=== PATIENT | female | born 1930 | race American Indian/Alaskan Native ===

== ENCOUNTER 2016-03-18 10:43 | Outpatient (RCR) | payer MEDICARE, BC ==
[~2016-03-18 10:43] MED LIST: ACHD5005 PO; ATEN25TA PO; CEPH500C PO; DIPH-639 PO; DOXY100C2 PO; FURO40TA4 PO; HYDR-3729 PO; HYDR1TAB PO; LEVO50TA6 PO; NITR100C3 PO; POTA10CA43 PO; POTA99TA21 PO; PRD20T PO; SULF1TAB38 PO; THYROID MEDICATION; WARF-48 PO; WRF1T PO; [UNRECOGNIZED DRUG - REMARK]
--- OUTSIDE RECORDS SUMMARY | 2016-03-18 10:48 | XMS REPORT | Continuity of Care Document ---
Author Author [facility] Organization [facility] Address Unknown Phone Unavailable Care Team Providers Care Set Making Machine Operator Name Role Phone Gregg Jackson PCP [phone] Source Comments Some departments are not documenting in the electronic medical record. If you do not see the information that you expected, contact Release of Information in the Health Information Management department at [phone] for further assistance in locating additional records.[facility] Active Allergies and Adverse Reactions Allergen Noted Date Severity Reactions Comments Morphine 07/06/2008 AGITATION, MENTAL STATUS CHANGES Current Medications Prescription Sig. Disp. Refills Start End Date Status Date levothyroxine (SYNTHROID) Take 1 Tab by mouth 03/26/19 Active 50 mcg tablet Daily. 08 warfarin (COUMADIN) 5 mg Take by mouth Daily. 1 03/26/19 Active tablet tablet daily 08 hydrochlorothiazide 12.5 Take 10-12.5 mg by mouth 03/26/19 Active mg capsule Daily. Lising-HCTZ 08 10/12.5mg daily carvedilol (COREG) 12.5 Take 1 Tab by mouth Twice Active mg tablet Daily With Meals. tolterodine LA, +, Take 1 Cap by mouth Active (DETROL LA) 4 mg capsule Daily. sertraline (ZOLOFT) 50 mg Take 1 Tab by mouth Active tablet Daily. potassium chloride Take 1 Tab by mouth Twice Active (KLOR-CON 10) 10 mEq Daily. tablet lisinopril 10 mg Tab 10 Take 1 Tab by mouth Active mg, hydrochlorothiazide Daily. 12.5 mg Cap 12.5 mg per each dose furosemide (LASIX) 40 mg Take 1 Tab by mouth Active tablet Daily. AMOXICILLIN TRIHYDRATE Take 500 mg by mouth. Active (AMOXICILLIN PO) doxylamine,+, (UNISOM) 25 Take 25 mg by mouth At Active mg tablet Bedtime as needed. oxycodone/acetaminophen Take 1-2 Tabs by mouth 45 0 08/08/19 Active (PERCOCET) 5/325 mg Every 4 Hours as needed 09 tablet for Pain. senna/docusate Take 2 Tabs by mouth 50 0 08/08/19 Active (SENOKOT-S) 8.6/50 mg Twice Daily. 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 Severe headache 03/26/2007 Social History Tobacco Use Types Packs/Day Years Used Date Former Smoker Cigarettes 4 50 Comments: quit 2007 Alcohol Use Drinks/Week oz/Week Comments Yes daily a beer or mixed drink Last Filed Vital Signs Vital Sign Reading Time Taken Blood Pressure 125/53 08/08/2008 8:05 AM CDT Pulse 85 08/08/2008 8:05 AM CDT Temperature 36.7 C (98.1 F) 08/08/2008 8:05 AM CDT Respiratory Rate - - Height 1.575 m (5' 2") 08/05/2008 8:00 AM CDT Weight 69 kg (152 lb 1.9 oz) 08/05/2008 8:00 AM CDT Body Mass Index 27.82 08/05/2008 8:00 AM CDT Oxygen Saturation 98% 08/08/2008 8:05 AM CDT Plan of Care Health Maintenance Due Date Last Done Comments Physical (Comprehensive) 1937 Exam Pertussis Vaccine 1941 Tetanus Vaccine 05/10/1947 Breast Cancer Screening 1970 Shingles Vaccine 1990 Osteoporosis Screening 05/10/1995 Prevnar/Pneumovax (#1) 05/10/1995 Influenza Vaccine 11/01/2014 Results from Last 3 Months Not on file
[2016-03-18 11:30] LABS: INR 1.3 (0.8-1.4); PROTHROMBIN TIME PATIENT 15.7 SEC (12.2-14.7)
== END 2016-06-16 | disposition home or self-care (01) ==
LOC: LAB 10:43
PROVIDERS: ATTEND Family Medicine
DX: Z51.81 Encounter for therapeutic drug level monitoring (principal); Z79.01 Long term (current) use of anticoagulants
CPT/HCPCS: 36415; 85610

== ENCOUNTER → 2016-05-08 | Outpatient (CLI) | payer MEDICARE, BC ==
--- OUTSIDE RECORDS SUMMARY | 2016-05-08 09:57 | XMS REPORT | Continuity of Care Document ---
Author Author [facility] Organization [facility] Address Unknown Phone Unavailable Care Team Providers Care Data Analyst Name Role Phone Gregg Jackson PCP [phone] Source Comments Some departments are not documenting in the electronic medical record. If you do not see the information that you expected, contact Release of Information in the Health Information Management department at [phone] for further assistance in locating additional records.[facility] Active Allergies and Adverse Reactions Allergen [...]
[2016-05-08 11:01] LABS: THYROID STIMULATING HORMONE 2.36 UIU/ML (0.35-4.94)
== END ==
LOC: LAB 09:53
PROVIDERS: ATTEND Family Medicine
DX: E03.9 Hypothyroidism, unspecified (principal)
CPT/HCPCS: 36415; 84439; 84443

== ENCOUNTER → 2016-05-23 | Outpatient (CLI) | payer MEDICARE, BC ==
--- NOTE | 2016-05-23 14:03 | Diagnostic Imaging Report ---
Examination: DEXA scan. Indication: osteopenia Technique: Bone mineral density estimated based on dual energy radiography over the lumbar spine and femoral necks, was performed. Findings: The lumbar spine T-score is 0.6. 5 T score over the right femoral neck is -0.5 and on the left side is -0.5. IMPRESSION: Bone mineral density within normal limits. Dictated by: Dictated on workstation # [id number]
== END ==
LOC: RAD 09:00
PROVIDERS: ATTEND Family Medicine
DX: Z13.820 Encounter for screening for osteoporosis (principal); M89.9 Disorder of bone, unspecified
CPT/HCPCS: 77080

== ENCOUNTER 2016-09-29 07:36 | Emergency (ER) | payer BC, MEDICARE ==
[~2016-09-29] VITALS: Ht 167.6 cm; Wt 68.0 kg
--- NOTE | 2016-09-29 07:55 | ED Back Pain ---
General Chief Complaint: Back Problems Stated Complaint: BACK PAIN Source of Information: Patient, Family (daughter) Exam Limitations: No Limitations History of Present Illness Time Seen by Provider: 07:49 Initial Comments Patient presents to ER with approximate 2 days of back pain that is presently at 8 out of 10. She is not able to tolerate the pain. She says it is in the lower back midline and radiates to the left and right side of her hips but does not radiate down into her legs there is no numbness, or new incontinence of bowel or bladder. However she does have occasional overflow incontinence of urine for several years. She is not having a cough fever or malaise nausea vomiting diarrhea or pain anywhere else. She's not having any confusion. She has not taken anything for it. She takes Tylenol last night but does not feel this helped much. She does not have a back brace. She's had no falls or weakness. No tingling or numbness. 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 Patient states in the past when she gets back pain like this [employer] has worked very well for her pain. Allergies and Home Medications Allergies Coded Allergies: TOBINANo Known Allergies (Verified Allergy, Unknown, 06/22/05) Home Medications Atenolol 25 Mg Tablet, 25 MG PO DAILY, (Reported) Cephalexin 500 Mg Capsule, 500 MG PO Q8H, (Reported) #30 CAPSULES FILLED 06-08-15 Diphenhydramine HCl 25 Mg Capsule, 25 MG PO HS, (Reported) Furosemide 40 Mg Tablet, 40 MG PO DAILY, (Reported) Levothyroxine Sodium 50 Mcg Tablet, 50 MCG PO DAILY, (Reported) Potassium Gluconate 99 Mg Tablet, 99 MG PO DAILY, (Reported) Warfarin Sodium 5 Mg Tablet, 2.5 MG PO DAILY, (Reported) TAKES 1/2 (5MG) TABLET Constitutional: No chills, No diaphoresis, No fever, No malaise, No weakness EENTM: No blurred vision, No double vision Respiratory: No cough, No short of breath, No wheezing Cardiovascular: No chest pain, No edema, No palpitations, No syncope, No vascular heart diseas Gastrointestinal: No constipation, No diarrhea, No nausea, other (no incontinence of stool) Genitourinary: No discharge, No dysuria, incontinence (chronic stress incontinence) : No Musculoskeletal: see HPI, back pain, No joint pain Skin: No pruritus, No rash Psychiatric/Neurological: Denies Headache, Denies Numbness, Denies Paresthesia , Denies Seizure, Denies Tingling, Denies Weakness Past [place]oqe-Mzmvzy-[place] Hx Patient Social History Alcohol Use: Denies Use Recreational Drug Use: No Smoking Status: Unknown if Ever Smoked Former Smoker/When Quit: Jun 09, 2015 Recent Foreign Travel: No Contact w/Someone Who Travel: No Immunizations Up To Date Tetanus Booster (TDap): Less than 5yrs Date of Pneumonia Vaccine: Jun 19, 2014 Date of Influenza Vaccine: Nov 16, 2011 Seasonal Allergies Seasonal Allergies: No Surgeries HX Surgeries: Yes (COLON, BRAIN, SKIN CA REMOVAL L LEG) Surgeries: Abdominal, Breast Respiratory Hx Respiratory Disorders: Yes Respiratory Disorders: Asthma, COPD, Emphysema Cardiovascular Hx Cardiac Disorders: Yes Cardiac Disorders: Aneurysm, Atrial Fibrillation, Deep Vein Thrombosis Neurological Hx Neurological Disorders: Yes Neurological Disorders: Stroke Genitourinary Hx Genitourinary Disorders: No Genitourinary Disorders: UTI-Chronic Gastrointestinal Hx Gastrointestinal Disorders: Yes Gastrointestinal Disorders: Gastroesophageal Reflux Musculoskeletal Hx Musculoskeletal Disorders: Yes Musculoskeletal Disorders: Fibromyalgia Endocrine Hx Endocrine Disorders: Yes Endocrine Disorders: Hypothyroidsim HEENT HX ENT Disorders: No Cancer 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, Cervical Psychosocial Hx Psychiatric Problems: Yes Behavioral Health Disorders: Anxiety Integumentary HX Skin/Integumentary Disorder: No Blood Transfusions Hx Blood Disorders: No Physical Exam Vital Signs Vital Sign - Last 12Hours 09/29/16 07:58 Temp 98.1 Pulse 70 Resp 16 B/P (MAP) 160/63 Pulse Ox 98 O2 Delivery Room Air Capillary Refill : General Appearance: No Apparent Distress, Mild Distress Neck: Full Range of Motion, Normal Inspection, Non Tender, Supple Cardiovascular: Regular Rate, Rhythm, No Edema, Systolic Murmur Respiratory: Chest Non Tender, Lungs Clear, Normal Breath Sounds Peripheral Pulses: 3+ Dorsalis Pedis (R), 3+ Left Dors-Pedis (L), 3+ Radial Pulses (R), 3+ Radial Pulses (L) Gastrointestinal: Normal Bowel Sounds, No Pulsatile Mass, Non Tender, Soft Back: Normal Inspection, Muscle Spasm, Vertebral Tenderness (over the lumbar region and her lumbar muscles) Extremity: Normal Capillary Refill, Normal Range of Motion (walked in with a normal gait), No Pedal Edema Neurologic/Psychiatric: Alert, Oriented x3, No Motor/Sensory Deficits Skin: Normal Color, Warm/Dry Progress/Results/Core Measures Results/Orders My Orders Orders - JENSEN SAAVEDRA Ketorolac Injection (Toradol Injection) (09/29/16 08:00) Orphenadrine Injection (Norflex Injectio (09/29/16 08:00) Prednisone Tablet (Deltasone Tablet) (09/29/16 08:00) Vital Signs/I&O Vital Sign - Last 12Hours 09/29/16 07:58 Temp 98.1 Pulse 70 Resp 16 B/P (MAP) 160/63 Pulse Ox 98 O2 Delivery Room Air Progress Note : Time: 08:07 Progress Note Other than age patient has no risk factors. She has a history of chronic lumbago that is intermittent. We'll treat her appropriately and gave her specific return instructions to see her PCP if not having some improvement in 1- 2 weeks. At that time then she may merit some imaging but 2 days of classic lumbago without red flags we will just initiate conservative therapy this time. It seems her main concern is that she has plans to travel with her daughter up the [facility] next weekend and wants to make sure that she will be feeling better by then. Departure Impression Impression: Primary Impression: Back pain Qualified Codes: M54.5 - Low back pain Disposition: 01 HOME, SELF-CARE Condition: Improved Departure-Patient Inst. Decision time for Depature: 08:08 Referrals: TANISHA OLMSTEAD DO (PCP/Family) Primary Care Physician Patient Instructions: Lumbar Muscle Strain (DC) Add. Discharge Instructions: Take the Naprosyn by mouth twice daily. If you're not having improvement within 1-2 weeks you should follow up with your primary care physician. Apply heat to your back using heating pad or icy hot or other cream. You should also wear the back brace on every day that it helps you. Follow up with your primary care physician for further management if needed. Use the Tylenol 1000 mg every 8 hours as needed for breakthrough pain. Also you have been given a muscle relaxant to be used twice daily as needed. You should not drink while under the influence of the muscle relaxant as this will cause you to be very drowsy. No operating heavy machinery, driving or drinking and contracts while under the influence of muscle relaxants. If you started having numbness or weakness in the legs or arms or you have incontinence of your bowel or bladder more than usual then you should return to the ER for further evaluation. If you start having shortness of breath, chest pain or stomach pain you should immediately stop the Naprosyn and call your primary doctor or return to the ER which ever is appropriate. You should contact your doctor Friday to have your INR checked 2-3 days after starting Naprosyn as this may increase your Coumadin levels and cause you to have easier bleeding. Tomorrow start taking 40 mg of prednisone daily for the next 4 days. Prednisone may cause a little flushing in the face, insomnia, increased blood pressure while you're on the medicine. All discharge instructions reviewed with patient and/or family. Voiced understanding. Scripts Cyclobenzaprine HCl (Cyclobenzaprine HCl) 10 Mg Tablet 10 MG PO BID Y for SPASMS, #20 TAB 0 Refills Prov: JENSEN SAAVEDRA 09/29/16 Naproxen (Naprosyn) 500 Mg Tablet 500 MG PO BID for 14 Days, #30 TAB 0 Refills Prov: JENSEN SAAVEDRA 09/29/16 Copy Copies To 1: TANISHA OLMSTEAD DO JENSEN SAAVEDRA Sep 29, 2016 07:55
[2016-09-29] MEDS ORDERED: KETOROLAC 30 MG/ML VIAL ONE (07:58)
[2016-09-29] MEDS ORDERED: KETOROLAC 15 MG/ML VIAL IM ONE (08:00)
[2016-09-29] MEDS ORDERED: ORPHENADRINE 60 MG/2 ML (NORFLEX) AMP IM ONE (08:00)
[2016-09-29] MEDS ORDERED: predniSONE 20 MG TAB PO ONE (08:00)
[2016-09-29] MEDS ORDERED: NAPR500T PO ×2 (08:12→08:23)
[2016-09-29] MEDS ORDERED: CYCL10TA9 PO ×2 (08:12→08:23)
[2016-09-29] MEDS ORDERED: PRD20T PO ×2 (08:18→08:23)
[2016-09-29 08:34] VITALS: BP 152/70
== END 2016-09-29 08:34 | disposition home or self-care (01) ==
LOC: EDUNIT# 07:36 → ER 07:36
DX: M54.5 Low back pain (principal); J43.9 Emphysema, unspecified; I48.91 Unspecified atrial fibrillation; E03.9 Hypothyroidism, unspecified; F41.9 Anxiety disorder, unspecified; K21.9 Gastro-esophageal reflux disease without esophagitis; Z85.41 Personal history of malignant neoplasm of cervix uteri; Z86.73 Personal history of transient ischemic attack (TIA), and cerebral infarction without residual deficits; Z85.3 Personal history of malignant neoplasm of breast; Z85.038 Personal history of other malignant neoplasm of large intestine; Z86.718 Personal history of other venous thrombosis and embolism; Z79.01 Long term (current) use of anticoagulants
CPT/HCPCS: 96372; 99284

== ENCOUNTER 2017-06-29 09:00 | Emergency (ER) | payer MEDICARE, BC ==
[~2017-06-29] VITALS: Ht 157.5 cm; Wt 68.0 kg
[~2017-06-29 09:00] MED LIST changes: +CYCL10TA9 PO; +NAPR-1071 PO
--- OUTSIDE RECORDS SUMMARY | 2017-06-29 09:06 | XMS REPORT | Clinical Summary ---
Author Author [facility] Organization [facility] Address Unknown Phone Unavailable Care Team Providers Care Ocean Freight Manager Name Role Phone EdgarGregg solitario PCP Donny Bello MD Unavailable Benny Bustamante MD Unavailable Source Comments Some departments are not documenting in the electronic medical record. If you do not see the information that you expected, contact Release of Information in the Health Information Management department at [phone] for further assistance in locating additional records.[facility] Allergies Active Allergy Reactions Severity Noted Date Comments Morphine AGITATION, MENTAL STATUS 07/06/2008 CHANGES Current Medications Prescription Sig. Disp. Refills [...] Yes daily a beer or mixed drink Sex Assigned at Date Recorded Not on file Last Filed Vital Signs Vital Sign Reading Time Taken Blood Pressure 125/53 08/08/2008 8:05 AM CDT Pulse 85 08/08/2008 8:05 AM CDT Temperature 36.7 C (98.1 F) 08/08/2008 8:05 AM CDT Respiratory Rate - - Oxygen Saturation 98% 08/08/2008 8:05 AM CDT Inhaled Oxygen - - Concentration Weight 69 kg (152 lb 1.9 oz) 08/05/2008 8:00 AM CDT Height 157.5 cm (5' 2") 08/05/2008 8:00 AM CDT Body Mass Index 27.82 08/05/2008 8:00 AM CDT Plan of Treatment Health Maintenance Due Date Last Done Comments PHYSICAL (COMPREHENSIVE) 1937 EXAM PERTUSSIS VACCINE 1941 TETANUS VACCINE 05/10/1947 SHINGLES VACCINE 1990 OSTEOPOROSIS SCREENING 05/10/1995 PREVNAR/PNEUMOVAX (#1) 05/10/1995 INFLUENZA VACCINE 12/01/2017 Results Not on filefrom Last 3 Months
--- OUTSIDE RECORDS SUMMARY | 2017-06-29 09:08 | XMS REPORT | Continuity of Care Document ---
Author Author [facility] Organization [facility] Address Unknown Phone Unavailable Allergies Active Description Code Type Severity Reaction Onset Reported/Identified Relationship to Patient Clinical Status Yes NKANo Known Allergies NKA Miscellaneous Allergy Unknown N/A 06/22/2005 Medications There is no data. 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 01/30/1199 DARSHAN MARTINI MD Ot L97.222 NON-PRESSURE CHRONIC ULCER OF LEFT CALF 01/30/1199 DARSHAN MARTINI MD Ot Z72.0 TOBACCO USE 11/24/2011 Ot 305.1 TOBACCO USE DISORDER 11/24/2011 Ot 466.0 ACUTE BRONCHITIS 11/24/2011 Ot 784.0 HEADACHE 11/24/2011 Ot 786.05 SHORTNESS OF BREATH 11/24/2011 Ot 787.02 NAUSEA ALONE 11/24/2011 Ot V58.61 ANTICOAGULANTS,LT,CURRENT USE 11/24/2011 Ot V58.69 OTH MED,LT, CURRENT USE 08/16/2012 TYE SANTIAGO, ISAIAS Soto Ot 729.5 PAIN IN LIMB 08/16/2012 TYE SANTIAGO, ISAIAS Soto Ot 789.09 ABDOMINAL PAIN, OTHER SPECIFIED SITE 08/16/2012 ISAIAS GAMBLE MD Ot V58.61 ANTICOAGULANTS,LT,CURRENT USE 08/16/2012 ISAIAS GAMBLE MD Ot V58.69 OTH MED,LT,CURRENT USE 08/28/2012 CASSIDY SANTIAGO, CHACORTA Louise Ot 599.0 URIN TRACT INFECTION NOS 08/28/2012 CHACORTA BENJAMIN MD Ot 724.2 LUMBAGO 08/28/2012 CHACORTA BENJAMIN MD Ot 789.09 ABDOMINAL PAIN, OTHER SPECIFIED SITE 08/28/2012 CHACORTA BENJAMIN MD Ot 807.01 FRACTURE ONE RIB-CLOSED 08/28/2012 CHACORTA BENJAMIN MD Ot E000.8 OTHER EXTERNAL CAUSE STATUS 08/28/2012 CHACORTA BENJAMIN MD Ot E928.9 ACCIDENT NOS 10/11/2012 CHACORTA BENJAMIN MD Ot 599.0 URIN TRACT INFECTION NOS 10/11/2012 CHACORTA BENJAMIN MD Ot 788.1 DYSURIA 04/11/2014 TANISHA OLMSTEAD DO Ot 244.9 10/07/2014 CHACORTA BENJAMIN MD Ot 916.0 ABRASION HIP LEG 10/07/2014 CHACORTA BENJAMIN MD Ot 922.1 CONTUSION OF CHEST WALL 10/07/2014 CHACORTA BENJAMIN MD Ot 959.11 OTH INJURY OF CHEST WALL 10/07/2014 CHACORTA BENJAMIN MD Ot E000.8 OTHER EXTERNAL CAUSE STATUS 10/07/2014 CHACORTA BENJAMIN MD Ot E849.0 ACCIDENT IN HOME 10/07/2014 CHACORTA BENJAMIN MD Ot E880.9 FALL ON STAIR/STEP NEC 10/07/2014 CHACORTA BENJAMIN MD Ot V12.51 HX-VENOUS THROMBOSIS EMBOLISM 10/07/2014 CHACORTA BENJAMIN MD Ot V58.61 ANTICOAGULANTS,LT,CURRENT USE 11/27/2014 RICKI CARDENAS MD Ot 723.1 CERVICALGIA 11/27/2014 RICKI CARDENAS MD Ot 729.1 MYALGIA AND MYOSITIS NOS 05/15/2015 Ot 780.2 05/15/2015 TANISHA OLMSTEAD DO Ot 244.9 06/04/2015 Ot F17.210 NICOTINE DEPENDENCE, CIGARETTES, UNCOMPL 06/04/2015 Ot I73.9 PERIPHERAL VASCULAR DISEASE, UNSPECIFIED 06/04/2015 Ot S81.802A UNSPECIFIED OPEN WOUND, LEFT LOWER LEG, 06/04/2015 Ot X58.XXXA EXPOSURE TO OTHER SPECIFIED FACTORS, INI 06/04/2015 Ot Y99.8 OTHER EXTERNAL CAUSE STATUS 06/06/2015 TANISHA OLMSTEAD DO Ot E03.9 06/08/2015 DARSHAN MARTINI MD Ot I70.242 06/08/2015 DARSHAN MARTINI MD Ot I87.332 06/08/2015 DARSHAN MARTINI MD Ot L97.222 06/08/2015 DARSHAN MARTINI MD Ot Z72.0 06/10/2015 Ot F17.210 06/10/2015 Ot I73.9 06/10/2015 Ot S81.802A 06/10/2015 Ot X58.XXXA 06/10/2015 Ot Y99.8 06/13/2015 DARSHAN MARTINI MD Ot I70.242 06/13/2015 DARSHAN MARTINI MD Ot I87.332 06/13/2015 DARSHAN MARTINI MD Ot L97.222 06/13/2015 DARSHAN MARTINI MD Ot Z72.0 06/20/2015 SALOME SANTIAGO FACC, JENNIFER FACP CCDS Ot E03.9 HYPOTHYROIDISM, UNSPECIFIED 06/20/2015 SALOME SANTIAGO FACAbner, ALI FACP CCDS Ot F17.210 NICOTINE DEPENDENCE, CIGARETTES, UNCOMPL 06/20/2015 SALOME SANTIAGO FACC, ALI FACP CCDS Ot I10 ESSENTIAL (PRIMARY) HYPERTENSION 06/20/2015 SALOME SANTIAGO FACAbner, ALI FACP CCDS Ot I70.0 ATHEROSCLEROSIS OF AORTA 06/20/2015 SALOME SANTIAGO FACC, ALI FACP CCDS Ot J44.9 CHRONIC OBSTRUCTIVE PULMONARY DISEASE, U 06/20/2015 SALOME SANTIAGO FACAbner, ALI FACP CCDS Ot 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 06/20/2015 SALOME SANTIAGO FACC, ALI FACP CCDS Ot M79.89 OTHER SPECIFIED SOFT TISSUE DISORDERS 06/20/2015 SALOME SANTIAGO FACC, ALI FACP CCDS Ot Z79.01 MCFP (CURRENT) USE OF ANTICOAGULANT 06/20/2015 SALOME SANTIAGO FACC, ALI FACP CCDS Ot Z79.899 OTHER MCFP (CURRENT) DRUG THERAPY 06/20/2015 SALOME SANTIAGO FACC, ALI FACP CCDS Ot Z86.718 PERSONAL HISTORY OF OTHER VENOUS THROMBO 06/26/2015 DARSHAN MARTINI MD Ot 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 06/26/2015 DARSHAN MARTINI MD Ot 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 06/26/2015 DARSHAN MARTINI MD, Ot L97.222 NON-PRESSURE CHRONIC ULCER OF LEFT CALF 06/26/2015 DARSHAN MARTINI MD, Ot Z72.0 TOBACCO USE 06/27/2015 DARSHAN MARTINI MD, Ot 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 06/27/2015 DARSHAN MARTINI MD, Ot 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 06/27/2015 DARSHAN MARTINI MD, Ot L97.222 NON-PRESSURE CHRONIC ULCER OF LEFT CALF 06/27/2015 DARSHAN MARTINI MD, Ot Z72.0 TOBACCO USE 07/03/2015 SALOME SNIDERC, ALI FACP CCDS Ot E03.9 HYPOTHYROIDISM, UNSPECIFIED 07/03/2015 SALOME SANTIAGO FACC, ALI FACP CCDS Ot F17.210 NICOTINE DEPENDENCE, CIGARETTES, UNCOMPL 07/03/2015 SALOME SANTIAGO FACC, ALI FACP CCDS Ot I10 ESSENTIAL (PRIMARY) HYPERTENSION 07/03/2015 SALOME SNIDERC, ALI FACP CCDS Ot I70.0 ATHEROSCLEROSIS OF AORTA 07/03/2015 SALOME SNIDERC, ALI FACP CCDS Ot J44.9 CHRONIC OBSTRUCTIVE PULMONARY DISEASE, U 07/03/2015 SALOME SANTIAGO FACAbner, ALI FACP CCDS Ot 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 07/03/2015 SALOME SANTIAGO FACC, ALI FACP CCDS Ot M79.89 OTHER SPECIFIED SOFT TISSUE DISORDERS 07/03/2015 SALOME SANTIAGO FACC, ALI FACP CCDS Ot Z79.01 MCFP (CURRENT) USE OF ANTICOAGULANT 07/03/2015 SALOME SANTIAGO FACC, ALI FACP CCDS Ot Z79.899 OTHER DIRECTOR OF MUSIC THERAPY (CURRENT) DRUG THERAPY 07/03/2015 SALOME SANTIAGO FACC, ALI FACP CCDS Ot Z86.718 PERSONAL HISTORY OF OTHER VENOUS THROMBO 07/05/2015 DARSHAN MARTINI MD, Ot I70.242 ATHSCL CRAIG ARTERIES OF LEFT LEG W C 07/05/2015 DARSAHN MARTINI MD, Ot 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 07/05/2015 DARSHAN MARTINI MD, Ot L97.222 NON-PRESSURE CHRONIC ULCER OF LEFT CALF 07/05/2015 DARSHAN MARTINI MD, Ot Z72.0 TOBACCO USE 07/06/2015 DARSHAN MARTINI MD, Ot I70.242 ATHSCL CRAIG ARTERIES OF LEFT LEG W [facility] 07/06/2015 DARSHAN MARTINI MD, Ot 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 07/06/2015 DARSHAN MARTINI MD, Ot L97.222 NON-PRESSURE CHRONIC ULCER OF LEFT CALF 07/06/2015 DARSHAN MARTINI MD, Ot Z72.0 TOBACCO USE 01/08/2016 Ot 780.2 SYNCOPE AND COLLAPSE 01/08/2016 TANISHA OLMSTEAD DO Ot 244.9 HYPOTHYROIDISM NOS 01/08/2016 TANISHA OLMSTEAD DO Ot E03.9 HYPOTHYROIDISM, UNSPECIFIED 01/08/2016 DARSHAN MARTINI MD, Ot I70.242 ATHSCL CRAIG ARTERIES OF LEFT LEG W [facility] 01/08/2016 DARSHAN MARTINI MD, Ot 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 01/08/2016 DARSHAN MARTINI MD, Ot L97.222 NON-PRESSURE CHRONIC ULCER OF LEFT CALF 01/08/2016 DARSHAN MARTINI MD, Ot Z72.0 TOBACCO USE 01/08/2016 DARSHAN MARTINI MD, Ot I70.242 ATHSCL CRAIG ARTERIES OF LEFT LEG W [facility] 01/08/2016 DARSHAN MARTINI MD, Ot 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 01/08/2016 DARSHAN MARTINI MD, Ot L97.222 NON-PRESSURE CHRONIC ULCER OF LEFT CALF 01/08/2016 DARSHAN MARTINI MD, Ot Z72.0 TOBACCO USE 01/09/2016 TANISHA OLMSTEAD DO Ot E03.9 HYPOTHYROIDISM, UNSPECIFIED 01/30/2016 TANISHA OLMSTEAD DO Ot E03.9 HYPOTHYROIDISM, UNSPECIFIED 04/24/2016 TANISHA OLMSTEAD DO Ot Z51.81 ENCOUNTER FOR THERAPEUTIC DRUG LEVEL MON 04/24/2016 TANISHA OLMSTEAD DO, Ot Z79.01 DIRECTOR OF MUSIC THERAPY (CURRENT) USE OF ANTICOAGULANT 05/23/2016 TANISHA OLMSTEAD DO Ot M89.9 DISORDER OF BONE, UNSPECIFIED 05/23/2016 TANISHA OLMSTEAD DO Ot Z13.820 ENCOUNTER FOR SCREENING FOR OSTEOPOROSIS 05/24/2016 TANISHA OLMSTEAD DO Ot M89.9 DISORDER OF BONE, UNSPECIFIED 05/24/2016 TANISHA OLMSTEAD DO Ot Z13.820 ENCOUNTER FOR SCREENING FOR OSTEOPOROSIS 05/29/2016 TANISHA OLMSTEAD DO Ot E03.9 HYPOTHYROIDISM, UNSPECIFIED 06/13/2016 TANISHA OLMSTEAD DO Ot M89.9 DISORDER OF BONE, UNSPECIFIED 06/13/2016 TANISHA OLMSTEAD DO Ot Z13.820 ENCOUNTER FOR SCREENING FOR OSTEOPOROSIS 06/16/2016 TANISHA OLMSTEAD DO Ot Z51.81 ENCOUNTER FOR THERAPEUTIC DRUG LEVEL MON 06/16/2016 TANISHA OLMSTEAD DO Ot Z79.01 MCFP (CURRENT) USE OF ANTICOAGULANT 09/29/2016 JENSEN SAAVEDRA MD Ot E03.9 HYPOTHYROIDISM, UNSPECIFIED 09/29/2016 JENSEN SAAVEDRA MD Ot F41.9 ANXIETY DISORDER, UNSPECIFIED 09/29/2016 JENSEN SAAVEDRA MD Ot I48.91 UNSPECIFIED ATRIAL FIBRILLATION 09/29/2016 JENSEN SAAVEDRA MD Ot J43.9 EMPHYSEMA, UNSPECIFIED 09/29/2016 JENSEN SAAVEDRA MD Ot K21.9 GASTRO-ESOPHAGEAL REFLUX DISEASE WITHOUT 09/29/2016 JENSEN SAAVEDRA MD Ot M54.5 LOW BACK PAIN 09/29/2016 JENSEN SAAVEDRA MD Ot Z79.01 MCFP (CURRENT) USE OF ANTICOAGULANT 09/29/2016 JENSEN SAAVEDRA MD Ot Z85.038 PERSONAL HISTORY OF MALIGNANT NEOPLASM O 09/29/2016 JENSEN SAAVEDRA MD Ot Z85.3 PERSONAL HISTORY OF MALIGNANT NEOPLASM O 09/29/2016 JENSEN SAAVEDRA MD Ot Z85.41 PERSONAL HISTORY OF MALIGNANT NEOPLASM O 09/29/2016 JENSEN SAAVEDRA MD Ot Z86.718 PERSONAL HISTORY OF OTHER VENOUS THROMBO 09/29/2016 JENSEN SAAVEDRA MD Ot Z86.73 PRSNL HX OF TIA (TIA), AND CEREB INFRC W 10/05/2016 JENSEN SAAVEDRA MD Ot E03.9 HYPOTHYROIDISM, UNSPECIFIED 10/05/2016 JENSEN SAAVEDRA MD Ot F41.9 ANXIETY DISORDER, UNSPECIFIED 10/05/2016 JENSEN SAAVEDRA MD Ot I48.91 UNSPECIFIED ATRIAL FIBRILLATION 10/05/2016 JENSEN SAAVEDRA MD, Ot J43.9 EMPHYSEMA, UNSPECIFIED 10/05/2016 JENSEN SAAVEDRA MD Ot K21.9 GASTRO-ESOPHAGEAL REFLUX DISEASE WITHOUT 10/05/2016 JENSEN SAAVEDRA MD Ot M54.5 LOW BACK PAIN 10/05/2016 JENSEN SAAVEDRA MD, Ot Z79.01 MCFP (CURRENT) USE OF ANTICOAGULANT 10/05/2016 JENSEN SAAVEDRA MD Ot Z85.038 PERSONAL HISTORY OF MALIGNANT NEOPLASM O 10/05/2016 JENSEN SAAVEDRA MD, Ot Z85.3 PERSONAL HISTORY OF MALIGNANT NEOPLASM O 10/05/2016 JENSEN SAAVEDRA MD, Ot Z85.41 PERSONAL HISTORY OF MALIGNANT NEOPLASM O 10/05/2016 JENSEN SAAVEDRA MD, Ot Z86.718 PERSONAL HISTORY OF OTHER VENOUS THROMBO 10/05/2016 JENSEN SAAVEDRA MD, Ot Z86.73 PRSNL HX OF TIA (TIA), AND CEREB INFRC W Procedures There is no data. Results Test Result Range THYROID STIMULATING HORMONE - 01/08/16 09:15 THYROID STIMULATING HORMONE 3.66 u[iU]/mL 0.35-4.94 PT panel in platelet poor plasma by coagulation assay - 03/18/16 10:50 Prothrombin time (PT) in platelet poor plasma by coagulation assay 15.7 s 12.2-14.7 INR in platelet poor plasma or blood by coagulation assay 1.3 0.8-1.4 THYROID STIMULATING HORMONE - 05/08/16 10:17 THYROID STIMULATING HORMONE 2.36 u[iU]/mL 0.35-4.94 Serum or plasma thyroxine (T4) free measurement (mass/volume) - 05/08/16 10:17 Serum or plasma thyroxine (T4) free measurement (mass/volume) 1.07 ng/dL 0.70-1.48 Encounters ACCT No. Visit Date/Time Discharge Status Pt. Type Provider Facility Loc./Unit Complaint [id number] 09/29/2016 07:36:00 09/29/2016 08:34:00 DIS Emergency JENSEN SAAVEDRA MD [facility] ER BACK PAIN [id number] 06/17/2016 00:14:00 06/17/2016 23:59:59 CLS Preadmit TANISHA OLMSTEAD DO [facility] LAB MONITOR FOR COUMADIN THERAPY [id number] 03/18/2016 10:43:00 06/16/2016 00:01:00 DIS Outpatient TANISHA OLMSTEAD DO [facility] LAB MONITOR FOR COUMADIN THERAPY [id number] 05/23/2016 09:00:00 05/23/2016 23:59:59 CLS Outpatient TANISHA OLMSTEAD DO [facility] RAD M89.9 [id number] 05/08/2016 09:53:00 05/08/2016 23:59:59 CLS Outpatient TANISHA OLMSTEAD DO [facility] LAB HYPOTHYROIDISM [id number] 01/08/2016 09:07:00 01/08/2016 23:59:59 CLS Outpatient TANISHA OLMSTEAD DO [facility] LAB 244.9 [id number] 06/26/2015 11:22:00 06/26/2015 12:00:00 DIS Outpatient DARSHAN MARTINI MD [facility] WOUNDCARE [id number] 06/20/2015 08:25:00 06/20/2015 19:40:00 DIS Outpatient SALOME SANTIAGO FACC, JENNIFER FACBladimir CCDS [facility] CATH PAD,TOBACCO USE,ABNORMAL ARTERIAL US [id number] 06/12/2015 10:09:00 06/12/2015 23:59:59 CLS Outpatient DARSHAN MARTINI MD [facility] LAB L CALF VENOUS ULCER [id number] 06/07/2015 10:48:00 06/07/2015 23:59:59 CLS Outpatient DARSHAN MARTINI MD [facility] RAD CHRONIC ULCER OF L CALF [id number] 05/15/2015 09:23:00 05/15/2015 23:59:59 CLS Outpatient AYSHA SUN TANISHA Shantal [facility] LAB HYPOTHYROIDISM [id number] 11/27/2014 08:20:00 11/27/2014 10:23:00 DIS Emergency RICKI CARDENAS MD [facility] ER SHOULDER AND NECK PAIN [id number] 10/07/2014 00:24:00 10/07/2014 03:50:00 DIS Emergency CHACORTA BENJAMIN MD [facility] ER FELL OFF PORCH-SIDE PAIN [id number] 03/18/2014 09:19:00 03/18/2014 23:59:59 [facility] Outpatient TANISHA OLMSTEAD DO [facility] LAB HYPOTHYROIDISM [id number] 10/11/2012 19:44:00 10/11/2012 21:28:00 DIS Emergency CHACORTA BENJAMIN MD [facility] ER URINARY TRACT INFECTIN [id number] 08/27/2012 22:11:00 08/28/2012 01:15:00 DIS Emergency CHACORTA BENJAMIN MD [facility] ER BACK PAIN [id number] 08/16/2012 16:59:00 08/16/2012 19:53:00 DIS Emergency ISAIAS GAMBLE MD [facility] ER L LEG PAIN [id number] 06/05/2015 14:31:00 Document Registration [id number] 11/24/2011 02:42:00 Document Registration [id number] 02/18/2011 10:16:00 Document Registration [email or web address] 11/28/2014 01:48:23 ACT Document Registration
--- NOTE | 2017-06-29 09:45 | ED Trauma-Multisystem ---
General Chief Complaint: Trauma-Non Activation Stated Complaint: FALL, NOW HAVING CP, SOB Nursing Triage Note: ARRIVED VIA AMB TO ROOM 06. STATES YESTERDAY AFTERNOON SHE FELL OFF HER PORCH LANDING ON HER LEFT BREAST. POSITIVE LOC. COMPLAINS OF LEFT BREAST PAIN AND GENERALIZED PAIN ALL OVER. DENIES NECK PAIN. DAUGHTER STATES SHE TOLD HER THAT SHE FELL WHILE ON GROUND YESTERDAY ET NOT OFF THE PORCH. Source of Information: Patient Exam Limitations: No Limitations History of Present Illness Date Seen by Provider: Jun 29, 2017 Time Seen by Provider: 09:40 Initial Comments The patient is an 87-year-old white female who sustained a fall at her home yesterday. She now presents complaining of pain including chest pain. She has a fear that she may have ruptured her left breast implants. She told her daughter yesterday that she had fallen while walking in front of her truck. Today she states that she fell off her porch and landed on the sidewalk. This occurred while trying to catch her little dog who had escaped its time. She states that she fell off the porch and landed on the sidewalk. She believes there was loss of consciousness. She now complains of chest pain and difficulty taking a deep breath. She also takes Coumadin. She has been able to ambulate. Occurred: Yesterday Pain/Injury Location: Chest, Head, Lower Extremity Method of Injury: Direct Blow, Fall Allergies and Home Medications Allergies Coded Allergies: Debra Known Allergies (Verified Allergy, Unknown, 06/22/05) Home Medications Atenolol 25 Mg Tablet, 25 MG PO DAILY, (Reported) Cephalexin 500 Mg Capsule, 500 MG PO Q8H, (Reported) #30 CAPSULES FILLED 06-08-15 Cyclobenzaprine HCl 10 Mg Tablet, 10 MG PO BID PRN for SPASMS Prescribed by: JENSEN SAAVEDRA on 09/29/16822 Diphenhydramine HCl 25 Mg Capsule, 25 MG PO HS, (Reported) Furosemide 40 Mg Tablet, 40 MG PO DAILY, (Reported) Levothyroxine Sodium 50 Mcg Tablet, 50 MCG PO DAILY, (Reported) Naproxen 500 Mg Tablet, 500 MG PO BID Prescribed by: JENSEN SAAVEDRA on 09/29/16822 Potassium Gluconate 99 Mg Tablet, 99 MG PO DAILY, (Reported) Prednisone 20 Mg Tab, 40 MG PO DAILY Prescribed by: JENSEN SAAVEDRA on 09/29/16 0823 Warfarin Sodium 5 Mg Tablet, 2.5 MG PO DAILY, (Reported) TAKES 1/2 (5MG) TABLET Patient Home Medication List Home Medication List Reviewed: Yes Review of Systems Constitutional: see HPI Eyes: No Symptoms Reported Ears: No Symptoms Reported Nose: No Symptoms Reported Mouth: No Symptoms Reported Throat: No Symptoms to Report Respiratory: short of breath, other (pain with deep breath) Gastrointestinal: no symptoms reported Genitourinary: no symptoms reported Skin: no symptoms reported Psychiatric/Neurological: No Symptoms Reported Past Youttpe-Ljhnhy-Baaden Hx Patient Social History Alcohol Beverage of Choice: Mcintosh Recent Foreign Travel: No Contact w/Someone Who Travel: No Recent Infectious Disease Expo: No Immunizations Up To Date Tetanus Booster (TDap): Less than 5yrs Date of Pneumonia Vaccine: Jun 19, 2014 Date of Influenza Vaccine: Nov 16, 2011 Seasonal Allergies Seasonal Allergies: No Past Medical History Surgeries: Yes (COLON, BRAIN, SKIN CA REMOVAL L LEG, BREAST IMPLANTS) Abdominal, Breast Respiratory: Yes Asthma, COPD, Emphysema Cardiac: Yes Aneurysm, Atrial Fibrillation, Deep Vein Thrombosis Neurological: Yes Stroke Genitourinary: No UTI-Chronic Gastrointestinal: Yes Gastroesophageal Reflux Musculoskeletal: Yes Fibromyalgia Endocrine: Yes Hypothyroidsim HEENT: No Cancer: Yes (CERVIX BREAST ) Breast, Cervical Psychosocial: Yes Anxiety Integumentary: No Blood Disorders: No Physical Exam Vital Signs Vital Signs - First Documented 06/29/17 09:04 Temp 98.0 Pulse 62 Resp 18 B/P (MAP) 144/69 (94) Pulse Ox 98 Temperature (Fahrenheit): 98.0 General Appearance: Anxious Head: No Evidence of Injury Eyes: Bilateral Eye Normal Inspection Ears, Nose, Throat: Hearing Grossly Normal Neck: Full Range of Motion, Normal Inspection Cardiovascular: Regular Rate, Rhythm, No Edema, No Gallop, No JVD, No Murmur, Normal Peripheral Pulses Respiratory: Other (tenderness to palpation left chest. The left breast appears normal and its configuration suggests that the implant was not ruptured. No ecchymosis is noted.) Gastrointestinal: Normal Bowel Sounds, No Organomegaly, No Pulsatile Mass, Non Tender, Soft Back: Normal Inspection Extremity: Other (there is bilateral symmetric pretibial bronzy discoloration consistent with venous stasis dermatitis) Skin: Normal Color, Warm/Dry Lymphatic: No Adenopathy Nicky Coma Score Best Eye Response (Nicky): (4) Open Spontaneously Best Verbal Response (Nicky): (5) Oriented Best Motor Response ([place]): (6) Obeys Commands Progress/Results/Core Measures Lab Results Laboratory Tests Test 06/29/17 09:53 Range/Units White Blood Count 8.1 4.3-11.0 10^3/uL Red Blood Count 4.91 4.35-5.85 10^6/uL Hemoglobin 15.1 11.5-16.0 G/DL Hematocrit 43 35-52 % Mean Corpuscular Volume 88 80-99 FL Mean Corpuscular Hemoglobin 31 25-34 PG Mean Corpuscular Hemoglobin Concent 35 32-36 G/DL Red Cell Distribution Width 13.2 10.0-14.5 % Platelet Count 244 130-400 10^3/uL Mean Platelet Volume 10.1 7.4-10.4 FL Neutrophils (%) (Auto) 71 42-75 % Lymphocytes (%) (Auto) 17 12-44 % Monocytes (%) (Auto) 11 0-12 % Eosinophils (%) (Auto) 1 0-10 % Basophils (%) (Auto) 0 0-10 % Neutrophils # (Auto) 5.7 1.8-7.8 X 10^3 Lymphocytes # (Auto) 1.4 1.0-4.0 X 10^3 Monocytes # (Auto) 0.9 0.0-1.0 X 10^3 Eosinophils # (Auto) 0.1 0.0-0.3 10^3/uL Basophils # (Auto) 0.0 0.0-0.1 10^3/uL Prothrombin Time 24.3 H 12.2-14.7 SEC INR Comment 2.2 H 0.8-1.4 Sodium Level 138 135-145 MMOL/L Potassium Level 4.2 3.6-5.0 MMOL/L Chloride Level 102 98-107 MMOL/L Carbon Dioxide Level 24 21-32 MMOL/L Anion Gap 12 5-14 MMOL/L Blood Urea Nitrogen 16 7-18 MG/DL Creatinine 0.81 0.60-1.30 MG/DL Estimat Glomerular Filtration Rate > 60 BUN/Creatinine Ratio 20 Glucose Level 98 70-105 MG/DL Calcium Level 9.7 8.5-10.1 MG/DL Total Bilirubin 0.9 0.1-1.0 MG/DL Aspartate Amino Transf (AST/SGOT) 22 5-34 U/L Alanine Aminotransferase (ALT/SGPT) 12 0-55 U/L Alkaline Phosphatase 55 40-136 U/L Total Protein 7.3 6.4-8.2 GM/DL Albumin 4.3 3.2-4.5 GM/DL My Orders Orders - RICKI CARDENAS MD Cbc With Automated Diff (06/29/17 09:15) Comprehensive Metabolic Panel (06/29/17 09:15) Protime With Inr (06/29/17 09:15) Ct Chest Wo (06/29/17 09:48) Ct Head Wo (06/29/17 09:48) Hydrocodone/Apap 10/325 Tablet (Lortab 1 (06/29/17 11:15) Vital Signs/I&O 06/29/17 09:04 Temp 98.0 Pulse 62 Resp 18 B/P (MAP) 144/69 (94) Pulse Ox 98 Blood Pressure Mean: 94 Departure Impression Primary Impression: fracture left sixth rib Disposition: 01 HOME, SELF-CARE Condition: Stable/Unchanged Departure-Patient Inst. Decision time for Depature: 11:26 Referrals: TANISHA OLMSTEAD DO (PCP/Family) Primary Care Physician Add. Discharge Instructions: All discharge instructions reviewed with patient and/or family. Voiced understanding. You have a rib fracture just below the left breast. These can take 3-4 weeks for the pain to alta. Use your pain medicine judiciously as it is constipating Scripts [nORCO] 7.5 No Conflict Check 4 times a day, #30 Prov: RICKI CARDENAS MD 06/29/17 RICKI CARDENAS MD Jun 29, 2017 09:45
[2017-06-29 10:00] LABS: BASOPHILS % (AUTO) 0 % (0-10); EOSINOPHILS # (AUTO) 0.1 10^3/uL (0.0-0.3); EOSINOPHILS % (AUTO) 1 % (0-10); HEMATOCRIT 43 % (35-52); HEMOGLOBIN 15.1 G/DL (11.5-16.0); LYMPHOCYTES # (AUTO) 1.4 X 10^3 (1.0-4.0); LYMPHOCYTES % (AUTO) 17 % (12-44); MEAN CORPUSCULAR HEMOGLOBIN 31 PG (25-34); MEAN CORPUSCULAR HGB CONC 35 G/DL (32-36); MEAN CORPUSCULAR VOLUME 88 FL (80-99); MEAN PLATELET VOLUME 10.1 FL (7.4-10.4); MONOCYTES # (AUTO) 0.9 X 10^3 (0.0-1.0); MONOCYTES % (AUTO) 11 % (0-12); NEUTROPHILS # (AUTO) 5.7 X 10^3 (1.8-7.8); NEUTROPHILS % (AUTO) 71 % (42-75); PLATELET COUNT 244 10^3/uL (130-400); RED BLOOD COUNT 4.91 10^6/uL (4.35-5.85); RED CELL DISTRIBUTION WIDTH 13.2 % (10.0-14.5); WHITE BLOOD COUNT 8.1 10^3/uL (4.3-11.0)
[2017-06-29 10:12] LABS: INR 2.2 (0.8-1.4); PROTHROMBIN TIME PATIENT 24.3 SEC (12.2-14.7)
--- NOTE | 2017-06-29 10:14 | Diagnostic Imaging Report ---
PROCEDURE: CT head without contrast. TECHNIQUE: Multiple contiguous axial images were obtained through the brain without the use of intravenous contrast. DATE: 06/29/2017. COMPARISON: CT head 06/20/2015. INDICATION: 87-year-old female, fall. FINDINGS: There is mild proportional prominence of the ventricles and CSF spaces compatible with mild cerebral volume loss. There are areas of reduced attenuation in the periventricular and subcortical white matter which are nonspecific but most likely reflect moderate changes of chronic small vessel ischemic disease. There is a redemonstrated and unchanged calcification adjacent to the frontal falx. The ventricles and cerebral spinal fluid spaces are of normal size and configuration for the patient's age. There is no mass effect or midline shift. There is no acute intracranial hemorrhage. There is no abnormal extra-axial fluid collection. The visualized portions of the paranasal sinuses, mastoid air cells and middle ears are well aerated. IMPRESSION: 1. No identified acute intracranial abnormality. 2. Mild cerebral volume loss and probable moderate changes of chronic small vessel ischemic disease. Dictated by: Dictated on workstation # [id number]
[2017-06-29 10:19] LABS: ALANINE AMINOTRANSFERASE 12 U/L (0-55); ALBUMIN 4.3 GM/DL (3.2-4.5); ALKALINE PHOSPHATASE 55 U/L (40-136); BILIRUBIN,TOTAL 0.9 MG/DL (0.1-1.0); BUN/CREATININE RATIO 20; CALCIUM 9.7 MG/DL (8.5-10.1); CARBON DIOXIDE 24 MMOL/L (21-32); CHLORIDE 102 MMOL/L (98-107); CREATININE SERUM 0.81 MG/DL (0.60-1.30); GFR ESTIMATED > 60; GLUCOSE 98 MG/DL (70-105); POTASSIUM 4.2 MMOL/L (3.6-5.0); SODIUM 138 MMOL/L (135-145); TOTAL PROTEIN 7.3 GM/DL (6.4-8.2)
--- NOTE | 2017-06-29 10:26 | Diagnostic Imaging Report ---
PROCEDURE: CT chest without contrast. TECHNIQUE: Multiple contiguous axial images were obtained through the chest without the use of intravenous contrast. DATE: 06/29/2017. COMPARISON: Chest radiograph 10/07/2014. CT chest, abdomen, and pelvis 10/07/2014. INDICATION: 87-year-old female, fall yesterday. Left chest wall pain. PROCEDURE: Axial noncontrasted CT images of the chest. Noncontrasted limits the evaluation of the mediastinum and vascular structures. FINDINGS: There is a stable 3 mm right upper lobe pulmonary nodule on axial image 12 compatible with benign etiology. There is no otherwise identified pulmonary nodule or mass. There is minimal atelectasis or scarring in the right middle lobe and lingula. There is no additional focal airspace consolidation. There is no pneumothorax. There is no pleural effusion. The central airways are patent. The heart is not enlarged. There is no pericardial effusion. There are atherosclerotic calcifications. There are calcified bilateral hilar lymph nodes most likely relating to sequela of prior granulomatous disease. There is no identified abnormally enlarged noncalcified mediastinal or axillary lymph node. There are bilateral breast implants. The patient is status post cholecystectomy. Small splenic and liver calcifications may relate to sequela of prior granulomatous disease. Additional limited noncontrast evaluation of the visualized portions of the upper abdomen is unremarkable. There is a minimally displaced fracture of the left anterior sixth rib best seen on axial image 40. This appears most likely acute in age based on imaging appearance. There are degenerative changes of the spine. IMPRESSION: 1. Acute appearing very minimally displaced left anterior sixth rib fracture. 2. No identified acute cardiopulmonary abnormality. 3. Sequela of prior granulomatous disease. Dictated by: Dictated on workstation # [id number]
[2017-06-29] MEDS ORDERED: HYDROcodone/APAP 10 MG/325 MG (LORTAB) TAB PO ONE (11:15)
[2017-06-29] MEDS ORDERED: NORCO (11:30)
[2017-06-29 11:50] VITALS: BP 140/66
== END 2017-06-29 11:50 | disposition home or self-care (01) ==
LOC: EDUNIT# 09:00 → ER 09:02
DX: S22.32XA Fracture of one rib, left side, initial encounter for closed fracture (principal); J43.9 Emphysema, unspecified; I48.91 Unspecified atrial fibrillation; K21.9 Gastro-esophageal reflux disease without esophagitis; F41.9 Anxiety disorder, unspecified; R40.2142 Coma scale, eyes open, spontaneous, at arrival to emergency department; R40.2252 Coma scale, best verbal response, oriented, at arrival to emergency department; R40.2362 Coma scale, best motor response, obeys commands, at arrival to emergency department; Z85.41 Personal history of malignant neoplasm of cervix uteri; Z85.3 Personal history of malignant neoplasm of breast; Z86.73 Personal history of transient ischemic attack (TIA), and cerebral infarction without residual deficits; Z87.440 Personal history of urinary (tract) infections; Z86.718 Personal history of other venous thrombosis and embolism; Z79.01 Long term (current) use of anticoagulants; Z79.52 Long term (current) use of systemic steroids; Z85.828 Personal history of other malignant neoplasm of skin; Z98.82 Breast implant status; W18.30XA Fall on same level, unspecified, initial encounter; Y92.009 Unspecified place in unspecified non-institutional (private) residence as the place of occurrence of the external cause; Y93.01 Activity, walking, marching and hiking
CPT/HCPCS: 36415; 70450; 71250; 80053; 85025; 85610

== ENCOUNTER 2017-11-18 11:16 | Emergency (ER) | payer MEDICARE, BC ==
[~2017-11-18] VITALS: Ht 157.5 cm; Wt 68.0 kg
[~2017-11-18 11:16] MED LIST changes: +NORCO
[2017-11-18 13:11] LABS: BILIRUBIN,URINE NEGATIVE (NEGATIVE); CLARITY,URINE VERY CLOUDY; COLOR,URINE YELLOW; GLUCOSE, URINE (UA) NEGATIVE (NEGATIVE); KETONES,URINE NEGATIVE (NEGATIVE); LEUKOCYTE ESTERASE ,URINE 2+ (NEGATIVE); NITRITE,URINE NEGATIVE (NEGATIVE); PH,URINE 7 (5-9); PROTEIN,URINE NEGATIVE (NEGATIVE); UROBILINOGEN,URINE NORMAL (NORMAL)
[2017-11-18 13:25] LABS: BACTERIA,URINE NEGATIVE /HPF; RBC,URINE RARE /HPF; SQUAMOUS EPITHELIAL CELL,UR 0-2 /HPF; WBC,URINE 0-2 /HPF
[2017-11-18 13:32] LABS: BASOPHILS % (AUTO) 0 % (0-10); EOSINOPHILS % (AUTO) 0 % (0-10); HEMATOCRIT 40 % (35-52); HEMOGLOBIN 14.2 G/DL (11.5-16.0); LYMPHOCYTES # (AUTO) 1.3 X 10^3 (1.0-4.0); LYMPHOCYTES % (AUTO) 19 % (12-44); MEAN CORPUSCULAR HEMOGLOBIN 32 PG (25-34); MEAN CORPUSCULAR HGB CONC 35 G/DL (32-36); MEAN CORPUSCULAR VOLUME 89 FL (80-99); MEAN PLATELET VOLUME 10.2 FL (7.4-10.4); MONOCYTES # (AUTO) 0.7 X 10^3 (0.0-1.0); MONOCYTES % (AUTO) 10 % (0-12); NEUTROPHILS # (AUTO) 4.8 X 10^3 (1.8-7.8); NEUTROPHILS % (AUTO) 70 % (42-75); PLATELET COUNT 212 10^3/uL (130-400); RED BLOOD COUNT 4.51 10^6/uL (4.35-5.85); RED CELL DISTRIBUTION WIDTH 12.9 % (10.0-14.5); WHITE BLOOD COUNT 6.8 10^3/uL (4.3-11.0)
[2017-11-18 13:53] LABS: ALANINE AMINOTRANSFERASE 20 U/L (0-55); ALBUMIN 4.4 GM/DL (3.2-4.5); ALKALINE PHOSPHATASE 47 U/L (40-136); BILIRUBIN,TOTAL 0.5 MG/DL (0.1-1.0); BUN/CREATININE RATIO 24; CALCIUM 9.7 MG/DL (8.5-10.1); CARBON DIOXIDE 24 MMOL/L (21-32); CHLORIDE 103 MMOL/L (98-107); CREATININE SERUM 0.75 MG/DL (0.60-1.30); GFR ESTIMATED > 60; GLUCOSE 102 MG/DL (70-105); POTASSIUM 4.6 MMOL/L (3.6-5.0); SODIUM 139 MMOL/L (135-145)
[2017-11-18 14:00] LABS: INR 5.6 (0.8-1.4)
[2017-11-18 14:01] LABS: PROTHROMBIN TIME PATIENT 51.4 SEC (12.2-14.7)
--- NOTE | 2017-11-18 14:11 | ED General ---
General Chief Complaint: General Problems/Pain Stated Complaint: ABNORMAL BLOOD WORK Nursing Triage Note: AMBULATED TO TRIAGE WITHOUT DIFFICULTY. STATES SHE IS ABLE TO CHECK HER LABS AT HOME AND HER INR WAS 7.8. CALLED [facility] WHO ADIVSED HER TO COME HERE. Nursing Sepsis Screen: No Definite Risk Source of Information: Patient, Family Exam Limitations: No Limitations History of Present Illness Date Seen by Provider: Nov 18, 2017 Time Seen by Provider: 12:35 Initial Comments This 87-year-old woman presents to the emergency room with concerns about an INR of 5.8 at home. She does home testing on a weekly basis. She takes warfarin for history of DVT. She reported this value to her primary care provider, Dr. Olmstead, who reportedly deferred her to the emergency room. Patient has a minor abrasion to the left elbow from bumping it on something near her bed. There is very minimal oozing of blood from the site. She denies bleeding from any other site including stool or urine. She has not been on antibiotics recently or changed medications. Patient and family do note that she has had more difficulty with memory recently. Patient attributes this to age. She has no focal neurologic deficits. Allergies and Home Medications Allergies Coded Allergies: Debra Known Allergies (Verified Allergy, Unknown, 06/22/05) Home Medications Atenolol 25 Mg Tablet, 25 MG PO DAILY, (Reported) Cephalexin 500 Mg Capsule, 500 MG PO Q8H, (Reported) #30 CAPSULES FILLED 06-08-15 Cyclobenzaprine HCl 10 Mg Tablet, 10 MG PO BID PRN for SPASMS Prescribed by: JENSEN SAAVEDRA on 09/29/16822 Diphenhydramine HCl 25 Mg Capsule, 25 MG PO HS, (Reported) Furosemide 40 Mg Tablet, 40 MG PO DAILY, (Reported) Levothyroxine Sodium 50 Mcg Tablet, 50 MCG PO DAILY, (Reported) Naproxen 500 Mg Tablet, 500 MG PO BID Prescribed by: JENSEN SAAVEDRA on 09/29/16822 Potassium Gluconate 99 Mg Tablet, 99 MG PO DAILY, (Reported) Prednisone 20 Mg Tab, 40 MG PO DAILY Prescribed by: JENSEN SAAVEDRA on 09/29/16822 Warfarin Sodium 5 Mg Tablet, 2.5 MG PO DAILY, (Reported) TAKES 1/2 (5MG) TABLET [nORCO] 7.5 , 4 times a day Prescribed by: RICKI CARDENAS on 06/29/17 1130 Patient Home Medication List Home Medication List Reviewed: Yes Review of Systems Review of Systems Constitutional: no symptoms reported EENTM: no symptoms reported Respiratory: no symptoms reported Cardiovascular: no symptoms reported Gastrointestinal: no symptoms reported Genitourinary: no symptoms reported Musculoskeletal: no symptoms reported Skin: no symptoms reported Psychiatric/Neurological: See HPI Hematologic/Lymphatic: See HPI Immunological/Allergic: no symptoms reported Past Zqihyde-Mftetc-Jfliup Hx Patient Social History Alcohol Use: Regular Use Number of Drinks Today: BB Alcohol Beverage of Choice: [place] Recreational Drug Use: Yes (SMOKES 1/2 PPD) Smoking Status: Current Everyday Smoker Recent Foreign Travel: No Contact w/Someone Who Travel: No Recent Infectious Disease Expo: No Physical Abuse: No Sexual Abuse: No Immunizations Up To Date Tetanus Booster (TDap): Less than 5yrs Date of Pneumonia Vaccine: Jun 19, 2014 Date of Influenza Vaccine: Nov 16, 2011 Seasonal Allergies Seasonal Allergies: No Past Medical History Surgeries: Yes (COLON, BRAIN, SKIN CA REMOVAL L LEG, BREAST IMPLANTS) Abdominal, Breast Respiratory: Yes Asthma, COPD, Emphysema Cardiac: Yes Aneurysm, Atrial Fibrillation, Deep Vein Thrombosis Neurological: Yes Stroke Genitourinary: No UTI-Chronic Gastrointestinal: Yes Gastroesophageal Reflux Musculoskeletal: Yes Fibromyalgia Endocrine: Yes Hypothyroidsim HEENT: No Cancer: Yes (CERVIX BREAST ) Breast, Cervical Psychosocial: Yes Anxiety Integumentary: No Blood Disorders: No Physical Exam Vital Signs Vital Signs - First Documented 11/18/17 11:48 Temp 98.0 Pulse 67 Resp 16 B/P (MAP) 140/61 (87) Pulse Ox 96 O2 Delivery Room Air Capillary Refill : Less Than 3 Seconds Height, Weight, BMI Height: 5'2.00" Weight: 150lbs. 1.0oz. [id number]; 24.0 BMI Method:Stated General Appearance: No Apparent Distress, WD/WN HEENT: PERRL/EOMI, Normal ENT Inspection Neck: Normal Inspection Respiratory: Lungs Clear, Normal Breath Sounds, No Respiratory Distress Cardiovascular: Regular Rate, Rhythm, No Edema, No Murmur Extremity: Normal Inspection Neurologic/Psychiatric: Alert, Oriented x3, No Motor/Sensory Deficits, Normal Mood/Affect, pre school teacher II-XII Norm as Tested Skin: Normal Color, Warm/Dry Progress/Results/Core Measures Suspected Sepsis Recent Fever Within 48 Hours: No Infection Criteria Present: None New/Unexplained Altered Menta: No Sepsis Screen: No Definite Risk SIRS Temperature:98.0 Pulse: 67 Respiratory Rate: 16 Laboratory Tests 11/18/17 13:24: White Blood Count 6.8 Blood Pressure 140 /61 Mean: 87 Laboratory Tests 11/18/17 13:24: Creatinine 0.75, INR Comment 5.6*H, Platelet Count 212, Total Bilirubin 0.5 Results/Orders Lab Results Laboratory Tests Test 11/18/17 12:58 11/18/17 13:24 Range/Units Urine Color YELLOW Urine Clarity VERY CLOUDY H Urine pH 7 5-9 Urine Specific [place] 1.005 L 1.016-1.022 Urine Protein NEGATIVE NEGATIVE Urine Glucose (UA) NEGATIVE NEGATIVE Urine Ketones NEGATIVE NEGATIVE Urine Nitrite NEGATIVE NEGATIVE Urine Bilirubin NEGATIVE NEGATIVE Urine Urobilinogen NORMAL NORMAL MG/DL Urine Leukocyte Esterase 2+ H NEGATIVE Urine RBC (Auto) 3+ H NEGATIVE Urine RBC RARE /HPF Urine WBC 0-2 /HPF Urine Squamous Epithelial Cells 0-2 /HPF Urine Crystals NONE /LPF Urine Bacteria NEGATIVE /HPF Urine Casts NONE /LPF Urine Mucus NEGATIVE /LPF Urine Culture Indicated NO White Blood Count 6.8 4.3-11.0 10^3/uL Red Blood Count 4.51 4.35-5.85 10^6/uL Hemoglobin 14.2 11.5-16.0 G/DL Hematocrit 40 35-52 % Mean Corpuscular Volume 89 80-99 FL Mean Corpuscular Hemoglobin 32 25-34 PG Mean Corpuscular Hemoglobin Concent 35 32-36 G/DL Red Cell Distribution Width 12.9 10.0-14.5 % Platelet Count 212 130-400 10^3/uL Mean Platelet Volume 10.2 7.4-10.4 FL Neutrophils (%) (Auto) 70 42-75 % Lymphocytes (%) (Auto) 19 12-44 % Monocytes (%) (Auto) 10 0-12 % Eosinophils (%) (Auto) 0 0-10 % Basophils (%) (Auto) 0 0-10 % Neutrophils # (Auto) 4.8 1.8-7.8 X 10^3 Lymphocytes # (Auto) 1.3 1.0-4.0 X 10^3 Monocytes # (Auto) 0.7 0.0-1.0 X 10^3 Eosinophils # (Auto) 0.0 0.0-0.3 10^3/uL Basophils # (Auto) 0.0 0.0-0.1 10^3/uL Prothrombin Time 51.4 *H 12.2-14.7 SEC INR Comment 5.6 *H 0.8-1.4 Sodium Level 139 135-145 MMOL/L Potassium Level 4.6 3.6-5.0 MMOL/L Chloride Level 103 98-107 MMOL/L Carbon Dioxide Level 24 21-32 MMOL/L Anion Gap 12 5-14 MMOL/L Blood Urea Nitrogen 18 7-18 MG/DL Creatinine 0.75 0.60-1.30 MG/DL Estimat Glomerular Filtration Rate > 60 BUN/Creatinine Ratio 24 Glucose Level 102 70-105 MG/DL Calcium Level 9.7 8.5-10.1 MG/DL Corrected Calcium 9.4 8.5-10.1 MG/DL Total Bilirubin 0.5 0.1-1.0 MG/DL Aspartate Amino Transf (AST/SGOT) 25 5-34 U/L Alanine Aminotransferase (ALT/SGPT) 20 0-55 U/L Alkaline Phosphatase 47 40-136 U/L Total Protein 7.0 6.4-8.2 GM/DL Albumin 4.4 3.2-4.5 GM/DL My Orders Orders - CHACORTA BENJAMIN MD Cbc With Automated Diff (11/18/17 12:44) Comprehensive Metabolic Panel (11/18/17 12:44) Ua Culture If Indicated (11/18/17 12:44) Protime With Inr (11/18/17 12:44) Vital Signs/I&O Capillary Refill : Less Than 3 Seconds Blood Pressure Mean: 87 Progress Note : Progress Note Basic labs were obtained. INR was 5.6. We discussed instructions which for the time being include holding warfarin until further instructed. Patient will see Dr. Renetta simpson in the morning. Patient was noted to have scant bleeding from the abrasion on her left elbow. This was dressed with antibiotic ointment and a large Band-Aid. Departure Impression Primary Impression: Elevated INR Additional Impressions: Abrasion of left elbow Qualified Codes: S50.312A - Abrasion of left elbow, initial encounter Forgetfulness Disposition: HOME, SELF-CARE Condition: Stable Departure-Patient Inst. Referrals: TANISHA OLMSTEAD DO (PCP/Family) Primary Care Physician Patient Instructions: Skin Warts Add. Discharge Instructions: Stop your warfarin. Do not resume warfarin until you receive instructions otherwise from Dr. Olmstead. Keep your appointment with him tomorrow. Return to the ER if you develop active bleeding or any worsening of neurologic conditions such as headache, weakness or numbness of body parts, changes in vision, etc. Eating some leafy green vegetables today may help lower your INR. All discharge instructions reviewed with patient and/or family. Voiced understanding. Copy Copies To 1: TANISHA OLMSTEAD JOSHUA T MD Nov 18, 2017 14:11
[2017-11-18 14:22] VITALS: BP 140/64
== END 2017-11-18 14:22 | disposition home or self-care (01) ==
LOC: EDUNIT# 11:16 → ER 11:17
DX: S50.312A Abrasion of left elbow, initial encounter (principal); R79.1 Abnormal coagulation profile; J43.9 Emphysema, unspecified; K21.9 Gastro-esophageal reflux disease without esophagitis; E03.9 Hypothyroidism, unspecified; I48.91 Unspecified atrial fibrillation; F41.9 Anxiety disorder, unspecified; F17.210 Nicotine dependence, cigarettes, uncomplicated; Z85.828 Personal history of other malignant neoplasm of skin; Z85.3 Personal history of malignant neoplasm of breast; Z85.41 Personal history of malignant neoplasm of cervix uteri; Z86.73 Personal history of transient ischemic attack (TIA), and cerebral infarction without residual deficits; Z85.038 Personal history of other malignant neoplasm of large intestine; Z86.718 Personal history of other venous thrombosis and embolism; Z87.440 Personal history of urinary (tract) infections; Z79.01 Long term (current) use of anticoagulants; Z79.52 Long term (current) use of systemic steroids; X58.XXXA Exposure to other specified factors, initial encounter
CPT/HCPCS: 36415; 80053; 81000; 85025; 85610; 99282

== ENCOUNTER → 2018-05-07 | Outpatient (CLI) | payer MEDICARE, BC | LOC: LAB 08:17 | PROVIDERS: ATTEND Family Medicine | DX: E03.9 Hypothyroidism, unspecified (principal) | CPT/HCPCS: 36415; 84443 ==

== ENCOUNTER 2018-05-26 23:03 | Day surgery (SDC) | payer MEDICARE, BC ==
[~2018-05-26] VITALS: Ht 157.5 cm; Wt 65.3 kg
--- OUTSIDE RECORDS SUMMARY | 2018-05-26 23:09 | XMS REPORT | Clinical Summary ---
Author Author [facility] Organization [facility] Address Unknown Phone Unavailable Care Team Providers Care Mail Opener Name Role Phone EdgarGregg solitario PCP Donny Bello MD Unavailable Benny Bustamante MD Unavailable Source Comments Some departments are not documenting in the electronic medical record. If you do not see the information that you expected, contact Release of Information in the Health Information Management department at [phone] for further assistance in locating additional records.[facility] Allergies Comments Active Allergy Reactions Severity Noted Date Morphine AGITATION, 07/06/2008 MENTAL STATUS CHANGES Medications End Date Status Medication Sig Dispensed Refills Start Date Active levothyroxine (SYNTHROID) Take 1 Tab by 0 03/26/200 50 mcg tablet mouth Daily. 8 Active warfarin (COUMADIN) 5 mg Take by mouth 0 03/26/200 tablet Daily. 1 8 tablet daily Active hydrochlorothiazide 12.5 Take 10-12.5 0 03/26/200 mg capsule mg by mouth 8 Daily. Lising-HCTZ 10/12.5mg daily Active carvedilol (COREG) 12.5 Take 1 Tab by 0 mg tablet mouth Twice Daily With Meals. Active tolterodine LA, +, Take 1 Cap by 0 (DETROL LA) 4 mg capsule mouth Daily. Active sertraline (ZOLOFT) 50 mg Take 1 Tab by 0 tablet mouth Daily. Active potassium chloride Take 1 Tab by 0 (KLOR-CON 10) 10 mEq mouth Twice tablet Daily. Active lisinopril 10 mg Tab 10 Take 1 Tab by 0 mg, hydrochlorothiazide mouth Daily. 12.5 mg Cap 12.5 mg per each dose Active furosemide (LASIX) 40 mg Take 1 Tab by 0 tablet mouth Daily. Active AMOXICILLIN TRIHYDRATE Take 500 mg 0 (AMOXICILLIN PO) by mouth. Active doxylamine,+, (UNISOM) 25 Take 25 mg by 0 mg tablet mouth At Bedtime as needed. Active oxycodone/acetaminophen Take 1-2 Tabs 45 0 08/07/200 (PERCOCET) 5/325 mg by mouth 9 tablet Every 4 Hours as needed for Pain. Active senna/docusate Take 2 Tabs 50 0 08/07/200 (SENOKOT-S) 8.6/50 mg by mouth 9 tablet Twice Daily. Active Problems Problem Noted Date Silicone leakage from breast implant 08/07/2008 Unilateral vocal cord paralysis 03/28/2007 Severe headache 03/26/2007 Social History Date Tobacco Use Types Packs/Day Years Used Former Smoker Cigarettes 4 50 Comments: quit 2007 Alcohol Use Drinks/Week oz/Week Comments Yes daily a beer or mixed drink Sex Assigned at Date Recorded Not on file Industry Job Start Date Occupation Not on file Not on file Not on file Travel End Travel History Travel Start No recent travel history available. Last Filed Vital Signs Time Taken Vital Sign Reading 08/08/2008 8:05 AM CDT Blood Pressure 125/53 08/08/2008 8:05 AM CDT Pulse 85 08/08/2008 8:05 AM CDT Temperature 36.7 C (98.1 F) - Respiratory Rate - 08/08/2008 8:05 AM CDT Oxygen Saturation 98% - Inhaled Oxygen - Concentration 08/05/2008 8:00 AM CDT Weight 69 kg (152 lb 1.9 oz) 08/05/2008 8:00 AM CDT Height 157.5 cm (5' 2") 08/05/2008 8:00 AM CDT Body Mass Index 27.82 Plan of Treatment Health Maintenance Due Date Last Done Comments PHYSICAL (COMPREHENSIVE) 1937 EXAM DTAP/TDAP VACCINES (1 - 1948 Tdap) SHINGLES RECOMBINANT 1980 VACCINE (1 of 2) OSTEOPOROSIS 05/10/1995 SCREENING/MONITORING PNEUMONIA (PCV13/PPSV23) 05/10/1995 VACCINES (1 of 2 - PCV13) INFLUENZA VACCINE 10/01/2017 Results Not on filefrom Last 3 Months
--- OUTSIDE RECORDS SUMMARY | 2018-05-26 23:11 | XMS REPORT | Continuity of Care Document ---
Author Author [facility] Organization [facility] Address Unknown Phone Unavailable Allergies Active Description Code Type Severity Reaction Onset Reported/Identified Relationship to Patient Clinical Status Yes NKANo Known Allergies NKA Miscellaneous Allergy Unknown N/A 06/22/2005 Medications There is no data. 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 01/30/1199 [...] Ot 599.0 URIN TRACT INFECTION NOS 08/28/2012 CASSIDY SANTIAGO, CHACORTA Louise Ot 724.2 LUMBAGO 08/28/2012 CHACORTA BENJAMIN MD [...] SANTIAGO FACC, ALI FACP CCDS Ot Z79.01 HALF-WAY (CURRENT) USE OF ANTICOAGULANT 06/20/2015 SALOME SANTIAGO FACC, ALI FACP CCDS Ot Z79.899 OTHER PHP ENGINEER (CURRENT) DRUG THERAPY 06/20/2015 SALOME SANTIAGO FACC, ALI FACP CCDS Ot Z86.718 PERSONAL HISTORY OF OTHER VENOUS THROMBO 06/26/2015 DARSHAN MARTINI MD Ot 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 06/26/2015 DARSHAN MARTINI MD Ot 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 06/26/2015 DARSHAN MARTINI MD, Ot L97.222 NON-PRESSURE CHRONIC ULCER OF LEFT CALF 06/26/2015 DARSHAN MARTINI MD, Ot Z72.0 TOBACCO USE 06/27/2015 DARSHAN MARTINI MD, Ot 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 06/27/2015 [...] SANTIAGO FACC, ALI FACP CCDS Ot Z79.01 HALF-WAY (CURRENT) USE OF ANTICOAGULANT 07/03/2015 SALOME SANTIAGO FACC, ALI FACP CCDS Ot Z79.899 OTHER PHP ENGINEER (CURRENT) DRUG THERAPY 07/03/2015 SALOME SANTIAGO FACC, ALI FACP CCDS Ot Z86.718 PERSONAL HISTORY OF OTHER VENOUS THROMBO 07/05/2015 DARSHAN MARTINI MD, Ot I70.242 ATHSCL ATKA ARTERIES OF LEFT LEG W C 07/05/2015 DARSHAN MARTINI MD, Ot 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 07/05/2015 DARSHAN MARTINI MD, Ot L97.222 NON-PRESSURE CHRONIC ULCER OF LEFT CALF 07/05/2015 DARSHAN MARTINI MD, Ot Z72.0 TOBACCO USE 07/06/2015 DARSHAN MARTINI MD, Ot I70.242 ATHSCL ATKA ARTERIES OF LEFT LEG W [facility] 07/06/2015 DARSHAN MARTINI MD, Ot 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 07/06/2015 DARSHAN MARTINI MD, Ot L97.222 NON-PRESSURE CHRONIC ULCER OF LEFT CALF 07/06/2015 DARSHAN MARTINI MD, Ot Z72.0 TOBACCO USE 01/08/2016 Ot 780.2 SYNCOPE AND COLLAPSE 01/08/2016 TANISHA OLMSTEAD DO Ot 244.9 HYPOTHYROIDISM NOS 01/08/2016 TANISHA OLMSTEAD DO Ot E03.9 HYPOTHYROIDISM, UNSPECIFIED 01/08/2016 DARSHAN MARTINI MD, Ot I70.242 ATHSCL ATKA ARTERIES OF LEFT LEG W [facility] 01/08/2016 DARSHAN MARTINI MD, Ot 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 01/08/2016 DARSHAN MARTINI MD, Ot L97.222 NON-PRESSURE CHRONIC ULCER OF LEFT CALF 01/08/2016 DARSHAN MARTINI MD, Ot Z72.0 TOBACCO USE 01/08/2016 DARSHAN MARTINI MD, Ot I70.242 ATHSCL ATKA ARTERIES OF LEFT LEG W [facility] 01/08/2016 DARSHAN MARTINI MD, Ot I87.332 [...] MON 04/24/2016 TANISHA OLMSTEAD DO, Ot Z79.01 HALF-WAY (CURRENT) USE OF ANTICOAGULANT 05/23/2016 TANISHA OLMSTEAD [...] MON 06/16/2016 TANISHA OLMSTEAD DO Ot Z79.01 PHP ENGINEER (CURRENT) USE OF ANTICOAGULANT 09/29/2016 JENSEN SAAVEDRA MD Ot E03.9 HYPOTHYROIDISM, UNSPECIFIED 09/29/2016 JENSEN SAAVEDRA MD Ot F41.9 ANXIETY DISORDER, UNSPECIFIED 09/29/2016 JENSEN SAAVEDRA MD Ot I48.91 UNSPECIFIED ATRIAL FIBRILLATION 09/29/2016 JENSEN SAAVEDRA MD Ot J43.9 EMPHYSEMA, UNSPECIFIED 09/29/2016 JENSEN SAAVEDRA MD Ot K21.9 GASTRO-ESOPHAGEAL REFLUX DISEASE WITHOUT 09/29/2016 JENSEN SAAVEDRA MD Ot M54.5 LOW BACK PAIN 09/29/2016 JENSEN SAAVEDRA MD Ot Z79.01 HALF-WAY (CURRENT) USE OF ANTICOAGULANT 09/29/2016 JENSEN SAAVEDRA [...] I48.91 UNSPECIFIED ATRIAL FIBRILLATION 10/05/2016 JENSEN SAAVEDRA MD Ot J43.9 EMPHYSEMA, UNSPECIFIED 10/05/2016 JENSEN SAAVEDRA MD Ot K21.9 GASTRO-ESOPHAGEAL REFLUX DISEASE WITHOUT 10/05/2016 JENSEN SAAVEDRA MD Ot M54.5 LOW BACK PAIN 10/05/2016 JENSEN SAAVEDRA MD Ot Z79.01 HALF-WAY (CURRENT) USE OF ANTICOAGULANT 10/05/2016 JENSEN SAAVEDRA MD Ot Z85.038 PERSONAL HISTORY OF MALIGNANT NEOPLASM O 10/05/2016 JENSEN SAAVEDRA MD Ot Z85.3 PERSONAL HISTORY OF MALIGNANT NEOPLASM O 10/05/2016 JENSEN SAAVEDRA MD Ot Z85.41 PERSONAL HISTORY OF MALIGNANT NEOPLASM O 10/05/2016 JENSEN SAAVEDRA MD, Ot Z86.718 PERSONAL HISTORY OF OTHER VENOUS THROMBO 10/05/2016 JENSEN SAAVEDRA MD Ot Z86.73 PRSNL HX OF TIA (TIA), AND CEREB INFRC W 06/29/2017 TANISHA OLMSTEAD DO Ot 244.9 HYPOTHYROIDISM NOS 06/29/2017 TANISHA OLMSTEAD DO Ot E03.9 HYPOTHYROIDISM, UNSPECIFIED 06/29/2017 DARSHAN MARTINI MD Ot 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 06/29/2017 DARSHAN MARTINI MD Ot 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 06/29/2017 DARSHAN MARTINI MD Ot L97.222 NON-PRESSURE CHRONIC ULCER OF LEFT CALF 06/29/2017 DARSHAN MARTINI MD Ot Z72.0 TOBACCO USE 06/29/2017 DARSHAN MARTINI MD Ot 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 06/29/2017 DARSHAN MARTINI MD Ot 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 06/29/2017 DARSHAN MARTINI MD, Ot L97.222 NON-PRESSURE CHRONIC ULCER OF LEFT CALF 06/29/2017 DARSHAN MARTINI MD, Ot Z72.0 TOBACCO USE 06/29/2017 TANISHA OLMSTEAD DO Ot E03.9 HYPOTHYROIDISM, UNSPECIFIED 06/29/2017 TANISHA OLMSTEAD DO Ot E03.9 HYPOTHYROIDISM, UNSPECIFIED 06/29/2017 TANISHA OLMSTEAD DO Ot M89.9 DISORDER OF BONE, UNSPECIFIED 06/29/2017 BACAMMIE TANISHA SUN Ot Z13.820 ENCOUNTER FOR SCREENING FOR OSTEOPOROSIS 06/29/2017 RICKI CARDENAS MD, Ot F41.9 ANXIETY DISORDER, UNSPECIFIED 06/29/2017 RICKI CARDENAS MD Ot I48.91 UNSPECIFIED ATRIAL FIBRILLATION 06/29/2017 RICKI CARDENAS MD, Ot J43.9 EMPHYSEMA, UNSPECIFIED 06/29/2017 RICKI CARDENAS MD, Ot K21.9 GASTRO-ESOPHAGEAL REFLUX DISEASE WITHOUT 06/29/2017 RICKI CARDENAS MD, Ot R07.9 CHEST PAIN, UNSPECIFIED 06/29/2017 RICKI CARDENAS MD, Ot R40.2142 COMA SCALE, EYES OPEN, SPONTANEOUS, EMR 06/29/2017 RICKI CARDENAS MD, Ot R40.2252 COMA SCALE, BEST VERBAL RESPONSE, ORIENT 06/29/2017 RICKI CARDENAS MD, Ot R40.2362 COMA SCALE, BEST MOTOR RESPONSE, OBEYS C 06/29/2017 RICKI CARDENAS MD Ot S22.32XA FRACTURE OF ONE RIB, LEFT SIDE, INIT FOR 06/29/2017 RICKI CARDENAS MD Ot W18.30XA FALL ON SAME LEVEL, UNSPECIFIED, INITIAL 06/29/2017 RICKI CARDENAS MD Ot Y92.[address] [facility] [address] IN [facility] NON-INSTIT[facility] (PRIVATE 06/29/2017 RICKI CARDENAS MD Ot Y93.01 ACTIVITY, WALKING, MARCHING AND HIKING 06/29/2017 RICKI CARDENAS MD Ot Z79.01 HALF-WAY (CURRENT) USE OF ANTICOAGULANT 06/29/2017 RICKI CARDENAS MD Ot Z79.52 PHP ENGINEER (CURRENT) USE OF SYSTEMIC STER 06/29/2017 RICKI CARDENAS MD Ot Z85.3 PERSONAL HISTORY OF MALIGNANT NEOPLASM O 06/29/2017 RICKI CARDENAS MD, Ot Z85.41 PERSONAL HISTORY OF MALIGNANT NEOPLASM O 06/29/2017 RICKI CRADENAS MD, Ot Z85.828 PERSONAL HISTORY OF OTHER MALIGNANT NEOP 06/29/2017 RICKI CARDENAS MD Ot Z86.718 PERSONAL HISTORY OF OTHER VENOUS THROMBO 06/29/2017 RICKI CARDENAS MD Ot Z86.73 PRSNL HX OF TIA (TIA), AND CEREB INFRC W 06/29/2017 RICKI CARDENAS MD, Ot Z87.440 PERSONAL HISTORY OF URINARY (TRACT) INFE 06/29/2017 RONALD SANTIAGO, RICKI Swenson Ot Z98.82 BREAST IMPLANT STATUS 11/18/2017 CHACORTA BENJAMIN MD, Ot E03.9 HYPOTHYROIDISM, UNSPECIFIED 11/18/2017 CHACORTA BENJAMIN MD Ot F17.210 NICOTINE DEPENDENCE, CIGARETTES, UNCOMPL 11/18/2017 CHACORTA BENJAMIN MD, Ot F41.9 ANXIETY DISORDER, UNSPECIFIED 11/18/2017 CHACORTA BENJAMIN MD, Ot I48.91 UNSPECIFIED ATRIAL FIBRILLATION 11/18/2017 CHACORTA BENJAMIN MD, Ot J43.9 EMPHYSEMA, UNSPECIFIED 11/18/2017 CHACORTA BENJAMIN MD, Ot K21.9 GASTRO-ESOPHAGEAL REFLUX DISEASE WITHOUT 11/18/2017 CHACORTA BENJAMIN MD Ot R79.1 ABNORMAL COAGULATION PROFILE 11/18/2017 CHACORTA BENJAMIN MD, Ot R79.9 ABNORMAL FINDING OF BLOOD CHEMISTRY, UNS 11/18/2017 CHACORTA BENJAMIN MD Ot S50.312A ABRASION OF LEFT ELBOW, INITIAL ENCOUNTE 11/18/2017 CHACORTA BENJAMIN MD Ot X58.XXXA EXPOSURE TO OTHER SPECIFIED FACTORS, INI 11/18/2017 CHACORTA BENJAMIN MD, Ot Z79.01 HALF-WAY (CURRENT) USE OF ANTICOAGULANT 11/18/2017 CHACORTA BENJAMIN MD, Ot Z79.52 PHP ENGINEER (CURRENT) USE OF SYSTEMIC STER 11/18/2017 CHACORTA BENJAMIN MD, Ot Z85.038 PERSONAL HISTORY OF MALIGNANT NEOPLASM O 11/18/2017 CHACORTA BENJAMIN MD, Ot Z85.3 PERSONAL HISTORY OF MALIGNANT NEOPLASM O 11/18/2017 CHACORTA BENJAMIN MD Ot Z85.41 PERSONAL HISTORY OF MALIGNANT NEOPLASM O 11/18/2017 CHACORTA BENJAMIN MD, Ot Z85.828 PERSONAL HISTORY OF OTHER MALIGNANT NEOP 11/18/2017 CHACORTA BENJAMIN MD Ot Z86.718 PERSONAL HISTORY OF OTHER VENOUS THROMBO 11/18/2017 CHACORTA BENJAMIN MD, Ot Z86.73 PRSNL HX OF TIA (TIA), AND CEREB INFRC W 11/18/2017 CHACORTA BENJAMIN MD, Ot Z87.440 PERSONAL HISTORY OF URINARY (TRACT) INFE 11/20/2017 CHACORTA BENJAMIN MD, Ot E03.9 HYPOTHYROIDISM, UNSPECIFIED 11/20/2017 CHACORTA BENJAMIN MD, Ot F17.210 NICOTINE DEPENDENCE, CIGARETTES, UNCOMPL 11/20/2017 CHACORTA BENJAMIN MD, Ot F41.9 ANXIETY DISORDER, UNSPECIFIED 11/20/2017 CHACORTA BENJAMIN MD, Ot I48.91 UNSPECIFIED ATRIAL FIBRILLATION 11/20/2017 CHACORTA BENJAMIN MD, Ot J43.9 EMPHYSEMA, UNSPECIFIED 11/20/2017 CHACORTA BENJAMIN MD, Ot K21.9 GASTRO-ESOPHAGEAL REFLUX DISEASE WITHOUT 11/20/2017 CHACORTA BENJAMIN MD, Ot R79.1 ABNORMAL COAGULATION PROFILE 11/20/2017 CHACORTA BENJAMIN MD, Ot R79.9 ABNORMAL FINDING OF BLOOD CHEMISTRY, UNS 11/20/2017 CHACORTA BENJAMIN MD, Ot S50.312A ABRASION OF LEFT ELBOW, INITIAL ENCOUNTE 11/20/2017 CHACORTA BENJAMIN MD, Ot X58.XXXA EXPOSURE TO OTHER SPECIFIED FACTORS, INI 11/20/2017 CHACORTA BENJAMIN MD, Ot Z79.01 PHP ENGINEER (CURRENT) USE OF ANTICOAGULANT 11/20/2017 CHACORTA BENJAMIN MD Ot Z79.52 HALF-WAY (CURRENT) USE OF SYSTEMIC STER 11/20/2017 CHACORTA BENJAMIN MD, Ot Z85.038 PERSONAL HISTORY OF MALIGNANT NEOPLASM O 11/20/2017 CHACORTA BENJAMIN MD, Ot Z85.3 PERSONAL HISTORY OF MALIGNANT NEOPLASM O 11/20/2017 CHACORTA BENJAMIN MD, Ot Z85.41 PERSONAL HISTORY OF MALIGNANT NEOPLASM O 11/20/2017 CHACORTA BENJAMIN MD, Ot Z85.828 PERSONAL HISTORY OF OTHER MALIGNANT NEOP 11/20/2017 CHACORTA BENJAMIN MD, Ot Z86.718 PERSONAL HISTORY OF OTHER VENOUS THROMBO 11/20/2017 CASSIDY SANTIAGO, CHACORTA Louise Ot Z86.73 PRSNL HX OF TIA (TIA), AND CEREB INFRC W 11/20/2017 CASSIDY SANTIAGO, CHACORTA Louise Ot Z87.440 PERSONAL HISTORY OF URINARY (TRACT) INFE 05/07/2018 TANISHA OLMSTEAD DO Ot 244.9 HYPOTHYROIDISM NOS 05/07/2018 TANISHA OLMSTEAD DO, Ot E03.9 HYPOTHYROIDISM, UNSPECIFIED 05/07/2018 DARSHAN MARTINI MD Ot 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 05/07/2018 DARSHAN MARTINI MD, Ot 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 05/07/2018 DARSHAN MARTINI MD, Ot L97.222 NON-PRESSURE CHRONIC ULCER OF LEFT CALF 05/07/2018 DARSHAN MARTINI MD Ot Z72.0 TOBACCO USE 05/07/2018 DARSHAN MARTINI MD Ot 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 05/07/2018 DARSHAN MARTINI MD, Ot 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 05/07/2018 DARSHAN MARTINI MD Ot L97.222 NON-PRESSURE CHRONIC ULCER OF LEFT CALF 05/07/2018 DARSHAN MARTINI MD, Ot Z72.0 TOBACCO USE 05/07/2018 TANISHA OLMSTEAD DO Ot E03.9 HYPOTHYROIDISM, UNSPECIFIED 05/07/2018 TANISHA OLMSTEAD DO Ot E03.9 HYPOTHYROIDISM, UNSPECIFIED 05/07/2018 TANISHA OLMSTEAD DO Ot M89.9 DISORDER OF BONE, UNSPECIFIED 05/07/2018 TANISHA OLMSTEAD DO Ot Z13.820 ENCOUNTER FOR SCREENING FOR OSTEOPOROSIS 05/08/2018 TANISHA OLMSTEAD DO Ot E03.9 HYPOTHYROIDISM, UNSPECIFIED 05/08/2018 TANISHA OLMSTEAD DO, Ot E03.9 HYPOTHYROIDISM, UNSPECIFIED 05/13/2018 TANISHA OLMSTEAD DO, Ot E03.9 HYPOTHYROIDISM, UNSPECIFIED Procedures There is no data. Results Test [...] (T4) free measurement (mass/volume) 1.07 ng/dL 0.70-1.48 Complete blood count (CBC) with automated white blood cell (WBC) differential - 06/29/17 09:53 Blood leukocytes automated count (number/volume) 8.1 10*3/uL 4.3-11.0 Blood erythrocytes automated count (number/volume) 4.91 10*6/uL 4.35-5.85 Venous blood hemoglobin measurement (mass/volume) 15.1 g/dL 11.5-16.0 Blood hematocrit (volume fraction) 43 % 35-52 Automated erythrocyte mean corpuscular volume 88 [foz_us] 80-99 Automated erythrocyte mean corpuscular hemoglobin (mass per erythrocyte) 31 pg 25-34 Automated erythrocyte mean corpuscular hemoglobin concentration measurement ( mass/volume) 35 g/dL 32-36 Automated erythrocyte distribution width ratio 13.2 % 10.0-14.5 Automated blood platelet count (count/volume) 244 10*3/uL 130-400 Automated blood platelet mean volume measurement 10.1 [foz_us] 7.4-10.4 Automated blood neutrophils/100 leukocytes 71 % 42-75 Automated blood lymphocytes/100 leukocytes 17 % 12-44 Blood monocytes/100 leukocytes 11 % 0-12 Automated blood eosinophils/100 leukocytes 1 % 0-10 Automated blood basophils/100 leukocytes 0 % 0-10 Blood neutrophils automated count (number/volume) 5.7 10*3 1.8-7.8 Blood lymphocytes automated count (number/volume) 1.4 10*3 1.0-4.0 Blood monocytes automated count (number/volume) 0.9 10*3 0.0-1.0 Automated eosinophil count 0.1 10*3/uL 0.0-0.3 Automated blood basophil count (count/volume) 0.0 10*3/uL 0.0-0.1 PT panel in platelet poor plasma by coagulation assay - 06/29/17 09:53 Prothrombin time (PT) in platelet poor plasma by coagulation assay 24.3 s 12.2-14.7 INR in platelet poor plasma or blood by coagulation assay 2.2 0.8-1.4 Comprehensive metabolic panel - 06/29/17 09:53 Serum or plasma sodium measurement (moles/volume) 138 mmol/L 135-145 Serum or plasma potassium measurement (moles/volume) 4.2 mmol/L 3.6-5.0 Serum or plasma chloride measurement (moles/volume) 102 mmol/L 98-107 Carbon dioxide 24 mmol/L 21-32 Serum or plasma anion gap determination (moles/volume) 12 mmol/L 5-14 Serum or plasma urea nitrogen measurement (mass/volume) 16 mg/dL 7-18 Serum or plasma creatinine measurement (mass/volume) 0.81 mg/dL 0.60-1.30 Serum or plasma urea nitrogen/creatinine mass ratio 20 NRG Serum or plasma creatinine measurement with calculation of estimated glomerular filtration rate > NRG Serum or plasma glucose measurement (mass/volume) 98 mg/dL 70-105 Serum or plasma calcium measurement (mass/volume) 9.7 mg/dL 8.5-10.1 Serum or plasma total bilirubin measurement (mass/volume) 0.9 mg/dL 0.1-1.0 Serum or plasma alkaline phosphatase measurement (enzymatic activity/volume) 55 U/L 40-136 Serum or plasma aspartate aminotransferase measurement (enzymatic activity/ volume) 22 U/L 5-34 Serum or plasma alanine aminotransferase measurement (enzymatic activity/volume ) 12 U/L 0-55 Serum or plasma protein measurement (mass/volume) 7.3 g/dL 6.4-8.2 Serum or plasma albumin measurement (mass/volume) 4.3 g/dL 3.2-4.5 Complete urinalysis with reflex to culture - 11/18/17 12:58 Urine color determination YELLOW NRG Urine clarity determination VERY CLOUDY NRG Urine pH measurement by test strip 7 5-9 Specific gravity of urine by test strip 1.005 1.016- 1.022 Urine protein assay by test strip, semi-quantitative NEGATIVE NEGATIVE Urine glucose detection by automated test strip NEGATIVE NEGATIVE Erythrocytes detection in urine sediment by light microscopy 3+ NEGATIVE Urine ketones detection by automated test strip NEGATIVE NEGATIVE Urine nitrite detection by test strip NEGATIVE NEGATIVE Urine total bilirubin detection by test strip NEGATIVE NEGATIVE Urine urobilinogen measurement by automated test strip (mass/volume) NORMAL NORMAL Urine leukocyte esterase detection by dipstick 2+ NEGATIVE Automated urine sediment erythrocyte count by microscopy (number/high power field) RARE NRG Automated urine sediment leukocyte count by microscopy (number/high power field ) [HPF] NRG Bacteria detection in urine sediment by light microscopy NEGATIVE NRG Squamous epithelial cells detection in urine sediment by light microscopy 0-2 NRG Crystals detection in urine sediment by light microscopy NONE NRG Casts detection in urine sediment by light microscopy NONE NRG Mucus detection in urine sediment by light microscopy NEGATIVE NRG Complete urinalysis with reflex to culture NO NRG Complete blood count (CBC) with automated white blood cell (WBC) differential - 11/18/17 13:24 Blood leukocytes automated count (number/volume) 6.8 10*3/uL 4.3-11.0 Blood erythrocytes automated count (number/volume) 4.51 10*6/uL 4.35-5.85 Venous blood hemoglobin measurement (mass/volume) 14.2 g/dL 11.5-16.0 Blood hematocrit (volume fraction) 40 % 35-52 Automated erythrocyte mean corpuscular volume 89 [foz_us] 80-99 Automated erythrocyte mean corpuscular hemoglobin (mass per erythrocyte) 32 pg 25-34 Automated erythrocyte mean corpuscular hemoglobin concentration measurement ( mass/volume) 35 g/dL 32-36 Automated erythrocyte distribution width ratio 12.9 % 10.0-14.5 Automated blood platelet count (count/volume) 212 10*3/uL 130-400 Automated blood platelet mean volume measurement 10.2 [foz_us] 7.4-10.4 Automated blood neutrophils/100 leukocytes 70 % 42-75 Automated blood lymphocytes/100 leukocytes 19 % 12-44 Blood monocytes/100 leukocytes 10 % 0-12 Automated blood eosinophils/100 leukocytes 0 % 0-10 Automated blood basophils/100 leukocytes 0 % 0-10 Blood neutrophils automated count (number/volume) 4.8 10*3 1.8-7.8 Blood lymphocytes automated count (number/volume) 1.3 10*3 1.0-4.0 Blood monocytes automated count (number/volume) 0.7 10*3 0.0-1.0 Automated eosinophil count 0.0 10*3/uL 0.0-0.3 Automated blood basophil count (count/volume) 0.0 10*3/uL 0.0-0.1 Comprehensive metabolic panel - 11/18/17 13:24 Serum or plasma sodium measurement (moles/volume) 139 mmol/L 135-145 Serum or plasma potassium measurement (moles/volume) 4.6 mmol/L 3.6-5.0 Serum or plasma chloride measurement (moles/volume) 103 mmol/L 98-107 Carbon dioxide 24 mmol/L 21-32 Serum or plasma anion gap determination (moles/volume) 12 mmol/L 5-14 Serum or plasma urea nitrogen measurement (mass/volume) 18 mg/dL 7-18 Serum or plasma creatinine measurement (mass/volume) 0.75 mg/dL 0.60-1.30 Serum or plasma urea nitrogen/creatinine mass ratio 24 NRG Serum or plasma creatinine measurement with calculation of estimated glomerular filtration rate > NRG Serum or plasma glucose measurement (mass/volume) 102 mg/dL 70-105 Serum or plasma calcium measurement (mass/volume) 9.7 mg/dL 8.5-10.1 Serum or plasma total bilirubin measurement (mass/volume) 0.5 mg/dL 0.1-1.0 Serum or plasma alkaline phosphatase measurement (enzymatic activity/volume) 47 U/L 40-136 Serum or plasma aspartate aminotransferase measurement (enzymatic activity/ volume) 25 U/L 5-34 Serum or plasma alanine aminotransferase measurement (enzymatic activity/volume ) 20 U/L 0-55 Serum or plasma protein measurement (mass/volume) 7.0 g/dL 6.4-8.2 Serum or plasma albumin measurement (mass/volume) 4.4 g/dL 3.2-4.5 CALCIUM CORRECTED 9.4 mg/dL 8.5-10.1 PT panel in platelet poor plasma by coagulation assay - 11/18/17 13:24 Prothrombin time (PT) in platelet poor plasma by coagulation assay 51.4 s 12.2-14.7 INR in platelet poor plasma or blood by coagulation assay 5.6 0.8-1.4 THYROID STIMULATING HORMONE - 05/07/18 08:37 THYROID STIMULATING HORMONE 0.87 u[iU]/mL 0.35-4.94 Encounters ACCT No. Visit Date/Time Discharge Status Pt. Type Provider Facility Loc./Unit Complaint [id number] 05/07/2018 08:17:00 05/07/2018 23:59:59 CLS Outpatient TANISHA LOMSTEAD DO [facility] LAB E03.9 [id number] 11/18/2017 11:17:00 11/18/2017 14:22:00 DIS Emergency CASSIDY SANTIAGO, CHACORTA Louise [facility] ER ABNORMAL BLOOD WORK [id number] 06/29/2017 09:02:00 06/29/2017 11:50:00 DIS Emergency RONALD SANTIAGO, RICKI Swenson [facility] ER FALL, NOW HAVING CP, SOB [id number] 09/29/2016 07:36:00 09/29/2016 08:34:00 DIS Emergency QUENTIN SANTIAGO, JENSEN Murguia [facility] ER BACK PAIN [id number] 06/17/2016 00:14:00 06/17/2016 23:59:59 CLS Preadmit TANISHA OLMSTEAD DO [facility] LAB MONITOR FOR COUMADIN THERAPY [id number] 03/18/2016 10:43:00 06/16/2016 00:01:00 DIS Outpatient TANISHA OLMSTEAD DO [facility] LAB MONITOR FOR COUMADIN THERAPY [id number] 05/23/2016 09:00:00 05/23/2016 23:59:59 CLS Outpatient TANISHA OLMSTEAD DO [facility] RAD M89.9 [id number] 05/08/2016 09:53:00 05/08/2016 23:59:59 CLS Outpatient TANISHA OLMSTEAD DO [facility] LAB HYPOTHYROIDISM [id number] 01/08/2016 09:07:00 01/08/2016 23:59:59 CLS Outpatient TANISHA OLMSTEAD DO [facility] LAB 244.9 [id number] 06/26/2015 11:22:00 06/26/2015 12:00:00 DIS Outpatient DARSHAN MARTINI MD [facility] WOUNDCARE [id number] 06/20/2015 08:25:00 06/20/2015 19:40:00 DIS Outpatient SALOME SANTIAGO FACC, JENNIFER ANGELES CCDS [facility] CATH PAD,TOBACCO USE,ABNORMAL ARTERIAL US [id number] 06/12/2015 10:09:00 06/12/2015 23:59:59 CLS Outpatient DARSHAN MARTINI MD [facility] LAB L CALF VENOUS ULCER [id number] 06/07/2015 10:48:00 06/07/2015 23:59:59 CLS Outpatient DARSHAN MARTINI MD [facility] RAD CHRONIC ULCER OF L CALF [id number] 05/15/2015 09:23:00 05/15/2015 23:59:59 CLS Outpatient TANISHA OLMSTEAD DO [facility] LAB HYPOTHYROIDISM [id number] 11/27/2014 08:20:00 11/27/2014 10:23:00 DIS Emergency RICKI CARDENAS MD [facility] ER SHOULDER AND NECK PAIN [id number] 10/07/2014 00:24:00 10/07/2014 03:50:00 DIS Emergency CHACORTA BENJAMIN MD [facility] ER FELL OFF PORCH-SIDE PAIN [id number] 03/18/2014 09:19:00 03/18/2014 23:59:59 CLS Outpatient TANISHA OLMSTEAD DO [facility] LAB HYPOTHYROIDISM [id number] 10/11/2012 19:44:00 10/11/2012 21:28:00 DIS Emergency CHACORTA BENJAMIN MD [facility] ER URINARY TRACT INFECTIN [id number] 08/27/2012 22:11:00 08/28/2012 01:15:00 DIS Emergency CHACORTA BENJAMIN MD [facility] ER BACK PAIN [id number] 08/16/2012 16:59:00 08/16/2012 19:53:00 DIS Emergency ISAIAS GAMBLE MD [facility] ER L LEG PAIN [id number] 06/05/2015 14:31:00 Document Registration [id number] 11/24/2011 02:42:00 Document Registration [id number] 02/18/2011 10:16:00 Document Registration [email or web address] 11/28/2014 01:48:23 ACT Document Registration
[2018-05-26] MEDS ORDERED: FAMOTIDINE 20MG/2ML IV (PEPCID) IVP ONE (23:15)
[2018-05-26] MEDS ORDERED: fentaNYL INJECTION 100 MCG/2 ML AMP IVP ONE (23:15)
[2018-05-26] MEDS ORDERED: ASPIRIN 81 MG CHEW (CHILDREN'S ASA) PO ONE (23:15)
[2018-05-26] MEDS ORDERED: ONDANSETRON 4 MG/2 ML (SDV) Z0FRAN IVP ONE ×2 (23:15→23:45)
[2018-05-26] MEDS ORDERED: ONDANSETRON 4 MG (ZOFRAN) ORAL DISSOLVE TAB ONE (23:37)
[2018-05-26 23:45] LABS: BASOPHILS % (AUTO) 1 % (0-10); EOSINOPHILS # (AUTO) 0.2 10^3/uL (0.0-0.3); EOSINOPHILS % (AUTO) 2 % (0-10); HEMATOCRIT 37 % (35-52); HEMOGLOBIN 12.3 G/DL (11.5-16.0); LYMPHOCYTES # (AUTO) 2.2 X 10^3 (1.0-4.0); LYMPHOCYTES % (AUTO) 36 % (12-44); MEAN CORPUSCULAR HEMOGLOBIN 30 PG (25-34); MEAN CORPUSCULAR HGB CONC 33 G/DL (32-36); MEAN CORPUSCULAR VOLUME 91 FL (80-99); MEAN PLATELET VOLUME 10.3 FL (7.4-10.4); MONOCYTES # (AUTO) 0.7 X 10^3 (0.0-1.0); MONOCYTES % (AUTO) 11 % (0-12); NEUTROPHILS # (AUTO) 3.2 X 10^3 (1.8-7.8); NEUTROPHILS % (AUTO) 50 % (42-75); PLATELET COUNT 224 10^3/uL (130-400); RED CELL DISTRIBUTION WIDTH 13.4 % (10.0-14.5); WHITE BLOOD COUNT 6.3 10^3/uL (4.3-11.0)
[2018-05-26] MEDS ORDERED: ANTACID SUSP 30 ML UDC (MYLANTA) PO ONE (23:45)
[2018-05-26] MEDS ORDERED: LIDOCAINE 2% VISCOUS 15 ML UDC PO ONE (23:45)
[2018-05-27] VITALS (13 sets, daily range): BP systolic 119–143; BP diastolic 44–68
[2018-05-27 00:06] LABS: INR 1.9 (0.8-1.4); PROTHROMBIN TIME PATIENT 22.4 SEC (12.2-14.7)
[2018-05-27 00:15] LABS: ALANINE AMINOTRANSFERASE 17 U/L (0-55); ALBUMIN 3.8 GM/DL (3.2-4.5); ALKALINE PHOSPHATASE 62 U/L (40-136); BILIRUBIN,TOTAL 0.3 MG/DL (0.1-1.0); BUN/CREATININE RATIO 20; CALCIUM 9.3 MG/DL (8.5-10.1); CARBON DIOXIDE 21 MMOL/L (21-32); CHLORIDE 107 MMOL/L (98-107); CREATININE SERUM 0.86 MG/DL (0.60-1.30); GFR ESTIMATED > 60; GLUCOSE 89 MG/DL (70-105); LIPASE 32 U/L (8-78); MAGNESIUM 2.3 MG/DL (1.8-2.4); POTASSIUM 3.6 MMOL/L (3.6-5.0); SODIUM 142 MMOL/L (135-145); TOTAL PROTEIN 6.3 GM/DL (6.4-8.2)
[2018-05-27] MEDS ORDERED: NS IV 1000 ML 1,000 ML IV ONE (00:35)
[2018-05-27 00:36] LABS: FREE T4 (FREE THYROXINE) 1.14 NG/DL (0.70-1.48)
--- NOTE | 2018-05-27 00:38 | ED Chest Pain ---
General Chief Complaint: Chest Pain Stated Complaint: CP Source: patient Exam Limitations: no limitations History of Present Illness Date Seen by Provider: May 27, 2018 Time Seen by Provider: 23:14 Initial Comments This 88-year-old woman presents to the emergency room accompanied by her daughter with complaints of chest pain and nausea that started about 45 minutes prior to arrival. 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 Patient denies any history of cardiopulmonary problems. She does have history of peripheral vascular disease but denies any prior cardiac testing such as stress test or heart catheterization. Her primary care provider is Dr. Olmstead and she has seen a beater engineer helper in [place] in the past. She is a smoker and drinks at least 2 drinks of bourbon every evening. She rates her initial pain as 10 out of 10. Pain is characterized by a tight band across the lower chest radiating into the back. She sometimes has more intense pain in the left lower chest. Patient denies any history of aneurysm and there is no mention of aneurysm in her prior CT reports. However, her recalled past medical history notes aneurysm. Allergies and Home Medications Allergies Coded Allergies: Debra Known Allergies (Verified Allergy, Unknown, 06/22/05) Home Medications Atenolol 25 Mg Tablet, 25 MG PO DAILY, (Reported) Cephalexin 500 Mg Capsule, 500 MG PO Q8H, (Reported) #30 CAPSULES FILLED 06-08-15 Cyclobenzaprine HCl 10 Mg Tablet, 10 MG PO BID PRN for SPASMS Prescribed by: JENSEN SAAVEDRA on 09/29/16822 Diphenhydramine HCl 25 Mg Capsule, 25 MG PO HS, (Reported) Furosemide 40 Mg Tablet, 40 MG PO DAILY, (Reported) Levothyroxine Sodium 50 Mcg Tablet, 50 MCG PO DAILY, (Reported) Naproxen 500 Mg Tablet, 500 MG PO BID Prescribed by: JENSEN SAAVEDRA on 09/29/16822 Potassium Gluconate 99 Mg Tablet, 99 MG PO DAILY, (Reported) Prednisone 20 Mg Tab, 40 MG PO DAILY Prescribed by: JENSEN SAAVEDRA on 09/29/16822 Warfarin Sodium 5 Mg Tablet, 2.5 MG PO DAILY, (Reported) TAKES 1/2 (5MG) TABLET [nORCO] 7.5 , 4 times a day Prescribed by: RICKI CARDENAS on 06/29/17 1130 Patient Home Medication List Home Medication List Reviewed: Yes Review of Systems Review of Systems Constitutional: no symptoms reported EENTM: No Symptoms Reported Respiratory: See HPI Cardiovascular: See HPI Gastrointestinal: See HPI Genitourinary: No Symptoms Reported Musculoskeletal: no symptoms reported Skin: no symptoms reported Psychiatric/Neurological: No Symptoms Reported Endocrine: No Symptoms Reported Hematologic/Lymphatic: No Symptoms Reported Past Oeddram-Ziixhl-Cbxcbf Hx Past Med/Social Hx: Reviewed and Corrections made Patient Social History Alcohol Use: Regular Use Alcohol Beverage of Choice: [place] Recent Foreign Travel: No Contact w/Someone Who Travel: No Immunizations Up To Date Tetanus Booster (TDap): Less than 5yrs Date of Pneumonia Vaccine: Jun 19, 2014 Date of Influenza Vaccine: Nov 16, 2011 Seasonal Allergies Seasonal Allergies: No Past Medical History Surgeries: Yes (COLON, BRAIN, SKIN CA REMOVAL L LEG, BREAST IMPLANTS) Abdominal, Breast, Gallbladder Respiratory: Yes Asthma, COPD, Emphysema Cardiac: Yes Aneurysm, Atrial Fibrillation, Deep Vein Thrombosis Neurological: Yes Stroke Genitourinary: No UTI-Chronic Gastrointestinal: Yes Gastroesophageal Reflux Musculoskeletal: Yes Fibromyalgia Endocrine: Yes Hypothyroidsim HEENT: No Cancer: Yes (CERVIX BREAST ) Breast, Cervical Psychosocial: Yes (alcohol dependence with nightly use of hard liquor) Anxiety Integumentary: No Blood Disorders: No Physical Exam Vital Signs Vital Signs - First Documented Capillary Refill : Height, Weight, BMI Height: 5'2.00" Weight: 150lbs. 1.0oz. [id number]; 24.0 BMI Method:Stated General Appearance: WD/WN, Mild Distress HEENT: PERRL/EOMI, Normal ENT Inspection Neck: Normal Inspection Respiratory: Chest Non Tender, Lungs Clear, Normal Breath Sounds, No Accessory Muscle Use, No Respiratory Distress Cardiovascular: Regular Rate, Rhythm, No Edema, No Murmur, Normal Peripheral Pulses Gastrointestinal: Normal Bowel Sounds, Soft, Tenderness (minimal in the epigastrium) Extremity: Normal Inspection, Non Tender, No Pedal Edema Neurologic/Psychiatric: Alert, Oriented x3, No Motor/Sensory Deficits, legal editor II- XII Norm as Tested, Other (anxious) Skin: Normal Color, Warm/Dry Progress/Results/Core Measures Results/Orders Lab Results Laboratory Tests Test 05/26/18 23:38 Range/Units White Blood Count 6.3 4.3-11.0 10^3/uL Red Blood Count 4.12 L 4.35-5.85 10^6/uL Hemoglobin 12.3 11.5-16.0 G/DL Hematocrit 37 35-52 % Mean Corpuscular Volume 91 80-99 FL Mean Corpuscular Hemoglobin 30 25-34 PG Mean Corpuscular Hemoglobin Concent 33 32-36 G/DL Red Cell Distribution Width 13.4 10.0-14.5 % Platelet Count 224 130-400 10^3/uL Mean Platelet Volume 10.3 7.4-10.4 FL Neutrophils (%) (Auto) 50 42-75 % Lymphocytes (%) (Auto) 36 12-44 % Monocytes (%) (Auto) 11 0-12 % Eosinophils (%) (Auto) 2 0-10 % Basophils (%) (Auto) 1 0-10 % Neutrophils # (Auto) 3.2 1.8-7.8 X 10^3 Lymphocytes # (Auto) 2.2 1.0-4.0 X 10^3 Monocytes # (Auto) 0.7 0.0-1.0 X 10^3 Eosinophils # (Auto) 0.2 0.0-0.3 10^3/uL Basophils # (Auto) 0.0 0.0-0.1 10^3/uL Prothrombin Time 22.4 H 12.2-14.7 SEC INR Comment 1.9 H 0.8-1.4 Activated Partial Thromboplast Time 53 H 24-35 SEC D-Dimer 0.33 0.00-0.49 UG/ML Sodium Level 142 135-145 MMOL/L Potassium Level 3.6 3.6-5.0 MMOL/L Chloride Level 107 98-107 MMOL/L Carbon Dioxide Level 21 21-32 MMOL/L Anion Gap 14 5-14 MMOL/L Blood Urea Nitrogen 17 7-18 MG/DL Creatinine 0.86 0.60-1.30 MG/DL Estimat Glomerular Filtration Rate > 60 BUN/Creatinine Ratio 20 Glucose Level 89 70-105 MG/DL Calcium Level 9.3 8.5-10.1 MG/DL Corrected Calcium 9.5 8.5-10.1 MG/DL Magnesium Level 2.3 1.8-2.4 MG/DL Total Bilirubin 0.3 0.1-1.0 MG/DL Aspartate Amino Transf (AST/SGOT) 44 H 5-34 U/L Alanine Aminotransferase (ALT/SGPT) 17 0-55 U/L Alkaline Phosphatase 62 40-136 U/L Myoglobin 37.0 10.0-92.0 NG/ML Troponin I < 0.028 <0.028 NG/ML Total Protein 6.3 L 6.4-8.2 GM/DL Albumin 3.8 3.2-4.5 GM/DL Lipase 32 8-78 U/L Thyroid Stimulating Hormone (TSH) 9.18 H 0.35-4.94 UIU/ML Free Thyroxine 1.14 0.70-1.48 NG/DL Serum Alcohol 16 H <10 MG/DL My Orders Orders - CHACORTA BENJAMIN MD Cbc With Automated Diff (05/26/18 23:14) Magnesium (05/26/18 23:14) Chest 1 View, Ap/Pa Only (05/26/18 23:14) Ekg Tracing (05/26/18 23:14) Cardiac Profile 1 (05/26/18 23:14) Comprehensive Metabolic Panel (05/26/18 23:14) Myoglobin Serum (05/26/18 23:14) Protime With Inr (05/26/18 23:14) Partial Thromboplastin Time (05/26/18 23:14) O2 (05/26/18 23:14) Monitor-Rhythm Ecg Trace Only (05/26/18 23:14) Lipid Panel (05/27/18 06:00) Saline Lock/Iv-Start (05/26/18 23:14) Lipase (05/26/18 23:14) Aspirin Chewable Tablet (Baby Aspirin Ch (05/26/18 23:15) Ondansetron Injection (Zofran Injectio (05/26/18 23:15) Fentanyl Injection (Sublimaze Injection (05/26/18 23:15) Famotidine Injection (Pepcid Injection) (05/26/18 23:15) Ondansetron Injection (Zofran Injectio (05/26/18 23:45) Lidocaine 2% Viscous 15 Ml (Xylocaine Vi (05/26/18 23:45) Antacid Suspension (Mylanta Suspension (05/26/18 23:45) Fibrin Degradation Products (05/26/18 23:38) Ondansetron Oral Dissolve Tab (Zofran (05/26/18 23:37) Thyroid Stimulating Hormone (05/26/18 23:40) Free T4 (Free Thyroxine) (05/26/18 23:40) Ns Iv 1000 Ml (Sodium Chloride 0.9%) (05/27/18 00:35) Nitroglycerin 0.4 Mg Btl 25's (Nitrostat (05/27/18 00:45) Alcohol (05/26/18 23:38) Medications Given in ED Current Medications Medications Dose Ordered Sig/Irais Route Start Time Stop Time Status Last Admin Dose Admin Al Hydrox/Mg Hydrox/Simethicone 30 ml ONCE ONCE PO 05/26/18 23:45 05/26/18 23:46 DC 05/26/18 23:41 30 ML Aspirin 325 mg ONCE ONCE PO 05/26/18 23:15 05/26/18 23:16 DC 05/26/18 23:41 325 MG Famotidine 20 mg ONCE ONCE IVP 05/26/18 23:15 05/26/18 23:16 DC 05/27/18 00:00 20 MG Fentanyl Citrate 50 mcg ONCE ONCE IVP 05/26/18 23:15 05/26/18 23:16 DC 05/27/18 00:00 50 MCG Lidocaine HCl 15 ml ONCE ONCE PO 05/26/18 23:45 05/26/18 23:46 DC 05/26/18 23:41 15 ML Nitroglycerin 0.4 mg UD PRN SL 05/27/18 00:45 05/27/18 02:42 DC 05/27/18 02:42 0.4 MG Ondansetron HCl 4 mg STK-MED ONCE .ROUTE 05/26/18 23:37 05/26/18 23:39 DC 05/26/18 23:41 8 MG Sodium Chloride 1,000 ml @ 0 mls/hr Q0M ONCE IV 05/27/18 00:35 05/27/18 00:37 DC 05/27/18 00:49 0 MLS/HR Vital Signs/I&O 05/26/18 05/26/18 23:05 23:05 Temp 98.1 Pulse 62 Resp 18 B/P (MAP) 118/52 (74) Pulse Ox 96 O2 Delivery Room Air Room Air Progress Progress Note #1: Progress Note Workup thus far has been unremarkable. Patient was given a GI cocktail and Zofran without significant improvement in pain. IV access has been a problem with this patient. A small 22-gauge IV was eventually established in the right forearm. Patient was given fentanyl 50 g by IV route. Pain in the back has resolved but she still has a tightness in a band across her lower anterior chest. We will try nitroglycerin. Progress Note #2: Progress Note Patient reported a modest improvement in pain after nitroglycerin. Treatment with nitroglycerin dropped her pain down to 7/10. Morphine was given for further pain management. Case was discussed with Dr. Moran who would like her admitted and kept nothing by mouth for further evaluation in the morning. Alcohol withdrawal protocol was added to the bridging orders as patient is accustomed to drinking hard alcohol daily. Initial ECG Impression Date: May 26, 2018 Initial ECG Impression Time: 23:20 Initial ECG Rate: 64 Initial ECG Rhythm: Normal Sinus Initial ECG Intervals: Normal Initial ECG Impression: Normal Comment Normal sinus rhythm with no ST elevation or depression. No abnormal intervals or axis deviation. Diagnostic Imaging Diagonstic Imaging: Xray Plain Films/CT/US/NM/MRI: chest Comments Chest x-ray viewed by me. Report not yet available. No acute abnormalities appreciated. Departure Communication (Admissions) Time/Spoke to Admitting Phy: 02:30 Dr. Cardenas Time/Spoke to Consulting Phy: 02:25 Dr. Moran Impression Primary Impression: Chest pain Qualified Codes: R07.9 - Chest pain, unspecified Additional Impression: Alcohol dependence Qualified Codes: F10.29 - Alcohol dependence with unspecified alcohol-induced disorder Disposition: ADMITTED INPATIENT Condition: Stable Admissions Decision to Admit Reason: Admit from ER (General) Decision to Admit/Date: May 27, 2018 Time/Decision to Admit Time: 02:25 Departure-Patient Inst. Referrals: TANISHA OLMSTEAD DO (PCP/Family) Primary Care Physician CHACORTA BENJAMIN MD May 27, 2018 00:38
[2018-05-27] MEDS: NITROGLYCERIN 0.4 MG SL TABS BTL 25'S SL PRN ×4 (00:49→09:48)
[2018-05-27] MEDS ORDERED: morphine INJ 10 MG/ML 1ML (SYR OR VIAL) IVP ONE (02:45)
--- OUTSIDE RECORDS SUMMARY | 2018-05-27 03:13 | XMS REPORT | Clinical Summary ---
Author Author [facility] Organization [facility] Address Unknown Phone Unavailable Care Team Providers Care Janitor Helper Name Role Phone EdgarGregg solitario PCP Donny Bello MD Unavailable Benny Bustamante MD Unavailable Source Comments Some departments are not documenting in the electronic medical record. If you do not see the information that you expected, contact Release of Information in the Health Information Management department at [phone] for further assistance in locating additional records.[facility] Allergies Comments Active Allergy Reactions Severity [...]
--- OUTSIDE RECORDS SUMMARY | 2018-05-27 03:14 | XMS REPORT | Continuity of Care Document ---
Author Author [facility] Organization [facility] Address Unknown Phone Unavailable Allergies Active Description Code Type Severity Reaction Onset Reported/Identified Relationship to Patient Clinical Status Yes NKANo Known Allergies NKA Miscellaneous Allergy Unknown N/A 06/22/2005 Medications There is no data. 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 [facility] [place] ARTERIES OF LEFT LEG W ULC 06/26/2015 DARSHAN MARTINI MD Ot 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 06/26/2015 DARSHAN MARTINI MD, Ot L97.222 NON-PRESSURE CHRONIC ULCER OF LEFT CALF 06/26/2015 DARSHAN MARTINI MD, Ot Z72.0 TOBACCO USE 06/27/2015 DARSHAN MARTINI MD, Ot I70.242 [place] [place] ARTERIES OF LEFT LEG W ULC 06/27/2015 [...] SANTIAGO FACC, ALI FACP CCDS Ot Z79.01 ASSISTED (CURRENT) USE OF ANTICOAGULANT 07/03/2015 SALOME SANTIAGO FACC, ALI FACP CCDS Ot Z79.899 OTHER MEMBER SERVICE REPRESENTATIVE (CURRENT) DRUG THERAPY 07/03/2015 SALOME SANTIAGO FACC, ALI FACP CCDS Ot Z86.718 PERSONAL HISTORY OF OTHER VENOUS THROMBO 07/05/2015 DARSHAN MARTINI MD, Ot I70.242 [place] [place] ARTERIES OF LEFT LEG W C 07/05/2015 DARSHAN MARTINI MD, Ot 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 07/05/2015 DARSHAN MARTINI MD, Ot L97.222 NON-PRESSURE CHRONIC ULCER OF LEFT CALF 07/05/2015 DARSHAN MARTINI MD, Ot Z72.0 TOBACCO USE 07/06/2015 DARSHAN MARTINI MD, Ot I70.242 [place] ARTERIES OF LEFT LEG W [facility] 07/06/2015 DARSHAN MARTINI MD, Ot 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 07/06/2015 DARSHAN MARTINI MD, Ot L97.222 NON-PRESSURE CHRONIC ULCER OF LEFT CALF 07/06/2015 DARSHAN MARTINI MD, Ot Z72.0 TOBACCO USE 01/08/2016 Ot 780.2 SYNCOPE AND COLLAPSE 01/08/2016 TANISHA OLMSTEAD DO Ot 244.9 HYPOTHYROIDISM NOS 01/08/2016 TANISHA OLMSTEAD DO Ot E03.9 HYPOTHYROIDISM, UNSPECIFIED 01/08/2016 DARSHAN MARTINI MD, Ot I70.242 [place] ARTERIES OF LEFT LEG W [facility] 01/08/2016 DARSHAN MARTINI MD, Ot 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 01/08/2016 DARSHAN MARTINI MD, Ot L97.222 NON-PRESSURE CHRONIC ULCER OF LEFT CALF 01/08/2016 DARSHAN MARTINI MD, Ot Z72.0 TOBACCO USE 01/08/2016 DARSHAN MARTINI MD, Ot I70.242 [place] ARTERIES OF LEFT LEG W [facility] 01/08/2016 DARSHAN MARTINI MD, Ot I87.332 [...] MON 04/24/2016 TANISHA OLMSTEAD DO, Ot Z79.01 ASSISTED (CURRENT) USE OF ANTICOAGULANT 05/23/2016 TANISHA OLMSTEAD [...] ENCOUNTER FOR THERAPEUTIC DRUG LEVEL MON 06/16/2016 ATNISHA OLMSTEAD DO Ot Z79.01 MEMBER SERVICE REPRESENTATIVE (CURRENT) USE OF ANTICOAGULANT 09/29/2016 JENSEN SAAVEDRA MD Ot E03.9 HYPOTHYROIDISM, UNSPECIFIED 09/29/2016 JENSEN SAAVEDRA MD Ot F41.9 ANXIETY DISORDER, UNSPECIFIED 09/29/2016 JENSEN SAAVEDRA MD Ot I48.91 UNSPECIFIED ATRIAL FIBRILLATION 09/29/2016 JENSEN SAAVEDRA MD Ot J43.9 EMPHYSEMA, UNSPECIFIED 09/29/2016 JENSEN SAAVEDRA MD Ot K21.9 GASTRO-ESOPHAGEAL REFLUX DISEASE WITHOUT 09/29/2016 JENSEN SAAVEDRA MD Ot M54.5 LOW BACK PAIN 09/29/2016 JENSEN SAAVEDRA MD Ot Z79.01 ASSISTED (CURRENT) USE OF ANTICOAGULANT 09/29/2016 JENSEN SAAVEDRA [...] PAIN 10/05/2016 JENSEN SAAVEDRA MD Ot Z79.01 ASSISTED (CURRENT) USE OF ANTICOAGULANT 10/05/2016 JENSEN SAAVEDRA [...] 06/29/2017 DARSHAN MARTINI MD Ot I70.242 [place] ARTERIES OF LEFT LEG W ULC 06/29/2017 DARSHAN MARTINI MD Ot 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 06/29/2017 DARSHAN MARTINI MD Ot L97.222 NON-PRESSURE CHRONIC ULCER OF LEFT CALF 06/29/2017 DARSHAN MARTINI MD Ot Z72.0 TOBACCO USE 06/29/2017 DARSHAN MARTINI MD Ot I70.242 [place] ARTERIES OF LEFT LEG W ULC 06/29/2017 [...] INITIAL 06/29/2017 RICKI CARDENAS MD Ot Y92.[address] [facility] [address] IN [facility] NON-INSTIT[facility] (PRIVATE 06/29/2017 RICKI CARDENAS MD Ot Y93.01 ACTIVITY, WALKING, MARCHING AND HIKING 06/29/2017 RICKI CARDENAS MD Ot Z79.01 ASSISTED (CURRENT) USE OF ANTICOAGULANT 06/29/2017 RICKI CARDENAS MD Ot Z79.52 MEMBER SERVICE REPRESENTATIVE (CURRENT) USE OF SYSTEMIC STER 06/29/2017 RICKI CARDENAS MD Ot Z85.3 PERSONAL HISTORY OF MALIGNANT NEOPLASM O 06/29/2017 RICKI CARDENAS MD, Ot Z85.41 PERSONAL HISTORY OF MALIGNANT NEOPLASM O 06/29/2017 RICKI CARDENAS MD, Ot Z85.828 PERSONAL HISTORY OF OTHER [...] INI 11/18/2017 CHACORTA BENJAMIN MD, Ot Z79.01 ASSISTED (CURRENT) USE OF ANTICOAGULANT 11/18/2017 CHACORTA BENJAMIN MD, Ot Z79.52 MEMBER SERVICE REPRESENTATIVE (CURRENT) USE OF SYSTEMIC STER 11/18/2017 CHACORTA [...] INI 11/20/2017 CHACORTA BENJAMIN MD, Ot Z79.01 MEMBER SERVICE REPRESENTATIVE (CURRENT) USE OF ANTICOAGULANT 11/20/2017 CHACORTA BENJAMIN MD Ot Z79.52 ASSISTED (CURRENT) USE OF SYSTEMIC STER 11/20/2017 CHACORTA [...] 05/07/2018 DARSHAN MARTINI MD Ot I70.242 [place] ARTERIES OF LEFT LEG W ULC 05/07/2018 DARSHAN MARTINI MD, Ot 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 05/07/2018 DARSHAN MARTINI MD, Ot L97.222 NON-PRESSURE CHRONIC ULCER OF LEFT CALF 05/07/2018 DARSHAN MARTINI MD Ot Z72.0 TOBACCO USE 05/07/2018 DARSHAN MARTINI MD Ot I70.242 [place] ARTERIES OF LEFT LEG W ULC 05/07/2018 [...] 08:37 THYROID STIMULATING HORMONE 0.87 u[iU]/mL 0.35-4.94 Complete blood count (CBC) with automated white blood cell (WBC) differential - 05/26/18 23:38 Blood leukocytes automated count (number/volume) 6.3 10*3/uL 4.3-11.0 Blood erythrocytes automated count (number/volume) 4.12 10*6/uL 4.35-5.85 Venous blood hemoglobin measurement (mass/volume) 12.3 g/dL 11.5-16.0 Blood hematocrit (volume fraction) 37 % 35-52 Automated erythrocyte mean corpuscular volume 91 [foz_us] 80-99 Automated erythrocyte mean corpuscular hemoglobin (mass per erythrocyte) 30 pg 25-34 Automated erythrocyte mean corpuscular hemoglobin concentration measurement ( mass/volume) 33 g/dL 32-36 Automated erythrocyte distribution width ratio 13.4 % 10.0-14.5 Automated blood platelet count (count/volume) 224 10*3/uL 130-400 Automated blood platelet mean volume measurement 10.3 [foz_us] 7.4-10.4 Automated blood neutrophils/100 leukocytes 50 % 42-75 Automated blood lymphocytes/100 leukocytes 36 % 12-44 Blood monocytes/100 leukocytes 11 % 0-12 Automated blood eosinophils/100 leukocytes 2 % 0-10 Automated blood basophils/100 leukocytes 1 % 0-10 Blood neutrophils automated count (number/volume) 3.2 10*3 1.8-7.8 Blood lymphocytes automated count (number/volume) 2.2 10*3 1.0-4.0 Blood monocytes automated count (number/volume) 0.7 10*3 0.0-1.0 Automated eosinophil count 0.2 10*3/uL 0.0-0.3 Automated blood basophil count (count/volume) 0.0 10*3/uL 0.0-0.1 PT panel in platelet poor plasma by coagulation assay - 05/26/18 23:38 Prothrombin time (PT) in platelet poor plasma by coagulation assay 22.4 s 12.2-14.7 INR in platelet poor plasma or blood by coagulation assay 1.9 0.8-1.4 Activated partial thromboplastin time (aPTT) in platelet poor plasma bycoagulation assay - 05/26/18 23:38 Activated partial thromboplastin time (aPTT) in platelet poor plasma bycoagulation assay 53 s 24-35 Fibrin D-dimer FEU measurement in platelet poor plasma (mass/volume) - 23:38 Fibrin D-dimer FEU measurement in platelet poor plasma (mass/volume) 0.33 ug/mL 0.00-0.49 Comprehensive metabolic panel - 05/26/18 23:38 Serum or plasma sodium measurement (moles/volume) 142 mmol/L 135-145 Serum or plasma potassium measurement (moles/volume) 3.6 mmol/L 3.6-5.0 Serum or plasma chloride measurement (moles/volume) 107 mmol/L 98-107 Carbon dioxide 21 mmol/L 21-32 Serum or plasma anion gap determination (moles/volume) 14 mmol/L 5-14 Serum or plasma urea nitrogen measurement (mass/volume) 17 mg/dL 7-18 Serum or plasma creatinine measurement (mass/volume) 0.86 mg/dL 0.60-1.30 Serum or plasma urea nitrogen/creatinine mass ratio 20 NRG Serum or plasma creatinine measurement with calculation of estimated glomerular filtration rate > NRG Serum or plasma glucose measurement (mass/volume) 89 mg/dL 70-105 Serum or plasma calcium measurement (mass/volume) 9.3 mg/dL 8.5-10.1 Serum or plasma total bilirubin measurement (mass/volume) 0.3 mg/dL 0.1-1.0 Serum or plasma alkaline phosphatase measurement (enzymatic activity/volume) 62 U/L 40-136 Serum or plasma aspartate aminotransferase measurement (enzymatic activity/ volume) 44 U/L 5-34 Serum or plasma alanine aminotransferase measurement (enzymatic activity/volume ) 17 U/L 0-55 Serum or plasma protein measurement (mass/volume) 6.3 g/dL 6.4-8.2 Serum or plasma albumin measurement (mass/volume) 3.8 g/dL 3.2-4.5 CALCIUM CORRECTED 9.5 mg/dL 8.5-10.1 Magnesium - 05/26/18 23:38 Magnesium 2.3 mg/dL 1.8-2.4 Serum or plasma troponin i.cardiac measurement (mass/volume) - 05/26/18 23:38 Serum or plasma troponin i.cardiac measurement (mass/volume) < ng/ mL <0.028 Myoglobin, serum - 05/26/18 23:38 Myoglobin, serum 37.0 ng/mL 10.0-92.0 Lipase - 05/26/18 23:38 Lipase 32 U/L 8-78 THYROID STIMULATING HORMONE - 05/26/18 23:38 THYROID STIMULATING HORMONE 9.18 u[iU]/mL 0.35-4.94 Serum or plasma thyroxine (T4) free measurement (mass/volume) - 05/26/18 23:38 Serum or plasma thyroxine (T4) free measurement (mass/volume) 1.14 ng/dL 0.70-1.48 Serum or plasma ethanol measurement (mass/volume) - 05/26/18 23:38 Serum or plasma ethanol measurement (mass/volume) 16 mg/dL <10 Encounters ACCT No. Visit Date/Time Discharge Status Pt. Type Provider Facility Loc./Unit Complaint [id number] 05/07/2018 08:17:00 05/07/2018 23:59:59 CLS Outpatient TANISHA OLMSTEAD DO [facility] LAB E03.9 [id number] 11/18/2017 11:17:00 11/18/2017 14:22:00 DIS Emergency CASSIDY SANTIAGO, CHACORTA Louise [facility] ER ABNORMAL BLOOD WORK [id number] 06/29/2017 09:02:00 06/29/2017 11:50:00 DIS Emergency RONALD SANTIAGO, RICKI Swenson [facility] ER FALL, NOW HAVING CP, SOB [id number] 09/29/2016 07:36:00 09/29/2016 08:34:00 DIS Emergency QUENTIN SANTIAGO, JENSEN Murguia [facility] ER BACK PAIN [id number] 06/17/2016 00:14:00 06/17/2016 23:59:59 CLS Preadmit TANISHA OLMSTEAD DO [facility] LAB MONITOR FOR COUMADIN THERAPY [id number] 03/18/2016 10:43:00 06/16/2016 00:01:00 DIS Outpatient TANISHA OLMSTEAD DO [facility] LAB MONITOR FOR COUMADIN THERAPY [id number] 05/23/2016 09:00:00 05/23/2016 23:59:59 CLS Outpatient TANISHA OLMSTEAD DO [facility] RAD M89.9 [id number] 05/08/2016 09:53:00 05/08/2016 23:59:59 CLS Outpatient YONIJONA TANISHA SUN Shantal [facility] LAB HYPOTHYROIDISM [id number] 01/08/2016 09:07:00 01/08/2016 23:59:59 CLS Outpatient TANISHA OLMSTEAD DO [facility] LAB 244.9 [id number] 06/26/2015 11:22:00 06/26/2015 12:00:00 DIS Outpatient DARSHAN MARTINI MD [facility] WOUNDCARE [id number] 06/20/2015 08:25:00 06/20/2015 19:40:00 DIS Outpatient SALOME SANTIAGO FACC, JENNIFER ANGELES CCDS [facility] CATH PAD,TOBACCO USE,ABNORMAL ARTERIAL US [id number] 06/12/2015 10:09:00 06/12/2015 23:59:59 CLS Outpatient DARSHAN MARTINI MD [facility] LAB L CALF VENOUS ULCER [id number] 06/07/2015 10:48:00 06/07/2015 23:59:59 CLS Outpatient DARSHAN MARTINI MD [facility] RAD CHRONIC ULCER OF L CALF [id number] 05/15/2015 09:23:00 05/15/2015 23:59:59 CLS Outpatient DANAECAMMIE SUN TANISHA Shantal [facility] LAB HYPOTHYROIDISM [id number] 11/27/2014 08:20:00 11/27/2014 10:23:00 DIS Emergency RICKI CARDENAS MD [facility] ER SHOULDER AND NECK PAIN [id number] 10/07/2014 00:24:00 10/07/2014 03:50:00 DIS Emergency CHACORTA BENJAMIN MD [facility] ER FELL OFF PORCH-SIDE PAIN [id number] 03/18/2014 09:19:00 03/18/2014 23:59:59 CLS Outpatient TANISHA OLMSTEAD DO [facility] LAB HYPOTHYROIDISM [id number] 10/11/2012 19:44:00 10/11/2012 21:28:00 DIS Emergency CHACORTA BENJAMIN MD [facility] ER URINARY TRACT INFECTIN [id number] 08/27/2012 22:11:00 08/28/2012 01:15:00 DIS Emergency CASSIDY SANTIAGO, CHACORTA Louise [facility] ER BACK PAIN [id number] 08/16/2012 16:59:00 08/16/2012 19:53:00 DIS Emergency TYE SANTIAGO, ISAIAS Soto [facility] ER L LEG PAIN [id number] 05/27/2018 02:34:00 ACT Inpatient RONALD SANTIAGO, RICKI Swenson [facility] ICU CHEST PAIN [id number] 06/05/2015 14:31:00 Document Registration [id number] 11/24/2011 02:42:00 Document Registration [id number] 02/18/2011 10:16:00 Document Registration [id number] 11/28/2014 01:48:23 ACT Document Registration
[2018-05-27] MEDS ORDERED: 1/2 NS IV SOLUTION 1,000 ML IV PRN (04:13)
[2018-05-27] MEDS ORDERED: D5 1/2 NS W/KCL 20 MEQ/L 1,000 ML IV SCH (04:13)
[2018-05-27] MEDS ORDERED: LORazepam INJ 2 MG/ML (ATIVAN) VIAL IM/IV PRN (04:15)
[2018-05-27] MEDS ORDERED: LORazepam 1 MG (ATIVAN) TAB PO PRN (04:15)
[2018-05-27] MEDS ORDERED: LORazepam INJ 2 MG/ML (ATIVAN) VIAL IV PRN (04:15)
[2018-05-27] MEDS ORDERED: ONDANSETRON 4 MG (ZOFRAN) ORAL DISSOLVE TAB SL PRN (04:15)
[2018-05-27] MEDS ORDERED: ONDANSETRON 4 MG/2 ML (SDV) Z0FRAN IV PRN (04:15)
[2018-05-27] MEDS ORDERED: D5 1/2 NS 1000 ML IV SOLUTION 1,000 ML IV PRN (04:15)
--- NOTE | 2018-05-27 05:53 | Pulmonary Consultation ---
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 CP has improved since admission. Troponin is neg x 1. Denies SOB and CXR shows no acute process. TSH is 9 and pt denies missing any meds. She takes 50mcg of Synthroid at home. Pt admits to drinking 2 bourbons per night. I am consulted for pulmonary management. Allergies and Home Medications Allergies Coded Allergies: NKANo Known Allergies (Verified Allergy, Unknown, 06/22/05) Home Medications Atenolol 25 Mg Tablet, 25 MG PO DAILY, (Reported) Diphenhydramine HCl 25 Mg Capsule, 25 MG PO HS, (Reported) Furosemide 20 Mg Tablet, 40 MG PO DAILY, (Reported) TAKES 2 (20MG) TABLETS Levothyroxine Sodium 50 Mcg Tablet, 50 MCG PO DAILY, (Reported) Potassium Gluconate 99 Mg Tablet, 99 MG PO DAILY, (Reported) Warfarin Sodium 5 Mg Tablet, 5 MG PO MoTuWeThFr, (Reported) DOES NOT TAKE ANY WARFARIN ON SAT AND SUN Past Sbhocjr-[id number]-[id number] Hx Past Med/Social Hx: Reviewed and Corrections made Patient Social History Alcohol Use: Regular Use Number of Drinks Today: 2 Alcohol Beverage of Choice: [place] Recreational Drug Use: Yes (SMOKES 1/2 PPD) Smoking Status: Current Everyday Smoker Type Used: Cigarettes 2nd Hand Smoke Exposure: Yes Recent Foreign Travel: No Contact w/Someone Who Travel: No Recent Infectious Disease Expo: No Immunizations Up To Date Tetanus Booster (TDap): Less than 5yrs Date of Pneumonia Vaccine: Mar 29, 2018 Date of Influenza Vaccine: Mar 29, 2018 Seasonal Allergies Seasonal Allergies: No Past Medical History Surgeries: Yes (COLON, BRAIN, SKIN CA REMOVAL L LEG, BREAST IMPLANTS) Abdominal, Breast, Gallbladder Respiratory: Yes Asthma, COPD, Emphysema Cardiac: Yes Aneurysm, Atrial Fibrillation, Deep Vein Thrombosis Neurological: Yes Stroke Genitourinary: No UTI-Chronic Gastrointestinal: Yes Gastroesophageal Reflux Musculoskeletal: Yes Fibromyalgia Endocrine: Yes Hypothyroidsim HEENT: No Cancer: Yes (CERVIX BREAST ) Breast, Cervical Psychosocial: Yes (alcohol dependence with nightly use of hard liquor) Anxiety Integumentary: No Blood Disorders: No Review of Systems Time Seen by Provider: 07:54 Constitutional: Weakness, Malaise; No: Fever, Chills, Sweats, Other Eyes: No: Pain, Vision change, Conjunctivae inflammation, Eyelid inflammation, Other, Redness ENT: Nose congestion Respiratory: No: Cough, Dry, Shortness of breath, SOB with excertion, Wheezing , Hemoptysis, Pleuritic Pain, Sputum, Wheezing, Other Cardiovascular: Chest Pain; No: Orthopnea, Lt Headedness Musculoskeletal: back pain Sepsis Event Evaluation Height, Weight, BMI Height: 5'2.00" Weight: 138lbs. 0.0oz. 62.456459xd; 25.2 BMI Method:Stated Exam Exam Vital Signs Date Time Temp Pulse Resp B/P (MAP) Pulse Ox O2 Delivery O2 Flow Rate FiO2 05/27/18 05:15 68 12 125/58 (80) 97 Nasal Cannula 2.00 05/27/18 04:45 67 12 128/58 (81) 98 Nasal Cannula 2.00 05/27/18 04:36 70 30 96 Nasal Cannula 2.00 05/27/18 04:30 72 15 128/60 (82) 88 Room Air 05/27/18 04:15 66 10 138/61 (86) 95 Room Air 05/27/18 04:05 Room Air 05/27/18 04:00 Room Air 05/27/18 04:00 68 11 143/62 (89) 94 Room Air 05/27/18 03:45 70 10 133/68 (89) 93 Room Air 05/27/18 03:43 97.4 67 9 130/63 (85) 94 Room Air 05/27/18 03:38 70 05/27/18 03:17 97.2 74 18 112/77 (89) 96 Room Air 05/26/18 23:05 Room Air 05/26/18 23:05 98.1 62 18 118/52 (74) 96 Room Air I & O 05/27/18 07:00 Intake Total 1000 ml Balance 1000 ml Height & Weight Height: 5'2.00" Weight: 138lbs. 0.0oz. 62.672702ha; 25.2 BMI Method:Stated General Appearance: No Apparent Distress, WD/WN HEENT: PERRL/EOMI, Normal ENT Inspection Neck: Normal Inspection Respiratory: Chest Non Tender, Lungs Clear, Normal Breath Sounds, No Accessory Muscle Use, No Respiratory Distress Cardiovascular: Regular Rate, Rhythm, No Edema, No Murmur, Normal Peripheral Pulses Capillary Refill: Less Than 3 Seconds Extremity: Normal Inspection, Non Tender, No Pedal Edema Neurologic/Psychiatric: Alert, Oriented x3, No Motor/Sensory Deficits, change coordinator II- XII Norm as Tested, Other (anxious) Skin: Normal Color, Warm/Dry Results Lab Laboratory Tests 05/26/18 23:38 Assessment/Plan Assessment/Plan CP r/o USA -Troponin neg x1 - repeat -Cardiology consulted Hypothyroid -Resume Synthroid and increase from 50 to 100mcg for now -TSH is 9 Alcohol use - pt drinks 2 bourbons per night -No hx of withdrawal -I doubt pt with have alcohol withdrawals -I am going to d/c CIWA protocol will reorder if pt shows signs of withdrawal Tobacco use -Education Nocturnal hypoxia - probably secondary to CITLALLI -Out pt f/u HX of Afib -Takes coumadin at home Hx of DVT HX of CVA with residual left sided weakness MOI HILLS DO May 27, 2018 05:52
[2018-05-27 06:20] LABS: CHOLESTEROL 172 MG/DL (< 200); HDL CHOLESTEROL 77 MG/DL (40-60); TRIGLYCERIDES 40 MG/DL (<150); VLDL CHOLESTEROL 8 MG/DL (5-40)
[2018-05-27] MEDS: LEVOTHYROXINE 100 MCG (LEVOTHROID) TAB PO SCH (06:57)
[2018-05-27] MEDS: NS IV 1000 ML 1,000 ML IV SCH ×3 (06:58→19:38)
--- NOTE | 2018-05-27 07:11 | Diagnostic Imaging Report ---
INDICATION: Chest pain COMPARISON: Chest from 2015. FINDINGS: Portable view of the chest demonstrates the lungs to be clear. The heart size and vascularity are normal. Mild calcifications are again seen in the aorta. IMPRESSION: There are no acute findings. Dictated by: Dictated on workstation # [id number]
[2018-05-27] MEDS ORDERED: THIAMINE INJECTION 100 MG, FOLIC ACID INJECTION 1 MG, MAGNESIUM SULFATE 2 GM, VITAMIN M... IV SCH ×5 (09:00)
[2018-05-27] MEDS: ASPIRIN E.C. 81 MG (ECOTRIN) TAB PO SCH (09:39)
[2018-05-27] MEDS: morphine INJ 4 MG/ML 1 ML (VIAL/SYRINGE) IV PRN ×3 (09:39→21:11)
[2018-05-27] MEDS ORDERED: REGADENOSON 0.4 MG/5 ML SYR (LEXISCAN) IV ONE (11:00)
[2018-05-27] MEDS ORDERED: FURO20TA4 PO (11:00)
--- NOTE | 2018-05-27 11:02 | NUR ---
PATIENT HAD HER PRESCRIPTION BOTTLES IN THE ROOM WITH HER AND VERIFIED HOW SHE TAKES THEM. SHE ALSO TAKES POTASSIUM OTC DAILY AND AN OTC SLEEP AID AT .
--- NOTE | 2018-05-27 11:25 | Consultation-Cardiology ---
HPI-Cardiology Cardiology Consultation Date of Consultation 05/27/18 Date of Admission Time Seen by Provider: 10:40 Indication: Chest pain HPI Patient is an 88 year old female with history of HTN, hx DVT s/p IVC filter on coumadin, COPD, tobaccoism and moderate to heavy ETOH use. Presented the ER last night with complaints of chest pain. Reports chest pain initially 10/10 on arrival, patient reports relieved with morphine. Currently complaining of some epigastric pain. Denies any dyspnea, dizziness or lightheadedness. Complaining of headache. Home Medications & Allergies Allergies: Coded Allergies: NKANo Known Allergies (Verified Allergy, Unknown, 06/22/05) Home Medication List Reviewed: Yes EKF-Zytchm-Bminih Hx Patient Social History Employed/Student: retired Alcohol Use: Regular Use Recreational Drug Use: No (/ ppd) Smoking Status: Current Everyday Smoker Former smoker/When Quit: Jun 09, 2015 Type Used: Cigarettes 2nd Hand Smoke Exposure: Yes Recent Foreign Travel: No Recent Infectious Disease Expo: No Immunizations Up To Date Tetanus Booster (TDap): Less than 5yrs Date of Pneumonia Vaccine: Mar 29, 2018 Date of Influenza Vaccine: Mar 29, 2018 Past Medical History Questionable PAF, COPD, HTN, Tobaccoism, ETOH use, hypothyroidism. Family Medical History Significant Family History: No Pertinent Family Hx Review of Systems Constitutional: No dizziness, No fever, No malaise, No weakness EENTM: No blurred vision, No vision loss, No epistaxis, No nose pain Respiratory: No cough, No dyspnea on exertion Cardiovascular: chest pain; No edema, No Hx of Intervention, No palpitations, No syncope, No vascular heart diseas Gastrointestinal: abdominal pain (epigastric pain); No constipation; heartburn Genitourinary: No dysuria, No frequency, No hematuria Musculoskeletal: No back pain, No joint pain Skin: No lesions, No rash Psychiatric/Neurological: Denies Anxiety, Denies Depressed Reviewed Test Results Reviewed Test Results Lab Laboratory Tests 05/26/18 23:38: White Blood Count 6.3, Red Blood Count 4.12L, Hemoglobin 12.3, Hematocrit 37, Mean Corpuscular Volume 91, Mean Corpuscular Hemoglobin 30, Mean Corpuscular Hemoglobin Concent 33, Red Cell Distribution Width 13.4, Platelet Count 224, Mean Platelet Volume 10.3, Neutrophils (%) (Auto) 50, Lymphocytes (%) (Auto) 36 , Monocytes (%) (Auto) 11, Eosinophils (%) (Auto) 2, Basophils (%) (Auto) 1, Neutrophils # (Auto) 3.2, Lymphocytes # (Auto) 2.2, Monocytes # (Auto) 0.7, Eosinophils # (Auto) 0.2, Basophils # (Auto) 0.0, Prothrombin Time 22.4H, INR Comment 1.9H, Activated Partial Thromboplast Time 53H, D-Dimer 0.33, Sodium Level 142, Potassium Level 3.6, Chloride Level 107, Carbon Dioxide Level 21, Anion Gap 14, Blood Urea Nitrogen 17, Creatinine 0.86, Estimat Glomerular Filtration Rate > 60, BUN/Creatinine Ratio 20, Glucose Level 89, Calcium Level 9.3, Corrected Calcium 9.5, Magnesium Level 2.3, Total Bilirubin 0.3, Aspartate Amino Transf (AST/SGOT) 44H, Alanine Aminotransferase (ALT/SGPT) 17, Alkaline Phosphatase 62, Myoglobin 37.0, Troponin I < 0.028, Total Protein 6.3L, Albumin 3.8, Lipase 32, Thyroid Stimulating Hormone (TSH) 9.18H, Free Thyroxine 1.14, Serum Alcohol 16H 05/27/18 05:55: Troponin I 0.028, Triglycerides Level 40, Cholesterol Level 172, LDL Cholesterol Direct 74, VLDL Cholesterol 8, HDL Cholesterol 77H ECG Impression ECG Initial ECG Rhythm: Normal Sinus Physical Exam Vital Signs Vital Signs - First Documented 05/27/18 04:36 O2 Flow Rate 2.00 Capillary Refill : Less Than 3 Seconds Height, Weight, BMI Height: 5'2.00" Weight: 138lbs. 0.0oz. 62.248302ee; 25.2 BMI Method:Stated General Appearance: No Apparent Distress, WD/WN HEENT: TMs Normal, Normal ENT Inspection Neck: Non Tender, Supple Respiratory: Chest Non Tender, Lungs Clear, Normal Breath Sounds, No Accessory Muscle Use, No Respiratory Distress Cardiovascular: Regular Rate, Rhythm, No Edema, No Gallop, No JVD Gastrointestinal: Non Tender, Soft Rectal: Deferred Back: No CVA Tenderness Extremity: Non Tender, No Calf Tenderness Neurologic/Psychiatric: Alert, Oriented x3, behavioral health professional II-XII Norm as Tested A/P-Cardiology Admission Diagnosis Chest pain COPD HTN Hypothyroidism Assessment/Plan Chest pain, nonspecific etiology- cardiac enzymes negative, EKG reveals no acute ST changes. Will give Protonix, stress test was done showing no sig ischemia or infarction, chest pain is unlikely to be cardiac, patient was started on Protonix. Urinary incontinence, questionable UTI. Evaluate urine analysis. COPD, managed by Dr. Dial HTN-continue to monitor blood pressure. Hypothyroidism- TSH 9. Management per medical services Hx of DVT, s/p IVC filter in 2007. On coumadin. INR today 1.9, continue to monitor INR and restart Coumadin Chronic BLE edema Tobaccoism- educated on the importance of smoking cessation ETOH use Questionable hx of atrial fibrillation per medical records. Questionable history of brain aneurysm surgery in her 30's. Thank you for allowing us to participate in the management of Ms. Bowers. This is Jaylene Tijerina PA-C, as a scribe for Dr. Moran. Patient was seen and evaluated with Jaylene, this is an 88 years old lady with history of hypertension, hypothyroidism and DVT on Coumadin. Had chronic bilateral lower extremity edema. She has history of tobaccoism, admitted with chest pain. EKG did not show any acute abnormality, cardiac enzymes were negative, her pain is severe, having some nausea. Has urinary incontinence. On examination lungs were clear to auscultation bilaterally, heart is regular rate and rhythm, I attempted stress Test patient was unable to exercise, dobutamine stress echo was done which did not show any ischemia or infarction, had left ventricular hypertrophy. From cardiology standpoint it is unlikely to have cardiac chest pain. Clinical Quality Measures AMI/AHF: ASA po Prior to arrival: No DVT/VTE Risk/Contraindication: Risk Factor Score Per Nursin RFS Level Per Nursing on Admit: 4+=Very High JAYLENE GARCIA May 27, 2018 11:25 NATY MORAN MD May 27, 2018 16:49
[2018-05-27] MEDS ORDERED: DOBUTamine DRIP 250 ML IV SCH (14:45)
--- NOTE | 2018-05-27 16:24 | History & Physical-Hospitalist ---
History of Present Illness HPI/Chief Complaint The patient is an 88-year-old white female who presented to the emergency room after 2200 hours last evening. She reports that she had the onset of some mild chest pain in the early evening while watching TV. She went to bed and the pain worsened and she came to the emergency room for further evaluation. The pain was described as sharp left sided and to the back. She smokes about one pack of cigarettes per day. She stopped for a 20 year. But started again about 12 years ago after the of her . She drinks 2 highballs a day. She states she had a heart attack 20 years ago or more. She took medicine for a short while but not since then. She also took Coumadin for a period of time but is not clear as to why. Her blood alcohol was 160. Heart- related medications include atenolol furosemide and Coumadin. She states that she has an inferior vena cava filter. Date Seen 05/27/18 Time Seen by a Provider: 16:19 Attending Physician Sanchez Cardenas MD PCP Gregg Jackson DO Referring Physician Date of Admission May 27, 2018 at 02:34 Home Medications & Allergies Home Medications Reviewed patient Home Medication Reconciliation performed by pharmacy medication reconciliations brass instrument repair technician and/or nursing. Patients Allergies have been reviewed. Allergies Allergies Coded Allergies TOBINANo Known Allergies (Verified Allergy, Unknown, 06/22/05) Past Orieegf-Urkfsv-Sjrdbz Hx Past Med/Social Hx: Reviewed and Corrections made Patient Social History Employed/Student: retired Alcohol Use: Regular Use Number of Drinks Today: 2 Alcohol Beverage of Choice: [place] Recreational Drug Use: No (1/2 ppd) Smoking Status: Current Everyday Smoker Type Used: Cigarettes 2nd Hand Smoke Exposure: Yes Recent Foreign Travel: No Contact w/other who traveled: No Recent Infectious Disease Expo: No Immunizations Up To Date Tetanus Booster (TDap): Less than 5yrs Date of Pneumonia Vaccine: Mar 29, 2018 Date of Influenza Vaccine: Mar 29, 2018 Seasonal Allergies Seasonal Allergies: No Past Medical History Surgeries: Abdominal, Breast, Gallbladder Cardiac: Aneurysm, Atrial Fibrillation, Deep Vein Thrombosis Neurological: Stroke Genitourinary: UTI-Chronic Gastrointestinal: Gastroesophageal Reflux Musculoskeletal: Fibromyalgia Endocrine: Hypothyroidsim Cancer: Breast, Cervical Psychosocial: Anxiety History of Blood Disorders: No Family History No Pertinent Family Hx Review of Systems Constitutional: see HPI EENTM: no symptoms reported Respiratory: cough Cardiovascular: chest pain Gastrointestinal: no symptoms reported Genitourinary: no symptoms reported Musculoskeletal: no symptoms reported Skin: other (discoloration of both lower legs.) Psychiatric/Neurological: No Symptoms Reported Physical Exam Physical Exam Vital Signs Vital Signs - First Documented 05/27/18 04:36 O2 Flow Rate 2.00 Capillary Refill : Less Than 3 Seconds Height, Weight, BMI Height: 5'2.00" Weight: 138lbs. 0.0oz. 62.632925hd; 25.2 BMI Method:Stated General Appearance: No Apparent Distress, Other (she is alert and oriented.) Eyes: Bilateral Eye Normal Inspection Neck: Normal Inspection Respiratory: Chest Non Tender, Lungs Clear, Normal Breath Sounds, No Accessory Muscle Use, No Respiratory Distress Gastrointestinal: Normal Bowel Sounds Neurologic/Psychiatric: Alert, Oriented x3 Skin: Other (there is bronzy discoloration of both lower extremities.) Results Results/Procedures Labs Laboratory Tests 05/26/18 23:38 Patient resulted labs reviewed. Clinical Quality Measures AMI/AHF: ASA po Prior to arrival: No DVT/VTE Risk/Contraindication: Risk Factor Score Per Nursin RFS Level Per Nursing on Admit: 4+=Very High SANCHEZ CARDENAS MD May 27, 2018 16:24
[2018-05-27] MEDS ORDERED: warFARin 5 MG (COUMADIN) TAB PO SCH ×2 (16:45→18:00)
[2018-05-27] MEDS: PANTOPRAZOLE 40 MG (PROTONIX) TAB PO SCH (18:35)
[2018-05-28] VITALS: BP 108/50
[2018-05-28 03:29] LABS: BILIRUBIN,URINE NEGATIVE (NEGATIVE); COLOR,URINE YELLOW; GLUCOSE, URINE (UA) NEGATIVE (NEGATIVE); KETONES,URINE NEGATIVE (NEGATIVE); LEUKOCYTE ESTERASE ,URINE 2+ (NEGATIVE); NITRITE,URINE NEGATIVE (NEGATIVE); PH,URINE 5 (5-9); PROTEIN,URINE NEGATIVE (NEGATIVE); UROBILINOGEN,URINE NORMAL (NORMAL)
[2018-05-28 03:42] LABS: BACTERIA,URINE NEGATIVE /HPF; CLARITY,URINE CLEAR; SQUAMOUS EPITHELIAL CELL,UR 0-2 /HPF; WBC,URINE 0-2 /HPF
[2018-05-28 03:54] LABS: HEMOGLOBIN 11.6 G/DL (11.5-16.0); MEAN PLATELET VOLUME 10.7 FL (7.4-10.4); RED CELL DISTRIBUTION WIDTH 13.8 % (10.0-14.5); WHITE BLOOD COUNT 6.3 10^3/uL (4.3-11.0)
[2018-05-28 04:04] LABS: PROTHROMBIN TIME PATIENT 23.6 SEC (12.2-14.7)
[2018-05-28 04:15] LABS: BUN/CREATININE RATIO 19; CALCIUM 8.7 MG/DL (8.5-10.1); CARBON DIOXIDE 18 MMOL/L (21-32); CHLORIDE 110 MMOL/L (98-107); CREATININE SERUM 0.67 MG/DL (0.60-1.30); GFR ESTIMATED > 60; GLUCOSE 77 MG/DL (70-105); POTASSIUM 4.1 MMOL/L (3.6-5.0); SODIUM 137 MMOL/L (135-145)
--- NOTE | 2018-05-28 05:38 | Pulmonary Progress Note ---
Subjective Time Seen by a Provider: 05:37 Subjective/Events-last exam Pt doing better. stress test neg. No current CP. Sepsis Event Evaluation Height, Weight, BMI Height: 5'2.00" Weight: 138lbs. 0.0oz. 62.350730zp; 25.2 BMI Method:Stated Exam Exam Vital Signs Date Time Temp Pulse Resp B/P (MAP) Pulse Ox O2 Delivery O2 Flow Rate FiO2 05/28/18 04:00 99.0 05/28/18 04:00 Nasal Cannula 1.00 05/28/18 01:00 57 05/28/18 00:00 58 13 108/50 (69) 97 Nasal Cannula 2.00 05/28/18 00:00 Nasal Cannula 1.00 05/28/18 00:00 99.4 05/27/18 21:00 98 Nasal Cannula 1.00 05/27/18 20:00 Nasal Cannula 1.00 05/27/18 20:00 59 12 119/44 (69) 96 Nasal Cannula 2.00 05/27/18 20:00 99.2 05/27/18 19:00 60 05/27/18 18:46 Nasal Cannula 1.00 05/27/18 16:00 57 11 143/65 (91) 95 Nasal Cannula 2.00 05/27/18 16:00 97.5 05/27/18 16:00 Nasal Cannula 1.00 05/27/18 14:51 61 18 115/74 96 Room Air 05/27/18 13:00 57 05/27/18 12:00 59 16 125/55 (78) 96 Nasal Cannula 2.00 05/27/18 11:25 Nasal Cannula 1.00 05/27/18 11:19 99.3 05/27/18 08:51 Nasal Cannula 1.00 05/27/18 08:17 98 Nasal Cannula 1.00 05/27/18 08:05 Nasal Cannula 1.00 05/27/18 08:00 64 13 135/57 (83) 97 Nasal Cannula 2.00 05/27/18 07:30 99.4 05/27/18 07:00 63 12 128/60 (82) 99 Nasal Cannula 2.00 05/27/18 07:00 63 05/27/18 06:00 64 12 134/58 (83) 99 Nasal Cannula 2.00 I & O 05/28/18 07:00 Intake Total 500 ml Output Total 1550 ml Balance -1050 ml Height & Weight Height: 5'2.00" Weight: 138lbs. 0.0oz. 62.399620pj; 25.2 BMI Method:Stated General Appearance: No Apparent Distress, WD/WN HEENT: TMs Normal, Normal ENT Inspection Neck: Non Tender, Supple Respiratory: Chest Non Tender, Lungs Clear, Normal Breath Sounds, No Accessory Muscle Use, No Respiratory Distress Cardiovascular: Regular Rate, Rhythm, No Edema, No Gallop, No JVD Capillary Refill: Less Than 3 Seconds Extremity: Non Tender, No Calf Tenderness Neurologic/Psychiatric: Alert, Oriented x3, form setter metal road forms II-XII Norm as Tested Skin: Other (there is bronzy discoloration of both lower extremities.) Results Lab Laboratory Tests 05/26/18 23:38 05/28/18 03:20 Assessment/Plan Assessment/Plan CP r/o [place] - stress test - neg -Troponin neg x1 - repeat -Cardiology consulted Hypothyroid -Synthroid -TSH is 9 Alcohol use - pt drinks 2 bourbons per night -No hx of withdrawal -I doubt pt with have alcohol withdrawals -I am going to d/c CIWA protocol will reorder if pt shows signs of withdrawal Metabolic acidosis -Monitor Tobacco use -Education Nocturnal hypoxia - probably secondary to CITLALLI -Out pt f/u HX of Afib -Takes coumadin at home Hx of DVT HX of CVA with residual left sided weakness MOI HILLS DO May 28, 2018 05:38
[2018-05-28] MEDS: NITROGLYCERIN 0.4 MG SL TABS BTL 25'S SL PRN (06:01)
[2018-05-28] MEDS ORDERED: NS IV 1000 ML 1,000 ML ONE ×2 (07:00→14:29)
--- NOTE | 2018-05-28 07:00 | Cardiology Progress Note ---
Subjective Date Seen by Provider: May 28, 2018 Time Seen by Provider: 06:58 Subjective/Events-last exam patient is having chest pain described it as pressure all over her chest. No shortness of breath. No palpitation Review of Systems General: No Chills, No Night Sweats, No Fatigue, No Malaise, No Appetite, No Other HEENT: No Head Aches, No Visual Changes, No Eye Pain, No Ear Pain, No Dysphasia , No Sinus Congestion, No Post Nasal Drip, No Sore Throat, No Other Pulmonary: No Dyspnea, No Cough, No Pleuritic Chest Pain, No Other Cardiovascular: Chest Pain; No: Palpitations, Orthopnea, Paroxysmal Noc. Dyspnea, Edema, Lt Headedness, Other Objective-Cardiology Exam Last Set of Vital Signs Vital Signs 05/28/18 05/28/18 01:00 04:00 Temp 99.0 Pulse 57 O2 Delivery Nasal Cannula O2 Flow Rate 1.00 Capillary Refill : Less Than 3 Seconds I&O Intake and Output 05/28/18 00:00 Intake Total 1500 ml Output Total 1750 ml Balance -250 ml Intake Oral 500 ml IV Total 1000 ml Output Urine Total 1750 ml Daily Weight Change Yes, 24-33 lbs General: Alert, Oriented X3, Cooperative HEENT: Atraumatic, PERRLA Neck: Supple, No JVD, No Thyromegaly Lungs: Clear to Auscultation, Normal Air Movement Heart: Regular Rate, Normal S1, Normal S2, No Murmurs Abdomen: Normal Bowel Sounds, Soft, No Tenderness, No Hepatosplenomegaly, No Masses Extremities: No Clubbing, No Cyanosis, No Edema, Normal Pulses, No Tenderness/ Swelling Skin: No Rashes, No Breakdown, No Significant Lesion Neuro: Normal Gait, Normal Speech, Strength at 5/5 X4 Ext, Normal Tone, Sensation Intact Psych/Mental Status: Mental Status NL, Mood NL Results Lab Laboratory Tests 05/28/18 03:20 A/P-Cardiology Admission Diagnosis Chest pain COPD HTN Hypothyroidism Assessment/Plan Chest pain, nonspecific etiology, still having chest pressure all over her chest. No palpitation. I will evaluate CT angiogram of the chest. Continue on current medication and will consider cardiac catheterization she underwent stress echo which did not show significant abnormality or ischemia. Hypertension, continue on current medication monitor blood pressure History of COPD. Managed by Dr. Dial. 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 COPD, managed by Dr. Dial. Hypothyroidism- TSH 9. Management per medical services Hx of DVT, s/p IVC filter in 2007. On coumadin. INR today 2, continue to monitor INR and restart Coumadin Tobaccoism- educated on the importance of smoking cessation ETOH use Questionable hx of atrial fibrillation per medical records. Questionable history of brain aneurysm surgery in her 30's. Clinical Quality Measures AMI/AHF: ASA po Prior to arrival: No DVT/VTE Risk/Contraindication: Risk Factor Score Per Nursin RFS Level Per Nursing on Admit: 4+=Very High NATY ALFARO MD May 28, 2018 07:00
[2018-05-28] MEDS ORDERED: IOHEXOL 350 MG/ML 150 ML (OMNIPAQUE 350) VIAL IV ONE (07:15)
[2018-05-28] MEDS: NS IV 1000 ML 1,000 ML IV SCH ×2 (07:24→20:20)
--- NOTE | 2018-05-28 08:06 | Progress Note-Hospitalist ---
Subjective HPI/CC On Admission Date Seen by Provider: May 28, 2018 Time Seen by Provider: 08:02 The patient is an 88-year-old white female who presented to the emergency room after 2200 hours last evening. She reports that she had the onset of some mild chest pain in the early evening while watching TV. She went to bed and the pain worsened and she came to the emergency room for further evaluation. The pain was described as sharp left sided and to the back. She smokes about one pack of cigarettes per day. She stopped for a 20 year. But started again about 12 years ago after the of her . She drinks 2 highballs a day. She states she had a heart attack 20 years ago or more. She took medicine for a short while but not since then. She also took Coumadin for a period of time but is not clear as to why. Her blood alcohol was 160. Heart- related medications include atenolol furosemide and Coumadin. She states that she has an inferior vena cava filter. Subjective/Events-last exam Pt reports persistent pressure across her chest and back. Describes it like something is laying on her chest. Also complains of being cold. Objective Exam Vital Signs Vital Signs Date Time Temp Pulse Resp B/P (MAP) Pulse Ox O2 Delivery O2 Flow Rate FiO2 05/28/18 04:00 99.0 05/28/18 04:00 Nasal Cannula 1.00 05/28/18 01:00 57 05/28/18 00:00 13 108/50 (69) 97 Capillary Refill : Less Than 3 Seconds General Appearance: No Apparent Distress, WD/WN Respiratory: Lungs Clear, No Accessory Muscle Use, No Respiratory Distress Cardiovascular: Regular Rate, Rhythm, No Murmur, Normal Peripheral Pulses, Other (tender to palpation across chest) Gastrointestinal: Non Tender, Soft Extremity: No Pedal Edema Neurologic/Psychiatric: Alert, Oriented x3 Skin: Normal Color, Warm/Dry, Other (there is bronzy discoloration of both lower extremities.) Results/Procedures Lab Laboratory Tests 05/28/18 03:20 Patient resulted labs reviewed. Assessment/Plan Assessment and Plan Assess & Plan/Chief Complaint Chest Pain Diagnosis/Problems Diagnosis/Problems (1) Chest pain Status: Acute Assessment & Plan: Negative stress echo yesterday CTA ordered this AM by Dr Moran If negative will try toradol for MSK pain Troponins negative Qualifiers: Chest pain type: unspecified Qualified Codes: R07.9 - Chest pain, unspecified (2) Presence of IVC filter Assessment & Plan: history of b/l LE DVTs per patient and IVC filter in place ~10 years On coumadin CTA ordered of chest but low likelihood for PE given therapeutic INR and negative d-dimer (3) Alcohol dependence Status: Acute Assessment & Plan: Has 2 drinks/night Low likelihood for withdrawal Qualifiers: Substance use status: unspecified alcohol-induced disorder Qualified Codes : F10.29 - Alcohol dependence with unspecified alcohol-induced disorder Clinical Quality Measures AMI/AHF: ASA po Prior to arrival: No DVT/VTE Risk/Contraindication: Risk Factor Score Per Nursin RFS Level Per Nursing on Admit: 4+=Very High RICARDO KAUFMAN MD May 28, 2018 08:06
[2018-05-28] MEDS: morphine INJ 4 MG/ML 1 ML (VIAL/SYRINGE) IV PRN (11:19)
[2018-05-28] MEDS: PANTOPRAZOLE 40 MG (PROTONIX) TAB PO SCH (11:19)
[2018-05-28] MEDS: LEVOTHYROXINE 100 MCG (LEVOTHROID) TAB PO SCH (11:19)
[2018-05-28] MEDS: ASPIRIN E.C. 81 MG (ECOTRIN) TAB PO SCH (11:30)
[2018-05-28 12:00] VITALS: BP 135/59
[2018-05-28] MEDS ORDERED: NS IV 1000 ML 2,000 ML ONE (12:53)
[2018-05-28] MEDS ORDERED: LIDOCAINE 1% INJ 20 ML 20 ML VIAL ONE (12:53)
[2018-05-28] MEDS ORDERED: HEParin 1000 UNIT/ML (10ML VIAL) FOR BOLUS ONE (12:53)
[2018-05-28 13:00] VITALS: BP 136/57
[2018-05-28] MEDS ORDERED: fentaNYL INJECTION 100 MCG/2 ML AMP ONE (14:29)
[2018-05-28] MEDS ORDERED: MIDAZOLAM 5 MG/5 ML (VERSED) VIAL ONE (14:29)
--- NOTE | 2018-05-28 14:32 | Diagnostic Imaging Report ---
PROCEDURE: CT angiography of the chest with contrast. TECHNIQUE: Multiple contiguous axial images were obtained through the chest after uneventful bolus administration of intravenous contrast. 2D reconstructed CTA MIP acquisitions were also performed. Auto Exposure Controls were utilized during the CT exam to meet ALARA standards for radiation dose reduction. INDICATION: Chest pain. COMPARISON: Correlation is made with prior CT from 06/29/2017. FINDINGS: Evaluation of the pulmonary arterial system is without evidence of thromboembolism. No filling defects are identified within the central, lobar or segmental branches. The thoracic aorta is normal caliber. No dissection is seen. No pericardial fluid is identified. Trace left pleural effusion is noted. Patient does have bilateral breast implants. No axillary lymphadenopathy is seen. No mediastinal or hilar lymphadenopathy is detected. There is some dependent atelectasis in bilateral lower lobes. No discrete mass is seen. Upper abdomen demonstrates an IVC filter in place. IMPRESSION: 1. No evidence of pulmonary embolism or thoracic aortic dissection. 2. Trace left pleural effusion with bibasilar subsegmental atelectasis. Dictated by: Dictated on workstation # [id number]
--- NOTE | 2018-05-28 15:20 | Cardiac Procedure Note-CS/ASA ---
Pre-Procedure Note Pre-Op Procedure Note H&P Reviewed The H&P was reviewed, patient examined and no changes noted. Date H&P Reviewed: May 28, 2018 Time H&P Reviewed: 14:00 Conscious Sedation Pre-Proced Time 14:00 ASA Score 3 For ASA 3 and 4: Consider anesthesia and medical clearance. Also, for patients with a history of failed moderate sedation consider anesthesia. Airway Lungs Heart ASA score ASA 1: a normal healthy patient ASA 2: a patient with a mild systemic disease (mid diabetes, controlled hypertension, obesity x ASA 3: a patient with a severe systemic disease that limits activity (angina , COPD, prior Myocardial infarction) ASA 4: a patient with an incapacitating disease that is a constant threat to life (CHF, renal failure) ASA 5: a moribund patient not expected to survive 24 hrs. (ruptured aneurysm) ASA 6: a declared brain- patient whose organs are being harvested. For emergent operations, add the letter E after the classification Mallampati Classification Grade 3 Sedation Plan Analgesia, Amnesia, Plan communicated to team members, Discussed options with patient/fam, Discussed risks with patient/fam The patient is an appropriate candidate to undergo the planned procedure, sedation, and anesthesia. The patient immediately re-assessed prior to indication. NATY ALFARO MD May 28, 2018 15:20
--- NOTE | 2018-05-28 15:25 | Cardiac Cath Report ---
Cardiac Cath Report Physician (s)/Early Childhood Special Educator (s) Physician NATY ALFARO MD Pre-Procedure Diagnosis Pre-Procedure Diagnosis: Chest pain Post-Procedure Note Procedure Start Date: May 28, 2018 Name of Procedure: Left heart catheterization Findings/Procedure Note PROCEDURE NOTE: 88 years old lady with significant chest pain persisted, had normal stress echo , continue to have chest pain, CT angiogram of the chest was negative, I decided to proceed with coronary angiogram with limited amount of contrast used 20 mL. After explaining the procedure to the patient, all pros and cons were explained , all questions were answered. The patient signed the consent and then she was placed on the cardiac catheterization laboratory. Groin was prepped SL fashion local anesthesia was used. Sheath placed in the Right femoral artery. Ashley right and left catheter were used to access the coronary system. Pigtail was used to access the left ventricular cavity. Left ventriculogram was not done, pressure was measured At the end of the procedure the sheath was removed. Closure device was used FINDINGS: Hemodynamics LV 121/20, end-diastolic pressure of 20 Aorta 121/51 mean of 79 ANATOMY: Left Main is free of obstructive disease Left Anterior Descending is free of obstructive disease Left Circumflex has mild disease nonobstructive disease Right Coronory Artery tortuous artery with no obstructive disease LV Gram was not done pressure was measured CONCLUSION: 1. No significant obstructive disease in the coronary system, mild disease 2. Mildly elevated left ventricular end-diastolic pressure DISCUSSION AND RECOMMENDATION: Chest pain is not cardiac in nature, could be related to GI causes Anesthesia Type: Conscious Sedation Estimated blood loss (mL): 15 ml Contrast Amount: 21 ml172 mGy Post-Procedure Diagnosis Post-operative diagnosis: Chest pain Hypertension Coronary artery disease DVT NATY ALFARO MD May 28, 2018 15:25
[2018-05-28] MEDS ORDERED: PATIENT MAY USE OWN MEDS, ALL PO SCH (15:30)
--- NOTE | 2018-05-28 15:32 | NUR ---
CM/SS attempted to see patient for SS consult. 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 Will attempt to see her at another time.
[2018-05-28 16:00] VITALS: BP 129/63
[2018-05-28 17:00] VITALS: BP 129/58
[2018-05-28 20:00] VITALS: BP 141/58
[2018-05-29] VITALS: BP 122/52
[2018-05-29] MEDS: morphine INJ 4 MG/ML 1 ML (VIAL/SYRINGE) IV PRN (00:24)
[2018-05-29] MEDS: NS IV 1000 ML 1,000 ML IV SCH ×3 (00:25→04:16)
[2018-05-29 04:00] VITALS: BP 105/48
[2018-05-29 04:34] LABS: INR 2.2 (0.8-1.4); PROTHROMBIN TIME PATIENT 25.3 SEC (12.2-14.7)
--- NOTE | 2018-05-29 05:38 | Pulmonary Progress Note ---
Subjective Time Seen by a Provider: 07:03 Subjective/Events-last exam Stress test is neg. CP improved. Sepsis Event Evaluation Height, Weight, BMI Height: 5'2.00" Weight: 144lbs. 0.0oz. [id number]; 25.2 BMI Method:Stated Exam Exam Vital Signs Date Time Temp Pulse Resp B/P (MAP) Pulse Ox O2 Delivery O2 Flow Rate FiO2 05/29/18 04:00 Nasal Cannula 1.00 05/29/18 04:00 62 14 105/48 (67) 98 Nasal Cannula 2.00 05/29/18 01:00 66 05/29/18 00:00 Nasal Cannula 1.00 05/29/18 00:00 71 16 122/52 (75) 96 Nasal Cannula 2.00 05/28/18 21:00 99 Nasal Cannula 1.00 05/28/18 20:22 99.5 05/28/18 20:00 70 13 141/58 (85) 99 Nasal Cannula 2.00 05/28/18 20:00 Nasal Cannula 1.00 05/28/18 19:06 67 05/28/18 17:00 71 14 129/58 (81) 100 Nasal Cannula 2.00 05/28/18 16:30 99.0 05/28/18 16:00 Nasal Cannula 1.00 05/28/18 16:00 67 129/63 (85) 100 Nasal Cannula 2.00 05/28/18 16:00 98 Nasal Cannula 1.00 05/28/18 13:41 73 05/28/18 13:00 76 136/57 (83) Nasal Cannula 2.00 05/28/18 12:00 Nasal Cannula 1.00 05/28/18 12:00 77 15 135/59 (84) 97 Nasal Cannula 2.00 05/28/18 12:00 98 Nasal Cannula 1.00 05/28/18 12:00 99.2 05/28/18 08:34 99.8 05/28/18 08:33 98 Nasal Cannula 1.00 05/28/18 08:00 Nasal Cannula 1.00 05/28/18 07:00 69 I & O 05/29/18 07:00 Intake Total 490 ml Output Total 1000 ml Balance -510 ml Height & Weight Height: 5'2.00" Weight: 144lbs. 0.0oz. [id number]; 25.2 BMI Method:Stated General Appearance: No Apparent Distress, WD/WN, Anxious HEENT: PERRL/EOMI, Normal ENT Inspection Neck: Non Tender, Supple Respiratory: Lungs Clear, No Accessory Muscle Use, No Respiratory Distress Cardiovascular: Regular Rate, Rhythm, No Murmur, Normal Peripheral Pulses, Other (tender to palpation across chest) Capillary Refill: Less Than 3 Seconds Extremity: No Pedal Edema Neurologic/Psychiatric: Alert, Oriented x3 Skin: Normal Color, Warm/Dry, Other (there is bronzy discoloration of both lower extremities.) Lymphatic: No Adenopathy Results Lab Laboratory Tests 05/28/18 03:20 Assessment/Plan Assessment/Plan CP s/p heart cath - stress test - neg -Troponin neg x1 - repeat -Cardiology consulted Hypothyroid -Synthroid -TSH is 9 Alcohol use - pt drinks 2 bourbons per night -No hx of withdrawal -I doubt pt with have alcohol withdrawals -I am going to d/c CIWA protocol will reorder if pt shows signs of withdrawal Metabolic acidosis -Monitor Tobacco use -Education Nocturnal hypoxia - probably secondary to CITLALLI -Out pt f/u HX of Afib -Takes coumadin at home Hx of DVT HX of CVA with residual left sided weakness Possible home today. MOI HILLS DO May 29, 2018 05:38
[2018-05-29] MEDS: LEVOTHYROXINE 100 MCG (LEVOTHROID) TAB PO SCH (06:52)
[2018-05-29] MEDS: PANTOPRAZOLE 40 MG (PROTONIX) TAB PO SCH (06:52)
[2018-05-29] MEDS ORDERED: OMEP20TA7 PO (07:18)
--- NOTE | 2018-05-29 07:20 | Discharge Inst-Simple/Standard ---
Discharge Inst-Standard Discharge Medications New, Converted or Re-Newed RX: Transmitted to Pharmacy Patient Instructions/Follow Up Plan of Care/Instructions/FU: Please continue to take your medications as written. Please follow up with your PCP as scheduled. Activity as Tolerated: Yes Discharge Diet: Cardiac Diet, Coumadin Patient Diet Return to The Hospital For: Chest pain, shortness of breath, leg swelling, if you feel you are getting worse. RICARDO KAUFMAN MD May 29, 2018 07:20
--- NOTE | 2018-05-29 07:24 | Discharge Summary-Hospitalist ---
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 On coumadin- will continue (3) Alcohol dependence Status: Acute Assessment & Plan: Has 2 drinks/night Low likelihood for withdrawal Discharge Summary Procedures/Consulations Dr Dial- Pulm Dr Moran- Cardiology Discharge Physical Exam Allergies: Coded Allergies: NKANo Known Allergies (Verified Allergy, Unknown, 06/22/05) Vitals & I&Os Vital Signs Date Time Temp Pulse Resp B/P (MAP) Pulse Ox O2 Delivery O2 Flow Rate FiO2 05/29/18 04:00 Nasal Cannula 1.00 05/29/18 04:00 62 14 105/48 (67) 98 05/28/18 20:22 99.5 General Appearance: No Apparent Distress Respiratory: Lungs Clear, No Respiratory Distress Cardiovascular: Regular Rate, Rhythm, No Murmur Hospital Course Pt was admitted for chest pain to rule out ACS. Troponins were trended and negative and stress echo was done and negative as well. Despite this she had persistent chest pain and cardiac cath was done which was clean. CTA Chest was done as well revealed no PE or vascular abnormalities. She was started on PPI for likely GI cause of chest pain and was discharged home in stable condition. She is to follow up with her PCP in 1 week to follow up this hospital stay. Labs (last 24 hrs) Laboratory Tests 05/28/18 08:20: Troponin I < 0.028 05/28/18 11:35: Troponin I < 0.028 05/28/18 18:05: Troponin I < 0.028 05/29/18 03:50: Prothrombin Time 25.3H, INR Comment 2.2H Patient resulted labs reviewed. Pending Labs Laboratory Tests 05/29/18 03:50: Prothrombin Time 25.3, INR Comment 2.2 Discussion & Recommendations Discharge Planning: >30 minutes discharge planning Discharge Home Medications: Active Scripts Active Omeprazole 20 Mg Tablet. 20 Mg PO DAILY Reported Furosemide 20 Mg Tablet 40 Mg PO DAILY TAKES 2 (20MG) TABLETS Potassium (Potassium Gluconate) 99 Mg Tablet 99 Mg PO DAILY Sleep-Aid (Diphenhydramine HCl) 25 Mg Capsule 25 Mg PO HS Warfarin Sodium 5 Mg Tablet 5 Mg PO GERMAN DOES NOT TAKE ANY WARFARIN ON SAT AND SUN Atenolol 25 Mg Tablet 25 Mg PO DAILY Levothyroxine Sodium 50 Mcg Tablet 50 Mcg PO DAILY Instructions to patient/family Please see electronic discharge instructions given to patient. Clinical Quality Measures AMI/AHF: ASA po Prior to arrival: No DVT/VTE Risk/Contraindication: Risk Factor Score Per Nursin RFS Level Per Nursing on Admit: 4+=Very High Copy Copies To 1: TANISHA OLMSTEAD DO Problem Qualifiers (1) Chest pain: Chest pain type: unspecified Qualified Codes: R07.9 - Chest pain, unspecified (2) Alcohol dependence: Substance use status: unspecified alcohol-induced disorder Qualified Codes: F10.29 - Alcohol dependence with unspecified alcohol-induced disorder RICARDO KAUFMAN MD May 29, 2018 07:24
--- NOTE | 2018-05-29 07:38 | Cardiology Progress Note ---
Subjective Date Seen by Provider: May 29, 2018 Time Seen by Provider: 07:37 Subjective/Events-last exam patient is laying down in bed, no new complaint. Reporting improvement Review of Systems General: No Chills, No Night Sweats, No Fatigue, No Malaise, No Appetite, No Other HEENT: No Head Aches, No Visual Changes, No Eye Pain, No Ear Pain, No Dysphasia , No Sinus Congestion, No Post Nasal Drip, No Sore Throat, No Other Pulmonary: No Dyspnea, No Cough, No Pleuritic Chest Pain, No Other Cardiovascular: Chest Pain; No: Palpitations, Orthopnea, Paroxysmal Noc. Dyspnea, Edema, Lt Headedness, Other Gastrointestinal: Abdominal Pain Objective-Cardiology Exam Last Set of Vital Signs Vital Signs 05/28/18 05/29/18 20:22 04:00 Temp 99.5 Pulse 62 Resp 14 B/P (MAP) 105/48 (67) Pulse Ox 98 O2 Delivery Nasal Cannula O2 Flow Rate 1.00 Capillary Refill : Less Than 3 Seconds I&O Intake and Output 05/29/18 00:00 Intake Total 590 ml Output Total 1450 ml Balance -860 ml Intake Oral 590 ml Output Urine Total 1450 ml General: Alert, Oriented X3, Cooperative HEENT: Atraumatic, PERRLA Neck: Supple, No JVD, No Thyromegaly Lungs: Clear to Auscultation, Normal Air Movement Heart: Regular Rate, Normal S1, Normal S2, No Murmurs Abdomen: Normal Bowel Sounds, Soft, No Tenderness, No Hepatosplenomegaly, No Masses Extremities: No Clubbing, No Cyanosis, No Edema, Normal Pulses, No Tenderness/ Swelling Skin: No Rashes, No Breakdown, No Significant Lesion Neuro: Normal Gait, Normal Speech, Strength at 5/5 X4 Ext, Normal Tone, Sensation Intact Psych/Mental Status: Mental Status NL, Mood NL Results Lab Laboratory Tests Test 05/28/18 08:20 05/28/18 11:35 05/28/18 18:05 05/29/18 03:50 Range/Units Troponin I < 0.028 < 0.028 < 0.028 <0.028 NG/ML Prothrombin Time 25.3 H 12.2-14.7 SEC INR Comment 2.2 H 0.8-1.4 A/P-Cardiology Admission Diagnosis Chest pain COPD HTN Hypothyroidism Assessment/Plan Chest pain, nonspecific etiology, CT angiogram of the chest did not show any acute abnormality other than small left-sided pleural effusion, cardiac catheterization showed no significant coronary artery disease, still having waxing and waning pain, started on PPI. Maintained on Coumadin. Okay for discharge from cardiology standpoint Hypertension, good control at this time. Follow-up as an outpatient History of COPD. Managed by Dr. Dial. 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 COPD, managed by Dr. Dial. Hypothyroidism- TSH 9. Management per medical services Hx of DVT, s/p IVC filter in 2007. On coumadin, recommended INR 2-3, followed by primary care physician Tobaccoism- educated on the importance of smoking cessation ETOH use, educated on avoiding any alcohol use Questionable hx of atrial fibrillation per medical records. Questionable history of brain aneurysm surgery in her 30's. Clinical Quality Measures AMI/AHF: ASA po Prior to arrival: No DVT/VTE Risk/Contraindication: Risk Factor Score Per Nursin RFS Level Per Nursing on Admit: 4+=Very High NATY ALFARO MD May 29, 2018 07:38
--- NOTE | 2018-05-29 07:39 | Discharge Inst-Post CATH ---
Discharge Inst-CATH/EP Post Cardiac Cath/EP D/C Inst Follow Up/Plan Appointment with Dr. Moran's office in 2-4 weeks CARDIAC CATH DISCHARGE INSTRUCTIONS *Hold Metformin for 48 hours post heart cath. ACTIVITY * Go Home directly and rest. * Limit activity of the leg (or wrist if it was used) for 7 days including aerobics, swimming, jogging, bicycling, etc. * Restrict stair-climbing for 7 days if possible, if not, climb up with your non -cath leg, then bring together on the same step. * Avoid lifting, pushing, pulling or excessive movement of the affected extremity for 7 days. * Customary sexual activity may be resumed after 2 days-use caution not to use a position that strains or causes pain to the affected extremity. * No driving for 24 hours. * NO SMOKING. * Avoid straining for bowel movements for 7 days. * Gentle walking on level ground is allowed. * Returning to work will depend on the type of procedure and the results. Your doctor will discuss this with you. CALL YOUR DOCTOR FOR ANY OF THE FOLLOWING: *If bleeding from the puncture site occurs- Apply gentle pressure to site with clean cloth and call your doctor or EMS. * If a knot or lump forms under the skin, increases in size, or causes pain. * If bruising appears to be worsening or moving further down your leg instead of disappearing. * Temperature above 101 F. CARE OF YOUR GROIN INCISION; * Bruising or purple discoloration of the skin near the puncture site is common. * You may shower only, no bathtub bathing for 5 days. Be careful to avoid slipping as your leg may feel stiff. * If a closure device was used on your femoral artery, please see the attached guide regarding care of the device and your leg. * Leave the dressing on, until removed by office staff. CARE OF YOUR WRIST INCISION; * Bruising or purple discoloration of the skin near the puncture site is common. * You may shower. * DO NOT submerge wrist. * Leave dressing on, until removed by office staff.. NATY MORAN MD May 29, 2018 07:39
[2018-05-29 08:00] VITALS: BP 102/41
[2018-05-29] MEDS ORDERED: PANTOPRAZOLE 20 MG TABLET (PROTONIX) PO SCH (09:00)
--- NOTE | 2018-05-29 10:06 | NUR ---
CM/SS spoke with the patient in regards to the SS consult. Patient stated that she does have a drink nightly before bedtime. She is not interested in changing this routine at this time. Her daughter in law (Radha) will transport her back home when she is discharged.
[2018-05-29] MEDS: ASPIRIN E.C. 81 MG (ECOTRIN) TAB PO SCH (10:33)
--- OUTSIDE RECORDS SUMMARY | 2018-05-29 16:00 | XMS REPORT | Clinical Summary ---
Author Author [facility] Organization [facility] Address Unknown Phone Unavailable Care Team Providers Care Main Line Assembler Name Role Phone EdgarGregg solitario PCP Donny Bello MD Unavailable Benny Bustamante MD Unavailable Source Comments Some departments are not documenting in the electronic medical record. If you do not see the information that you expected, contact Release of Information in the Health Information Management department at [phone] for further assistance in locating additional records.[facility] Allergies Comments Active Allergy Reactions Severity [...]
--- OUTSIDE RECORDS SUMMARY | 2018-05-29 16:02 | XMS REPORT | Continuity of Care Document ---
Author Author [facility] Organization [facility] Address Unknown Phone Unavailable Allergies Active Description Code Type Severity Reaction Onset Reported/Identified Relationship to Patient Clinical Status Yes NKANo Known Allergies NKA Miscellaneous Allergy Unknown N/A 06/22/2005 Medications There is no data. 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 06/26/2015 DARSHAN MARTINI MD, Ot L97.222 NON-PRESSURE CHRONIC ULCER OF LEFT CALF 06/26/2015 DARSHAN MARTINI MD, Ot Z72.0 TOBACCO USE 06/27/2015 DARSHAN MARTINI MD, Ot I70.242 ATHSCL [place] ARTERIES OF LEFT LEG W ULC 06/27/2015 [...] SANTIAGO FACC, ALI FACP CCDS Ot Z79.01 LONG-TERM (CURRENT) USE OF ANTICOAGULANT 07/03/2015 SALOME SANTIAGO FACC, ALI FACP CCDS Ot Z79.899 OTHER HYDRATE CONTROL TENDER (CURRENT) DRUG THERAPY 07/03/2015 SALOME SANTIAGO FACC, ALI FACP CCDS Ot Z86.718 PERSONAL HISTORY OF OTHER VENOUS THROMBO 07/05/2015 DARSHAN MARTINI MD, Ot I70.242 ATHSCL [place] ARTERIES OF LEFT LEG W C 07/05/2015 DARSHAN MARTINI MD, Ot 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 07/05/2015 DARSHAN MARTINI MD, Ot L97.222 NON-PRESSURE CHRONIC ULCER OF LEFT CALF 07/05/2015 DARSHAN MARTINI MD, Ot Z72.0 TOBACCO USE 07/06/2015 DARSHAN MARTINI MD, Ot I70.242 ATHSCL [place] ARTERIES OF LEFT LEG W [facility] 07/06/2015 DARSHAN MARTINI MD, Ot 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 07/06/2015 DARSHAN MARTINI MD, Ot L97.222 NON-PRESSURE CHRONIC ULCER OF LEFT CALF 07/06/2015 DARSHAN MARTINI MD, Ot Z72.0 TOBACCO USE 01/08/2016 Ot 780.2 SYNCOPE AND COLLAPSE 01/08/2016 TANISHA OLMSTEAD DO Ot 244.9 HYPOTHYROIDISM NOS 01/08/2016 TANISHA OLMSTEAD DO Ot E03.9 HYPOTHYROIDISM, UNSPECIFIED 01/08/2016 DARSHAN MARTINI MD, Ot I70.242 ATHSCL [place] ARTERIES OF LEFT LEG W [facility] 01/08/2016 DARSHAN MARTINI MD, Ot 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 01/08/2016 DARSHAN MARTINI MD, Ot L97.222 NON-PRESSURE CHRONIC ULCER OF LEFT CALF 01/08/2016 DARSHAN MARTINI MD, Ot Z72.0 TOBACCO USE 01/08/2016 DARSHAN MARTINI MD, Ot I70.242 ATHSCL [place] ARTERIES OF LEFT LEG W [facility] 01/08/2016 DARSHAN MARTINI MD, Ot I87.332 CHRONIC [...] MON 04/24/2016 TANISHA OLMSTEAD DO, Ot Z79.01 LONG-TERM (CURRENT) USE OF ANTICOAGULANT 05/23/2016 TANISHA OLMSTEAD [...] MON 06/16/2016 TANISHA OLMSTEAD DO Ot Z79.01 HYDRATE CONTROL TENDER (CURRENT) USE OF ANTICOAGULANT 09/29/2016 JENSEN SAAVEDRA MD Ot E03.9 HYPOTHYROIDISM, UNSPECIFIED 09/29/2016 JENSEN SAAVEDRA MD Ot F41.9 ANXIETY DISORDER, UNSPECIFIED 09/29/2016 JENSEN SAAVEDRA MD Ot I48.91 UNSPECIFIED ATRIAL FIBRILLATION 09/29/2016 JENSEN SAAVEDRA MD Ot J43.9 EMPHYSEMA, UNSPECIFIED 09/29/2016 JENSEN SAAVEDRA MD Ot K21.9 GASTRO-ESOPHAGEAL REFLUX DISEASE WITHOUT 09/29/2016 JENSEN SAAVEDRA MD Ot M54.5 LOW BACK PAIN 09/29/2016 JENSEN SAAVEDRA MD Ot Z79.01 LONG-TERM (CURRENT) USE OF ANTICOAGULANT 09/29/2016 JENSEN SAAVEDRA [...] PAIN 10/05/2016 JENSEN SAAVEDRA MD Ot Z79.01 LONG-TERM (CURRENT) USE OF ANTICOAGULANT 10/05/2016 JENSEN SAAVEDRA [...] 06/29/2017 DARSHAN MARTINI MD Ot I70.242 ATHSCL [place] ARTERIES OF LEFT LEG W ULC 06/29/2017 DARSHAN MARTINI MD Ot 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 06/29/2017 DARSHAN MARTINI MD Ot L97.222 NON-PRESSURE CHRONIC ULCER OF LEFT CALF 06/29/2017 DARSHAN MARTINI MD Ot Z72.0 TOBACCO USE 06/29/2017 DARSHAN MARTINI MD Ot I70.242 ATHSCL [place] ARTERIES OF LEFT LEG W ULC 06/29/2017 [...] INITIAL 06/29/2017 RICKI CARDENAS MD Ot Y92.[address] [facility] [address] IN [facility] NON-INSTIT[facility] (PRIVATE 06/29/2017 RICKI CARDENAS MD Ot Y93.01 ACTIVITY, WALKING, MARCHING AND HIKING 06/29/2017 RICKI CARDENAS MD Ot Z79.01 LONG-TERM (CURRENT) USE OF ANTICOAGULANT 06/29/2017 RICKI CARDENAS MD Ot Z79.52 HYDRATE CONTROL TENDER (CURRENT) USE OF SYSTEMIC STER 06/29/2017 RICKI [...] INI 11/18/2017 CHACORTA BENJAMIN MD, Ot Z79.01 LONG-TERM (CURRENT) USE OF ANTICOAGULANT 11/18/2017 CHACORTA BENJAMIN MD, Ot Z79.52 HYDRATE CONTROL TENDER (CURRENT) USE OF SYSTEMIC STER 11/18/2017 CHACORTA BENJAMIN MD, Ot Z85.038 PERSONAL HISTORY OF MALIGNANT NEOPLASM O 11/18/2017 CHACORTA BENJAMIN MD, Ot Z85.3 PERSONAL HISTORY OF MALIGNANT NEOPLASM O 11/18/2017 CHACOTRA BENJAMIN MD Ot Z85.41 PERSONAL HISTORY OF [...] INI 11/20/2017 CHACORTA BENJAMIN MD, Ot Z79.01 HYDRATE CONTROL TENDER (CURRENT) USE OF ANTICOAGULANT 11/20/2017 CHACORTA BENJAMIN MD Ot Z79.52 LONG-TERM (CURRENT) USE OF SYSTEMIC STER 11/20/2017 CHACORTA [...] 05/07/2018 DARSHAN MARTINI MD Ot I70.242 ATHSCL [place] ARTERIES OF LEFT LEG W ULC 05/07/2018 DARSHAN MARTINI MD, Ot 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 05/07/2018 DARSHAN MARTINI MD, Ot L97.222 NON-PRESSURE CHRONIC ULCER OF LEFT CALF 05/07/2018 DARSHAN MARTINI MD Ot Z72.0 TOBACCO USE 05/07/2018 DARSHAN MARTINI MD Ot I70.242 ATHSCL [place] ARTERIES OF LEFT LEG W ULC 05/07/2018 DARSHAN MARTINI MD, Ot 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 05/07/2018 DARSHAN MARTINI MD Ot L97.222 NON-PRESSURE CHRONIC ULCER OF LEFT CALF 05/07/2018 DARSHAN MARTINI MD Ot Z72.0 TOBACCO USE 05/07/2018 TANISHA OLMSTEAD DO Ot E03.9 HYPOTHYROIDISM, UNSPECIFIED 05/07/2018 TANISHA OLMSTEAD DO Ot E03.9 HYPOTHYROIDISM, UNSPECIFIED 05/07/2018 TANISHA OLMSTEAD DO Ot M89.9 DISORDER OF BONE, UNSPECIFIED 05/07/2018 TANISHA OLMSTEAD DO Ot Z13.820 ENCOUNTER FOR SCREENING FOR OSTEOPOROSIS 05/08/2018 TANISHA OLMSTEAD DO Ot E03.9 HYPOTHYROIDISM, UNSPECIFIED 05/08/2018 TANISHA OLMSTEAD DO Ot E03.9 HYPOTHYROIDISM, UNSPECIFIED 05/13/2018 TANISHA OLMSTEAD DO Ot E03.9 HYPOTHYROIDISM, UNSPECIFIED 05/27/2018 TANISHA OLMSTEAD DO Ot E03.9 HYPOTHYROIDISM, UNSPECIFIED Procedures There is no data. Results Test Result Range THYROID STIMULATING HORMONE - 11/07/16 09:15 THYROID STIMULATING HORMONE 3.66 u[iU]/mL 0.35-4.94 [...] plasma ethanol measurement (mass/volume) 16 mg/dL <10 Lipid 1996 panel - 05/27/18 05:55 Serum or plasma triglyceride measurement (mass/volume) 40 mg/dL <150 Serum or plasma cholesterol measurement (mass/volume) 172 mg/dL < 200 Serum or plasma cholesterol in HDL measurement (mass/volume) 77 mg/ dL 40-60 Cholesterol in LDL [mass/volume] in serum or plasma by direct assay 74 mg/dL 1-129 Serum or plasma cholesterol in VLDL measurement (mass/volume) 8 mg/ dL 5-40 Serum or plasma troponin i.cardiac measurement (mass/volume) - 05/27/18 05:55 Serum or plasma troponin i.cardiac measurement (mass/volume) 0.028 ng/mL <0.028 Complete urinalysis with reflex to culture - 05/28/18 00:30 Urine color determination YELLOW NRG Urine clarity determination CLEAR NRG Urine pH measurement by test strip 5 5-9 Specific gravity of urine by test strip 1.015 1.016- 1.022 Urine protein assay by test strip, semi-quantitative NEGATIVE NEGATIVE Urine glucose detection by automated test strip NEGATIVE NEGATIVE Erythrocytes detection in urine sediment by light microscopy NEGATIVE NEGATIVE Urine ketones detection by automated test strip NEGATIVE NEGATIVE Urine nitrite detection by test strip NEGATIVE NEGATIVE Urine total bilirubin detection by test strip NEGATIVE NEGATIVE Urine urobilinogen measurement by automated test strip (mass/volume) NORMAL NORMAL Urine leukocyte esterase detection by dipstick 2+ NEGATIVE Automated urine sediment erythrocyte count by microscopy (number/high power field) NONE NRG Automated urine sediment leukocyte count by [...] urinalysis with reflex to culture NO NRG Automated blood complete blood count (hemogram) panel - 05/28/18 03:20 Blood leukocytes automated count (number/volume) 6.3 10*3/uL 4.3-11.0 Blood erythrocytes automated count (number/volume) 3.89 10*6/uL 4.35-5.85 Venous blood hemoglobin measurement (mass/volume) 11.6 g/dL 11.5-16.0 Blood hematocrit (volume fraction) 36 % 35-52 Automated erythrocyte mean corpuscular volume 94 [foz_us] 80-99 Automated erythrocyte mean corpuscular hemoglobin (mass per erythrocyte) 30 pg 25-34 Automated erythrocyte mean corpuscular hemoglobin concentration measurement ( mass/volume) 32 g/dL 32-36 Automated erythrocyte distribution width ratio 13.8 % 10.0-14.5 Automated blood platelet count (count/volume) 203 10*3/uL 130-400 Automated blood platelet mean volume measurement 10.7 [foz_us] 7.4-10.4 PT panel in platelet poor plasma by coagulation assay - 05/28/18 03:20 Prothrombin time (PT) in platelet poor plasma by coagulation assay 23.6 s 12.2-14.7 INR in platelet poor plasma or blood by coagulation assay 2.0 0.8-1.4 Whole blood basic metabolic panel - 05/28/18 03:20 Serum or plasma sodium measurement (moles/volume) 137 mmol/L 135-145 Serum or plasma potassium measurement (moles/volume) 4.1 mmol/L 3.6-5.0 Serum or plasma chloride measurement (moles/volume) 110 mmol/L 98-107 Carbon dioxide 18 mmol/L 21-32 Serum or plasma anion gap determination (moles/volume) 9 mmol/L 5-14 Serum or plasma urea nitrogen measurement (mass/volume) 13 mg/dL 7-18 Serum or plasma creatinine measurement (mass/volume) 0.67 mg/dL 0.60-1.30 Serum or plasma urea nitrogen/creatinine mass ratio 19 NRG Serum or plasma creatinine measurement with calculation of estimated glomerular filtration rate > NRG Serum or plasma glucose measurement (mass/volume) 77 mg/dL 70-105 Serum or plasma calcium measurement (mass/volume) 8.7 mg/dL 8.5-10.1 Serum or plasma troponin i.cardiac measurement (mass/volume) - 05/28/18 03:20 Serum or plasma troponin i.cardiac measurement (mass/volume) < ng/ mL <0.028 Serum or plasma troponin i.cardiac measurement (mass/volume) - 05/28/18 08:20 Serum or plasma troponin i.cardiac measurement (mass/volume) < ng/ mL <0.028 Serum or plasma troponin i.cardiac measurement (mass/volume) - 05/28/18 11:35 Serum or plasma troponin i.cardiac measurement (mass/volume) < ng/ mL <0.028 Encounters ACCT No. Visit Date/Time Discharge Status Pt. Type Provider Facility Loc./Unit Complaint [id number] 05/07/2018 08:17:00 05/07/2018 23:59:59 CLS Outpatient TANISHA OLMSTEAD DO [facility] LAB E03.9 [id number] 11/18/2017 11:17:00 11/18/2017 14:22:00 DIS Emergency CASSIDY SANTIAGO, CHACORTA Louise [facility] ER ABNORMAL BLOOD WORK [id number] 06/29/2017 09:02:00 06/29/2017 11:50:00 DIS Emergency RONALD SANTIAGO, RICKI Swenson [facility] ER FALL, NOW HAVING CP, SOB [id number] 09/29/2016 07:36:00 09/29/2016 08:34:00 DIS Emergency JENSEN SAAVEDRA MD [facility] ER BACK PAIN [id number] 06/17/2016 00:14:00 06/17/2016 23:59:59 CLS Preadmit TANISHA OLMSTEAD DO [facility] LAB MONITOR FOR COUMADIN THERAPY [id number] 03/18/2016 10:43:00 06/16/2016 00:01:00 DIS Outpatient TANISHA OLMSTEAD DO [facility] LAB MONITOR FOR COUMADIN THERAPY [id number] 05/23/2016 09:00:00 05/23/2016 23:59:59 CLS Outpatient TANISHA OLMSTEAD DO [facility] RAD M89.9 [id number] 05/08/2016 09:53:00 05/08/2016 23:59:59 CLS Outpatient TANISHA OLMSTEAD DO [facility] LAB HYPOTHYROIDISM [id number] 01/08/2016 09:07:00 01/08/2016 23:59:59 CLS Outpatient TANISHA OLMSTEAD DO [facility] LAB 244.9 [id number] 06/26/2015 11:22:00 06/26/2015 12:00:00 DIS Outpatient DARSHAN MARTINI MD [facility] WOUNDCARE [id number] 06/20/2015 08:25:00 06/20/2015 19:40:00 DIS Outpatient SALOME SANITAGO FACC, JENNIFER ANGELES CCDS [facility] CATH PAD,TOBACCO USE,ABNORMAL ARTERIAL US [id number] 06/12/2015 10:09:00 06/12/2015 23:59:59 CLS Outpatient DARSHAN MARTINI MD [facility] LAB L CALF VENOUS ULCER [id number] 06/07/2015 10:48:00 06/07/2015 23:59:59 CLS Outpatient DARSHAN MARTINI MD [facility] RAD CHRONIC ULCER OF L CALF [id number] 05/15/2015 09:23:00 05/15/2015 23:59:59 CLS Outpatient TANISHA OLMSTEAD DO [facility] LAB HYPOTHYROIDISM [id number] 11/27/2014 08:20:00 11/27/2014 10:23:00 DIS Emergency RICKI CARDENAS MD [facility] ER SHOULDER AND NECK PAIN [id number] 10/07/2014 00:24:00 10/07/2014 03:50:00 DIS Emergency CHACORTA BENJAMIN MD [facility] ER FELL OFF PORCH-SIDE PAIN [id number] 03/18/2014 09:19:00 03/18/2014 23:59:59 CLS Outpatient YONIJONA TANISHA SUN Shantal [facility] LAB HYPOTHYROIDISM [id number] 10/11/2012 19:44:00 10/11/2012 21:28:00 DIS Emergency CASSIDY SANTIAGO, CHACORTA Louise [facility] ER URINARY TRACT INFECTIN [id number] 08/27/2012 22:11:00 08/28/2012 01:15:00 DIS Emergency CASSIDY SANTIAGO, CHACORTA Louise [facility] ER BACK PAIN [id number] 08/16/2012 16:59:00 08/16/2012 19:53:00 DIS Emergency TYE SANTIAGO, ISAIAS Soto [facility] ER L LEG PAIN [id number] 05/27/2018 02:34:00 ACT Inpatient RONALD SANTIAGO, RICKI Swenson [facility] ICU CHEST PAIN [id number] 06/05/2015 14:31:00 Document Registration [id number] 11/24/2011 02:42:00 Document Registration [id number] 02/18/2011 10:16:00 Document Registration [email or web address] 11/28/2014 01:48:23 ACT Document Registration
== END 2018-05-29 11:40 | disposition home or self-care (01) ==
LOC: EDUNIT# 23:03 → ER 23:05 → CATH 23:06 → ICU 23:06 → UNDOADMOB 05-27 02:34 → UNDODISOB 05-29 11:40 → CATH 05-29 11:40
PROVIDERS: ATTEND Internal Medicine
DX: R07.89 Other chest pain (principal); I48.91 Unspecified atrial fibrillation; I25.10 Atherosclerotic heart disease of native coronary artery without angina pectoris; F17.210 Nicotine dependence, cigarettes, uncomplicated; J43.9 Emphysema, unspecified; E03.9 Hypothyroidism, unspecified; K21.9 Gastro-esophageal reflux disease without esophagitis; I69.354 Hemiplegia and hemiparesis following cerebral infarction affecting left non-dominant side; R09.02 Hypoxemia; F10.20 Alcohol dependence, uncomplicated; R60.0 Localized edema; R32 Unspecified urinary incontinence; E87.2 Acidosis; Z79.01 Long term (current) use of anticoagulants; Z86.718 Personal history of other venous thrombosis and embolism
CPT/HCPCS: 36415; 71045; 71275; 76937; 80048; 80053; 80061; 80320; 81000; 83690; 83735; 83874; 84439; 84443; 84484; 85025; 85027; 85379; 85610; 85730; 93005; 93041; 93306; 93351; 93458; 96361; 96374; 96375

== ENCOUNTER 2018-06-23 06:10 | Outpatient (CLI) | payer MEDICARE, BC ==
[~2018-06-23] VITALS: Ht 157.5 cm; Wt 65.3 kg
[~2018-06-23 06:10] MED LIST changes: +FURO20TA4 PO; +OMEP20TA7 PO
== END 2018-06-23 13:51 | disposition home or self-care (01) ==
LOC: PREOP 06:10
PROVIDERS: ATTEND Surgery

== ENCOUNTER 2018-06-25 07:23 | Day surgery (SDC) | payer MEDICARE, BC ==
[~2018-06-25] VITALS: Ht 157.5 cm; Wt 65.3 kg
[2018-06-25] VITALS (8 sets, daily range): BP systolic 112–158; BP diastolic 62–91
[2018-06-25] MEDS ORDERED: BUP/EPI 0.5% 1:200,000 (SENSORCAINE) 30 ML VIAL ONE ×2 (07:36→11:26)
[2018-06-25] MEDS ORDERED: LIDOCAINE 1% INJ 20 ML 20 ML VIAL ONE ×2 (07:36→11:27)
--- NOTE | 2018-06-25 07:37 | Progress Note-Pre Operative ---
Pre-Operative Progress Note H&P Reviewed The H&P was reviewed, patient examined and no changes noted. Date Seen by Provider: Jun 25, 2018 Time Seen by Provider: 07:36 Date H&P Reviewed: Jun 25, 2018 Time H&P Reviewed: 07:36 Pre-Operative Diagnosis: lesion right lower ext STEVENS,LEEANN D DO Jun 25, 2018 07:37
[2018-06-25] MEDS: LACTATED RINGERS 1,000 ML IV PRN ×2 (08:00→13:15)
[2018-06-25] MEDS ORDERED: CATHETER FLUSH 10 ML SYR IV PRN ×2 (08:15→09:15)
[2018-06-25] MEDS ORDERED: FAMOTIDINE 20MG/2ML IV (PEPCID) IV ONE (08:15)
[2018-06-25 08:53] LABS: INR 1.1 (0.8-1.4); PROTHROMBIN TIME PATIENT 14.2 SEC (12.2-14.7)
[2018-06-25] MEDS ORDERED: LACTATED RINGERS 1,000 ML IV PRN (09:05)
[2018-06-25] MEDS ORDERED: ceFAZolin 2 GM IV Premixed 50 ML IV ONE (09:15)
[2018-06-25] MEDS ORDERED: LIDOCAINE PF 2% 5 ML (XYLOCAINE) VIAL ONE (10:44)
[2018-06-25] MEDS ORDERED: proPOfol 200 MG/20 ML (DIPRIVAN) VIAL IV ONE (10:44)
[2018-06-25] MEDS ORDERED: ONDANSETRON 4 MG/2 ML (SDV) Z0FRAN ONE (10:44)
[2018-06-25] MEDS ORDERED: fentaNYL INJECTION 100 MCG/2 ML AMP ONE ×2 (10:44→13:34)
[2018-06-25] MEDS ORDERED: SEVOFLURANE (ULTANE) 15 ML INHAL SOLN ONE (10:44)
[2018-06-25] MEDS ORDERED: 0.9% SODIUM CHLORIDE PF INJ 20 ML VIAL ONE (11:27)
[2018-06-25] MEDS ORDERED: HEParin (CENTRAL IV FLUSH) 500 UNIT/5 ML SYR ONE (11:27)
--- NOTE | 2018-06-25 13:22 | Progress Note-Post Operative ---
Post-Operative Progess Note Surgeon (s)/Installer Apprentice (s) Surgeon LEEANN STEVENS DO Installer Apprentice: na Pre-Operative Diagnosis lesion right lower ext, poor venous access Post-Operative Diagnosis same Procedure & Operative Findings Date of Procedure 06/25/18 Procedure Performed/Findings Right IJ u/s guided port , excision right lower ext lesion 7x3cm Anesthesia Type mac c local Estimated Blood Loss Estimated blood loss (mL): min Specimens/Packing Specimens Removed right lower skin lesion LEEANN STEVENS DO Jun 25, 2018 13:22
--- NOTE | 2018-06-25 13:26 | Discharge Inst-Simple/Standard ---
Discharge Inst-Standard Patient Instructions/Follow Up Plan of Care/Instructions/FU: 2 weeks [place] Monthly port flush to be done in same day surgery at the hospital. Activity as Tolerated: No Discharge Diet: Regular Diet Other Inst to Patient Follow up Appt: Make appointment for 2 week. Instructions: No lifting greater than 10 pounds. No strenuous activity. May shower in 24 hours, no tub bath or soaking. Use incentive spirometer at home as directed. No Smoking Skin/Wound Care: May remove bandages in 24 hours. And you have special glue which will fall off on its own. You need to have sutures removed in the office in about 2 weeks. Symptoms to Report: Appetite Changes, Extremity Discoloration, Numbness/Tingling, Swelling Increased , Bleeding Excessive, Eyesight Changes, Pain Increased, Urine Color Change, Constipation(Persistent), Fever over 101 degree F, Pain/Pressure in chest, Urinating Difficulty, Cough Up/Vomit Blood, Heart Beat Irreg/Pounding, Pain/ Pressure in jaw, Vaginal Bleeding Increase, Cramps in feet or legs, Lightheadedness, Pain/Pressure in shoulder, Diarrhea(Persistent), Memory Changes Suddenly, Questions/Concerns, Weight gain consecutive days, Dizziness/ Fainting, Nausea/Vomiting, Shortness of Breath, Weight gain over 2 pounds If questions or concerns contact your physician Or seek help at emergency department.Keep area clean and dry. LEEANN STEVENS DO Jun 25, 2018 13:26
[2018-06-25] MEDS ORDERED: fentaNYL INJECTION 100 MCG/2 ML AMP IVP ONE (13:30)
[2018-06-25] MEDS ORDERED: ONDANSETRON 4 MG/2 ML (SDV) Z0FRAN IVP PRN (13:30)
[2018-06-25] MEDS ORDERED: ACETAMINOPHEN 500 MG TAB (TYLENOL) ONE (14:12)
[2018-06-25] MEDS ORDERED: ACETAMINOPHEN 500 MG TAB (TYLENOL) PO ONE (14:30)
--- NOTE | 2018-06-25 14:41 | Anesthesia-General Post-Op ---
MAC Patient Condition Mental Status/LOC: Same as Preop Cardiovascular: Satisfactory Nausea/Vomiting: Absent Respiratory: Satisfactory Pain: Controlled Complications: Absent Post Op Complications Complications None Follow Up Care/Instructions Patient Instructions None needed. Anesthesiology Discharge Order Discharge Order Patient is doing well, no complaints, stable vital signs, no apparent adverse anesthesia problems. No complications reported per nursing. NEISHA SOW CRNA Jun 25, 2018 14:41
--- NOTE | 2018-06-25 15:22 | Diagnostic Imaging Report ---
INDICATION: Postop Groshong catheter placement. Frontal chest obtained at 01:35 p.m. and compared to 05/26/2018. Port-A-Cath is visualized over the right chest with port overlying the right chest wall with catheter entering the right internal jugular vein and catheter tip overlying the mid SVC. There is no pneumothorax or pleural fluid following device placement. Heart is normal in size. There is no new infiltrate. Old left-sided rib fractures are noted. IMPRESSION: New Port-A-Cath placement as described above. There is no pneumothorax or pleural fluid following device placement. There is no focal infiltrate. Dictated by: Dictated on workstation # [id number]
--- NOTE | 2018-06-25 15:50 | OPERATIVE REPORT ---
DATE OF SERVICE: 06/25/2018 PREOPERATIVE DIAGNOSIS: Right lower extremity lesion and poor venous access. POSTOPERATIVE DIAGNOSIS: Right lower extremity lesion and poor venous access. PROCEDURE: Right internal jugular vein ultrasound-guided port placement and excision of right lower extremity skin lesion 7 x 3 cm. SURGEON: Leeann Obregon DO ANESTHESIA: MAC with local. ESTIMATED BLOOD LOSS: Minimal. COMPLICATIONS: None. INDICATIONS: The patient is an 88-year-old female with a skin lesion on the right lower extremity and also has poor venous access and wished to have a port placed. She understands all risks and benefits and wished to proceed with procedure. Consent was signed on the chart. DESCRIPTION OF PROCEDURE: The patient was taken to the operating suite. She was prepped and draped in sterile fashion. Surgical pause was performed. Using ultrasound, the right internal jugular vein was isolated. Local anesthetic was infiltrated around it and the right internal jugular vein was then accessed with a micro-access needle under direct visualization of the ultrasound. Dark nonpulsatile blood was withdrawn. The micro-access wire was inserted through the needle and the needle was removed. Fluoroscopy assured proper placement. A #11 blade scalpel was used to make a stab incision at the insertion point. Dilator was advanced over the wire and the wire and dilator were removed. The normal guidewire was inserted through the sheath and the sheath was then removed. Fluoroscopy assured proper placement. The wire was secured. Local anesthetic was then from the neck down over the right chest for pocket creation. A 15 blade scalpel was used to make a skin incision and a pocket was created. Under direct visualization of fluoroscopy, the dilator sheath was advanced over the guidewire. The dilator and wire were removed. The Groshong catheter was inserted through the sheath and the sheath was then removed. The catheter was then tunneled from the insertion point down to the pocket that was created. The catheter was cut to length and attached to the port. Port was then accessed arya blood and flushed with saline and then heparin without any difficulty. The subcutaneous tissues were then reapproximated using 3-0 Vicryl. The areas were then washed and dried and Skin Affix was placed over the incisions. The patient tolerated procedure well. Attention was then placed to the skin lesion. The local anesthetic was infiltrated around the lesion. An elliptical incision measuring 7 x 3 cm was made around the lesion. Skin and subcutaneous tissue was removed. Labeling long suture lateral and short suture superiorly. The hemostasis was achieved. The skin was slightly mobilized circumferentially. The skin was then closed using 2-0 Prolene in a simple interrupted fashion. The patient tolerated procedure well without any complications. She was taken to the recovery room in stable condition. Job ID: [id number] DocumentID: [id number] Dictated Date: 06/25/2018 13:40:48 Associate Director Of Sales Date: 06/25/2018 15:49:42 Dictated By: LEEANN OBREGON DO
--- NOTE | 2018-06-25 19:16 | Diagnostic Imaging Report ---
INDICATION: Port placement. FINDINGS: Port is visualized over the right chest with catheter entering the right internal jugular vein with catheter tip overlying the SVC. The study is otherwise limited. 19 seconds of fluoroscopy time was used in surgery. IMPRESSION: Intraoperative fluoroscopy used during Port-A-Cath placement in surgery per Dr. Obregon. Dictated by: Dictated on workstation # [id number]
== END 2018-06-25 14:43 | disposition home or self-care (01) ==
LOC: SDC 07:23
PROVIDERS: ATTEND Surgery
DX: C44.722 Squamous cell carcinoma of skin of right lower limb, including hip (principal); I87.2 Venous insufficiency (chronic) (peripheral); I48.91 Unspecified atrial fibrillation; I10 Essential (primary) hypertension; J44.9 Chronic obstructive pulmonary disease, unspecified; F17.210 Nicotine dependence, cigarettes, uncomplicated; E03.9 Hypothyroidism, unspecified; K21.9 Gastro-esophageal reflux disease without esophagitis; F41.9 Anxiety disorder, unspecified; I73.9 Peripheral vascular disease, unspecified; I08.0 Rheumatic disorders of both mitral and aortic valves; I49.1 Atrial premature depolarization; I49.3 Ventricular premature depolarization; R60.0 Localized edema; Z85.3 Personal history of malignant neoplasm of breast; Z86.718 Personal history of other venous thrombosis and embolism; Z79.01 Long term (current) use of anticoagulants; Z79.899 Other long term (current) drug therapy; Z90.13 Acquired absence of bilateral breasts and nipples
CPT/HCPCS: 36415; 71045; 85610; 87081

== ENCOUNTER 2018-08-24 10:00 | Outpatient (RCR) | payer MEDICARE, BC ==
[2018-07-24] MEDS: CATHETER FLUSH 10 ML SYR IV PRN (13:12)
[2018-07-24 13:15] VITALS: BP 155/80
[~2018-08-24] VITALS: Ht 157.5 cm; Wt 65.3 kg
[2018-08-24] MEDS: CATHETER FLUSH 10 ML SYR IV PRN (10:10)
[2018-08-24 10:20] VITALS: BP 118/67
[2018-09-23] MEDS ORDERED: DOXY25TA50 PO (13:37)
== END 2018-10-22 | disposition home or self-care (01) ==
LOC: SDC 10:00
PROVIDERS: ATTEND Surgery
DX: Z45.2 Encounter for adjustment and management of vascular access device (principal)
CPT/HCPCS: 96523

== ENCOUNTER 2018-09-23 06:12 | Outpatient (CLI) | payer MEDICARE, BC ==
[~2018-09-23] VITALS: Ht 157.5 cm; Wt 62.6 kg
[2018-09-23] MEDS ORDERED: DOXY25TA50 PO (13:37)
== END 2018-09-23 13:42 | disposition home or self-care (01) ==
LOC: PREOP 06:12
PROVIDERS: ATTEND Surgery
DX: Z01.818 Encounter for other preprocedural examination (principal)

== ENCOUNTER 2018-10-01 07:14 | Day surgery (SDC) | payer MEDICARE, BC ==
[~2018-10-01] VITALS: Ht 157.5 cm; Wt 62.6 kg
[2018-10-01] VITALS (8 sets, daily range): BP systolic 18–146; BP diastolic 35–68
[~2018-10-01 07:14] MED LIST changes: +DOXY25TA50 PO
[2018-10-01] MEDS ORDERED: LACTATED RINGERS 1,000 ML IV PRN (07:39)
[2018-10-01] MEDS ORDERED: ceFAZolin INJECTION 1,000 MG in WATER (STERILE) FOR INJECTION 10 ML IV ONE (07:45)
--- NOTE | 2018-10-01 07:58 | Progress Note-Pre Operative ---
Pre-Operative Progress Note H&P Reviewed The H&P was reviewed, patient examined and no changes noted. Date Seen by Provider: Oct 01, 2018 Time Seen by Provider: 07:58 Date H&P Reviewed: Oct 01, 2018 Time H&P Reviewed: 07:58 Pre-Operative Diagnosis: RIGHT LOWER EXT LESION LEEANN STEVENS DO Oct 01, 2018 07:58
[2018-10-01 08:11] LABS: PROTHROMBIN TIME PATIENT 13.5 SEC (12.2-14.7)
[2018-10-01] MEDS ORDERED: BUP/EPI 0.5% 1:200,000 (MARCAINE) 10ML VIAL IJ ONE (08:23)
[2018-10-01] MEDS ORDERED: PROPOFOL INJECTION 50 ML IV ONE (10:01)
[2018-10-01] MEDS ORDERED: MIDAZOLAM 2 MG/2 ML (VERSED) VIAL ONE (10:04)
[2018-10-01] MEDS ORDERED: morphine INJ 10 MG/ML 1ML (SYR OR VIAL) IVP ONE (10:15)
[2018-10-01] MEDS ORDERED: MEPERIDINE (DEMEROL) INJ 50 MG/ML IVP ONE (10:15)
[2018-10-01] MEDS ORDERED: ONDANSETRON 4 MG/2 ML (SDV) Z0FRAN IVP PRN (10:15)
--- NOTE | 2018-10-01 11:02 | Progress Note-Post Operative ---
Post-Operative Progess Note Surgeon (s)/Handstitching Machine Collar Feller (s) Surgeon LEEANN STEVENS DO Handstitching Machine Collar Feller: NA Pre-Operative Diagnosis RIGHT LOWER EXT LESION Post-Operative Diagnosis SAME Procedure & Operative Findings Date of Procedure 10/01/18 Procedure Performed/Findings EXCISION SKIN LESION RIGHT LOWER EXTREMITY 1.7X3.2 CM Anesthesia Type MAC C LOCAL Estimated Blood Loss Estimated blood loss (mL): MIN Specimens/Packing Specimens Removed SKIN LESION RIGHT LOWER EXT LEEANN STEVENS DO Oct 01, 2018 11:02
--- NOTE | 2018-10-01 11:05 | Discharge Inst-Simple/Standard ---
Discharge Inst-Standard Patient Instructions/Follow Up Plan of Care/Instructions/FU: 2 WEEKS HILDA Activity as Tolerated: No Discharge Diet: Regular Diet Other Inst to Patient Follow up Appt: Make appointment for 2 week. Instructions: No lifting greater than 10 pounds. No strenuous activity. May shower in 24 hours, no tub bath or soaking. Use incentive spirometer at home as directed. No Smoking Skin/Wound Care: May remove bandagesIN 24 HOURS KEEP AREA CLEAN AND DRY Symptoms to Report: Appetite Changes, Extremity Discoloration, Numbness/Tingling, Swelling Increased, Bleeding Excessive, Eyesight Changes, Pain Increased, Urine Color Change, Constipation(Persistent), Fever over 101 degree F, Pain/Pressure in chest, Urinating Difficulty, Cough Up/Vomit Blood, Heart Beat Irreg/Pounding, Pain/Pressure in jaw, Vaginal Bleeding Increase, Cramps in feet or legs, Lightheadedness, Pain/Pressure in shoulder, Diarrhea(Persistent), Memory Changes Suddenly, Questions/Concerns, Weight gain consecutive days, Dizziness/Fainting, Nausea/Vomiting, Shortness of Breath, Weight gain over 2 pounds If questions or concerns contact your physician Or seek help at emergency department. LEEANN STEVENS DO Oct 01, 2018 11:05
[2018-10-01] MEDS ORDERED: HYDROcodone/APAP 5 MG/325 MG (LORTAB) TAB PO ONE (11:45)
--- NOTE | 2018-10-01 12:53 | Anesthesia-General Post-Op ---
General Patient Condition Mental Status/LOC: Same as Preop Cardiovascular: Satisfactory Nausea/Vomiting: Absent Respiratory: Satisfactory Pain: Controlled Complications: Absent Post Op Complications Complications None Follow Up Care/Instructions Patient Instructions None needed. Anesthesia/Patient Condition Patient Condition Patient is doing well, no complaints, stable vital signs, no apparent adverse anesthesia problems. No complications reported per nursing. PETER PERALTA CRNA Oct 01, 2018 12:53
--- NOTE | 2018-10-01 16:47 | OPERATIVE REPORT ---
DATE OF SERVICE: 10/01/2018 PREOPERATIVE DIAGNOSIS: Skin lesion, right lower extremity. POSTOPERATIVE DIAGNOSIS: Skin lesion, right lower extremity. PROCEDURE: Excision of right lower extremity skin lesion, 1.7 x 3.2 cm. SURGEON: Leeann Obregon DO ANESTHESIA: MAC with local. ESTIMATED BLOOD LOSS: Minimal. COMPLICATIONS: None. INDICATIONS: The patient is an 88-year-old female with skin lesion in the right lower extremity. She has a history of skin cancer. She understands risks and benefits of procedure and wished to proceed with procedure. Consent was signed in the chart. PROCEDURE IN DETAIL: The patient was taken to the operating suite. She was prepped and draped in sterile fashion. Timeout was performed. Local anesthetic was infiltrated around the lesion. An elliptical incision measuring 1.7 x 3.2 cm was made around the lesion removing skin and subcutaneous tissue. The skin was then mobilized from the subcutaneous tissues. The skin was then closed using 3-0 Prolene in vertical mattress fashion. The area was then washed and dried and sterile bandage was applied. The patient tolerated the procedure well without any complications. She was taken to recovery room in stable condition. Specimen was labeled long suture lateral, short suture superiorly. The patient will return in approximately 2 weeks to have sutures removed. The patient tolerated the procedure well. Job ID: [id number] DocumentID: [id number] Dictated Date: 10/01/2018 11:09:54 Hand Printed Circuit Board Assembler Date: 10/01/2018 16:47:13 Dictated By: LEEANN OBREGON DO
== END 2018-10-01 12:15 | disposition home or self-care (01) ==
LOC: SDC 07:14
PROVIDERS: ATTEND Surgery
DX: L90.5 Scar conditions and fibrosis of skin (principal); L92.8 Other granulomatous disorders of the skin and subcutaneous tissue; L98.9 Disorder of the skin and subcutaneous tissue, unspecified; L57.0 Actinic keratosis; L72.0 Epidermal cyst; E03.9 Hypothyroidism, unspecified; I34.0 Nonrheumatic mitral (valve) insufficiency; I73.9 Peripheral vascular disease, unspecified; I35.8 Other nonrheumatic aortic valve disorders; I10 Essential (primary) hypertension; I49.1 Atrial premature depolarization; J43.9 Emphysema, unspecified; I48.91 Unspecified atrial fibrillation; N39.0 Urinary tract infection, site not specified; K21.9 Gastro-esophageal reflux disease without esophagitis; I72.9 Aneurysm of unspecified site; M79.7 Fibromyalgia; I49.3 Ventricular premature depolarization; F17.200 Nicotine dependence, unspecified, uncomplicated; Z85.828 Personal history of other malignant neoplasm of skin; Z79.01 Long term (current) use of anticoagulants; Z90.710 Acquired absence of both cervix and uterus; Z90.49 Acquired absence of other specified parts of digestive tract; Z86.73 Personal history of transient ischemic attack (TIA), and cerebral infarction without residual deficits; Z82.49 Family history of ischemic heart disease and other diseases of the circulatory system
CPT/HCPCS: 36415; 85610; 87081; 88305

== ENCOUNTER → 2018-12-28 | Outpatient (CLI) | payer MEDICARE, BC ==
--- NOTE | 2018-12-28 09:10 | Diagnostic Imaging Report ---
INDICATION: Anterior chest wall pain. TIME OF EXAM: 8:57 AM Correlation is made with prior chest from 06/25/2018. FINDINGS: Right chest wall catheter has tip overlying the SVC. The heart size is stable. Lungs are clear. There appeared to be old left posterior upper rib fractures. No acute bony abnormality is seen. IMPRESSION: No acute cardiopulmonary process is detected. Dictated by: Dictated on workstation # [id number]
[2018-12-28 09:11] LABS: ALANINE AMINOTRANSFERASE 13 U/L (0-55); ALKALINE PHOSPHATASE 48 U/L (40-136); BILIRUBIN,TOTAL 0.6 MG/DL (0.1-1.0); BUN/CREATININE RATIO 18; CALCIUM 9.5 MG/DL (8.5-10.1); CARBON DIOXIDE 23 MMOL/L (21-32); CHLORIDE 104 MMOL/L (98-107); CHOLESTEROL 202 MG/DL (< 200); GFR ESTIMATED > 60; GLUCOSE 113 MG/DL (70-105); HDL CHOLESTEROL 74 MG/DL (40-60); POTASSIUM 3.8 MMOL/L (3.6-5.0); SODIUM 140 MMOL/L (135-145); TOTAL PROTEIN 6.8 GM/DL (6.4-8.2); TRIGLYCERIDES 79 MG/DL (<150); VLDL CHOLESTEROL 16 MG/DL (5-40)
== END ==
LOC: RAD 08:22
PROVIDERS: ATTEND Internal Medicine Cardiovascular Disease
DX: I49.1 Atrial premature depolarization (principal); I10 Essential (primary) hypertension; I35.8 Other nonrheumatic aortic valve disorders; I73.9 Peripheral vascular disease, unspecified; R09.89 Other specified symptoms and signs involving the circulatory and respiratory systems
CPT/HCPCS: 36415; 71046; 80053; 80061; 84443

== ENCOUNTER → 2019-01-26 | Outpatient (CLI) | payer MEDICARE, BC ==
[2019-01-26 13:35] LABS: INR 4.2 (0.8-1.4); PROTHROMBIN TIME PATIENT 42.7 SEC (12.2-14.7)
== END ==
LOC: LAB 12:47
PROVIDERS: ATTEND Family Medicine
DX: Z01.89 Encounter for other specified special examinations (principal); Z86.718 Personal history of other venous thrombosis and embolism; Z79.01 Long term (current) use of anticoagulants
CPT/HCPCS: 36415; 85610

== ENCOUNTER 2019-03-09 10:54 | Outpatient (RCR) | payer MEDICARE, BC ==
[2018-12-24 14:20] VITALS: BP 159/70
[2019-01-25 13:00] VITALS: BP 121/54
[~2019-03-09] VITALS: Ht 157 cm; Wt 54.4 kg
[2019-03-09 11:02] VITALS: BP 148/71
== END 2019-03-24 | disposition home or self-care (01) ==
LOC: SDC 10:54
PROVIDERS: ATTEND Surgery
DX: Z45.2 Encounter for adjustment and management of vascular access device (principal)
CPT/HCPCS: 96523

== ENCOUNTER 2019-05-13 09:09 | Outpatient (RCR) | payer MEDICARE, BC ==
[2019-04-06 09:15] VITALS: BP 136/63
[2019-05-04 11:50] VITALS: BP 141/60
[~2019-05-13] VITALS: Ht 170.2 cm; Wt 54.4 kg
[~2019-05-13 09:09] MED LIST changes: +CATHETER FLUSH 10 ML SYR IV PRN
[2019-05-13 09:20] VITALS: BP 151/78
== END 2019-07-05 | disposition home or self-care (01) ==
LOC: SDC 09:09
PROVIDERS: ATTEND Surgery
DX: Z45.2 Encounter for adjustment and management of vascular access device (principal)
CPT/HCPCS: 96523

== ENCOUNTER → 2019-05-13 | Outpatient (CLI) | payer MEDICARE, BC ==
[2019-05-13 09:50] LABS: BASOPHILS % (AUTO) 0 % (0-10); EOSINOPHILS % (AUTO) 1 % (0-10); HEMATOCRIT 39 % (35-52); HEMOGLOBIN 12.9 G/DL (11.5-16.0); LYMPHOCYTES # (AUTO) 1.9 X 10^3 (1.0-4.0); LYMPHOCYTES % (AUTO) 31 % (12-44); MEAN CORPUSCULAR HEMOGLOBIN 30 PG (25-34); MEAN CORPUSCULAR HGB CONC 33 G/DL (32-36); MEAN CORPUSCULAR VOLUME 89 FL (80-99); MEAN PLATELET VOLUME 10.5 FL (7.4-10.4); MONOCYTES # (AUTO) 0.7 X 10^3 (0.0-1.0); MONOCYTES % (AUTO) 12 % (0-12); NEUTROPHILS # (AUTO) 3.5 X 10^3 (1.8-7.8); NEUTROPHILS % (AUTO) 56 % (42-75); PLATELET COUNT 225 10^3/uL (130-400); RED CELL DISTRIBUTION WIDTH 13.3 % (10.0-14.5); WHITE BLOOD COUNT 6.1 10^3/uL (4.3-11.0)
[2019-05-13 10:07] LABS: ALANINE AMINOTRANSFERASE 13 U/L (0-55); ALKALINE PHOSPHATASE 51 U/L (40-136); BILIRUBIN,TOTAL 0.5 MG/DL (0.1-1.0); BUN/CREATININE RATIO 26; CALCIUM 8.9 MG/DL (8.5-10.1); CARBON DIOXIDE 25 MMOL/L (21-32); CHLORIDE 104 MMOL/L (98-107); CREATININE SERUM 0.84 MG/DL (0.60-1.30); GFR ESTIMATED > 60; GLUCOSE 93 MG/DL (70-105); SODIUM 139 MMOL/L (135-145); TOTAL PROTEIN 6.5 GM/DL (6.4-8.2)
== END ==
LOC: LAB 08:44
PROVIDERS: ATTEND Family Medicine
DX: E07.9 Disorder of thyroid, unspecified (principal); R60.9 Edema, unspecified
CPT/HCPCS: 36415; 80053; 84443; 85025

== ENCOUNTER 2019-09-06 10:04 | Outpatient (RCR) | payer MEDICARE, BC ==
[~2019-09-06] VITALS: Ht 157.5 cm; Wt 54.4 kg
[2019-09-06 09:55] VITALS: BP 139/63
[~2019-09-06 10:04] MED LIST changes: -CATHETER FLUSH 10 ML SYR IV PRN
[2019-09-06] MEDS ORDERED: ceFAZolin 2 GM IV Premixed 0 ML ONE (10:25)
[2019-09-06] MEDS ORDERED: LACTATED RINGERS 1,000 ML IV PRN (10:40)
[2019-09-06] MEDS ORDERED: FAMOTIDINE 20MG/2ML IV (PEPCID) IV ONE (10:45)
[2019-10-25] MEDS ORDERED: ACET-2267 PO (15:53)
[2019-10-28] MEDS ORDERED: CEFD300C3 PO (10:40)
== END 2019-12-05 | disposition home or self-care (01) ==
LOC: SDC 10:04
PROVIDERS: ATTEND Surgery
DX: Z45.2 Encounter for adjustment and management of vascular access device (principal)
CPT/HCPCS: 96523

== ENCOUNTER 2019-09-13 20:05 | Emergency (ER) | payer MEDICARE, BC ==
[~2019-09-13] VITALS: Ht 49.8 cm; Wt 158.4 kg
--- NOTE | 2019-09-13 20:33 | ED Upper Extremity ---
General Chief Complaint: Laceration Stated Complaint: L ARM WOUND Source: patient, family Exam Limitations: no limitations History of Present Illness Date Seen by Provider: Sep 13, 2019 Time Seen by Provider: 20:28 Initial Comments To ER with reports of a left arm wound. She had a lesion removed this afternoon at [address] Obregon's office. Went home, daughter noticed some blood on the bandage and the wound seemed to be open. Onset: just prior to arrival Severity: moderate Pain/Injury Location: left forearm Method of Injury: fell Modifying Factors: Worse With Movement Allergies and Home Medications Allergies Coded Allergies: No Known Drug Allergies (Unverified , 06/23/18) Home Medications Atenolol 25 Mg Tablet, 25 MG PO DAILY, (Reported) Doxylamine Succinate 25 Mg Tablet, 25 MG PO HS, (Reported) Furosemide 20 Mg Tablet, 40 MG PO DAILY, (Reported) TAKES 2 (20MG) TABLETS Levothyroxine Sodium 50 Mcg Tablet, 50 MCG PO DAILY, (Reported) Potassium Gluconate 99 Mg Tablet, 99 MG PO DAILY, (Reported) Warfarin Sodium 5 Mg Tablet, 5 MG PO MoTuWeThFr, (Reported) DOES NOT TAKE ANY WARFARIN ON SAT AND SUN Patient Home Medication List Home Medication List Reviewed: Yes Review of Systems Constitutional: see HPI EENTM: see HPI Respiratory: no symptoms reported Cardiovascular: no symptoms reported Genitourinary: no symptoms reported Musculoskeletal: no symptoms reported Skin: see HPI Psychiatric/Neurological: No Symptoms Reported Past Hcekriu-Tuoefj-Eyzkjq Hx Patient Social History Alcohol Beverage of Choice: [place] Type Used: Cigarettes 2nd Hand Smoke Exposure: Yes Recent Foreign Travel: No Contact w/Someone Who Travel: No Recent Hopitalizations: No Immunizations Up To Date Tetanus Booster (TDap): Less than 5yrs Date of Pneumonia Vaccine: Mar 29, 2018 Date of Influenza Vaccine: Mar 29, 2018 Seasonal Allergies Seasonal Allergies: No Past Medical History Surgeries: Yes (COLON, BRAIN, SKIN CA REMOVAL L LEG, BREAST IMPLANTS) Abdominal, Breast, Gallbladder, Hysterectomy Respiratory: Yes Asthma, COPD, Emphysema Cardiac: Yes Aneurysm, Atrial Fibrillation, Deep Vein Thrombosis 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 History: Hysterectomy Sexually Transmitted Disease: No HIV/AIDS: No Genitourinary: No UTI-Chronic Gastrointestinal: Yes Gastroesophageal Reflux Musculoskeletal: Yes Fibromyalgia Endocrine: Yes Hypothyroidsim HEENT: No (READING GLASSES, DENTURES) Cancer: Yes (CERVIX BREAST ) Breast, Cervical Did You Recieve Any Treatments: Yes What Type of Treatment Did You: Surgical Intervention Psychosocial: Yes (alcohol dependence with nightly use of hard liquor) Anxiety Integumentary: Yes (skin lesion) Blood Disorders: No Adverse Reaction/Blood Tranf: No (N/A) Family Medical History No Pertinent Family Hx Physical Exam Vital Signs Capillary Refill : Less Than 3 Seconds Height, Weight, BMI Height: 5'2.00" Weight: 138lbs. 0.0oz. 62.525476wp; 25.2 BMI Method:Stated General Appearance: WD/WN, no apparent distress HEENT: PERRL/EOMI, normal ENT inspection Respiratory: no respiratory distress, no accessory muscle use Shoulder: non-tender Elbow/Forearm: Left, soft tissue tenderness (there is a dehisced since of the wound to the dorsal aspect of the left arm. Completely dehisced. The old sutures were removed, area was irrigated with 100 cc of chlorhexidine/saline, wound was re-suture after anesthetizing with a total of 3 mL of 1% lidocaine without epinephrine. 4-0 Prolene was used in 1 simple interrupted suture and 2 continuous sutures.) Departure Impression Primary Impression: Wound dehiscence Disposition: 01 HOME, SELF-CARE Condition: Stable Departure-Patient Inst. Decision time for Depature: 20:32 Referrals: TANISHA OLMSTEAD DO (PCP/Family) Primary Care Physician Patient Instructions: Wound Dehiscence Add. Discharge Instructions: 1. Return to ER for any concerns 2. Follow-up with your doctor next week 3. Stitches should be out at your next appointment with Dr. Obregon in about 10- 12 days. Change the dressing daily. All discharge instructions reviewed with patient and/or family. Voiced unders tanding. YASMIN AKERS FILLER BLOCK INSERTER REMOVER Sep 13, 2019 20:33
[2019-09-13 20:46] VITALS: BP 130/61
--- OUTSIDE RECORDS SUMMARY | 2019-09-13 21:44 | XMS REPORT | Clinical Summary ---
Author Author [facility] Organization [facility] Address Unknown Phone Unavailable Care Team Providers Care [employer]ist Name Role Phone EdgarGregg solitario PCP Donny Bello MD Unavailable Benny Bustamante MD Unavailable Source Comments Some departments are not documenting in the electronic medical record. If you d o not see the information that you expected, contact Release of Information in formerly [facility] [employer] Information Management department at [phone] for further assistan ce in locating additional records.[facility] Allergies Comments Active Allergy Reactions Severity Noted Date Morphine AGITATION, 07/06/2008 MENTAL STATUS CHANGES Medications End Date Status Medication Sig Dispensed Refills Start Date Active levothyroxine (SYNTHROID) Take 1 Tab by 0 /2 4/200 50 mcg tablet mouth Daily. 8 Active warfarin (COUMADIN) 5 mg Take by mouth 0 24 /200 tablet Daily. 1 8 tablet daily Active hydrochlorothiazide 12.5 Take 10-12.5 0 24 /200 mg capsule mg by mouth 8 Daily. [...] Active oxycodone/acetaminophen Take 1-2 Tabs 45 0 200 (PERCOCET) 5/325 mg by mouth 9 tablet [...] Smoker Cigarettes 4 50 Comments: quit 2007 Drinks/Week oz/Week Comments Alcohol Use daily a beer or mixe d drink Yes Sex Assigned at Date Recorded Not on file Industry Job Start Date Occupation Not on file Not on file Not on file Travel End Travel History Travel Start No recent travel history available. Last Filed Vital Signs Reading Time Taken Comments Vital Sign 125/53 08/08/2008 8:05 AM CDT Blood Pressure 85 08/08/2008 8:05 AM CDT Pulse 36.7 C (98.1 F) 08/08/2008 8:05 AM CDT Temperature - - Respiratory Rate 98% 08/08/2008 8:05 AM CDT Oxygen Saturation - - Inhaled Oxygen Concentration 69 kg (152 lb 1.9 oz) 08/05/2008 8:00 AM CDT Weight 157.5 cm (5' 2") 08/05/2008 8:00 AM CDT Height 27.82 08/05/2008 8:00 AM CDT Body Mass Index Plan of Treatment Health Maintenance Due Date Last Done Comments DTAP/TDAP VACCINES (1 - 1948 Tdap) PHYSICAL (COMPREHENSIVE) 1948 EXAM SHINGLES RECOMBINANT 1980 VACCINE (1 of 2) OSTEOPOROSIS 05/10/1995 SCREENING/MONITORING PNEUMONIA (PPSV23) 05/10/1995 VACCINE (1 of 1 - PPSV23) INFLUENZA VACCINE 12/02/2019 Results Not on filefrom Last 3 Months
--- OUTSIDE RECORDS SUMMARY | 2019-09-13 21:45 | XMS REPORT | Continuity of Care Document ---
Author Organization Unknown Address Unknown Phone Unavailable Allergies Active Description Code Type Severity Reaction Onset Reported/Identified Relationship to Patient Clinical Status Yes NKANo Known Allergies NKA Miscellaneous Allergy Unknown N/A 06/22/2005 Yes No Known Drug Allergies [id number] Drug Allergy Unknown N/A 06/23/2018 Medications There is no data. 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 5 PAIN IN LIMB 08/16/2012 ISAIAS GAMBLE MD Ot 789. 09 ABDOMINAL PAIN, OTHER SPECIFIED SITE 08/16/2012 ISAIAS GAMBLE MD Ot V58. 61 ANTICOAGULANTS,LT,CURRENT USE 08/16/2012 ISAIAS GAMBLE MD Ot V58. 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, UNSPECIFIED 06/04/2015 Ot S81.802A U NSPECIFIED OPEN WOUND, LEFT LOWER LEG, 06/04/2015 Ot X58.XXXA E XPOSURE TO OTHER SPECIFIED FACTORS, INI 06/04/2015 Ot Y99.8 OTHE R EXTERNAL CAUSE STATUS 06/06/2015 TANISHA OLMSTEAD DO Ot E03.9 06/08/2015 DARSHAN MARTINI MD Ot I70.242 06/08/2015 DARSHAN MARTINI MD Ot I87.332 06/08/2015 DARSHAN MARTINI MD Ot L97.222 06/08/2015 DARSHAN MARTINI MD Ot Z72 .0 06/10/2015 Ot F17.210 06/10/2015 Ot I73.9 06/10/2015 Ot S81.802A 06/10/2015 Ot X58.XXXA 06/10/2015 Ot Y99.8 06/13/2015 DARSHAN MARTINI MD Ot I70.242 06/13/2015 DARSHAN MARTINI MD Ot I87.332 06/13/2015 DARSHAN MARTIIN MD Ot L97.222 06/13/2015 DARSHAN MARTINI MD Ot Z72 .0 06/20/2015 SALOME SANTIAGO FACC, ALI FACP CCDS Ot E03.9 HYPOTHYROIDISM, UNSPECIFIED 06/20/2015 SALOME SANTIAGO FACC, ALI FACP CCDS Ot F17.210 NICOTINE DEPENDENCE, CIGARETTES, UNCOMPL 06/20/2015 SALOME SANTIAGO FACC, ALI FACP CCDS Ot I10 ESSENTIAL (PRIMARY) HYPERTENSION 06/20/2015 SALOME SANTIAGO FACC, ALI FACP CCDS Ot I70.0 ATHEROSCLEROSIS OF [place]ORT[place] 06/20/2015 SALOME SANTIAGO FACC, ALI FACP CCDS Ot J44.9 CHRONIC OBSTRUCTIVE PULMONARY DISEASE, U 06/20/2015 SALOME SANTIAGO FACC, ALI FACP CCDS Ot 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 06/20/2015 SALOME SANTIAGO FACC, ALI FACP CCDS Ot M79.89 OTHER SPECIFIED SOFT TISSUE DISORDERS 06/20/2015 SALOME SANTIAGO FACC, JENNIFER FACP CCDS Ot Z79.01 LONGTERM (CURRENT) USE OF ANTICOAGULANT 06/20/2015 SALOME SANTIAGO FACC, ALI FACP CCDS Ot Z79.899 OTHER LONGTERM (CURRENT) DRUG THERAPY 06/20/2015 SALOME SANTIAGO FACC, ALI FACP CCDS Ot Z86.718 PERSONAL HISTORY OF OTHER VENOUS THROMBO 06/26/2015 DARSHAN MARTINI MD Ot 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 06/26/2015 DARSHAN MARTINI MD Ot 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 06/26/2015 DARSHAN MARTINI MD, Ot L97.222 NON-PRESSURE CHRONIC ULCER OF LEFT CALF 06/26/2015 DARSHAN MARTINI MD Ot Z72 .0 TOBACCO USE 06/27/2015 DARSHAN MARTINI MD, Ot 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 06/27/2015 DARSHAN MARTINI MD, Ot 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 06/27/2015 DARSHAN MARTINI MD, Ot L97.222 NON-PRESSURE CHRONIC ULCER OF LEFT CALF 06/27/2015 DARSHAN MARTINI MD, Ot Z72 .0 TOBACCO USE 07/03/2015 SALOME SANTIAGO FACC, ALI FACP CCDS Ot E03.9 HYPOTHYROIDISM, UNSPECIFIED 07/03/2015 SALOME SANTIAGO FACAbner, ALI FACP CCDS Ot F17.210 NICOTINE DEPENDENCE, CIGARETTES, UNCOMPL 07/03/2015 SALOME SANTIAGO FACC, ALI FACP CCDS Ot I10 ESSENTIAL (PRIMARY) HYPERTENSION 07/03/2015 SALOME SANTIAGO FACC, ALI FACP CCDS Ot I70.0 ATHEROSCLEROSIS OF [place] 07/03/2015 SALOME SANTIAGO FACC, ALI FACP CCDS Ot J44.9 CHRONIC OBSTRUCTIVE PULMONARY DISEASE, U 07/03/2015 SALOME SANTIAGO FACC, ALI FACP CCDS Ot 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 07/03/2015 SALOME SANTIAGO FACC, JENNIFER FACP CCDS Ot M79.89 OTHER SPECIFIED SOFT TISSUE DISORDERS 07/03/2015 SALOME SANTIAGO FACC, ALI FACP CCDS Ot Z79.01 LONGTERM (CURRENT) USE OF ANTICOAGULANT 07/03/2015 SALOME SANTIAGO FACC, ALI FACP CCDS Ot Z79.899 OTHER LONGTERM (CURRENT) DRUG THERAPY 07/03/2015 SALOME SANTIAGO FACC, ALI FACP CCDS Ot Z86.718 PERSONAL HISTORY OF OTHER VENOUS THROMBO 07/05/2015 DARSHAN MARTINI MD Ot 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 [facility] 07/05/2015 DARSHAN MARTINI MD Ot 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 07/05/2015 DARSHAN MARTINI MD, Ot L97.222 NON-PRESSURE CHRONIC ULCER OF LEFT CALF 07/05/2015 DARSHAN MARTINI MD, Ot Z72 .0 TOBACCO USE 07/06/2015 DARSHAN MARTINI MD, Ot 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 [facility] 07/06/2015 DARSHAN MARTINI MD, Ot 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 07/06/2015 DARSHAN MARTINI MD, Ot L97.222 NON-PRESSURE CHRONIC ULCER OF LEFT CALF 07/06/2015 DARSHAN MARTINI MD, Ot Z72 .0 TOBACCO USE 01/08/2016 Ot 780.2 SYNC OPE AND COLLAPSE 01/08/2016 TANISHA OLMSTEAD DO Ot 244.9 HYPOTHYROIDISM NOS 01/08/2016 TANISHA OLMSTEAD DO, Ot E03.9 HYPOTHYROIDISM, UNSPECIFIED 01/08/2016 DARSHAN MARTINI MD, Ot 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 [facility] 01/08/2016 DARSHAN MARTINI MD, Ot 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 01/08/2016 DARSHAN MARTINI MD, Ot L97.222 NON-PRESSURE CHRONIC ULCER OF LEFT CALF 01/08/2016 DARSHAN MARTINI MD, Ot Z72 .0 TOBACCO USE 01/08/2016 DARSHAN MARTINI MD, Ot 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 [facility] 01/08/2016 DARSHAN MARTINI MD, Ot 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 01/08/2016 DARSHAN MARTINI MD, Ot L97.222 NON-PRESSURE CHRONIC ULCER OF LEFT CALF 01/08/2016 DARSHAN MARTINI MD, Ot Z72 .0 TOBACCO USE 01/09/2016 TANISHA OLMSTEAD DO Ot E03.9 HYPOTHYROIDISM, UNSPECIFIED 01/30/2016 TANISHA OLMSTEAD DO Ot E03.9 HYPOTHYROIDISM, UNSPECIFIED 04/24/2016 TANISHA OLMSTEAD DO, Ot Z51.81 ENCOUNTER FOR THERAPEUTIC DRUG LEVEL MON 04/24/2016 TANISHA OLMSTEAD DO, Ot Z79.01 LONGTERM (CURRENT) USE OF ANTICOAGULANT 05/23/2016 TANISHA OLMSTEAD DO Ot M89.9 DISORDER OF BONE, UNSPECIFIED 05/23/2016 TANISHA OLMSTEAD DO, Ot Z13.820 ENCOUNTER FOR SCREENING FOR OSTEOPOROSIS [...] MON 06/16/2016 TANISHA OLMSTEAD DO Ot Z79.01 LOADING AND UNLOADING SUPERVISOR (CURRENT) USE OF ANTICOAGULANT 09/29/2016 JENSEN SAAVEDRA MD Ot E03. 9 HYPOTHYROIDISM, UNSPECIFIED 09/29/2016 JENSEN SAAVEDRA MD Ot F41. 9 ANXIETY DISORDER, UNSPECIFIED 09/29/2016 JENSEN SAAVEDRA MD Ot I48. 91 UNSPECIFIED ATRIAL FIBRILLATION 09/29/2016 JENSEN SAAVEDRA MD Ot J43. 9 EMPHYSEMA, UNSPECIFIED 09/29/2016 JENSEN SAAVEDRA MD Ot K21. 9 GASTRO-ESOPHAGEAL REFLUX DISEASE WITHOUT 09/29/2016 JENSEN SAAVEDRA MD Ot M54. 5 LOW BACK PAIN 09/29/2016 JENSEN SAAVEDRA MD Ot Z79. 01 LONGTERM (CURRENT) USE OF ANTICOAGULANT 09/29/2016 JENSEN SAAVEDRA MD Ot Z85.038 PERSONAL HISTORY OF MALIGNANT NEOPLASM O 09/29/2016 JENSEN SAAVEDRA MD Ot Z85. 3 PERSONAL HISTORY OF MALIGNANT NEOPLASM O 09/29/2016 JENSEN SAAVEDRA MD Ot Z85. 41 PERSONAL HISTORY OF MALIGNANT NEOPLASM O 09/29/2016 JENSEN SAAVEDRA MD Ot Z86.718 PERSONAL HISTORY OF OTHER VENOUS THROMBO 09/29/2016 JENSEN SAAVEDRA MD Ot Z86. 73 PRSNL HX OF TIA (TIA), AND CEREB INFRC W 10/05/2016 JENSEN SAAVEDRA MD Ot E03. 9 HYPOTHYROIDISM, UNSPECIFIED 10/05/2016 JENSEN SAAVEDRA MD Ot F41. 9 ANXIETY DISORDER, UNSPECIFIED 10/05/2016 JENSEN SAAVEDRA MD Ot I48. 91 UNSPECIFIED ATRIAL FIBRILLATION 10/05/2016 JENSEN SAAVEDRA MD Ot J43. 9 EMPHYSEMA, UNSPECIFIED 10/05/2016 JENSEN SAAVEDRA MD Ot K21. 9 GASTRO-ESOPHAGEAL REFLUX DISEASE WITHOUT 10/05/2016 JENSEN SAAVEDRA MD Ot M54. 5 LOW BACK PAIN 10/05/2016 JENSEN SAAVEDRA MD Ot Z79. 01 LOADING AND UNLOADING SUPERVISOR (CURRENT) USE OF ANTICOAGULANT 10/05/2016 JENSEN SAAVEDRA MD Ot Z85.038 PERSONAL HISTORY OF MALIGNANT NEOPLASM O 10/05/2016 JENSEN SAAVEDRA MD Ot Z85. 3 PERSONAL HISTORY OF MALIGNANT NEOPLASM O 10/05/2016 JENSEN SAAVEDRA MD Ot Z85. 41 PERSONAL HISTORY OF MALIGNANT NEOPLASM O 10/05/2016 JENSEN SAAVEDRA MD Ot Z86.718 PERSONAL HISTORY OF OTHER VENOUS THROMBO 10/05/2016 JENSEN SAAVEDRA MD Ot Z86. 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 06/29/2017 DARSHAN MARTINI MD Ot L97.222 NON-PRESSURE CHRONIC ULCER OF LEFT CALF 06/29/2017 DARSHAN MARTINI MD Ot Z72 .0 TOBACCO USE 06/29/2017 TANISHA OLMSTEAD DO Ot E03.9 HYPOTHYROIDISM, UNSPECIFIED 06/29/2017 TANISHA OLMSTEAD DO Ot E03.9 HYPOTHYROIDISM, UNSPECIFIED 06/29/2017 TANISHA OLMSTEAD DO Ot M89.9 DISORDER OF BONE, UNSPECIFIED 06/29/2017 TANISHA OLMSTEAD DO Ot Z13.820 ENCOUNTER FOR SCREENING FOR OSTEOPOROSIS 06/29/2017 RICKI CARDENAS MD Ot F41 .9 ANXIETY DISORDER, UNSPECIFIED 06/29/2017 RICKI CARDENAS MD Ot I48.91 UNSPECIFIED ATRIAL FIBRILLATION 06/29/2017 RICKI CARDENAS MD, Ot J43 .9 EMPHYSEMA, UNSPECIFIED 06/29/2017 RICKI CARDENAS MD, Ot K21 .9 GASTRO-ESOPHAGEAL REFLUX DISEASE WITHOUT 06/29/2017 RICKI CARDENAS MD Ot R07 .9 CHEST PAIN, UNSPECIFIED 06/29/2017 RICKI CARDENAS MD Ot R40.2142 COMA SCALE, EYES OPEN, SPONTANEOUS, EMR 06/29/2017 RICKI CARDENAS MD, Ot R40.2252 COMA SCALE, BEST VERBAL RESPONSE, ORIENT 06/29/2017 RICKI CARDENAS MD Ot R40.2362 COMA SCALE, BEST MOTOR RESPONSE, OBEYS C 06/29/2017 RICKI CARDENAS MD Ot S22.32XA FRACTURE OF ONE RIB, LEFT SIDE, INIT FOR 06/29/2017 RICKI CARDENAS MD Ot W18.30XA FALL ON SAME LEVEL, UNSPECIFIED, INITIAL 06/29/2017 RICKI CARDENAS MD Ot Y92.[address] [facility] PL[facility] IN [facility] NON-INSTITUT (PRIVATE 06/29/2017 RICKI CARDENAS MD Ot Y93.01 ACTIVITY, WALKING, MARCHING AND HIKING 06/29/2017 RICKI CARDENAS MD Ot Z79.01 LOADING AND UNLOADING SUPERVISOR (CURRENT) USE OF ANTICOAGULANT 06/29/2017 RICKI CARDENAS MD Ot Z79.52 LONGTERM (CURRENT) USE OF SYSTEMIC STER 06/29/2017 RICKI CARDENAS MD Ot Z85 .3 PERSONAL HISTORY OF MALIGNANT NEOPLASM O 06/29/2017 RICKI CARDENAS MD Ot Z85.41 PERSONAL HISTORY OF MALIGNANT NEOPLASM O 06/29/2017 RICKI CARDENAS MD Ot Z85.828 PERSONAL HISTORY OF OTHER MALIGNANT NEOP 06/29/2017 RICKI CARDENAS MD Ot Z86.718 PERSONAL HISTORY OF OTHER VENOUS THROMBO 06/29/2017 RICKI CARDENAS MD, Ot Z86.73 PRSNL HX OF TIA (TIA), AND CEREB INFRC W 06/29/2017 RICKI CARDENAS MD, Ot Z87.440 PERSONAL HISTORY OF URINARY (TRACT) INFE 06/29/2017 RICKI CARDENAS MD, Ot Z98.82 BREAST IMPLANT STATUS 11/18/2017 CHACORTA BENJAMIN MD, Ot E03.9 HYPOTHYROIDISM, UNSPECIFIED 11/18/2017 CHACORTA BENJAMIN MD Ot F17.210 NICOTINE DEPENDENCE, CIGARETTES, UNCOMPL 11/18/2017 CHACORTA BENJAMIN MD, Ot F41.9 ANXIETY DISORDER, UNSPECIFIED 11/18/2017 CHACORTA BENJAMIN MD, Ot I48.91 UNSPECIFIED ATRIAL FIBRILLATION 11/18/2017 CHACORTA BENJAMIN MD, Ot J43.9 EMPHYSEMA, UNSPECIFIED 11/18/2017 CHACORTA BENJAMIN MD, Ot K21.9 GASTRO-ESOPHAGEAL REFLUX DISEASE WITHOUT 11/18/2017 CHACORTA BENJAMIN MD, Ot R79.1 ABNORMAL COAGULATION PROFILE 11/18/2017 CHACORTA BENJAMIN MD, Ot R79.9 ABNORMAL FINDING OF BLOOD CHEMISTRY, UNS 11/18/2017 CHACORTA BENJAMIN MD, Ot S50.312A ABRASION OF LEFT ELBOW, INITIAL ENCOUNTE 11/18/2017 CHACORTA BENJAMIN MD, Ot X58.XXXA EXPOSURE TO OTHER SPECIFIED FACTORS, INI 11/18/2017 CHACORTA BENJAMIN MD, Ot Z79.01 LONGTERM (CURRENT) USE OF ANTICOAGULANT 11/18/2017 CHACORTA BENJAMIN MD Ot Z79.52 LONGTERM (CURRENT) USE OF SYSTEMIC STER 11/18/2017 CHACORTA BENJAMIN MD, Ot Z85.038 PERSONAL HISTORY OF MALIGNANT NEOPLASM O 11/18/2017 CHACORTA BENJAMIN MD, Ot Z85.3 PERSONAL HISTORY OF MALIGNANT NEOPLASM O 11/18/2017 CHACORTA BENJAMIN MD, Ot Z85.41 PERSONAL HISTORY OF MALIGNANT NEOPLASM O 11/18/2017 CHACORTA BENJAMIN MD, Ot Z85.828 PERSONAL HISTORY OF OTHER MALIGNANT NEOP 11/18/2017 CHACORTA BENJAMIN MD, Ot Z86.718 PERSONAL HISTORY [...] INI 11/20/2017 CHACORTA BENJAMIN MD, Ot Z79.01 LOADING AND UNLOADING SUPERVISOR (CURRENT) USE OF ANTICOAGULANT 11/20/2017 CHACORTA BENJAMIN MD, Ot Z79.52 LONGTERM (CURRENT) USE OF SYSTEMIC STER 11/20/2017 CHACORTA BENJAMIN MD, Ot Z85.038 PERSONAL HISTORY OF MALIGNANT NEOPLASM O 11/20/2017 CHACORTA BENJAMIN MD, Ot Z85.3 PERSONAL HISTORY OF MALIGNANT NEOPLASM O 11/20/2017 CHACORTA BENJAMIN MD, Ot Z85.41 PERSONAL HISTORY OF MALIGNANT NEOPLASM O 11/20/2017 CHACORTA BENJAMIN MD, Ot Z85.828 PERSONAL HISTORY OF OTHER MALIGNANT NEOP 11/20/2017 CASSIDY SANTIAGO, CHACORTA Louise Ot Z86.718 PERSONAL HISTORY OF OTHER VENOUS THROMBO 11/20/2017 CASSIDY SANTIAGO, CHACORTA Louise Ot Z86.73 PRSNL HX OF TIA (TIA), AND CEREB INFRC W 11/20/2017 CASSIDY SANTIAGO, CHACORTA Louise Ot Z87.440 PERSONAL HISTORY OF URINARY (TRACT) INFE 05/07/2018 TANISHA OLMSTEAD DO Ot 244.9 HYPOTHYROIDISM NOS 05/07/2018 TANISHA OLMSTEAD DO Ot E03.9 HYPOTHYROIDISM, UNSPECIFIED 05/07/2018 ADRSHAN MARTINI MD Ot 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 [facility] 05/07/2018 DARSHAN MARTINI MD Ot 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 05/07/2018 DARSHAN MARTINI MD Ot L97.222 NON-PRESSURE CHRONIC ULCER OF LEFT CALF 05/07/2018 DARSHAN MARTINI MD Ot Z72 .0 TOBACCO USE 05/07/2018 DARSHAN MARTINI MD Ot 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 [facility] 05/07/2018 DARSHAN MARTINI MD Ot 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 05/07/2018 DARSHAN MARTINI MD Ot L97.222 NON-PRESSURE CHRONIC ULCER OF LEFT CALF 05/07/2018 DARSHAN MARTINI MD Ot Z72 .0 TOBACCO USE 05/07/2018 TANISHA OLMSTEAD DO Ot [...] TANISHA OLMSTEAD DO Ot E03.9 HYPOTHYROIDISM, UNSPECIFIED 05/28/2018 TANISHA OLMSTEAD DO Ot E03.9 HYPOTHYROIDISM, UNSPECIFIED 05/29/2018 RICKI CARDENAS MD Ot E03 .9 HYPOTHYROIDISM, UNSPECIFIED 05/29/2018 RICKI CARDENAS MD Ot E87 .2 ACIDOSIS 05/29/2018 RICKI CARDENAS MD Ot F10.20 ALCOHOL DEPENDENCE, UNCOMPLICATED 05/29/2018 RICKI CARDENAS MD Ot F17.210 NICOTINE DEPENDENCE, CIGARETTES, UNCOMPL 05/29/2018 RICKI CARDENAS MD Ot I25.10 ATHSCL HEART DISEASE OF [place] CORONARY 05/29/2018 RICKI CARDENAS MD Ot I48.91 UNSPECIFIED ATRIAL FIBRILLATION 05/29/2018 RICKI CARDENAS MD Ot I69.354 HEMIPLGA FOLLOWING CEREBRAL INFRC AFFECT 05/29/2018 RICKI CARDENAS MD Ot J43 .9 EMPHYSEMA, UNSPECIFIED 05/29/2018 RICKI CARDENAS MD Ot K21 .9 GASTRO-ESOPHAGEAL REFLUX DISEASE WITHOUT 05/29/2018 RICKI CARDENAS MD Ot R07.89 OTHER CHEST PAIN 05/29/2018 RICKI CARDENAS MD Ot R09.02 HYPOXEMIA 05/29/2018 RICKI CARDENAS MD Ot R32 UNSPECIFIED URINARY INCONTINENCE 05/29/2018 RICKI CARDENAS MD Ot R60 .0 LOCALIZED EDEMA 05/29/2018 RICKI CARDENAS MD Ot Z79.01 LOADING AND UNLOADING SUPERVISOR (CURRENT) USE OF ANTICOAGULANT 05/29/2018 RICKI CARDENAS MD Ot Z86.718 PERSONAL HISTORY OF OTHER VENOUS THROMBO 06/02/2018 RICKI CARDENAS MD Ot E03 .9 HYPOTHYROIDISM, UNSPECIFIED 06/02/2018 RICKI CARDENAS MD Ot E87 .2 ACIDOSIS 06/02/2018 RICKI CARDENAS MD Ot F10.20 ALCOHOL DEPENDENCE, UNCOMPLICATED 06/02/2018 RICKI CARDENAS MD Ot F17.210 NICOTINE DEPENDENCE, CIGARETTES, UNCOMPL 06/02/2018 RICKI CARDENAS MD Ot I25.10 ATHSCL HEART DISEASE OF [place] CORONARY 06/02/2018 RICKI CARDENAS MD Ot I48.91 UNSPECIFIED ATRIAL FIBRILLATION 06/02/2018 RICKI CARDENAS MD Ot I69.354 HEMIPLGA FOLLOWING CEREBRAL INFRC AFFECT 06/02/2018 RICKI CARDENAS MD Ot J43 .9 EMPHYSEMA, UNSPECIFIED 06/02/2018 RICKI CARDENAS MD Ot K21 .9 GASTRO-ESOPHAGEAL REFLUX DISEASE WITHOUT 06/02/2018 RICKI CARDENAS MD Ot R07.89 OTHER CHEST PAIN 06/02/2018 RICKI CARDENAS MD Ot R09.02 HYPOXEMIA 06/02/2018 RICKI CARDENAS MD Ot R32 UNSPECIFIED URINARY INCONTINENCE 06/02/2018 RICKI CARDENAS MD Ot R60 .0 LOCALIZED EDEMA 06/02/2018 RICKI CARDENAS MD Ot Z79.01 LOADING AND UNLOADING SUPERVISOR (CURRENT) USE OF ANTICOAGULANT 06/02/2018 RICKI CARDENAS MD Ot Z86.718 PERSONAL HISTORY OF OTHER VENOUS THROMBO 06/11/2018 RICKI CARDENAS MD Ot E03 .9 HYPOTHYROIDISM, UNSPECIFIED 06/11/2018 RICKI CARDENAS MD Ot E87 .2 ACIDOSIS 06/11/2018 RICKI CARDENAS MD Ot F10.20 ALCOHOL DEPENDENCE, UNCOMPLICATED 06/11/2018 RICKI CARDENAS MD Ot F17.210 NICOTINE DEPENDENCE, CIGARETTES, UNCOMPL 06/11/2018 RICKI CARDENAS MD Ot I25.10 ATHSCL HEART DISEASE OF [place] CORONARY 06/11/2018 RICKI CARDENAS MD Ot I48.91 UNSPECIFIED ATRIAL FIBRILLATION 06/11/2018 RICKI CARDENAS MD Ot I69.354 HEMIPLGA FOLLOWING CEREBRAL INFRC AFFECT 06/11/2018 RICKI CARDENAS MD Ot J43 .9 EMPHYSEMA, UNSPECIFIED 06/11/2018 RICKI CARDENAS MD Ot K21 .9 GASTRO-ESOPHAGEAL REFLUX DISEASE WITHOUT 06/11/2018 RICKI CARDENAS MD Ot R07.89 OTHER CHEST PAIN 06/11/2018 RICKI CARDENAS MD Ot R09.02 HYPOXEMIA 06/11/2018 RICKI CARDENAS MD Ot R32 UNSPECIFIED URINARY INCONTINENCE 06/11/2018 RICKI CARDENAS MD Ot R60 .0 LOCALIZED EDEMA 06/11/2018 RICKI CARDENAS MD Ot Z79.01 LOADING AND UNLOADING SUPERVISOR (CURRENT) USE OF ANTICOAGULANT 06/11/2018 RICKI CARDENAS MD Ot Z86.718 PERSONAL HISTORY OF OTHER VENOUS THROMBO 06/23/2018 TANISHA OLMSTEAD DO, Ot Z51.81 ENCOUNTER FOR THERAPEUTIC DRUG LEVEL MON 06/23/2018 TANISHA OLMSTEAD DO, Ot Z79.01 LONGTERM (CURRENT) USE OF ANTICOAGULANT 06/25/2018 TANISHA OLMSTEAD DO Ot 244.9 HYPOTHYROIDISM NOS 06/25/2018 TANISHA OLMSTEAD DO, Ot E03.9 HYPOTHYROIDISM, UNSPECIFIED 06/25/2018 DARSHAN MARTINI MD, Ot 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 06/25/2018 DARSHAN MARTINI MD, Ot 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 06/25/2018 DARSHAN MARTINI MD, Ot L97.222 NON-PRESSURE CHRONIC ULCER OF LEFT CALF 06/25/2018 DARSHAN MARTINI MD, Ot Z72 .0 TOBACCO USE 06/25/2018 DARHSAN MARTINI MD, Ot 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 [facility] 06/25/2018 DARSHAN MARTINI MD, Ot 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 06/25/2018 DARSHAN MARTINI MD, Ot L97.222 NON-PRESSURE CHRONIC ULCER OF LEFT CALF 06/25/2018 DARSHAN MARTINI MD, Ot Z72 .0 TOBACCO USE 06/25/2018 TANISHA OLMSTEAD DO, Ot E03.9 HYPOTHYROIDISM, UNSPECIFIED 06/25/2018 TANISHA OLMSTEAD DO, Ot E03.9 HYPOTHYROIDISM, UNSPECIFIED 06/25/2018 TANISHA OLMSTEAD DO, Ot M89.9 DISORDER OF BONE, UNSPECIFIED 06/25/2018 TANISHA OLMSTEAD DO, Ot Z13.820 ENCOUNTER FOR SCREENING FOR OSTEOPOROSIS 06/25/2018 TANISHA OLMSTEAD DO, Ot E03.9 HYPOTHYROIDISM, UNSPECIFIED 06/25/2018 LEEANN STEVENS DO Ot C44.722 SQUAMOUS CELL CARCINOMA SKIN/ RIGHT LOWE 06/25/2018 LEEANN STEVENS DO Ot E03. 9 HYPOTHYROIDISM, UNSPECIFIED 06/25/2018 LEEANN STEVENS DO Ot F17.210 NICOTINE DEPENDENCE, CIGARETTES, UNCOMPL 06/25/2018 LEEANN STEVENS DO Ot F41. 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 91 UNSPECIFIED ATRIAL FIBRILLATION 06/25/2018 LEEANN STEVENS DO Ot I49. 1 ATRIAL PREMATURE DEPOLARIZATION 06/25/2018 LEEANN STEVENS DO Ot I49. 3 VENTRICULAR PREMATURE DEPOLARIZATION 06/25/2018 LEEANN STEVENS DO Ot I73. 9 PERIPHERAL VASCULAR DISEASE, UNSPECIFIED 06/25/2018 LEEANN STEVENS DO Ot I87. 2 VENOUS INSUFFICIENCY (CHRONIC) (PERIPHER 06/25/2018 LEEANN STEVENS DO Ot J44. 9 CHRONIC OBSTRUCTIVE PULMONARY DISEASE, U 06/25/2018 LEEANN STEVENS DO Ot K21. 9 GASTRO-ESOPHAGEAL REFLUX DISEASE WITHOUT 06/25/2018 LEEANN STEVENS DO Ot L98. 9 DISORDER OF THE SKIN AND SUBCUTANEOUS TI 06/25/2018 LEEANN STEVENS DO Ot R60. 0 LOCALIZED EDEMA 06/25/2018 LEEANN STEVENS DO Ot Z79. 01 LONGTERM (CURRENT) USE OF ANTICOAGULANT 06/25/2018 LEEANN STEVENS DO Ot Z79.899 OTHER LOADING AND UNLOADING SUPERVISOR (CURRENT) DRUG THERAPY 06/25/2018 LEEANN STEVENS DO Ot Z85. 3 PERSONAL HISTORY OF MALIGNANT NEOPLASM O 06/25/2018 LEEANN STEVENS DO Ot Z86.718 PERSONAL HISTORY OF OTHER VENOUS THROMBO 06/25/2018 LEEANN STEVENS DO Ot Z90. 13 ACQUIRED ABSENCE OF BILATERAL BREASTS AN 06/30/2018 LEEANN STEVENS DO Ot C44.722 SQUAMOUS CELL CARCINOMA SKIN/ RIGHT LOWE 06/30/2018 LEEANN STEVENS DO Ot E03. 9 HYPOTHYROIDISM, UNSPECIFIED 06/30/2018 LEEANN STEVENS DO Ot F17.210 NICOTINE DEPENDENCE, CIGARETTES, UNCOMPL 06/30/2018 LEEANN STEVENS DO Ot F41. 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 91 UNSPECIFIED ATRIAL FIBRILLATION 06/30/2018 LEEANN STEVENS DO Ot I49. 1 ATRIAL PREMATURE DEPOLARIZATION 06/30/2018 LEEANN STEVENS DO Ot I49. 3 VENTRICULAR PREMATURE DEPOLARIZATION 06/30/2018 LEEANN STEVENS DO Ot I73. 9 PERIPHERAL VASCULAR DISEASE, UNSPECIFIED 06/30/2018 LEEANN STEVENS DO Ot I87. 2 VENOUS INSUFFICIENCY (CHRONIC) (PERIPHER 06/30/2018 LEEANN STEVENS DO Ot J44. 9 CHRONIC OBSTRUCTIVE PULMONARY DISEASE, U 06/30/2018 LEEANN STEVENS DO Ot K21. 9 GASTRO-ESOPHAGEAL REFLUX DISEASE WITHOUT 06/30/2018 LEEANN STEVENS DO Ot R60. 0 LOCALIZED EDEMA 06/30/2018 LEEANN STEVENS DO Ot Z79. 01 LOADING AND UNLOADING SUPERVISOR (CURRENT) USE OF ANTICOAGULANT 06/30/2018 LEEANN STEVENS DO Ot Z79.899 OTHER LOADING AND UNLOADING SUPERVISOR (CURRENT) DRUG THERAPY 06/30/2018 LEEANN STEVENS DO Ot Z85. 3 PERSONAL HISTORY OF MALIGNANT NEOPLASM O 06/30/2018 LEEANN STEVENS DO Ot Z86.718 PERSONAL HISTORY OF OTHER VENOUS THROMBO 06/30/2018 LEEANN STEVENS DO Ot Z90. 13 ACQUIRED ABSENCE OF BILATERAL BREASTS AN 07/05/2018 LEEANN STEVENS DO Ot C44.722 SQUAMOUS CELL CARCINOMA SKIN/ RIGHT LOWE 07/05/2018 LEEANN STEVENS DO Ot E03. 9 HYPOTHYROIDISM, UNSPECIFIED 07/05/2018 LEEANN STEVENS DO Ot F17.210 NICOTINE DEPENDENCE, CIGARETTES, UNCOMPL 07/05/2018 LEEANN STEVENS DO Ot F41. 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 91 UNSPECIFIED ATRIAL FIBRILLATION 07/05/2018 LEEANN STEVENS DO Ot I49. 1 ATRIAL PREMATURE DEPOLARIZATION 07/05/2018 LEEANN STEVENS DO Ot I49. 3 VENTRICULAR PREMATURE DEPOLARIZATION 07/05/2018 LEEANN STEVENS DO Ot I73. 9 PERIPHERAL VASCULAR DISEASE, UNSPECIFIED 07/05/2018 LEEANN STEVENS DO Ot I87. 2 VENOUS INSUFFICIENCY (CHRONIC) (PERIPHER 07/05/2018 LEEANN STEVENS DO Ot J44. 9 CHRONIC OBSTRUCTIVE PULMONARY DISEASE, U 07/05/2018 LEEANN STEVENS DO Ot K21. 9 GASTRO-ESOPHAGEAL REFLUX DISEASE WITHOUT 07/05/2018 LEEANN STEVENS DO Ot R60. 0 LOCALIZED EDEMA 07/05/2018 LEEANN STEVENS DO Ot Z79. 01 LOADING AND UNLOADING SUPERVISOR (CURRENT) USE OF ANTICOAGULANT 07/05/2018 LEEANN STEVENS DO Ot Z79.899 OTHER LONGTERM (CURRENT) DRUG THERAPY 07/05/2018 LEEANN STEVENS DO Ot Z85. 3 PERSONAL HISTORY OF MALIGNANT NEOPLASM O 07/05/2018 LEEANN STEVENS DO Ot Z86.718 PERSONAL HISTORY OF OTHER VENOUS THROMBO 07/05/2018 LEEANN STEVENS DO Ot Z90. 13 ACQUIRED ABSENCE OF BILATERAL BREASTS AN 07/23/2018 LEEANN STEVENS DO Ot Z01.818 ENCOUNTER FOR OTHER PREPROCEDURAL EXAMIN 08/03/2018 LEEANN STEVENS DO Ot Z45. 2 ENCOUNTER FOR ADJUSTMENT AND MANAGEMENT 08/21/2018 LEEANN STEVENS DO Ot Z45. 2 ENCOUNTER FOR ADJUSTMENT AND MANAGEMENT 08/24/2018 LEEANN STEVENS DO Ot Z45. 2 ENCOUNTER FOR ADJUSTMENT AND MANAGEMENT 09/23/2018 LEEANN STEVENS DO Ot Z01.818 ENCOUNTER FOR OTHER PREPROCEDURAL EXAMIN 10/09/2018 LEEANN STEVENS DO Ot E03. 9 HYPOTHYROIDISM, UNSPECIFIED 10/09/2018 LEEANN STEVENS DO Ot F17.200 NICOTINE DEPENDENCE, UNSPECIFIED, UNCOMP 10/09/2018 LEEANN STEVENS DO Ot I10 ESSENTIAL (PRIMARY) HYPERTENSION 10/09/2018 LEEANN STEVENS DO Ot I34. 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 91 UNSPECIFIED ATRIAL FIBRILLATION 10/09/2018 LEEANN STEVENS DO Ot I49. 1 ATRIAL PREMATURE DEPOLARIZATION 10/09/2018 LEEANN STEVENS DO Ot I49. 3 VENTRICULAR PREMATURE DEPOLARIZATION 10/09/2018 LEEANN STEVENS DO Ot I72. 9 ANEURYSM OF UNSPECIFIED SITE 10/09/2018 LEEANN STEVENS DO Ot I73. 9 PERIPHERAL VASCULAR DISEASE, UNSPECIFIED 10/09/2018 LEEANN STEVENS DO Ot J43. 9 EMPHYSEMA, UNSPECIFIED 10/09/2018 LEEANN STEVENS DO Ot K21. 9 GASTRO-ESOPHAGEAL REFLUX DISEASE WITHOUT 10/09/2018 LEEANN STEVENS DO Ot L57. 0 ACTINIC KERATOSIS 10/09/2018 LEEANN STEVENS DO Ot L72. 0 EPIDERMAL CYST 10/09/2018 LEEANN STEVENS DO Ot L90. 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 9 DISORDER OF THE SKIN AND SUBCUTANEOUS TI 10/09/2018 LEEANN STEVENS DO Ot M79. 7 FIBROMYALGIA 10/09/2018 LEEANN STEVENS DO Ot N39. 0 URINARY TRACT INFECTION, SITE NOT SPECIF 10/09/2018 LEEANN STEVENS DO Ot Z79. 01 LONGTERM (CURRENT) USE OF ANTICOAGULANT 10/09/2018 LEEANN STEVENS DO Ot Z82. 49 FAMILY HX OF ISCHEM HEART DIS AND OTH DI 10/09/2018 LEEANN STEVENS DO Ot Z85.828 PERSONAL HISTORY OF OTHER MALIGNANT NEOP 10/09/2018 LEEANN STEVENS DO Ot Z86. 73 PRSNL HX OF TIA (TIA), AND CEREB INFRC W 10/09/2018 LEEANN STEVENS DO Ot Z90. 49 ACQUIRED ABSENCE OF OTHER SPECIFIED PART 10/09/2018 LEEANN STEVENS DO Ot Z90.710 ACQUIRED ABSENCE OF BOTH CERVIX AND UTER 10/22/2018 LEEANN STEVENS DO Ot Z45. 2 ENCOUNTER FOR ADJUSTMENT AND MANAGEMENT 10/28/2018 LEEANN STEVENS DO Ot Z45. 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 1 ATRIAL PREMATURE DEPOLARIZATION 12/31/2018 NATY ALFARO MD Ot I73. 9 PERIPHERAL VASCULAR DISEASE, UNSPECIFIED 12/31/2018 NATY ALFARO MD Ot R09. 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 1 ATRIAL PREMATURE DEPOLARIZATION 01/21/2019 NATY ALFARO MD Ot I73. 9 PERIPHERAL VASCULAR DISEASE, UNSPECIFIED 01/21/2019 NATY ALFARO MD Ot R09. 89 OT SYMPTOMS AND SIGNS INVOLVING THE CIR 01/25/2019 LEEANN STEVENS DO Ot Z45. 2 ENCOUNTER FOR ADJUSTMENT AND MANAGEMENT 01/25/2019 LEEANN STEVENS DO Ot Z45. 2 ENCOUNTER FOR ADJUSTMENT AND MANAGEMENT 01/25/2019 LEEANN STEVENS DO Ot Z45. 2 ENCOUNTER FOR ADJUSTMENT AND MANAGEMENT 01/27/2019 LEEANN STEVENS DO Ot Z45. 2 ENCOUNTER FOR ADJUSTMENT AND MANAGEMENT 01/29/2019 TANISHA OLMSTEAD DO Ot Z01.89 ENCOUNTER FOR OTHER SPECIFIED SPECIAL EX 01/29/2019 TANISHA OLMSTEAD DO Ot Z79.01 LONGTERM (CURRENT) USE OF ANTICOAGULANT 01/29/2019 TANISHA OLMSTEAD DO Ot Z86.718 PERSONAL HISTORY OF OTHER VENOUS THROMBO 02/02/2019 LEEANN STEVENS DO Ot Z45. 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 2 ENCOUNTER FOR ADJUSTMENT AND MANAGEMENT 03/09/2019 LEEANN STEVENS DO Ot Z45. 2 ENCOUNTER FOR ADJUSTMENT AND MANAGEMENT 03/24/2019 STEVENS DO, LEEANN D Ot Z45. 2 ENCOUNTER FOR ADJUSTMENT AND MANAGEMENT 03/25/2019 STEVENS DO, LEEANN D Ot Z45. 2 ENCOUNTER FOR ADJUSTMENT AND MANAGEMENT 04/06/2019 STEVENS DO, LEEANN D Ot Z45. 2 ENCOUNTER FOR ADJUSTMENT AND MANAGEMENT 04/23/2019 STEVENS DO, LEEANN D Ot Z45. 2 ENCOUNTER FOR ADJUSTMENT AND MANAGEMENT 05/04/2019 STEVENS DO, LEEANN D Ot Z45. 2 ENCOUNTER FOR ADJUSTMENT AND MANAGEMENT 05/04/2019 STEVENS DO, LEEANN D Ot Z45. 2 ENCOUNTER FOR ADJUSTMENT AND MANAGEMENT 05/13/2019 STEVENS DO, LEEANN D Ot Z45. 2 ENCOUNTER FOR ADJUSTMENT AND MANAGEMENT 05/13/2019 STEVENS DO, LEEANN D Ot Z45. 2 ENCOUNTER FOR ADJUSTMENT AND MANAGEMENT 05/14/2019 STEVENS DO, LEEANN D Ot Z45. 2 ENCOUNTER FOR ADJUSTMENT AND MANAGEMENT 06/02/2019 AYSHA DOTANISHA Ot E07.9 DISORDER OF THYROID, UNSPECIFIED 06/02/2019 [facility] Ot R60.9 EDEMA, UNSPECIFIED 06/10/2019 STEVENS DO, LEEANN D Ot Z45. 2 ENCOUNTER FOR ADJUSTMENT AND MANAGEMENT 07/05/2019 STEVENS DO, LEEANN D Ot Z45. 2 ENCOUNTER FOR ADJUSTMENT AND MANAGEMENT 07/07/2019 STEVENS DO, LEEANN D Ot Z45. 2 ENCOUNTER FOR ADJUSTMENT AND MANAGEMENT 07/11/2019 STEVENS DO, LEEANN D Ot Z45. 2 ENCOUNTER FOR ADJUSTMENT AND MANAGEMENT 09/06/2019 Ot Z45.2 ENCO UNTER FOR ADJUSTMENT AND MANAGEMENT 09/06/2019 Ot Z45.2 ENCO UNTER FOR ADJUSTMENT AND MANAGEMENT 09/12/2019 Ot Z45.2 ENCO UNTER FOR ADJUSTMENT AND MANAGEMENT Procedures There is no data. Results Test Result Range THYROID STIMULATING HORMONE - 01/08/16 0 9:15 THYROID STIMULATING HORMONE 3.66 u[iU]/mL 0.35-4.94 PT panel in platelet poor plasma by coag ulation assay - 03/18/16 10:50 Prothrombin time (PT) in platelet poor plasma by coagu lation assay 15.7 s 12.2-14.7 INR in platelet poor plasma or blood by coagulation as say 1.3 0.8-1.4 THYROID STIMULATING HORMONE - 05/08/16 1 0:17 THYROID STIMULATING HORMONE 2.36 u[iU]/mL 0.35-4.94 Serum or plasma thyroxine (T4) free jeff urement (mass/volume) - 05/08/16 10:17 Serum or plasma thyroxine (T4) free measurement (mass/ volume) 1.07 ng/dL 0.70-1.48 Complete blood count (CBC) with automate d white blood cell (WBC) differential - 06/29/17 09:53 Blood leukocytes automated count (number/volume) 8.1 10*3/uL 4.3-11.0 Blood erythrocytes automated count (number/volume) 4.91 10*6/uL 4.35-5.85 Venous blood hemoglobin measurement (mass/volume) 15.1 g/dL 11.5-16.0 Blood hematocrit (volume fraction) 43 % 35-52 Automated erythrocyte mean corpuscular volume 88 [ foz_us] 80-99 Automated erythrocyte mean corpuscular h emoglobin (mass per erythrocyte) 31 pg 25-34 Automated erythrocyte mean corpuscular h emoglobin concentration measurement (mass/volume) 35 g/dL 32-36 Automated erythrocyte distribution width ratio 13. 2 % 10.0- 14.5 Automated blood platelet count (count/volume) 244 10*3/uL [...] 10*3 1.0-4.0 Blood monocytes automated count (number/volume) 0. 9 10*3 0.0-1.0 Automated eosinophil count 0.1 10*3/uL 0 .0-0.3 Automated blood basophil count (count/volume) 0.0 10*3/uL 0.0-0.1 PT panel in platelet poor plasma by coag ulation assay - 06/29/17 09:53 Prothrombin time (PT) in platelet poor plasma by coagu lation assay 24.3 s 12.2-14.7 INR in platelet poor plasma or blood by coagulation as say 2.2 0.8-1.4 Comprehensive metabolic panel - 06/29/17 09:53 Serum or plasma sodium measurement (moles/volume) 138 mmol/L 135-145 Serum or plasma potassium measurement (moles/volume) 4.2 mmol/L 3.6-5.0 Serum or plasma chloride measurement (moles/volume) 102 mmol/L 98-107 Carbon dioxide 24 mmol/L 21-32 Serum or plasma anion gap determination (moles/volume) 12 mmol/L 5-14 Serum or plasma urea nitrogen measurement (mass/volume ) 16 mg/dL 7-18 Serum or plasma creatinine measurement (mass/volume) 0.81 mg/dL 0.60-1.30 Serum or plasma urea nitrogen/creatinine mass ratio 20 NRG Serum or plasma creatinine measurement w ith calculation of estimated glomerular filtration rate > NRG Serum or plasma glucose measurement (mass/volume) 98 mg/dL 70-105 Serum or plasma calcium measurement (mass/volume) 9.7 mg/dL 8.5-10.1 Serum or plasma total bilirubin measurement (mass/volu me) 0.9 mg/dL 0.1-1.0 Serum or plasma alkaline phosphatase jc surement (enzymatic activity/volume) 55 U/L 40-136 Serum or plasma aspartate aminotransfera se measurement (enzymatic activity/volume) 22 U/L 5-34 Serum or plasma alanine aminotransferase measurement (enzymatic activity/volume) 12 U/L 0-55 Serum or plasma protein measurement (mass/volume) 7.3 g/dL 6.4-8.2 Serum or plasma albumin measurement (mass/volume) 4.3 g/dL 3.2-4.5 Complete urinalysis with reflex to cultu re - 11/18/17 12:58 Urine color determination YELLOW NRG Urine clarity determination VERY CLOUDY NRG Urine pH measurement by test strip 7 5-9 Specific gravity of urine by test strip 1.005 1.016-1.022 Urine protein assay by test strip, semi-quantitative NEGATIVE NEGATIVE Urine glucose detection by automated test strip NE GATIVE NEGATIVE Erythrocytes detection in urine sediment by light micr oscopy 3+ NEGATIVE Urine ketones detection by automated test strip NE GATIVE NEGATIVE Urine nitrite detection by test strip NEGATIVE NEGATIVE Urine total bilirubin detection by test strip NEGA TIVE NEGATIVE Urine urobilinogen measurement by automated test strip (mass/volume) NORMAL NORMAL Urine leukocyte esterase detection by dipstick 2+ NEGATIVE Automated urine sediment erythrocyte cou nt by microscopy (number/high power field) RARE NRG Automated urine sediment leukocyte count by microscopy (number/high power field) [HPF] NRG Bacteria detection in urine sediment by light microsco py NEGATIVE NRG Squamous epithelial cells detection in u rine sediment by light microscopy 0-2 NRG Crystals detection in urine sediment by light microsco py NONE NRG Casts detection in urine sediment by light microscopy NONE NRG Mucus detection in urine sediment by light microscopy NEGATIVE NRG Complete urinalysis with reflex to culture NO NRG Complete blood count (CBC) with automate d white blood cell (WBC) differential - 11/18/17 13:24 Blood leukocytes automated count (number/volume) 6.8 10*3/uL 4.3-11.0 Blood erythrocytes automated count (number/volume) 4.51 10*6/uL 4.35-5.85 Venous blood hemoglobin measurement (mass/volume) 14.2 g/dL 11.5-16.0 Blood hematocrit (volume fraction) 40 % 35-52 Automated erythrocyte mean corpuscular volume 89 [ foz_us] 80-99 Automated erythrocyte mean corpuscular h emoglobin (mass per erythrocyte) 32 pg 25-34 Automated erythrocyte mean corpuscular h emoglobin concentration measurement (mass/volume) 35 g/dL 32-36 Automated erythrocyte distribution width ratio 12. 9 % 10.0- 14.5 Automated blood platelet count (count/volume) 212 10*3/uL [...] 10*3 1.0-4.0 Blood monocytes automated count (number/volume) 0. 7 10*3 0.0-1.0 Automated eosinophil count 0.0 10*3/uL 0 .0-0.3 Automated blood basophil count (count/volume) 0.0 10*3/uL 0.0-0.1 Comprehensive metabolic panel - 11/18/17 13:24 Serum or plasma sodium measurement (moles/volume) 139 mmol/L 135-145 Serum or plasma potassium measurement (moles/volume) 4.6 mmol/L 3.6-5.0 Serum or plasma chloride measurement (moles/volume) 103 mmol/L 98-107 Carbon dioxide 24 mmol/L 21-32 Serum or plasma anion gap determination (moles/volume) 12 mmol/L 5-14 Serum or plasma urea nitrogen measurement (mass/volume ) 18 mg/dL 7-18 Serum or plasma creatinine measurement (mass/volume) 0.75 mg/dL 0.60-1.30 Serum or plasma urea nitrogen/creatinine mass ratio 24 NRG Serum or plasma creatinine measurement w ith calculation of estimated glomerular filtration rate > NRG Serum or plasma glucose measurement (mass/volume) 102 mg/dL 70-105 Serum or plasma calcium measurement (mass/volume) 9.7 mg/dL 8.5-10.1 Serum or plasma total bilirubin measurement (mass/volu me) 0.5 mg/dL 0.1-1.0 Serum or plasma alkaline phosphatase jc surement (enzymatic activity/volume) 47 U/L 40-136 Serum or plasma aspartate aminotransfera se measurement (enzymatic activity/volume) 25 U/L 5-34 Serum or plasma alanine aminotransferase measurement (enzymatic activity/volume) 20 U/L 0-55 Serum or plasma protein measurement (mass/volume) 7.0 g/dL 6.4-8.2 Serum or plasma albumin measurement (mass/volume) 4.4 g/dL 3.2-4.5 CALCIUM CORRECTED 9.4 mg/dL 8.5-10.1 PT panel in platelet poor plasma by coag ulation assay - 11/18/17 13:24 Prothrombin time (PT) in platelet poor plasma by coagu lation assay 51.4 s 12.2-14.7 INR in platelet poor plasma or blood by coagulation as say 5.6 0.8-1.4 THYROID STIMULATING HORMONE - 05/07/18 0 8:37 THYROID STIMULATING HORMONE 0.87 u[iU]/mL 0.35-4.94 Complete blood count (CBC) with automate d white blood cell (WBC) differential - 05/26/18 23:38 Blood leukocytes automated count (number/volume) 6.3 10*3/uL 4.3-11.0 Blood erythrocytes automated count (number/volume) 4.12 10*6/uL 4.35-5.85 Venous blood hemoglobin measurement (mass/volume) 12.3 g/dL 11.5-16.0 Blood hematocrit (volume fraction) 37 % 35-52 Automated erythrocyte mean corpuscular volume 91 [ foz_us] 80-99 Automated erythrocyte mean corpuscular h emoglobin (mass per erythrocyte) 30 pg 25-34 Automated erythrocyte mean corpuscular h emoglobin concentration measurement (mass/volume) 33 g/dL 32-36 Automated erythrocyte distribution width ratio 13. 4 % 10.0- 14.5 Automated blood platelet count (count/volume) 224 10*3/uL [...] 10*3 1.0-4.0 Blood monocytes automated count (number/volume) 0. 7 10*3 0.0-1.0 Automated eosinophil count 0.2 10*3/uL 0 .0-0.3 Automated blood basophil count (count/volume) 0.0 10*3/uL 0.0-0.1 PT panel in platelet poor plasma by coag ulation assay - 05/26/18 23:38 Prothrombin time (PT) in platelet poor plasma by coagu lation assay 22.4 s 12.2-14.7 INR in platelet poor plasma or blood by coagulation as say 1.9 0.8-1.4 Activated partial thromboplastin time (a PTT) in platelet poor plasma bycoagulation assay - 05/26/18 23:38 Activated partial thromboplastin time (a PTT) in platelet poor plasma bycoagulation assay 53 s 24-35 Fibrin D-dimer FEU measurement in platel et poor plasma (mass/volume) - 05/26/18 23:38 Fibrin D-dimer FEU measurement in platelet [...] 5-14 Serum or plasma urea nitrogen measurement (mass/volume ) 17 mg/dL 7-18 Serum or plasma creatinine measurement (mass/volume) 0.86 mg/dL 0.60-1.30 Serum or plasma urea nitrogen/creatinine mass ratio 20 NRG Serum or plasma creatinine measurement w ith calculation of estimated glomerular filtration rate > NRG Serum or plasma glucose measurement (mass/volume) 89 mg/dL 70-105 Serum or plasma calcium measurement (mass/volume) 9.3 mg/dL 8.5-10.1 Serum or plasma total bilirubin measurement (mass/volu me) 0.3 mg/dL 0.1-1.0 Serum or plasma alkaline phosphatase jc surement (enzymatic activity/volume) 62 U/L 40-136 Serum or plasma aspartate aminotransfera se measurement (enzymatic activity/volume) 44 U/L 5-34 Serum or plasma alanine aminotransferase measurement (enzymatic activity/volume) 17 U/L 0-55 Serum or plasma protein measurement (mass/volume) 6.3 g/dL 6.4-8.2 Serum or plasma albumin measurement (mass/volume) 3.8 g/dL 3.2-4.5 CALCIUM CORRECTED 9.5 mg/dL 8.5-10.1 Magnesium - 05/26/18 23:38 Magnesium 2.3 mg/dL 1.8-2.4 Serum or plasma troponin i.cardiac measu rement (mass/volume) - 05/26/18 23:38 Serum or plasma troponin i.cardiac measurement (mass/v olume) < ng/mL <0.028 Myoglobin, serum - 05/26/18 23:38 Myoglobin, serum 37.0 ng/mL 10.0-92.0 Lipase - 05/26/18 23:38 Lipase 32 U/L 8-78 THYROID STIMULATING HORMONE - 05/26/18 2 3:38 THYROID STIMULATING HORMONE 9.18 u[iU]/mL 0.35-4.94 Serum or plasma thyroxine (T4) free jeff urement (mass/volume) - 05/26/18 23:38 Serum or plasma thyroxine (T4) free measurement (mass/ volume) 1.14 ng/dL 0.70-1.48 Serum or plasma ethanol measurement (mas s/volume) - 05/26/18 23:38 Serum or plasma ethanol measurement (mass/volume) 16 mg/dL <10 Lipid 1996 panel - 05/27/18 05:55 Serum or plasma triglyceride measurement (mass/volume) 40 mg/dL <150 Serum or plasma cholesterol measurement (mass/volume) 172 mg/dL < 200 Serum or plasma cholesterol in HDL measurement (mass/v olume) 77 mg/dL 40-60 Cholesterol in LDL [mass/volume] in serum or plasma by direct assay 74 mg/dL 1-129 Serum or plasma cholesterol in VLDL measurement (mass/ volume) 8 mg/dL 5-40 Serum or plasma troponin i.cardiac measu rement (mass/volume) - 05/27/18 05:55 Serum or plasma troponin i.cardiac measurement (mass/v olume) 0.028 ng/mL <0.028 Complete urinalysis with reflex to cultu re - 05/28/18 00:30 Urine color determination YELLOW NRG Urine clarity determination CLEAR NR G Urine pH measurement by test strip 5 5-9 Specific gravity of urine by test strip 1.015 1.016-1.022 Urine protein assay by test strip, semi-quantitative NEGATIVE NEGATIVE Urine glucose detection by automated test strip NE GATIVE NEGATIVE Erythrocytes detection in urine sediment by light micr oscopy NEGATIVE NEGATIVE Urine ketones detection by automated test strip NE GATIVE NEGATIVE Urine nitrite detection by test strip NEGATIVE NEGATIVE Urine total bilirubin detection by test strip NEGA TIVE NEGATIVE Urine urobilinogen measurement by automated test strip (mass/volume) NORMAL NORMAL Urine leukocyte esterase detection by dipstick 2+ NEGATIVE Automated urine sediment erythrocyte cou nt by microscopy (number/high power field) NONE NRG Automated urine sediment leukocyte count by microscopy (number/high power field) [HPF] NRG Bacteria detection in urine sediment by light microsco py NEGATIVE NRG Squamous epithelial cells detection in u rine sediment by light microscopy 0-2 NRG Crystals detection in urine sediment by light microsco py NONE NRG Casts detection in urine sediment by light microscopy NONE NRG Mucus detection in urine sediment by light microscopy NEGATIVE NRG Complete urinalysis with reflex to culture NO NRG Automated blood complete blood count (he mogram) panel - 05/28/18 03:20 Blood leukocytes automated count (number/volume) 6.3 10*3/uL 4.3-11.0 Blood erythrocytes automated count (number/volume) 3.89 10*6/uL 4.35-5.85 Venous blood hemoglobin measurement (mass/volume) 11.6 g/dL 11.5-16.0 Blood hematocrit (volume fraction) 36 % 35-52 Automated erythrocyte mean corpuscular volume 94 [ foz_us] 80-99 Automated erythrocyte mean corpuscular h emoglobin (mass per erythrocyte) 30 pg 25-34 Automated erythrocyte mean corpuscular h emoglobin concentration measurement (mass/volume) 32 g/dL 32-36 Automated erythrocyte distribution width ratio 13. 8 % 10.0- 14.5 Automated blood platelet count (count/volume) 203 10*3/uL 130-400 Automated blood platelet mean volume measurement 10.7 [foz_us] 7.4-10.4 PT panel in platelet poor plasma by coag ulation assay - 05/28/18 03:20 Prothrombin time (PT) in platelet poor plasma by coagu lation assay 23.6 s 12.2-14.7 INR in platelet poor plasma or blood by coagulation as say 2.0 0.8-1.4 Whole blood basic metabolic panel - 05/02 10/19 03:20 Serum or plasma sodium measurement (moles/volume) 137 mmol/L 135-145 Serum or plasma potassium measurement (moles/volume) 4.1 mmol/L 3.6-5.0 Serum or plasma chloride measurement (moles/volume) 110 mmol/L 98-107 Carbon dioxide 18 mmol/L 21-32 Serum or plasma anion gap determination (moles/volume) 9 mmol/L 5-14 Serum or plasma urea nitrogen measurement (mass/volume ) 13 mg/dL 7-18 Serum or plasma creatinine measurement (mass/volume) 0.67 mg/dL 0.60-1.30 Serum or plasma urea nitrogen/creatinine mass ratio 19 NRG Serum or plasma creatinine measurement w ith calculation of estimated glomerular filtration rate > NRG Serum or plasma glucose measurement (mass/volume) 77 mg/dL 70-105 Serum or plasma calcium measurement (mass/volume) 8.7 mg/dL 8.5-10.1 Serum or plasma troponin i.cardiac measu rement (mass/volume) - 05/28/18 03:20 Serum or plasma troponin i.cardiac measurement (mass/v olume) < ng/mL <0.028 Serum or plasma troponin i.cardiac measu rement (mass/volume) - 05/28/18 08:20 Serum or plasma troponin i.cardiac measurement (mass/v olume) < ng/mL <0.028 Serum or plasma troponin i.cardiac measu rement (mass/volume) - 05/28/18 11:35 Serum or plasma troponin i.cardiac measurement (mass/v olume) < ng/mL <0.028 Serum or plasma troponin i.cardiac measu rement (mass/volume) - 05/28/18 18:05 Serum or plasma troponin i.cardiac measurement (mass/v olume) < ng/mL <0.028 PT panel in platelet poor plasma by coag ulation assay - 05/29/18 03:50 Prothrombin time (PT) in platelet poor plasma by coagu lation assay 25.3 s 12.2-14.7 INR in platelet poor plasma or blood by coagulation as say 2.2 0.8-1.4 Methicillin resistant Staphylococcus aur eus (MRSA) screening culture - 06/25/18 07:40 Methicillin resistant Staphylococcus aureus (MRSA) scr eening culture NEG NRG PT panel in platelet poor plasma by coag ulation assay - 06/25/18 08:30 Prothrombin time (PT) in platelet poor plasma by coagu lation assay 14.2 s 12.2-14.7 INR in platelet poor plasma or blood by coagulation as say 1.1 0.8-1.4 PT panel in platelet poor plasma by coag ulation assay - 10/01/18 07:50 Prothrombin time (PT) in platelet poor plasma by coagu lation assay 13.5 s 12.2-14.7 INR in platelet poor plasma or blood by coagulation as say 1.0 0.8-1.4 Methicillin resistant Staphylococcus aur eus (MRSA) screening culture - 10/01/18 07:50 Methicillin resistant Staphylococcus aureus (MRSA) scr eening culture NEG NRG PT panel in platelet poor plasma by coag ulation assay - 01/26/19 13:16 Prothrombin time (PT) in platelet poor plasma by coagu lation assay 42.7 s 12.2-14.7 INR in platelet poor plasma or blood by coagulation as say 4.2 0.8-1.4 Complete blood count (CBC) with automate d white blood cell (WBC) differential - 05/13/19 09:30 Blood leukocytes automated count (number/volume) 6.1 10*3/uL 4.3-11.0 Blood erythrocytes automated count (number/volume) 4.34 10*6/uL 4.35-5.85 Venous blood hemoglobin measurement (mass/volume) 12.9 g/dL 11.5-16.0 Blood hematocrit (volume fraction) 39 % 35-52 Automated erythrocyte mean corpuscular volume 89 [ foz_us] 80-99 Automated erythrocyte mean corpuscular h emoglobin (mass per erythrocyte) 30 pg 25-34 Automated erythrocyte mean corpuscular h emoglobin concentration measurement (mass/volume) 33 g/dL 32-36 Automated erythrocyte distribution width ratio 13. 3 % 10.0- 14.5 Automated blood platelet count (count/volume) 225 10*3/uL 130-400 Automated blood platelet mean volume measurement 10.5 [foz_us] 7.4-10.4 Automated blood neutrophils/100 leukocytes 56 % 42-75 Automated blood lymphocytes/100 leukocytes 31 % 12-44 Blood monocytes/100 leukocytes 12 % 0-12 Automated blood eosinophils/100 leukocytes 1 % 0-10 Automated blood basophils/100 leukocytes 0 % 0-10 Blood neutrophils automated count (number/volume) 3.5 10*3 1.8-7.8 Blood lymphocytes automated count (number/volume) 1.9 10*3 1.0-4.0 Blood monocytes automated count (number/volume) 0. 7 10*3 0.0-1.0 Automated eosinophil count 0.0 10*3/uL 0 .0-0.3 Automated blood basophil count (count/volume) 0.0 10*3/uL 0.0-0.1 Comprehensive metabolic panel - 05/13/19 09:30 Serum or plasma sodium measurement (moles/volume) 139 mmol/L 135-145 Serum or plasma potassium measurement (moles/volume) 4.0 mmol/L 3.6-5.0 Serum or plasma chloride measurement (moles/volume) 104 mmol/L 98-107 Carbon dioxide 25 mmol/L 21-32 Serum or plasma anion gap determination (moles/volume) 10 mmol/L 5-14 Serum or plasma urea nitrogen measurement (mass/volume ) 22 mg/dL 7-18 Serum or plasma creatinine measurement (mass/volume) 0.84 mg/dL 0.60-1.30 Serum or plasma urea nitrogen/creatinine mass ratio 26 NRG Serum or plasma creatinine measurement w ith calculation of estimated glomerular filtration rate > NRG Serum or plasma glucose measurement (mass/volume) 93 mg/dL 70-105 Serum or plasma calcium measurement (mass/volume) 8.9 mg/dL 8.5-10.1 Serum or plasma total bilirubin measurement (mass/volu me) 0.5 mg/dL 0.1-1.0 Serum or plasma alkaline phosphatase jc surement (enzymatic activity/volume) 51 U/L 40-136 Serum or plasma aspartate aminotransfera se measurement (enzymatic activity/volume) 21 U/L 5-34 Serum or plasma alanine aminotransferase measurement (enzymatic activity/volume) 13 U/L 0-55 Serum or plasma protein measurement (mass/volume) 6.5 g/dL 6.4-8.2 Serum or plasma albumin measurement (mass/volume) 4.0 g/dL 3.2-4.5 CALCIUM CORRECTED 8.9 mg/dL 8.5-10.1 THYROID STIMULATING HORMONE - 05/13/19 0 9:30 THYROID STIMULATING HORMONE 3.83 u[iU]/mL 0.35-4.94 Encounters ACCT No. Visit Date/Time Discharge Status Pt. Type Provider Facility Loc./Unit Complaint [id number] 09/13/2019 20:07:00 020 20:47:00 DIS Emergency YASMIN AKERS APRN [facility] ER L ARM WOUND [id number] 05/13/2019 09:09:00 020 00:01:00 DIS Outpatient LEEANN STEVENS DO [facility] SDC PORT FLUSH [id number] 05/13/2019 08:44:00 23:59:59 CLS Outpatient TANISHA OLMSTEAD DO [facility] LAB BILAT LEG CRAMPS,EDEMA,THYROID DISEASE [id number] 03/09/2019 10:54:00 00:01:00 DIS Outpatient LEEANN STEVENS DO [facility] [place] PORT FLUSH [id number] 01/26/2019 12:47:00 23:59:59 CLS Outpatient TANISHA OLMSTEAD DO [facility] LAB INR [id number] 12/28/2018 08:22:00 23:59:59 CLS Outpatient NATY ALFARO MD [facility] RAD PAC [id number] 10/23/2018 00:11:00 23:59:59 CLS Preadmit LEEANN STEVENS DO [facility] PORT [id number] 08/24/2018 10:00:00 00:01:00 DIS Outpatient LEEANN STEVENS DO [facility] PORT [id number] 10/01/2018 07:14:00 12:15:00 DIS Outpatient LEEANN STEVENS DO [facility] LESION RIGHT LOWER EXTR EMITY [id number] 09/23/2018 06:12:00 019 13:42:00 DIS Outpatient LEEANN STEVENS DO [facility] PREOP LESION RIGHT LOWER EXTR EMITY [id number] 06/25/2018 07:23:00 14:43:00 DIS Outpatient LEEANN STEVENS DO [facility] [place] LESION RIGHT LOWER LEG [id number] 06/23/2018 06:10:00 13:51:00 DIS Outpatient LEEANN STEVENS DO [facility] PREOP EXCISION LESION RIGHT L OWER LEG [id number] 05/26/2018 23:06:00 019 11:40:00 DIS Outpatient RONALD SANTIAGO, RICKI Swenson [facility] CATH CHEST PAIN [id number] 05/07/2018 08:17:00 019 23:59:59 CLS Outpatient TANISHA OLMSTEAD DO [facility] LAB E03.9 [id number] 11/18/2017 11:17:00 018 14:22:00 DIS Emergency CASSIDY SANTIAGO, CHACORTA Louise [facility] ER ABNORMAL BLOOD WORK [id number] 06/29/2017 09:02:00 018 11:50:00 DIS Emergency RONALD SANTIAGO, RICKI Swenson [facility] ER FALL, NOW HAVING CP, SO B [id number] 09/29/2016 07:36:00 017 08:34:00 DIS Emergency JENSEN SAAVEDRA MD [facility] ER BACK PAIN [id number] 06/17/2016 00:14:00 017 23:59:59 CLS Preadmit TANISHA OLMSTEAD DO [facility] LAB MONITOR FOR COUMADIN TH ERAPY [id number] 03/18/2016 10:43:00 017 00:01:00 DIS Outpatient TANISHA OLMSTEAD DO [facility] LAB MONITOR FOR COU MADIN THERAPY [id number] 05/23/2016 09:00:00 017 23:59:59 CLS Outpatient TANISHA OLMSTEAD DO [facility] RAD M89.9 [id number] 05/08/2016 09:53:00 017 23:59:59 CLS Outpatient TANISHA OLMSTEAD DO [facility] LAB HYPOTHYROIDISM [id number] 01/08/2016 09:07:00 016 23:59:59 CLS Outpatient TANISHA OLMSTEAD DO [facility] LAB 244.9 [id number] 06/26/2015 11:22:00 04/25/2 016 12:00:00 DIS Outpatient DARSHAN MARTINI MD [facility] WOUNDCARE [id number] 06/20/2015 08:25:00 016 19:40:00 DIS Outpatient SALOME SANTIAGO FACC, JENNIFER ANGELES CC DS [facility] CATH PAD,TOBACCO USE,ABNORMAL ARTERIAL US [id number] 06/12/2015 10:09:00 23:59:59 CLS Outpatient DARSHAN MARTINI MD [facility] LAB L CALF VENOUS ULCER [id number] 06/07/2015 10:48:00 23:59:59 CLS Outpatient DARSHAN MARTINI MD [facility] RAD CHRONIC ULCER OF L CALF [id number] 05/15/2015 09:23:00 23:59:59 CLS Outpatient TANISHA OLMSTEAD DO [facility] LAB HYPOTHYROIDISM [id number] 11/27/2014 08:20:00 10:23:00 DIS Emergency RICKI CARDENAS MD [facility] ER SHOULDER AND NECK PAIN [id number] 10/07/2014 00:24:00 015 03:50:00 DIS Emergency CHACORTA BENJAMIN MD [facility] ER FELL OFF PORCH- SIDE PAIN [id number] 03/18/2014 09:19:00 23:59:59 CLS Outpatient TANISHA OLMSTEAD DO [facility] LAB HYPOTHYROIDISM [id number] 10/11/2012 19:44:00 013 21:28:00 DIS Emergency CHACORTA BENJAMIN MD [facility] ER URINARY TRACT I NFECTIN [id number] 08/27/2012 22:11:00 013 01:15:00 DIS Emergency CHACORTA BENJAMIN MD [facility] ER BACK PAIN [id number] 08/16/2012 16:59:00 013 19:53:00 DIS Emergency ISAIAS GAMBLE MD [facility] ER L LEG PAIN [id number] 09/06/2019 10:04:00 Document Registration [id number] 06/05/2015 14:31:00 Document Registration [id number] 11/24/2011 02:42:00 Document Registration [id number] 02/18/2011 10:16:00 Document Registration
== END 2019-09-13 20:47 | disposition home or self-care (01) ==
LOC: EDUNIT# 20:05 → ER 20:07
DX: T81.31XA Disruption of external operation (surgical) wound, not elsewhere classified, initial encounter (principal); I48.91 Unspecified atrial fibrillation; E03.9 Hypothyroidism, unspecified; Z77.22 Contact with and (suspected) exposure to environmental tobacco smoke (acute) (chronic); Z86.718 Personal history of other venous thrombosis and embolism; Z86.73 Personal history of transient ischemic attack (TIA), and cerebral infarction without residual deficits; Z79.890 Hormone replacement therapy; Z79.01 Long term (current) use of anticoagulants; Z85.3 Personal history of malignant neoplasm of breast; Z85.41 Personal history of malignant neoplasm of cervix uteri
CPT/HCPCS: 12002

== ENCOUNTER → 2019-09-22 | Outpatient (CLI) | payer MEDICARE, BC ==
[2019-09-22 16:03] LABS: INR 7.1 (0.8-1.4)
[2019-09-22 16:04] LABS: PROTHROMBIN TIME PATIENT 60.9 SEC (12.2-14.7)
== END ==
LOC: LAB 14:39
PROVIDERS: ATTEND Family Medicine
DX: Z86.718 Personal history of other venous thrombosis and embolism (principal)
CPT/HCPCS: 36415; 85610

== ENCOUNTER → 2019-10-01 | Outpatient (CLI) | payer MEDICARE, BC ==
[2019-10-01 09:46] LABS: INR 4.1 (0.8-1.4); PROTHROMBIN TIME PATIENT 40.1 SEC (12.2-14.7)
== END ==
LOC: LAB 09:17
PROVIDERS: ATTEND Family Medicine
DX: Z86.718 Personal history of other venous thrombosis and embolism (principal)
CPT/HCPCS: 36415; 85610

== ENCOUNTER 2019-10-25 09:25 | Inpatient (IN) | payer MEDICARE, BC ==
[~2019-10-25] VITALS: Ht 157.4 cm; Wt 61.1 kg
[2019-10-25] MEDS ORDERED: LACTATED RINGERS 1,000 ML IV ONE (09:43)
--- NOTE | 2019-10-25 09:53 | ED Neurological Problem ---
General Stated Complaint: WEAKNESS Source: patient, family (daughter) Exam Limitations: clinical condition History of Present Illness Date Seen by Provider: Oct 25, 2019 Time Seen by Provider: 09:29 Initial Comments The patient presents to ER by EMS from [facility] with chief complaint that family said that for the past 3 days she's been going downhill having more confusion difficulty getting up and ambulating. She ended up on the floor but denies a fall and family said they're unable to get her up off the floor back in the bed or to get her into the car to take her to the doctor's office. She sees Zachary Chaparro for primary care. She has a history of using warfarin for a blood thinner and denies any chest pain but she has pain in her back between her shoulder blades this been going on at least today. She denies any fevers chills nausea vomiting sweats dysuria cough shortness of air diarrhea constipation. Allergies and Home Medications Allergies Coded Allergies: No Known Drug Allergies (Unverified , 06/23/18) Home Medications Atenolol 25 Mg Tablet, 25 MG PO DAILY, (Reported) Doxylamine Succinate 25 Mg Tablet, 25 MG PO HS, (Reported) Furosemide 20 Mg Tablet, 40 MG PO DAILY, (Reported) TAKES 2 (20MG) TABLETS Levothyroxine Sodium 50 Mcg Tablet, 50 MCG PO DAILY, (Reported) Potassium Gluconate 99 Mg Tablet, 99 MG PO DAILY, (Reported) Warfarin Sodium 5 Mg Tablet, 5 MG PO MoTuWeThFr, (Reported) DOES NOT TAKE ANY WARFARIN ON SAT AND SUN Patient Home Medication List Home Medication List Reviewed: Yes Review of Systems Review of Systems Constitutional: No chills, No diaphoresis Eyes: Denies Blindness, Denies Blurred Vision, Denies Drainage Ears, Nose, Mouth, Throat: denies ear pain, denies ear discharge Respiratory: No cough, No short of breath Cardiovascular: No chest pain, No edema; Hx of Intervention, palpitations Gastrointestinal: No abdominal pain, No nausea, No vomiting Genitourinary: No discharge, No dysuria Musculoskeletal: back pain; No joint pain Skin: No pruritus, No rash All Other Systems Reviewed Negative Unless Noted: Yes Past Plqzxzv-Lpseth-Sarzxm Hx Patient Social History Alcohol Use: Occasionally Uses Alcohol Beverage of Choice: Vevay Recreational Drug Use: No Smoking Status: Current Everyday Smoker Type Used: Cigarettes 2nd Hand Smoke Exposure: Yes Recent Hopitalizations: No Immunizations Up To Date Tetanus Booster (TDap): Less than 5yrs Date of Pneumonia Vaccine: Mar 29, 2018 Date of Influenza Vaccine: Mar 29, 2018 Seasonal Allergies Seasonal Allergies: No Past Medical History Surgeries: Yes (COLON, BRAIN, SKIN CA REMOVAL L LEG, BREAST IMPLANTS) Abdominal, Breast, Gallbladder, Hysterectomy Respiratory: Yes Asthma, COPD, Emphysema Cardiac: Yes Aneurysm, Atrial Fibrillation, Deep Vein Thrombosis Neurological: Yes Stroke [employer] History: Hysterectomy Sexually Transmitted Disease: No HIV/AIDS: No Genitourinary: No UTI-Chronic Gastrointestinal: Yes Gastroesophageal Reflux Musculoskeletal: Yes Fibromyalgia Endocrine: Yes Hypothyroidsim HEENT: No (READING GLASSES, DENTURES) Cancer: Yes (CERVIX BREAST ) Breast, Cervical Did You Recieve Any Treatments: Yes What Type of Treatment Did You: Surgical Intervention Psychosocial: Yes (alcohol dependence with nightly use of hard liquor) Anxiety Integumentary: Yes (skin lesion) Blood Disorders: No Adverse Reaction/Blood Tranf: No (N/A) Family Medical History No Pertinent Family Hx Physical Exam Vital Signs Vital Signs - First Documented 10/25/19 09:25 Temp 37.3 Pulse 75 Resp 24 B/P (MAP) 136/68 (90) Pulse Ox 96 O2 Delivery Room Air Capillary Refill : Height, Weight, BMI Height: 5'2.00" Weight: 138lbs. 0.0oz. 62.487055wb; 638.00 BMI Method:Stated General Appearance: WD/WN, no apparent distress HEENT: PERRL/EOMI, normal ENT inspection, TMs normal; No pharynx normal (or mucosa is dry) Neck: full range of motion, supple, normal inspection Respiratory: lungs clear, normal breath sounds, no respiratory distress, no accessory muscle use Cardiovascular: normal peripheral pulses, regular rate, rhythm, no edema Peripheral Pulses: 2+ Radial Pulses (R), 2+ Radial Pulses (L) Gastrointestinal: normal bowel sounds, non tender, soft, no organomegaly Back: normal inspection, vertebral tenderness (upper thoracic vertebral spine tenderness without ecchymoses, deformity, erythema) Extremities: normal range of motion, non-tender, normal inspection Neurologic/Psychiatric: no motor/sensory deficits, alert, normal mood/affect, oriented x 3 Crainal Nerves: normal hearing, normal speech, PERRL, other (oriented to person but not time or place. She is aware that she is in the hospital but not what tow n) Motor/Sensory: no motor deficit, no sensory deficit Skin: normal color, warm/dry Progress/Results/Core Measures Results/Orders Lab Results Laboratory Tests Test 10/25/19 09:40 10/25/19 09:59 Range/Units White Blood Count 11.2 H 4.3-11.0 10^3/uL Red Blood Count 3.68 L 4.35-5.85 10^6/uL Hemoglobin 11.2 L 11.5-16.0 G/DL Hematocrit 33 L 35-52 % Mean Corpuscular Volume 91 80-99 FL Mean Corpuscular Hemoglobin 30 25-34 PG Mean Corpuscular Hemoglobin Concent 34 32-36 G/DL Red Cell Distribution Width 13.1 10.0-14.5 % Platelet Count 266 130-400 10^3/uL Mean Platelet Volume 10.2 7.4-10.4 FL Neutrophils (%) (Auto) 84 H 42-75 % Lymphocytes (%) (Auto) 8 L 12-44 % Monocytes (%) (Auto) 8 0-12 % Eosinophils (%) (Auto) 0 0-10 % Basophils (%) (Auto) 0 0-10 % Neutrophils # (Auto) 9.4 H 1.8-7.8 X 10^3 Lymphocytes # (Auto) 0.9 L 1.0-4.0 X 10^3 Monocytes # (Auto) 0.9 0.0-1.0 X 10^3 Eosinophils # (Auto) 0.0 0.0-0.3 10^3/uL Basophils # (Auto) 0.0 0.0-0.1 10^3/uL Prothrombin Time 15.0 H 12.2-14.7 SEC INR Comment 1.1 0.8-1.4 Activated Partial Thromboplast Time 37 H 24-35 SEC Sodium Level 137 135-145 MMOL/L Potassium Level 3.8 3.6-5.0 MMOL/L Chloride Level 102 98-107 MMOL/L Carbon Dioxide Level 20 L 21-32 MMOL/L Anion Gap 15 H 5-14 MMOL/L Blood Urea Nitrogen 18 7-18 MG/DL Creatinine 0.82 0.60-1.30 MG/DL Estimat Glomerular Filtration Rate > 60 BUN/Creatinine Ratio 22 Glucose Level 117 H 70-105 MG/DL Calcium Level 9.0 8.5-10.1 MG/DL Corrected Calcium 9.4 8.5-10.1 MG/DL Total Bilirubin 0.9 0.1-1.0 MG/DL Aspartate Amino Transf (AST/SGOT) 75 H 5-34 U/L Alanine Aminotransferase (ALT/SGPT) 71 H 0-55 U/L Alkaline Phosphatase 228 H 40-136 U/L Troponin I < 0.028 <0.028 NG/ML C-Reactive Protein High Sensitivity 10.91 H 0.00-0.50 MG/DL Total Protein 6.6 6.4-8.2 GM/DL Albumin 3.5 3.2-4.5 GM/DL Serum Alcohol < 10 <10 MG/DL Urine Color YELLOW Urine Clarity SL CLOUDY Urine pH 5.5 5-9 Urine Specific [place] 1.020 1.016-1.022 Urine Protein NEGATIVE NEGATIVE Urine Glucose (UA) NEGATIVE NEGATIVE Urine Ketones 1+ H NEGATIVE Urine Nitrite POSITIVE H NEGATIVE Urine Bilirubin NEGATIVE NEGATIVE Urine Urobilinogen 0.2 < = 1.0 MG/DL Urine Leukocyte Esterase NEGATIVE NEGATIVE Urine RBC (Auto) NEGATIVE NEGATIVE Urine RBC NONE /HPF Urine WBC 2-5 /HPF Urine Squamous Epithelial Cells NONE /HPF Urine Crystals PRESENT H /LPF Urine Amorphous Sediment RARE TAN URATES H /LPF Urine Bacteria MODERATE H /HPF Urine Casts PRESENT /LPF Urine Hyaline Casts RARE /LPF Urine Mucus NEGATIVE /LPF Urine Culture Indicated YES Urine Opiates Screen NEGATIVE NEGATIVE Urine Oxycodone Screen NEGATIVE NEGATIVE Urine Methadone Screen NEGATIVE NEGATIVE Urine Propoxyphene Screen NEGATIVE NEGATIVE Urine Barbiturates Screen NEGATIVE NEGATIVE Ur Tricyclic Antidepressants Screen NEGATIVE NEGATIVE Urine Phencyclidine Screen NEGATIVE NEGATIVE Urine Amphetamines Screen NEGATIVE NEGATIVE Urine Methamphetamines Screen NEGATIVE NEGATIVE Urine Benzodiazepines Screen NEGATIVE NEGATIVE Urine Cocaine Screen NEGATIVE NEGATIVE Urine Cannabinoids Screen NEGATIVE NEGATIVE My Orders Orders - QUENTIN,JENSEN J Ekg Tracing (10/25/19 09:41) Continuous Ekg Monitoring (10/25/19 09:41) Cbc With Automated Diff (10/25/19 09:41) Comprehensive Metabolic Panel (10/25/19 09:41) Hs C Reactive Protein (10/25/19 09:41) Chest 1 View, Ap/Pa Only (10/25/19 09:41) Protime With Inr (10/25/19 09:41) Partial Thromboplastin Time (10/25/19 09:41) Ua Culture If Indicated (10/25/19 09:41) Straight Cath For Spec.-Adult (10/25/19 09:41) Ct Head/Cervical Spine Wo (10/25/19 09:41) Ed Iv/Invasive Line Start (10/25/19 09:41) Ed Iv/Invasive Line Start (10/25/19 09:43) Lactated Ringers (Lr 1000 Ml Iv Solution (10/25/19 09:43) Troponin I (10/25/19 09:54) Ct Angio Chest W (10/25/19 09:54) Alcohol (10/25/19 09:54) Drug Screen Stat (Urine) (10/25/19 09:54) Iohexol Injection (Omnipaque 350 Mg/Ml 1 (10/25/19 10:30) Received Contrast (Hold Metformin- Contr (10/25/19 10:30) Ns (Ivpb) (Sodium Chloride 0.9% Ivpb Bag (10/25/19 10:30) Sodium Chloride Flush (Catheter Flush Sy (10/25/19 10:30) Urine Culture (10/25/19 09:59) Acetaminophen Tablet (Tylenol Tablet) (10/25/19 12:30) Medications Given in ED Current Medications Medications Dose Ordered Sig/Irais Route Start Time Stop Time Status Last Admin Dose Admin Iohexol 75 ml ONCE ONCE IV 10/25/19 10:30 10/25/19 11:26 DC 10/25/19 10:52 77 ML Lactated Ringer's 1,000 ml @ 0 mls/hr Q0M ONCE IV 10/25/19 09:43 10/25/19 09:45 DC 10/25/19 10:15 0 MLS/HR Sodium Chloride 10 ml NEEDED PRN IV 10/25/19 10:30 10/25/19 10:52 10 ML Sodium Chloride 100 ml ONCE ONCE IV 10/25/19 10:30 10/25/19 11:26 DC 10/25/19 10:52 80 ML Vital Signs/I&O 10/25/19 09:25 Temp 37.3 Pulse 75 Resp 24 B/P (MAP) 136/68 (90) Pulse Ox 96 O2 Delivery Room Air Progress Progress Note #1: Time: 09:52 Progress Note Altered mental status possibly delirium secondary to infection and dehydration. She's having pain in her back on warfarin so intracranial bleed is a possibility as well as AAA. If she had a fall unwitnessed she could have fracture. A CT of her chest with angiogram if possible would help rule out both of these emergencies. Progress Note #2: Time: 12:18 Progress Note the patient has no septic vital signs. She does have a UTI. Because of her recent stopping drinking alcohol secondary to her delirium the concern would be for life-threatening seizures related to alcohol withdrawal. She typically drinks several drinks of vodka a day. We will be reasonable to watch her in the hospital despite her not being septic for this in addition to her UTI.patient is complaining of a mild headache but no tremors. Plan to give her some Tylenol. Initial ECG Impression Date: Oct 25, 2019 Initial ECG Impression Time: 09:27 Initial ECG Rate: 74 Initial ECG Rhythm: Normal Sinus Initial ECG Intervals: Normal Initial ECG Impression: Normal Comment Normal sinus rhythm without any clinically relevant ST elevation or depression. Diagnostic Imaging Diagonstic Imaging: Xray Plain Films/CT/US/NM/MRI: chest Comments [facility]. [place], [place] NAME: KATHRYN CRAIN [facility] REC#: [id number] PT STATUS: REG ER : 1930 PHYSICIAN: JENSEN SAAVEDRA MD ADMIT DATE: 10/25/19/ER Draft Date of Exam:10/25/19 CHEST 1 VIEW, AP/PA ONLY INDICATION: Altered mental status and sepsis. TECHNIQUE/COMPARISON: A frontal chest was obtained at 1059 hours and compared to 12/28/2018. FINDINGS: The heart and mediastinal silhouette are normal in appearance. There is no focal infiltrate. There is no pneumothorax or pleural fluid. The port-A-Cath over the right chest is unchanged. IMPRESSION: No acute process in the chest. Dictated on workstation # [id number] Dict: 10/25/19 1058 Trans: 10/25/[address] [place] [address] [id number] Interpreted by: MAY SILVA MD Electronically signed by: Reviewed: Reviewed by [place] Diagonstic Imaging: CT Plain Films/CT/US/NM/MRI: c-spine, head Comments NAME: KATHRYN CRAIN [facility] REC#: [id number] PT STATUS: REG ER : 1930 PHYSICIAN: JENSEN SAAVEDRA MD ADMIT DATE: 10/25/19/ER Draft Date of Exam:10/25/19 CT HEAD/CERVICAL SPINE WO PROCEDURE: CT head and CT cervical spine without contrast. TECHNIQUE: Multiple contiguous axial images were obtained through the brain and cervical spine without the use of intravenous contrast. Sagittal and coronal reformations through the cervical spine were then performed. Auto Exposure Controls were utilized during the CT exam to meet ALARA standards for radiation dose reduction. INDICATION: Trauma, fall. Correlation is made with prior head CT from 06/29/2017. CT HEAD: The ventricles and sulci remain prominent consistent with cerebral volume loss. There is moderate periventricular hypodensity noted consistent with chronic microvascular ischemia. No sulcal effacement or midline shift is identified. No acute intra-axial or extra-axial hemorrhage is detected. Cisterns are patent. Visualized paranasal sinuses are clear. There appears to be an old craniotomy in the high posterior parietal occipital regions bilaterally. IMPRESSION: Chronic and senescent changes. No acute intracranial process is detected. CT cervical spine: Alignment appears stable. There is multilevel degenerative disc disease with variable disc space narrowing and marginal spurring. There is multilevel facet arthropathy. Overall appearance is similar to CT cervical spine study from 11/27/2014. The prevertebral tissues are normal. No fractures are seen. Odontoid appears to be intact. IMPRESSION: Cervical spondylosis. No acute bony abnormality is detected. Dictated on workstation # [id number] Dict: 10/25/19 1057 Trans: 10/25/19 1106 [id number] Interpreted by: TAINSHA HUTCHISON MD Electronically signed by: Reviewed: Reviewed by [place] Diagonstic Imaging: CT Plain Films/CT/US/NM/MRI: chest Comments [facility] [place] [place] NAME: KATHRYN CRAIN [facility] REC#: [id number] PT STATUS: REG ER : 1930 PHYSICIAN: JENSEN SAAVEDRA MD ADMIT DATE: 10/25/19/ER Draft Date of Exam:10/25/19 CT ANGIO CHEST W INDICATION: Trauma and shortness of breath. TECHNIQUE: Multiple contiguous axial images were obtained through the chest after uneventful bolus administration of intravenous contrast. 3D reconstructed CTA MIP acquisitions were also performed. Auto Exposure Controls were utilized during the CT exam to meet ALARA standards for radiation dose reduction. COMPARISON: Comparison made to 05/28/2018. FINDINGS: The pulmonary parenchymal vessels appear well opacified with no CT evidence of pulmonary emboli. There is no evidence of aortic dissection or aneurysm. There is some scattered plaquing in the thoracic aorta. The great vessel origins are patent. A Port-A-Cath is visualized over the right superior chest with catheter tip in the SVC. There is no overt mediastinal adenopathy. There are bilateral breast implants. There are no chest wall masses. There is no pleural or pericardial fluid. Heart is mildly enlarged. Lung parenchymal windows demonstrate some minimal dependent atelectatic changes in the lung bases. There is no focal infiltrate. Visualized portions of the upper abdomen showed no acute finding. IMPRESSION: No CT evidence of pulmonary emboli or aortic dissection or aneurysm. There is mild cardiomegaly. There is no focal infiltrate or pleural fluid. Dictated on workstation # [id number] Dict: 10/25/19 1059 Trans: 10/25/19 1106 [id number] Interpreted by: MAY SILVA MD Electronically signed by: Reviewed: Reviewed by Me Departure Communication (Admissions) Time/Spoke to Admitting Phy: 12:25 discussed the case with Dr. No and she agrees with doing an admission for UTI and alcohol withdrawal related to delirium. She agrees with Rocephin. Alcohol withdrawal protocol. Impression Primary Impression: UTI (urinary tract infection) Qualified Codes: N30.00 - Acute cystitis without hematuria Additional Impressions: Delirium due to another medical condition, acute, hypoactive Alcohol withdrawal Qualified Codes: F10.231 - Alcohol dependence with withdrawal delirium Disposition: ADMITTED INPATIENT Condition: Stable Admissions Decision to Admit Reason: Admit from ER (General) Decision to Admit/Date: Oct 25, 2019 Time/Decision to Admit Time: 12:00 Departure-Patient Inst. Referrals: TANISHA OLMSTEAD DO (PCP/Family) Primary Care Physician JENSEN SAAVEDRA Oct 25, 2019 09:52
[2019-10-25 09:57] LABS: BASOPHILS % (AUTO) 0 % (0-10); EOSINOPHILS % (AUTO) 0 % (0-10); HEMATOCRIT 33 % (35-52); HEMOGLOBIN 11.2 G/DL (11.5-16.0); LYMPHOCYTES # (AUTO) 0.9 X 10^3 (1.0-4.0); LYMPHOCYTES % (AUTO) 8 % (12-44); MEAN CORPUSCULAR HEMOGLOBIN 30 PG (25-34); MEAN CORPUSCULAR HGB CONC 34 G/DL (32-36); MEAN CORPUSCULAR VOLUME 91 FL (80-99); MEAN PLATELET VOLUME 10.2 FL (7.4-10.4); MONOCYTES # (AUTO) 0.9 X 10^3 (0.0-1.0); MONOCYTES % (AUTO) 8 % (0-12); NEUTROPHILS # (AUTO) 9.4 X 10^3 (1.8-7.8); NEUTROPHILS % (AUTO) 84 % (42-75); PLATELET COUNT 266 10^3/uL (130-400); RED CELL DISTRIBUTION WIDTH 13.1 % (10.0-14.5); WHITE BLOOD COUNT 11.2 10^3/uL (4.3-11.0)
[2019-10-25 10:03] LABS: BILIRUBIN,URINE NEGATIVE (NEGATIVE); CLARITY,URINE SL CLOUDY; COLOR,URINE YELLOW; GLUCOSE, URINE (UA) NEGATIVE (NEGATIVE); KETONES,URINE 1+ (NEGATIVE); LEUKOCYTE ESTERASE ,URINE NEGATIVE (NEGATIVE); NITRITE,URINE POSITIVE (NEGATIVE); PH,URINE 5.5 (5-9); PROTEIN,URINE NEGATIVE (NEGATIVE)
[2019-10-25 10:06] LABS: INR 1.1 (0.8-1.4)
[2019-10-25 10:19] LABS: ALANINE AMINOTRANSFERASE 71 U/L (0-55); ALBUMIN 3.5 GM/DL (3.2-4.5); ALKALINE PHOSPHATASE 228 U/L (40-136); BILIRUBIN,TOTAL 0.9 MG/DL (0.1-1.0); BUN/CREATININE RATIO 22; CARBON DIOXIDE 20 MMOL/L (21-32); CHLORIDE 102 MMOL/L (98-107); CREATININE SERUM 0.82 MG/DL (0.60-1.30); GFR ESTIMATED > 60; GLUCOSE 117 MG/DL (70-105); POTASSIUM 3.8 MMOL/L (3.6-5.0); SODIUM 137 MMOL/L (135-145); TOTAL PROTEIN 6.6 GM/DL (6.4-8.2)
[2019-10-25 10:22] LABS: BACTERIA,URINE MODERATE /HPF; HYALINE CASTS, URINE RARE /LPF
[2019-10-25 10:24] LABS: AMORPHOUS SEDIMENT,UR RARE AMOR URATES /LPF
[2019-10-25 10:26] LABS: AMPHETAMINE SCREEN, URINE NEGATIVE (NEGATIVE); BARBITURATE SCREEN URINE NEGATIVE (NEGATIVE); BENZODIAZEPINES SCREEN URINE NEGATIVE (NEGATIVE); CANNABINOID SCREEN, URINE NEGATIVE (NEGATIVE); COCAINE SCREEN URINE NEGATIVE (NEGATIVE); METHADONE STAT NEGATIVE (NEGATIVE); METHAMPHETAMINE SCREEN URINE S NEGATIVE (NEGATIVE); OPIATE SCREEN URINE NEGATIVE (NEGATIVE); OXYCODONE STAT NEGATIVE (NEGATIVE); PROPOXYPHENE STAT NEGATIVE (NEGATIVE); TRICYCLIC ANTIDEPRESSANTS SCRE NEGATIVE (NEGATIVE)
[2019-10-25] MEDS ORDERED: CATHETER FLUSH 10 ML SYR IV PRN (10:30)
[2019-10-25] MEDS ORDERED: IOHEXOL 350 MG/ML 100 ML (OMNIPAQUE 350) VIAL IV ONE (10:30)
[2019-10-25] MEDS ORDERED: HOLD METFORMIN - RECEIVED CONTRAST 20 ML VIAL IV SCH (10:30)
[2019-10-25] MEDS ORDERED: NS 100 ML (IVPB) BAG IV ONE (10:30)
--- NOTE | 2019-10-25 10:40 | NUR ---
Spoke with DIL via phone regarding plan of care.
--- NOTE | 2019-10-25 11:01 | Diagnostic Imaging Report ---
INDICATION: Altered mental status and sepsis. TECHNIQUE/COMPARISON: A frontal chest was obtained at 1059 hours and compared to 12/28/2018. FINDINGS: The heart and mediastinal silhouette are normal in appearance. There is no focal infiltrate. There is no pneumothorax or pleural fluid. The port-A-Cath over the right chest is unchanged. IMPRESSION: No acute process in the chest. Dictated by: Dictated on workstation # [id number]
--- NOTE | 2019-10-25 11:07 | Diagnostic Imaging Report ---
PROCEDURE: CT head and CT cervical spine without contrast. TECHNIQUE: Multiple contiguous axial images were obtained through the brain and cervical spine without the use of intravenous contrast. Sagittal and coronal reformations through the cervical spine were then performed. Auto Exposure Controls were utilized during the CT exam to meet ALARA standards for radiation dose reduction. INDICATION: Trauma, fall. Correlation is made with prior head CT from 06/29/2017. CT HEAD: The ventricles and sulci remain prominent consistent with cerebral volume loss. There is moderate periventricular hypodensity noted consistent with chronic microvascular ischemia. No sulcal effacement or midline shift is identified. No acute intra-axial or extra-axial hemorrhage is detected. Cisterns are patent. Visualized paranasal sinuses are clear. There appears to be an old craniotomy in the high posterior parietal occipital regions bilaterally. IMPRESSION: Chronic and senescent changes. No acute intracranial process is detected. CT cervical spine: Alignment appears stable. There is multilevel degenerative disc disease with variable disc space narrowing and marginal spurring. There is multilevel facet arthropathy. Overall appearance is similar to CT cervical spine study from 11/27/2014. The prevertebral tissues are normal. No fractures are seen. Odontoid appears to be intact. IMPRESSION: Cervical spondylosis. No acute bony abnormality is detected. Dictated by: Dictated on workstation # [id number]
--- NOTE | 2019-10-25 11:07 | Diagnostic Imaging Report ---
INDICATION: Trauma and shortness of breath. TECHNIQUE: Multiple contiguous axial images were obtained through the chest after uneventful bolus administration of intravenous contrast. 3D reconstructed CTA MIP acquisitions were also performed. Auto Exposure Controls were utilized during the CT exam to meet ALARA standards for radiation dose reduction. COMPARISON: Comparison made to 05/28/2018. FINDINGS: The pulmonary parenchymal vessels appear well opacified with no CT evidence of pulmonary emboli. There is no evidence of aortic dissection or aneurysm. There is some scattered plaquing in the thoracic aorta. The great vessel origins are patent. A Port-A-Cath is visualized over the right superior chest with catheter tip in the SVC. There is no overt mediastinal adenopathy. There are bilateral breast implants. There are no chest wall masses. There is no pleural or pericardial fluid. Heart is mildly enlarged. Lung parenchymal windows demonstrate some minimal dependent atelectatic changes in the lung bases. There is no focal infiltrate. Visualized portions of the upper abdomen showed no acute finding. IMPRESSION: No CT evidence of pulmonary emboli or aortic dissection or aneurysm. There is mild cardiomegaly. There is no focal infiltrate or pleural fluid. Dictated by: Dictated on workstation # [id number]
[2019-10-25] MEDS ORDERED: cefTRIAXone FOR IV USE 1,000 MG in WATER (STERILE) FOR INJECTION 10 ML IV ONE (12:30)
[2019-10-25] MEDS ORDERED: ACETAMINOPHEN 500 MG TAB (TYLENOL) PO ONE (12:30)
[2019-10-25] MEDS ORDERED: cefTRIAXone 1,000 MG IV (ROCEPHIN) VIAL ONE (12:38)
[2019-10-25] MEDS ORDERED: WATER (STERILE) FOR INJECTION 10 ML ONE (12:38)
--- NOTE | 2019-10-25 13:00 | NUR ---
Pt's temperature 38.1 at this time.
--- NOTE | 2019-10-25 13:07 | NUR ---
Pt on bedpan at this time.
--- NOTE | 2019-10-25 13:24 | NUR ---
Spoke with DIL via phone regarding admission.
--- NOTE | 2019-10-25 13:26 | NUR ---
Attempted to call report. Nurse with doctor and to return call when available.
--- NOTE | 2019-10-25 14:37 | NUR ---
KATHRYN CRAIN admitted to room 425-1, with an admitting diagnosis of UTI, ETOH, on 10/25/19 from ED via BED, accompanied by STAFF. KATHRYN CRAIN introduced to surroundings, call light, bed controls, phone, TV, temperature control, lights, meal times, smoking policy, visitor policy, side rail policy, bathrooms and showers. Patient Rights given to patient in the handbook. KATHRYN CRAIN verbalizes understanding that [facility] is not responsible for the loss or damage to any personal effects or valuables that are kept in the patients posession during their hospitalization. The following Patient Care Plans were discussed with the PATIENT: Discharge Planning, KNOWLEDGE, FALL AND UTI. KATHRYN CRAIN verbalizes understanding of Interdisciplinary Patient Education. Patient and/or family were informed about the Rapid Response Team and its purpose.
[2019-10-25 14:57] VITALS: BP 125/58
[2019-10-25] MEDS ORDERED: 1/2 NS IV SOLUTION 1,000 ML IV PRN (15:24)
[2019-10-25] MEDS ORDERED: SENNA W/DOCUSATE (SENOKOT S) TABLET PO PRN (15:30)
[2019-10-25] MEDS ORDERED: ANTACID SUSP 30 ML UDC (MYLANTA) PO PRN (15:30)
[2019-10-25] MEDS ORDERED: LORazepam INJ 2 MG/ML (ATIVAN) VIAL IV PRN (15:30)
[2019-10-25] MEDS ORDERED: D5 1/2 NS 1000 ML IV SOLUTION 1,000 ML IV PRN (15:30)
[2019-10-25] MEDS ORDERED: LORazepam INJ 2 MG/ML (ATIVAN) VIAL IM/IV PRN (15:30)
[2019-10-25] MEDS ORDERED: ONDANSETRON 4 MG/2 ML (SDV) Z0FRAN IV PRN ×2 (15:30)
[2019-10-25] MEDS ORDERED: ONDANSETRON 4 MG (ZOFRAN) ORAL DISSOLVE TAB SL PRN (15:30)
--- NOTE | 2019-10-25 15:30 | History & Physical-Hospitalist ---
History of Present Illness HPI/Chief Complaint Pt is an 89yoCF with a PMH of HTN, DVT on chronic anticoagulation, hypothyroidism who presented to the ER due to lethargy via EMS. She states that she has a headache and doesn't know how long it has been going on. Most history is obtained from the records due to some confusion. Per ER note she is normally independently ambulatory and able to care for herself but she has been confused and may have had a fall. She denies any fever, chills, nausea, vomiting, abdominal pain, dysuria, cough, sick contacts, chest pain, shortness of breath. She does report a history of DVT and UTIs but she is unsure when she had her las t of either. Source: patient Date Seen 10/25/19 Time Seen by a Provider: 15:25 Attending Physician Ricardo No MD PCP Gregg Jackson DO Referring Physician Date of Admission Oct 25, 2019 at 12:37 Home Medications & Allergies Home Medications Reviewed patient Home Medication Reconciliation performed by pharmacy medication reconciliations microbiological lab technician and/or nursing. Patients Allergies have been reviewed. Allergies Allergies Coded Allergies No Known Drug Allergies (Unverified06/23/18) Past Umpquvd-Lzxdox-Cvomyz Hx Past Med/Social Hx: Reviewed Nursing Past Med/Soc Hx Patient Social History Marrital Status: single Alcohol Use: Regular Use Alcohol Beverage of Choice: Whiskey, [place] Recreational Drug Use: No Smoking Status: Current Everyday Smoker Type Used: Cigarettes 2nd Hand Smoke Exposure: Yes Recent Foreign Travel: No Contact w/other who traveled: No Recent Hopitalizations: No Recent Infectious Disease Expo: No Immunizations Up To Date Tetanus Booster (TDap): Less than 5yrs Date of Pneumonia Vaccine: Mar 29, 2018 Date of Influenza Vaccine: Mar 29, 2018 Seasonal Allergies Seasonal Allergies: No Past Medical History Surgeries: Abdominal, Breast, Gallbladder, Hysterectomy Cardiac: Aneurysm, Atrial Fibrillation, Deep Vein Thrombosis Neurological: Stroke Sexually Transmitted Disease: No HIV/AIDS: No Hysterectomy Genitourinary: UTI-Chronic Gastrointestinal: Gastroesophageal Reflux Musculoskeletal: Fibromyalgia Endocrine: Hypothyroidsim Cancer: Breast, Cervical Did You Recieve Any Treatments: Yes What Type of Treatment Did You: Surgical Intervention Psychosocial: Anxiety History of Blood Disorders: No Adverse Reaction to Blood Bailey: No (N/A) Family History Reviewed Nursing Family Hx No Pertinent Family Hx Review of Systems ROS-Unable to Obtain: limited by confusion Constitutional: No chills; fever EENTM: no symptoms reported Respiratory: No cough, No dyspnea on exertion, No short of breath Cardiovascular: No chest pain, No palpitations Gastrointestinal: No abdominal pain, No constipation, No diarrhea; loss of appetite; No nausea, No vomiting Genitourinary: No dysuria, No frequency, No hematuria Musculoskeletal: no symptoms reported Skin: no symptoms reported Psychiatric/Neurological: No Symptoms Reported Physical Exam Physical Exam Vital Signs Vital Signs - First Documented 10/25/19 09:25 Temp 37.3 Pulse 75 Resp 24 B/P (MAP) 136/68 (90) Pulse Ox 96 O2 Delivery Room Air Capillary Refill : Less Than 3 Seconds Height, Weight, BMI Height: 5'2.00" Weight: 138lbs. 0.0oz. 62.906856zf; 24.66 BMI Method:Stated General Appearance: No Apparent Distress, Chronically ill, Thin HEENT: PERRL/EOMI, Moist Mucous Membranes; No Scleral Icterus (L), No Scleral Icterus (R) Neck: Normal Inspection, Supple Respiratory: Lungs Clear, No Accessory Muscle Use, No Respiratory Distress Cardiovascular: Regular Rate, Rhythm, No JVD, No Murmur Gastrointestinal: Normal Bowel Sounds, Non Tender, Soft Extremity: No Calf Tenderness, No Pedal Edema Neurologic/Psychiatric: Alert; No Aphasia, No Facial Droop; Other (oriented to person and place and most major details (not month or location) but unable to recall minor details) Skin: Warm/Dry; No Mottled; Tattoos/Piercings, Other (bruising on biltaral shins) Results Results/Procedures Labs Laboratory Tests 10/25/19 09:40 Patient resulted labs reviewed. Imaging: Reviewed Imaging Report Imaging [facility] [place] NAME: PARASKATHRYN [facility] REC#: [id number] PT STATUS: REG ER : 1930 PHYSICIAN: JENSEN SAAVEDRA MD ADMIT DATE: 10/25/19/ER Draft Date of Exam:10/25/19 CT HEAD/CERVICAL SPINE WO PROCEDURE: CT head and CT cervical spine without contrast. TECHNIQUE: Multiple contiguous axial images were obtained through the brain and cervical spine without the use of intravenous contrast. Sagittal and coronal reformations through the cervical spine were then performed. Auto Exposure Controls were utilized during the CT exam to meet ALARA standards for radiation dose reduction. INDICATION: Trauma, fall. Correlation is made with prior head CT from 06/29/2017. CT HEAD: The ventricles and sulci remain prominent consistent with cerebral volume loss. There is moderate periventricular hypodensity noted consistent with chronic microvascular ischemia. No sulcal effacement or midline shift is identified. No acute intra-axial or extra-axial hemorrhage is detected. Cisterns are patent. Visualized paranasal sinuses are clear. There appears to be an old craniotomy in the high posterior parietal occipital regions bilaterally. IMPRESSION: Chronic and senescent changes. No acute intracranial process is detected. CT cervical spine: Alignment appears stable. There is multilevel degenerative disc disease with variable disc space narrowing and marginal spurring. There is multilevel facet arthropathy. Overall appearance is similar to CT cervical spine study from 11/27/2014. The prevertebral tissues are normal. No fractures are seen. Odontoid appears to be intact. IMPRESSION: Cervical spondylosis. No acute bony abnormality is detected. Dictated on workstation # [id number] Dict: 10/25/19 1057 Trans: 10/25/19 1106 [id number] Interpreted by: GREGG HUTCHISON MD Electronically signed by: [facility] [place] NAME: KATHRYN CRAIN [facility] REC#: [id number] PT STATUS: REG ER : 1930 PHYSICIAN: JENSEN SAAVEDRA MD ADMIT DATE: 10/25/19/ER Draft Date of Exam:10/25/19 CHEST 1 VIEW, AP/PA ONLY INDICATION: Altered mental status and sepsis. TECHNIQUE/COMPARISON: A frontal chest was obtained at 1059 hours and compared to 12/28/2018. FINDINGS: The heart and mediastinal silhouette are normal in appearance. There is no focal infiltrate. There is no pneumothorax or pleural fluid. The port-A-Cath over the right chest is unchanged. IMPRESSION: No acute process in the chest. Dictated on workstation # [id number] Dict: 10/25/19 1058 Trans: 10/25/19 1100 [id number] Interpreted by: MAY SILVA MD Electronically signed by: [facility] [place] NAME: KATHRYN CRAIN [facility] REC#: [id number] PT STATUS: REG ER : 1930 PHYSICIAN: JENSEN SAAVEDRA MD ADMIT DATE: 10/25/19/ER Draft Date of Exam:10/25/19 CT ANGIO CHEST W INDICATION: Trauma and shortness of breath. TECHNIQUE: Multiple contiguous axial images were obtained through the chest after uneventful bolus administration of intravenous contrast. 3D reconstructed CTA MIP acquisitions were also performed. Auto Exposure Controls were utilized during the CT exam to meet ALARA standards for radiation dose reduction. COMPARISON: Comparison made to 05/28/2018. FINDINGS: The pulmonary parenchymal vessels appear well opacified with no CT evidence of pulmonary emboli. There is no evidence of aortic dissection or aneurysm. There is some scattered plaquing in the thoracic aorta. The great vessel origins are patent. A Port-A-Cath is visualized over the right superior chest with catheter tip in the SVC. There is no overt mediastinal adenopathy. There are bilateral breast implants. There are no chest wall masses. There is no pleural or pericardial fluid. Heart is mildly enlarged. Lung parenchymal windows demonstrate some minimal dependent atelectatic changes in the lung bases. There is no focal infiltrate. Visualized portions of the upper abdomen showed no acute finding. IMPRESSION: No CT evidence of pulmonary emboli or aortic dissection or aneurysm. There is mild cardiomegaly. There is no focal infiltrate or pleural fluid. Dictated on workstation # [id number] Dict: 10/25/19 1059 Trans: 10/25/19 1106 [id number] Interpreted by: MAY SILVA MD Electronically signed by: Assessment/Plan Admission Diagnosis Sepsis Admission Status: Inpatient Order (span 2 midnights) Reason for Inpatient Admission: IV abx, high risk for withdrawal and decompensation, failed at home over the past three days Assessment and Plan Sepsis UTI Fever with tachypneic and leukocytosis UA consistent with UTI Continue Rocephin Await cultures Reviewed records from previous cultures which were pansensitive e coli Alcohol dependence Transaminitis Family reports 2 drinks every day (patient reports only one) CIWA protocol Mild transaminitis, up from may History of DVT Chronic Anticoagulation INR 1.1 Seems as if she is not actually taking Warfarin HTN Continue home atenolol Hypothyroidism Cotinue Synthroid DVt ppx: On Warfarin Clinical Quality Measures DVT/VTE Risk/Contraindication: Risk Factor Score Per Nursin RFS Level Per Nursing on Admit: 4+=Very High RICARDO NO MD Oct 25, 2019 15:30
--- NOTE | 2019-10-25 15:47 | Physical Therapy Progress Note ---
Therapy Progress Note PT to assess patient in MARGUERITE Loco PT Oct 25, 2019 15:47
--- NOTE | 2019-10-25 15:52 | Occ Therapy Progress Note ---
Therapy Progress Note OT orders received, OT to evaluate pt in AM LAUREEN GAUTAM OT Oct 25, 2019 15:52
[2019-10-25] MEDS ORDERED: ACET-2267 PO (15:53)
--- NOTE | 2019-10-25 15:54 | NUR ---
I SPOKE WITH THE PATIENT AND HER DAUGHTER IN LAW, MADAN TO COMPLETE THIS MED REC. PATIENT HAS MEDICATIONS IN HER LOCK BOX IN ROOM. OTC: POTASSIUM GLUCONATE TYLENOL DOXYLAMINE SUCCINATE PATIENT TAKES 1 FUROSEMIDE 20MG BID, BUT THE PATIENT'S BOTTLES SAY TO TAKE 2 TABLETS BID LAST WEEK PT HAD HER INR CHECKED AND WAS TOLD TO QUIT TAKING WARFARIN FOR A COUPLE DAYS AND SHE COULD RESTART ON FRIDAY. PATIENT DID RESTART ON 10-26-2019 AND ALSO TOOK A DOSE THIS MORNING BEFORE SHE PRESENTED TO THE ED. PT IS SCHEDULED FOR ANOTHER INR CHECK ON 10-26-2019.
[2019-10-25] MEDS ORDERED: ENOXAPARIN 40 MG/0.4 ML (LOVENOX) SYR SC SCH (16:00)
[2019-10-25 16:10] VITALS: BP 113/65
--- NOTE | 2019-10-25 16:45 | NUR ---
VERIFIED THAT DR KAUFMAN DOES NOT WANT PATIENT TO HAVE LOVENOX FOR DVT PROPHYLAXIS. SHE IS TAKING COUMADIN.
[2019-10-25] MEDS: LACTATED RINGERS 1,000 ML IV SCH (16:53)
[2019-10-25] MEDS ORDERED: warFARin 7.5 MG (COUMADIN) TAB PO SCH (18:00)
[2019-10-25 20:15] VITALS: BP 140/58
[2019-10-25] MEDS: LORazepam 1 MG (ATIVAN) TAB PO PRN ×2 (21:11→23:50)
[2019-10-25] MEDS: MAGNESIUM OXIDE (MAG-OX)400 MG TAB PO SCH (21:11)
[2019-10-25] MEDS: ACETAMINOPHEN 325 MG TABLET PO PRN (23:45)
[2019-10-26] MEDS: LACTATED RINGERS 1,000 ML IV SCH ×2 (00:34→08:08)
[2019-10-26 00:44] VITALS: BP 144/61
[2019-10-26 04:44] VITALS: BP 133/58
[2019-10-26 05:52] LABS: BASOPHILS % (AUTO) 0 % (0-10); EOSINOPHILS % (AUTO) 0 % (0-10); HEMATOCRIT 30 % (35-52); HEMOGLOBIN 9.7 G/DL (11.5-16.0); LYMPHOCYTES # (AUTO) 1.1 X 10^3 (1.0-4.0); LYMPHOCYTES % (AUTO) 15 % (12-44); MEAN CORPUSCULAR HEMOGLOBIN 30 PG (25-34); MEAN CORPUSCULAR HGB CONC 32 G/DL (32-36); MEAN CORPUSCULAR VOLUME 92 FL (80-99); MEAN PLATELET VOLUME 10.6 FL (7.4-10.4); MONOCYTES # (AUTO) 0.9 X 10^3 (0.0-1.0); MONOCYTES % (AUTO) 12 % (0-12); NEUTROPHILS # (AUTO) 5.5 X 10^3 (1.8-7.8); NEUTROPHILS % (AUTO) 72 % (42-75); PLATELET COUNT 244 10^3/uL (130-400); RED CELL DISTRIBUTION WIDTH 13.3 % (10.0-14.5); WHITE BLOOD COUNT 7.7 10^3/uL (4.3-11.0)
[2019-10-26 06:04] LABS: ALANINE AMINOTRANSFERASE 42 U/L (0-55); ALKALINE PHOSPHATASE 164 U/L (40-136); BILIRUBIN,TOTAL 0.5 MG/DL (0.1-1.0); BUN/CREATININE RATIO 19; CALCIUM 8.4 MG/DL (8.5-10.1); CARBON DIOXIDE 23 MMOL/L (21-32); CHLORIDE 104 MMOL/L (98-107); CREATININE SERUM 0.69 MG/DL (0.60-1.30); GFR ESTIMATED > 60; GLUCOSE 80 MG/DL (70-105); POTASSIUM 3.6 MMOL/L (3.6-5.0); SODIUM 137 MMOL/L (135-145); TOTAL PROTEIN 5.6 GM/DL (6.4-8.2)
[2019-10-26 06:19] LABS: INR 1.4 (0.8-1.4); PROTHROMBIN TIME PATIENT 17.3 SEC (12.2-14.7)
[2019-10-26] MEDS: THIAMINE 100 MG (VITAMIN B-1) TAB PO SCH (06:22)
[2019-10-26] MEDS: ATENOLOL 25 MG (TENORMIN) TAB PO SCH (06:23)
[2019-10-26] MEDS: LEVOTHYROXINE 50 MCG (LEVOTHROID) TAB PO SCH (06:23)
[2019-10-26] MEDS: warFARin 5 MG (COUMADIN) TAB PO SCH (06:23)
[2019-10-26] MEDS: MULTIVIT W/MINERALS TAB (THERAGRAN M) PO SCH (06:23)
[2019-10-26] MEDS ORDERED: LEVOTHYROXINE 50 MCG (LEVOTHROID) TAB PO SCH (06:30)
--- NOTE | 2019-10-26 06:39 | NUR ---
CIWA Score for pt through the night: 1900 - pt sleeping 2100 - 9 (Ativan tab 1mg given) 2200 - pt sleeping 2345 - 10 (Ativan tab 1mg given) 0045 - pt sleeping 0230 - pt sleeping 0445 - 2 0630 - 3
[2019-10-26 08:00] VITALS: BP 159/78
[2019-10-26] MEDS: MAGNESIUM OXIDE (MAG-OX)400 MG TAB PO SCH ×2 (08:08→21:07)
[2019-10-26] MEDS: FOLIC ACID 1 MG TAB PO SCH (08:08)
[2019-10-26] MEDS ORDERED: ATENOLOL 25 MG (TENORMIN) TAB PO SCH (09:00)
--- NOTE | 2019-10-26 09:10 | Physical Therapy Evaluation ---
PT Evaluation-General Medical Diagnosis Admission Date Oct 25, 2019 at 12:37 Medical Diagnosis: UTI/delirium/alcohol withdrawal Onset Date: Oct 25, 2019 Therapy Diagnosis Therapy Diagnosis: debility/weakness Height/Weight Height (Feet): 5 Height (Inches): 2.00 Weight (Pounds): 138 Weight (Ounces): 0.0 Precautions Precautions/Isolations: Seizure, Fall Prevention, Standard Precautions Weight Bear Status Right Lower Extremity: Right Weight Bearing/Tolerated Left Lower Extremity: Left Weight Bearing/Tolerated Referral Physician: Marybel Reason for Referral: Evaluation/Treatment Medical History Pertinent Medical History: Atrial Fib, Alcoholism, COPD, Smoking Current History EMS secondary to decline in status and function x 3 days with increase confusion Reviewed History: Yes Social History Home: Single Level Current Living Status: Children Entry Into Home: Stairs With Railing PT Steps Into Home: 6 Prior Prior Level of Function SCALE: Activities may be completed with or without assistive devices. 6-Cmlwublxvh-fowcikb completes the activity by him/herself with no assistance from a helper. 5-Set-up or Clean-up Assistance-helper sets up or cleans up; patient completes activity. [place] assists only prior to or following the activity. 4-Supervision or Touching Assistance-helper provides verbal cues and/or touching/steadying and/or contact guard assistance as patient completes activity. Assistance may be provided throughout the activity or intermittently. 3-Partial/Moderate Assistance-helper does LESS THAN HALF the effort. [place] lifts, holds or supports trunk or limbs, but provides less than half the effort. 2-Substantial/Maximal Assistance-helper does MORE THAN HALF the effort. [place] lifts or holds trunk or limbs and provides more than half the effort. 9-Uzrmwzetj-kweobz does ALL the effort. Patient does none of the effort to complete the activity. Or, the assistance of 2 or more helpers is required for the patient to complete the activity. If activity was not attempted, code reason: 7-Patient Refused. 9-Not Applicable-not attempted and the patient did not perform the activity before the current illness, exacerbation or injury. 10-Not Attempted due to Environmental Limitations-(lack of equipment, weather restraints, etc.). 88-Not Attempted due to Medical Conditions or Safety Concerns. Bed Mobility: 6 Transfers (B,C,W/C): 6 Gait: 6 Stairs: 6 Indoor Mobility (Ambulation): Independent Stairs: Independent Prior Devices Use: None PT Evaluation-Current Subjective Patient agrees to PT. Family present. Objective Patient Orientation: Confused Attachments: Central Line ROM/Strength ROM Lower Extremities bilateral LE WFL Strength Lower Extremities 3+/5 grossly bilateral LE Integumentary/Posture Integumentary refer to nursing notes Bladder Incontinence: Yes Posture slight trunk flexed posture with FWW use Neuromuscular (Tone, Coordination, Reflexes) slightly diminished coordination due to tremor (detox?) Sensory Vision: Functional Hearing: Functional Sensation Right Lower Extremit: Intact Sensation Left Lower Extremity: Intact Transfers Roll Left to Right (QC): 3 Sit to Lying (QC): 3 Lying to Sitting/Side of Bed(Q: 3 Sit to Stand (QC): 3 Chair/Leq-cj-Fperm Xfer(QC): 3 Gait Does the Patient Walk?: Yes Mode of Locomotion: Walk Anticipated Mode of Locomotion: Walk Walk 10 feet (QC): 3 Walk 50 ft with 2 Turns(QC): 3 Walk 150 ft (QC): 88 Gait Assistive Device: FWW Comments/Gait Description slightly unsteady with PT correct with balance. Improved gait sequence with distance Balance Sitting Static: Normal Sitting Dynamic: Normal Standing Static: Fair Standing Dynamic: Fair Treatment chair alarm activated for safety Assessment/Needs 89 y.o. female, will benefit from skilled PT to address functional strength and mobility to improve current LOF to safely return to home with family at maximum LOF. Rehab Potential: Fair PT Retirement Goals Retirement Goals PT Manager Foreign Goals Time Frame: Nov 06, 2019 Roll Left & Right (QC): 6 Sit to Lying (QC): 6 Lying-Sitting on Side/Bed(QC): 6 Sit to Stand (QC): 6 Chair/Bqo-ay-Nfwgf Xfer(QC): 6 Toilet Transfer (QC): 6 Car Transfer (QC): 6 Does the Patient Walk: Yes Walk 10 feet (QC): 6 Walk 50ft with 2 Turns (QC): 6 Walk 150 ft (QC): 6 1 Step (curb) (QC): 6 4 Steps (QC): 6 PT Plan Problem List Problem List: Activity Tolerance, Functional Strength, Safety, Balance, Gait, Transfer, Bed Mobility Treatment/Plan Treatment Plan: Continue Plan of Care Treatment Plan: Bed Mobility, Education, Functional Activity Ayse, Functional Strength, Gait, Safety, Therapeutic Exercise, Transfers Treatment Duration: Nov 06, 2019 Frequency: 6 times per week Estimated Hrs Per Day: .25 hour per day Patient and/or Family Agrees t: Yes Time/GCodes Time In: 831 Time Out: 843 Total Billed Treatment Time: 12 Total Billed Treatment 1 visit EVModC 12 min MARGUERITE ROTH PT Oct 26, 2019 09:09
[2019-10-26] MEDS: ACETAMINOPHEN 325 MG TABLET PO PRN ×2 (09:52→19:49)
--- NOTE | 2019-10-26 10:17 | Occupational Therapy Eval ---
OT Evaluation-General/PLF Medical Diagnosis Admission Date Oct 25, 2019 at 12:37 Medical Diagnosis: UTI/delirium/alcohol withdrawal Onset Date: Oct 25, 2019 Therapy Diagnosis Therapy Diagnosis: Decreased ADL skills Height/Weight Height (Feet): 5 Height (Inches): 2.00 Weight (Pounds): 138 Weight (Ounces): 0.0 Precautions Precautions/Isolations: Seizure, Fall Prevention, Standard Precautions Referral Physician: Marybel Referral Reason: Activity Tolerance, Self Care, Evaluation/Treatment, Strengthening/ROM Medical History Pertinent Medical History: Atrial Fib, Alcoholism, COPD, Smoking Additional Medical History HTN, DVT, hypothyroidism, a fib, aneurysm, fibromyalgia, asthma, anxiety, alcoholism Current History Pt admitted to ER 2* lethargy for 3 days. Reviewed History: Yes Social History Home: Single Level Current Living Status: Children (son and daughter in law) Entry Into Home: Stairs With Railing Steps Into Home: 6 ADL-Prior Level of Function SCALE: Activities may be completed with or without assistive devices. 0-Fxicmcyliy-hzrntbl completes the activity by him/herself with no assistance from a helper. 5-Set-up or Clean-up Assistance-helper sets up or cleans up; patient completes activity. [place] assists only prior to or following the activity. 4-Supervision or Touching Assistance-helper provides verbal cues and/or touching/steadying and/or contact guard assistance as patient completes activity. Assistance may be provided throughout the activity or intermittently. 3-Partial/Moderate Assistance-helper does LESS THAN HALF the effort. [place] lifts, holds or supports trunk or limbs, but provides less than half the effort. 2-Substantial/Maximal Assistance-helper does MORE THAN HALF the effort. [place] lifts or holds trunk or limbs and provides more than half the effort. 0-Iknumokxx-rhjoxx does ALL the effort. Patient does none of the effort to complete the activity. Or, the assistance of 2 or more helpers is required for the patient to complete the activity. If activity was not attempted, code reason: 7-Patient Refused. 9-Not Applicable-not attempted and the patient did not perform the activity before the current illness, exacerbation or injury. 10-Not Attempted due to Environmental Limitations-(lack of equipment, weather restraints, etc.). 88-Not Attempted due to Medical Conditions or Safety Concerns. ADL PLOF Comments Pt states was IND without AD. Pt's son works through day, pt is "unsure" if daughter in law is home or at work during day Self Care: Independent Functional Cognition: Independent DME/Equipment: Bath Chair, Grab Bars DME/Equipment Comments grab bars in shower and near toilet, sc Occupation: retired. OT Current Status Subjective Pt asleep in bed upon entry. Pt easily wakes with verbal entry. Pt lethargic and shivering. Pt given warm blankets. Pt states 5/10 pain in head, nursing notified. Mental Status/Objective Patient Orientation: Person, Place, Situation Attachments: IV Current Upper Extremity ROM WFL BUE Upper Extremity Coordination WFL BUE Upper Extremity Sensation WFL BUE per pt. Upper Extremity Strength Decreased bilaterally (3+/5 shoulder flexion, 3/5 glycerine plant operator strength) ADL-Treatment Eating (QC): 6 (Pt able to bring cup to mouth when handed for oral medications presented by nursing.) Oral Hygiene (QC): 6 (based on clinical findings) On/Off Footwear (QC): 1 (per pt, states she is not able to complete at this time. ) Toileting Hygiene (QC): 2 (per nursing program director, pt unable to wipe due to decreased balance in stance. ) Other Treatments Pt in bed. Pt lethargic, but oriented. Pt unsure if daughter in law works during the day. Pt denies OOB, encouragement required for MMT/ ROM activity. Pt again denies OOB task. Pt states too cold. warm blankets given to pt. Pt states her inability to complete LB dressing/ sock task. Pt's nurse aide states pt required CGA during toilet task and max A for wiping due to decreased balance. Pt denies toileting at this time. Pt educated on OT role and continuation of therapy for increased fx activity tolerance. Pt agrees, desiring to sleep. All needs met, call light in reach. Education OT Patient Education: Correct positioning, Purpose of tx/functional activities, Safety issues Teaching Recipient: Patient Teaching Methods: Discussion Response to Teaching: Verbalize Understanding OT Residential Program Worker Goals [facility] Goals Time Frame: Nov 02, 2019 Eating (QC): 6 Oral Hygiene (QC): 6 Toileting Hygiene (QC): 6 Shower/Bathe Self (QC): 6 Upper Body Dressing (QC): 6 Lower Body Dressing (QC): 6 On/Off Footwear (QC): 6 Additional Goals: 1-Demonstrate ADL Tasks, 2-Verbalize Understanding, 3- ImproveStrength/Ayse 1=Demonstrate adherence to instructed precautions during ADL tasks. 2=Patient will verbalize/demonstrate understanding of assistive devices/modifications for ADL. 3=Patient will improve strength/tolerance for activity to enable patient to perform ADL's. OT Education/Plan Problem List/Assessment Assessment: Decreased Activ Tolerance, Decreased UE Strength, Dependent Transfers, Impaired Funct Balance, Impaired I ADL's, Impaired Self-Care Skills Discharge Recommendations Plan/Recommendations: Continue POC Therapy Discharge Recommendati: 24 Hour Supervision, Home & Family Treatment Plan/Plan of Care Treatment,Training & Education: Yes Patient would benefit from OT for education, treatment and training to promote independence in ADL's, mobility, safety and/or upper extremity function for ADL's. Plan of Care: ADL Retraining, Functional Mobility, UE Funct Exercise/Act Treatment Duration: Nov 02, 2019 Frequency: 5 times per week Estimated Hrs Per Day: .25 hour per day Rehab Potential: Fair Time/GCodes Start Time: 09:45 Stop Time: 09:57 Total Time Billed (hr/min): 12 Billed Treatment Time VALENTINE Lynn (12) MARIN PEARSON OTR Oct 26, 2019 10:17
--- NOTE | 2019-10-26 11:14 | NUR ---
"RD ASSESSMENT PMHx: HTN; DVT; hypothyroidism; stroke; chronic UTI; GERD; CA(breast, cervical); ETOH dependence PT INTERACTION: Pt was semi-awake and pleasant during nutrition assessment. Pt states current appetite is okay. Note avg PO intake <25% x2meal, per chart review. Pt states following a regular diet at home, and has no issues with chewing/swallowing food. Pt states no recent issues with nausea, vomiting, constipation, or diarrhea, and that she is unsure of when her last BM occurred. Note no BM has been recorded, and pt currently on bowel regimen of senna PRN, per chart review. Pt states no recent wt changes. Note recent 15# wt gain x5mon, per chart review. ABNORMAL NUTRITION-RELATED LAB VALUES LOW: Ca 8.4; Pro 5.6; alb 3.0 HIGH: alkphos 164 Est. kcal needs: 1525 kcal | 25 kcal/kg Est. Pro needs: 73 g Pro | 1.2 g Pro/kg PES STATEMENT: Inadequate oral intake (NI-2.1) related to loss of appetite as evidenced by pt interview | avg PO intake <25% x2meal INTERVENTION: Continue with current diet order of Regular diet.. Continue with current supplementation order of Ensure Enlive with meals TID, for increased kcal intake. Provides 350 kcal and 13 g Pro per serving. Encouraged pt to eat when able. Note pt has PMH of ETOH dependence. Would recommend assessing lab values of thiamine and repletion if necessary. Will continue to follow and reassess as pt needs, intake, and status change. MONITOR/EVALUATE: PO Intake; Plan of Care; Hydration Status; Weight Status; Lab Values Gus Hines, , RD, LD"
[2019-10-26] MEDS: cefTRIAXone 1,000 MG/SWFI 10 ML IV PUSH IV SCH ×2 (11:46)
--- NOTE | 2019-10-26 11:50 | Progress Note - Hospitalist ---
Subjective HPI/CC On Admission Date Seen by Provider: Oct 26, 2019 Time Seen by Provider: 11:45 Pt is an 89yoCF with a PMH of HTN, DVT on chronic anticoagulation, hypothyroidism who presented to the ER due to lethargy via EMS. She states that she has a headache and doesn't know how long it has been going on. Most history is obtained from the records due to some confusion. Per ER note she is normally independently ambulatory and able to care for herself but she has been confused and may have had a fall. She denies any fever, chills, nausea, vomiting, abdominal pain, dysuria, cough, sick contacts, chest pain, shortness of breath. She does report a history of DVT and UTIs but she is unsure when she had her last of either. Subjective/Events-last exam Pt reports feeling well today. Was up with PT today and is now tired. Has a headache as well. Objective Exam Vital Signs Vital Signs Date Time Temp Pulse Resp B/P (MAP) Pulse Ox O2 Delivery O2 Flow Rate FiO2 10/26/19 08:00 36.6 72 16 159/78 (105) 99 Room Air Capillary Refill : Less Than 3 Seconds General Appearance: No Apparent Distress, Chronically ill Respiratory: Lungs Clear, No Respiratory Distress Cardiovascular: Regular Rate, Rhythm, No Murmur Gastrointestinal: Normal Bowel Sounds, Non Tender, Soft Neurologic/Psychiatric: Alert, Oriented x3 (to major details, improved from yesterday) Results/Procedures Lab Laboratory Tests 10/26/19 05:15 Patient resulted labs reviewed. Imaging: Reviewed Imaging Report Assessment/Plan Assessment and Plan Assess & Plan/Chief Complaint Sepsis UTI UA consistent with UTI Continue Rocephin Await cultures, GNR identified now Reviewed records from previous cultures which were pansensitive e coli PT/OT Alcohol dependence Transaminitis Family reports 2 drinks every day (patient reports only one) CIWA protocol Mild transaminitis, up from may Trend History of DVT Chronic Anticoagulation INR 1.4, trend Seems as if she is not actually taking Warfarin HTN Continue home atenolol Hypothyroidism Continue Synthroid DVt ppx: On Warfarin Clinical Quality Measures DVT/VTE Risk/Contraindication: Risk Factor Score Per Nursin RFS Level Per Nursing on Admit: 4+=Very High Contraindications-Pharm: Other *list below* Other: PATIENT TAKING COUMADIN. RICARDO KAUFMAN MD Oct 26, 2019 11:50
[2019-10-26 12:00] VITALS: BP 112/53
--- NOTE | 2019-10-26 13:48 | NUR ---
CM/SS visited patient for discharge planning. The patient reports that she is feeling okay today but has a headache. She states she is not sure why she is in the hospital. CM/SS asked the patient what day it is. She was unable to answer. The patient did know she was at the hospital in [place], who the president is, and the year. Home: The patient lives with her adult son and [id number]. The patient reports being independent with all of her daily living actives and ambulation. The patient states that she does not have a walker or cane. Equipment: Patient denies any equipment at home. Home Health: States she has never had home health or paid caregivers. Alcohol: The patient reports that she drinks one drink per day. Her drink of choice is [place]. She states that she does not plan to quit or feel that it is an issue. CM/SS will continue to follow.
[2019-10-26 16:00] VITALS: BP 139/69
[2019-10-26 19:56] VITALS: BP 168/74
[2019-10-27] VITALS (8 sets, daily range): BP systolic 92–154; BP diastolic 49–72
[2019-10-27 04:37] LABS: HEMOGLOBIN 10.2 G/DL (11.5-16.0); MEAN PLATELET VOLUME 10.3 FL (7.4-10.4); RED CELL DISTRIBUTION WIDTH 12.8 % (10.0-14.5); WHITE BLOOD COUNT 6.5 10^3/uL (4.3-11.0)
[2019-10-27 04:51] LABS: INR 1.6 (0.8-1.4); PROTHROMBIN TIME PATIENT 19.6 SEC (12.2-14.7)
[2019-10-27 04:57] LABS: BUN/CREATININE RATIO 17; CALCIUM 8.4 MG/DL (8.5-10.1); CARBON DIOXIDE 23 MMOL/L (21-32); CHLORIDE 102 MMOL/L (98-107); CREATININE SERUM 0.63 MG/DL (0.60-1.30); GFR ESTIMATED > 60; GLUCOSE 100 MG/DL (70-105); POTASSIUM 3.6 MMOL/L (3.6-5.0); SODIUM 137 MMOL/L (135-145)
[2019-10-27] MEDS: ATENOLOL 25 MG (TENORMIN) TAB PO SCH (05:36)
[2019-10-27] MEDS: LEVOTHYROXINE 50 MCG (LEVOTHROID) TAB PO SCH (05:37)
[2019-10-27] MEDS: warFARin 5 MG (COUMADIN) TAB PO SCH (05:37)
[2019-10-27] MEDS: MULTIVIT W/MINERALS TAB (THERAGRAN M) PO SCH (06:13)
[2019-10-27] MEDS: THIAMINE 100 MG (VITAMIN B-1) TAB PO SCH (06:13)
[2019-10-27] MEDS: FOLIC ACID 1 MG TAB PO SCH (08:32)
[2019-10-27] MEDS: MAGNESIUM OXIDE (MAG-OX)400 MG TAB PO SCH ×2 (08:32→21:32)
[2019-10-27] MEDS: ACETAMINOPHEN 325 MG TABLET PO PRN ×2 (08:32→17:12)
--- NOTE | 2019-10-27 09:08 | Physical Therapy Progress Note ---
Therapy Progress Note Patient refuses to participate in physical therapy this morning. She says she has a headache and doesn't want to get out of bed or perform exercises in the bed. Will try back this afternoon. JYOTI BAKER PT Oct 27, 2019 09:08
--- NOTE | 2019-10-27 10:46 | Progress Note - Hospitalist ---
Subjective HPI/CC On Admission Date Seen by Provider: Oct 27, 2019 Time Seen by Provider: 10:41 Pt is an 89yoCF with a PMH of HTN, DVT on chronic anticoagulation, hypothyroidism who presented to the ER due to lethargy via EMS. She states that she has a headache and doesn't know how long it has been going on. Most history is obtained from the records due to some confusion. Per ER note she is normally independently ambulatory and able to care for herself but she has been confused and may have had a fall. She denies any fever, chills, nausea, vomiting, abdominal pain, dysuria, cough, sick contacts, chest pain, shortness of breath. She does report a history of DVT and UTIs but she is unsure when she had her last of either. Subjective/Events-last exam Pt reports headache improving today. Did not work with therapy this morning though. Encouraged to continue to work with them. Objective Exam Vital Signs Vital Signs Date Time Temp Pulse Resp B/P (MAP) Pulse Ox O2 Delivery O2 Flow Rate FiO2 10/27/19 08:00 37.5 68 16 137/69 (91) 94 Room Air Capillary Refill : Less Than 3 Seconds General Appearance: No Apparent Distress, WD/WN Respiratory: Lungs Clear, No Respiratory Distress Cardiovascular: Regular Rate, Rhythm, No Murmur Gastrointestinal: Normal Bowel Sounds, Non Tender, Soft Neurologic/Psychiatric: Alert, Oriented x3 Results/Procedures Lab Laboratory Tests 10/27/19 04:30 Patient resulted labs reviewed. Imaging: Reviewed Imaging Report Assessment/Plan Assessment and Plan Assess & Plan/Chief Complaint Sepsis UTI UA consistent with UTI Continue Rocephin Citrobacter on culture, awaiting sensitivities PT/OT Alcohol dependence Transaminitis Family reports 2 drinks every day (patient reports only one) CIWA protocol Mild transaminitis, up from may Trend History of DVT Chronic Anticoagulation INR 1.6, trend Seems as if she is not actually taking Warfarin at home HTN Continue home atenolol Hypothyroidism Continue Synthroid DVt ppx: On Warfarin Clinical Quality Measures DVT/VTE Risk/Contraindication: Risk Factor Score Per Nursin RFS Level Per Nursing on Admit: 4+=Very High Contraindications-Pharm: Other *list below* Other: PATIENT TAKING COUMADIN. RICARDO KAUFMAN MD Oct 27, 2019 10:46
--- NOTE | 2019-10-27 11:40 | Occupational Ther Daily Note ---
OT Current Status-Daily Note Subjective Pt seen in bed, call light on. Pt expresses desire for commode. Pt does not c/o pain throughout, daughter present. ADL-Treatment Therapy Code Descriptions/Definitions Functional Baxter Measure: 0=Not Assessed/NA 4=Minimal Assistance 1=Total Assistance 5=Supervision or Setup 2=Maximal Assistance 6=Modified Baxter 3=Moderate Assistance 7=Complete IndependenceSCALE: Activities may be completed with or without assistive devices. 9-Ckodmoicnr-kagysmy completes the activity by him/herself with no assistance from a helper. 5-Set-up or Clean-up Assistance-helper sets up or cleans up; patient completes activity. Robert Lee assists only prior to or following the activity. 4-Supervision or Touching Assistance-helper provides verbal cues and/or touching/steadying and/or contact guard assistance as patient completes activity. Assistance may be provided throughout the activity or intermittently. 3-Partial/Moderate Assistance-helper does LESS THAN HALF the effort. Robert Lee lifts, holds or supports trunk or limbs, but provides less than half the effort. 2-Substantial/Maximal Assistance-helper does MORE THAN HALF the effort. Robert Lee lifts or holds trunk or limbs and provides more than half the effort. 9-Tlgpkteav-yztbth does ALL the effort. Patient does none of the effort to complete the activity. Or, the assistance of 2 or more helpers is required for the patient to complete the activity. If activity was not attempted, code reason: 7-Patient Refused. 9-Not Applicable-not attempted and the patient did not perform the activity before the current illness, exacerbation or injury. 10-Not Attempted due to Environmental Limitations-(lack of equipment, weather restraints, etc.). 88-Not Attempted due to Medical Conditions or Safety Concerns. Eating (QC): 5 (s/u for drink opening.) Toileting Hygiene (QC): 4 (CGA) Toilet Transfer (QC): 4 (CGA) Other Treatment Pt bed mob SBA, stands with SBA and ambulates ~ 2 steps with CGA to commode. pt completes urination, sit to stand with CGA and pt has LOB and sits back on commode. Pt's daughter states mother must get better by Friday to "get out of here," as daughter will be flying in from [place]. Pt agrees, pt educated on safety in stance and requirement of gait belt at this time. Pt sits EOB and dons gait belt with assist. Pt denies use of walker with encouragement. Pt ambulates with CGA, one hand on bed during turning task, and no LOB to recliner chair, sits with control per cues, all needs met, call light in reach. Chair alarm on at OT exit. Daughter present. Education OT Patient Education: Correct positioning, Purpose of tx/functional activities, Safety issues, Transfer techniques Teaching Recipient: Patient Teaching Methods: Demonstration, Discussion Response to Teaching: Verbalize Understanding, Return Demonstration, Reinforcem ent Needed OT Retirement Goals Retirement Goals Time Frame: Nov 02, 2019 Eating (QC): 6 Oral Hygiene (QC): 6 Toileting Hygiene (QC): 6 Shower/Bathe Self (QC): 6 Upper Body Dressing (QC): 6 Lower Body Dressing (QC): 6 On/Off Footwear (QC): 6 Additional Goals: 1-Demonstrate ADL Tasks, 2-Verbalize Understanding, 3- ImproveStrength/Ayse 1=Demonstrate adherence to instructed precautions during ADL tasks. 2=Patient will verbalize/demonstrate understanding of assistive devices/modifications for ADL. 3=Patient will improve strength/tolerance for activity to enable patient to perform ADL's. OT Education/Plan Problem List/Assessment Assessment: Decreased Activ Tolerance, Decreased Safety Aware, Decreased UE Strength, Dependent Transfers, Impaired Funct Balance, Impaired I ADL's, Impaired Self-Care Skills Discharge Recommendations Plan/Recommendations: Continue POC Therapy Discharge Recommendati: 24 Hour Supervision, Home & Family Treatment Plan/Plan of Care Treatment,Training & Education: Yes Patient would benefit from OT for education, treatment and training to promote independence in ADL's, mobility, safety and/or upper extremity function for ADL's. Plan of Care: ADL Retraining, Functional Mobility, UE Funct Exercise/Act Treatment Duration: Nov 02, 2019 Frequency: 5 times per week Estimated Hrs Per Day: .25 hour per day Rehab Potential: Fair Time/GCodes Start Time: 11:20 Stop Time: 11:30 Total Time Billed (hr/min): 10 Billed Treatment Time 1, ADL (10) MARIN PEARSON OTR Oct 27, 2019 11:40
[2019-10-27] MEDS: cefTRIAXone 1,000 MG/SWFI 10 ML IV PUSH IV SCH ×2 (12:08)
[2019-10-27] MEDS ORDERED: PANTOPRAZOLE 40 MG (PROTONIX) TAB PO ONE (12:45)
--- NOTE | 2019-10-27 15:06 | NUR ---
CM/SS follow up. CM/SS attempted to visit with patient; however, she was sleeping and not easily aroused. CM/SS attempted to contact the patient's son Angel, no answer. CM/SS contacted the patient's uqlzgyyx-qp-vae Radha to discuss discharge. Radha reports that the patient is independent at home but has recently had some falls. She believes it may be related to the alcohol use. Radha reports that the patient has around 3 glasses of [place] a night. She states the patient does not remember how many that she has had. Radha states she is going to start monitoring the alcohol and help control amount. Radha states the patient does not have home health at this time and does not believe that she needs it. Radha states that she is home 24/ with the patient to assist with any needs. Radha states that she is concerned that the patient might be depressed. Radha reports at this time the only need may be a walker. CM/SS will continue to follow.
--- NOTE | 2019-10-27 15:16 | Physical Therapy Progress Note ---
Therapy Progress Note Patient refused therapy again this afternoon. Patient states she has already been up, also refused to perform exercises in bed. Patient asked directly if she wants to participate in physical therapy and she says no. JYOTI BAKER PT Oct 27, 2019 15:16
[2019-10-28 05:00] VITALS: BP 121/57
[2019-10-28 05:21] LABS: HEMOGLOBIN 10.9 G/DL (11.5-16.0); RED CELL DISTRIBUTION WIDTH 13.1 % (10.0-14.5); WHITE BLOOD COUNT 5.6 10^3/uL (4.3-11.0)
[2019-10-28 05:32] LABS: CHLORIDE 103 MMOL/L (98-107); POTASSIUM 4.1 MMOL/L (3.6-5.0); SODIUM 137 MMOL/L (135-145)
[2019-10-28 05:33] LABS: CALCIUM 8.5 MG/DL (8.5-10.1)
[2019-10-28 05:34] LABS: GLUCOSE 113 MG/DL (70-105)
[2019-10-28 05:35] LABS: CARBON DIOXIDE 23 MMOL/L (21-32)
[2019-10-28 05:38] LABS: CREATININE SERUM 0.68 MG/DL (0.60-1.30); GFR ESTIMATED > 60
[2019-10-28 05:39] LABS: BUN/CREATININE RATIO 22
[2019-10-28 05:53] LABS: INR 1.6 (0.8-1.4); PROTHROMBIN TIME PATIENT 19.8 SEC (12.2-14.7)
[2019-10-28] MEDS: THIAMINE 100 MG (VITAMIN B-1) TAB PO SCH (06:16)
[2019-10-28] MEDS: ATENOLOL 25 MG (TENORMIN) TAB PO SCH (06:16)
[2019-10-28] MEDS: warFARin 5 MG (COUMADIN) TAB PO SCH (06:16)
[2019-10-28] MEDS: LEVOTHYROXINE 50 MCG (LEVOTHROID) TAB PO SCH (06:16)
[2019-10-28] MEDS: MULTIVIT W/MINERALS TAB (THERAGRAN M) PO SCH (06:16)
[2019-10-28 08:00] VITALS: BP 132/72
[2019-10-28] MEDS: FOLIC ACID 1 MG TAB PO SCH (08:10)
[2019-10-28] MEDS: ACETAMINOPHEN 325 MG TABLET PO PRN (08:10)
[2019-10-28] MEDS: MAGNESIUM OXIDE (MAG-OX)400 MG TAB PO SCH (08:13)
[2019-10-28] MEDS ORDERED: PANTOPRAZOLE 40 MG (PROTONIX) TAB PO SCH (09:00)
--- NOTE | 2019-10-28 10:28 | Discharge Inst-Simple/Standard ---
Discharge Inst-Standard Discharge Medications New, Converted or Re-Newed RX: Transmitted to Pharmacy Patient Instructions/Follow Up Plan of Care/Instructions/FU: Please continue to take your medications as written. Please follow up with your primary care doctor to follow up this hospital stay. Activity as Tolerated: Yes Discharge Diet: Coumadin Patient Diet Return to The Hospital For: Chest pain, shortness of breath, fever, confusion, falls, if you feel you are getting worse. RICARDO KAUFMAN MD Oct 28, 2019 10:28
--- NOTE | 2019-10-28 10:34 | D/C HH Face to Face Order ---
D/C Face to Face Orders Instructions for Patient Via [facility], Patient Instructions/FollowUp: Please continue to take your medications as written. Please follow up with your primary care doctor to follow up this hospital stay. Physician to follow Patient: Dr Jackson Discharge Diet for Home: Coumadin Patient Diet Patient Data-Allergies,Ht & Wt Patient Allergies: Coded Allergies: No Known Drug Allergies (Unverified , 06/23/18) Height (Feet): 5 Height (Inches): 2.00 Weight (Pounds): 138 Weight (Ounces): 0.0 Home Health Need/Face to Face Date of Face to Face: Oct 28, 2019 Clinical Findings: Generalized weakness and fatigue I have seen Pt [id number]-bv-[id number]: Yes Discharged To: Home Diagnosis/Conditions: UTI, Debility, Falls Patient is Homebound due to: Helder fall risk due to instabilty Homebound Status Due to the above stated illness, injury or surgical procedure (medical condition or diagnosis) and associated clinical findings, the patient is homebound because of his/her inability to leave home except with aid of a supportive device and/or person AND leaving the home requires a considerable and taxing effort or is medically contraindicated. Pt req the following assistanc: Aid of another person, Cane Home Health Nursing Orders Home Health Services Order: Physical Therapy-Evaluate & Treat Home Health Infusion Therapy Line Start Date: Oct 25, 2019 Therapy Orders Therapy Orders: Physical Therapy Therapy Specific Orders: Eval assistive deivces, Teach enviro modifications/safety, Gait training, Increase strength/endurance Certify Stmt I certify that this patient is under my care and that I, a nurse practitioner or a physician; a bilingual sales assistant working with me, had a face to face encounter that - meets the physician face to face encounter requirements with this patient as dated. RICARDO KAUFMAN MD Oct 28, 2019 10:34
[2019-10-28] MEDS ORDERED: CEFD300C3 PO (10:40)
--- NOTE | 2019-10-28 10:41 | Discharge Summary ---
Diagnosis/Chief Complaint Date of Admission Oct 25, 2019 at 12:37 Date of Discharge Discharge Date: Oct 28, 2019 Admission Diagnosis Sepsis Primary Care Gregg Jackson DO Discharge Summary Discharge Physical Exam Allergies: Coded Allergies: No Known Drug Allergies (Unverified , 06/23/18) Vitals & I&Os Vital Signs Date Time Temp Pulse Resp B/P (MAP) Pulse Ox O2 Delivery O2 Flow Rate FiO2 10/28/19 11:56 10/28/19 09:00 94 Room Air 10/28/19 08:00 37.0 60 16 General Appearance: No Apparent Distress, Chronically ill Respiratory: Lungs Clear, No Respiratory Distress Cardiovascular: Regular Rate, Rhythm, No Murmur Gastrointestinal: Normal Bowel Sounds Neurologic/Psychiatric: Alert, Oriented x3 Hospital Course Pt is an 89yoCF who was admitted due to weakness and confusion secondary to urinary tract infection. She was treated with IV Rocephin and responded well. Physical therapy and occupational therapy will consult and she was deemed an appropriate candidate for home health for continued strengthening. She was discharged home with family support on oral antibiotics as below. She is follow-up with Dr. Jackson in 1 week to follow up this hospital stay. Given chronic daily alcohol use she was monitored for alcohol withdrawal but did well. Labs (last 24 hrs) Microbiology 10/25/19 Blood Culture - Preliminary, Resulted No growth 10/25/19 Urine Culture - Final, Complete Citrobacter amalonaticus Patient resulted labs reviewed. Pending Labs Imaging: Reviewed Imaging Report Discussion & Recommendations Discharge Planning: >30 minutes discharge planning Discharge Home Medications: Active Scripts Active Cefdinir 300 Mg Capsule 300 Mg PO BID Reported Tylenol Extra Strength (Acetaminophen) 500 Mg Tablet 500-1,000 Mg PO Q6H PRN Sleep Aid (Doxylamine Succinate) 25 Mg Tablet 25 Mg PO HS Furosemide 20 Mg Tablet 20 Mg PO BID Potassium (Potassium Gluconate) 99 Mg Tablet 99 Mg PO 0600 Warfarin Sodium 5 Mg Tablet 5 Mg PO 0600 Atenolol 25 Mg Tablet 25 Mg PO 0600 Levothyroxine Sodium 50 Mcg Tablet 50 Mcg PO 0600 Instructions to patient/family Please see electronic discharge instructions given to patient. Clinical Quality Measures DVT/VTE Risk/Contraindication: Risk Factor Score Per Nursin RFS Level Per Nursing on Admit: 4+=Very High Contraindications-Pharm: Other *list below* Other: PATIENT TAKING COUMADIN. Copy Copies To 1: GREGG JACKSON KATELYN M MD Oct 28, 2019 10:41
--- NOTE | 2019-10-28 10:53 | Physical Therapy Daily Note ---
PT Daily Note-Current Subjective Patient agrees to PT. Mental Status Patient Orientation: Normal For Age Transfers SCALE: Activities may be completed with or without assistive devices. 9-Simnkyqnrr-opasluy completes the activity by him/herself with no assistance from a helper. 5-Set-up or Clean-up Assistance-helper sets up or cleans up; patient completes activity. Harlan assists only prior to or following the activity. 4-Supervision or Touching Assistance-helper provides verbal cues and/or touching/steadying and/or contact guard assistance as patient completes activity. Assistance may be provided throughout the activity or intermittently. 3-Partial/Moderate Assistance-helper does LESS THAN HALF the effort. Harlan lifts, holds or supports trunk or limbs, but provides less than half the effort. 2-Substantial/Maximal Assistance-helper does MORE THAN HALF the effort. Harlan lifts or holds trunk or limbs and provides more than half the effort. 0-Cnsfkoedc-nrsile does ALL the effort. Patient does none of the effort to complete the activity. Or, the assistance of 2 or more helpers is required for the patient to complete the activity. If activity was not attempted, code reason: 7-Patient Refused. 9-Not Applicable-not attempted and the patient did not perform the activity befo re the current illness, exacerbation or injury. 10-Not Attempted due to Environmental Limitations-(lack of equipment, weather re straints, etc.). 88-Not Attempted due to Medical Conditions or Safety Concerns. Roll Left & Right (QC): 6 Sit to Lying (QC): 6 Lying to Sitting/Side of Bed(Q: 6 Sit to Stand (QC): 6 Chair/Nuh-hm-Fpsnh Xfer(QC): 6 Toilet Transfer (QC): 6 toileted self independently and washed hands Weight Bearing Right Lower Extremity: Right Weight Bearing/Tolerated Left Lower Extremity: Left Weight Bearing/Tolerated Gait Training Does the Patient Walk?: Yes Distance: 600' Walk 10 feet (QC): 5 Walk 50 ft with 2 Turns(QC): 5 Walk 150 ft (QC): 5 Gait Assistive Device: None occasionally utilized hand rail but declined FWW use Stair Training Stair Training: Handrails/: 2 handrails #of Steps: 12 1 Step (curb) (QC): 5 4 Steps (QC): 5 12 Steps (QC): 5 Stairs: Pattern: Step to Assessment Patient does fatigue with activity, however, much improved. Patient would benefit from home health PT to ensure safety in home environment. Physician notified. PT Long-Term Goals Restorative Care Technician Goals PT Restorative Care Technician Goals Time Frame: Nov 06, 2019 Roll Left & Right (QC): 6 Sit to Lying (QC): 6 Lying-Sitting on Side/Bed(QC): 6 Sit to Stand (QC): 6 Chair/Kps-od-Tnebp Xfer(QC): 6 Toilet Transfer (QC): 6 Car Transfer (QC): 6 Does the Patient Walk: Yes Walk 10 feet (QC): 6 Walk 50ft with 2 Turns (QC): 6 Walk 150 ft (QC): 6 1 Step (curb) (QC): 6 4 Steps (QC): 6 PT Plan Treatment/Plan Treatment Plan: Continue Plan of Care Treatment Plan: Bed Mobility, Education, Functional Activity Ayse, Functional Strength, Gait, Safety, Therapeutic Exercise, Transfers Treatment Duration: Nov 06, 2019 Frequency: 6 times per week Estimated Hrs Per Day: .25 hour per day Patient and/or Family Agrees t: Yes Time/GCodes Time In: 1015 Time Out: 1028 Total Billed Treatment Time: 13 Total Billed Treatment 1 visit FA 13 min MARGUERITE ROTH PT Oct 28, 2019 10:53
--- NOTE | 2019-10-28 11:30 | NUR ---
CM/SS finalized discharge. Plan: Patient will discharge home with new home health. Patient's daughter Radha reports that she will be here to bean picker the patient soon. Home Health: CM/SS provided a patient preference form. They chose [facility]. CM/SS contacted [facility] and spoke with Ana Maria to make referral. CM/SS faxed discharge and home health orders to agency. The orders will be for physical therapy only. CM/SS spoke with the patient's physical therapist to see if patient would need a walker at this time. Physical therapist reports patient was refusing to use in the room and did well without it. No further needs at this time.
--- NOTE | 2019-10-28 12:04 | Occupational Ther Daily Note ---
OT Current Status-Daily Note Subjective Pt alert/ oriented, seen in bed. Pt agrees to get to recliner chair, very agreeable. Pt states slight headache but denies further pain. Mental Status/Objective Patient Orientation: Person, Place, Situation ADL-Treatment Therapy Code Descriptions/Definitions Functional [place] Measure: 0=Not Assessed/NA 4=Minimal Assistance 1=Total Assistance 5=Supervision or Setup 2=Maximal Assistance 6=Modified [place] 3=Moderate Assistance 7=Complete IndependenceSCALE: Activities may be completed with or without assistive devices. 4-Qhrimzuasf-fwseofq completes the activity by him/herself with no assistance from a helper. 5-Set-up or Clean-up Assistance-helper sets up or cleans up; patient completes activity. [place] assists only prior to or following the activity. 4-Supervision or Touching Assistance-helper provides verbal cues and/or touching/steadying and/or contact guard assistance as patient completes activity. Assistance may be provided throughout the activity or intermittently. 3-Partial/Moderate Assistance-helper does LESS THAN HALF the effort. [place] lifts, holds or supports trunk or limbs, but provides less than half the effort. 2-Substantial/Maximal Assistance-helper does MORE THAN HALF the effort. [place] lifts or holds trunk or limbs and provides more than half the effort. 0-Cgthrgycw-wbpevj does ALL the effort. Patient does none of the effort to complete the activity. Or, the assistance of 2 or more helpers is required for the patient to complete the activity. If activity was not attempted, code reason: 7-Patient Refused. 9-Not Applicable-not attempted and the patient did not perform the activity before the current illness, exacerbation or injury. 10-Not Attempted due to Environmental Limitations-(lack of equipment, weather restraints, etc.). 88-Not Attempted due to Medical Conditions or Safety Concerns. Oral Hygiene (QC): 7 (laughs, denies) Other Treatment Pt completes bed mob with SBA, ambulates to chair (~4 feet) with CGA. Pt sits with control. Readily agreeable to exercises. Pt educated on theraband ex and purpose. Pt return demonstrates 3/3 exercises with min cues for positioning/ repetitions. Pt completes 1 set of 10 reps bilaterally, no questions. Pt left with all needs met, call light in reach, chair alarm on, pt in recliner. Education OT Patient Education: Correct positioning, Exercise program, Home exercise program, Purpose of tx/functional activities, Safety issues Teaching Recipient: Patient Teaching Methods: Demonstration, Discussion Response to Teaching: Verbalize Understanding, Return Demonstration OT Half-Way Goals Man[employer] Development Advisor Goals Time Frame: Nov 02, 2019 Eating (QC): 6 Oral Hygiene (QC): 6 Toileting Hygiene (QC): 6 Shower/Bathe Self (QC): 6 Upper Body Dressing (QC): 6 Lower Body Dressing (QC): 6 On/Off Footwear (QC): 6 Additional Goals: 1-Demonstrate ADL Tasks, 2-Verbalize Understanding, 3- ImproveStrength/Ayse 1=Demonstrate adherence to instructed precautions during ADL tasks. 2=Patient will verbalize/demonstrate understanding of assistive devices/modifications for ADL. 3=Patient will improve strength/tolerance for activity to enable patient to perform ADL's. OT Education/Plan Problem List/Assessment Assessment: Decreased Activ Tolerance, Decreased UE Strength, Impaired Funct Balance, Impaired I ADL's, Impaired Self-Care Skills Discharge Recommendations Plan/Recommendations: Continue POC Therapy Discharge Recommendati: 24 Hour Supervision, Home & Family Treatment Plan/Plan of Care Treatment,Training & Education: Yes Patient would benefit from OT for education, treatment and training to promote independence in ADL's, mobility, safety and/or upper extremity function for ADL's. Plan of Care: ADL Retraining, Functional Mobility, UE Funct Exercise/Act Treatment Duration: Nov 02, 2019 Frequency: 5 times per week Estimated Hrs Per Day: .25 hour per day Rehab Potential: Fair Time/GCodes Start Time: 09:35 Stop Time: 09:45 Total Time Billed (hr/min): 10 Billed Treatment Time 1, EX (10) MARIN PEARSON OTR Oct 28, 2019 12:04
--- NOTE | 2019-10-28 12:45 | NUR ---
"RD ASSESSMENT PMHx: HTN; DVT; hypothyroidism; stroke; chronic-UTI; GERD; CA(breast,cervical); ETOH dependence PT INTERACTION: Pt was awake and pleasant during nutrition follow-up. Pt states she has been eating okay since last assessment. Note avg PO intake 25-50% x2d, per chart review. Pt states some issues with nausea, vomiting, constipation, and diarrhea since last assessment. Note 3 episodes of emesis on 10/25, per chart review. Note last BM was 10/26, and pt currently on bowel regimen of senna PRN, per chart review. ABNORMAL NUTRITION-RELATED LAB VALUES LOW: HIGH: glu 113 Est. kcal needs: 1525 kcal | 25 kcal/kg Est. Pro needs: 73 g Pro | 1.2 g Pro/kg PES STATEMENT: Inadequate oral intake (NI-2.1) related to loss of appetite | nausea | vomiting | constipation | diarrhea as evidenced by pt interview | avg PO intake 25-50% x2d INTERVENTION: Continue with current diet order of Regular diet. Continue with current supplementation order of Ensure Enlive (vary) with meals TID, for increased kcal intake. Provides 350 kcal and 13 g Pro per serving. Encouraged pt to eat when able. Will continue to follow and reassess as pt needs, intake, and status change. MONITOR/EVALUATE: PO Intake; Plan of Care; Hydration Status; Weight Status; Lab Values Gus Hines, MS, RD, LD"
== END 2019-10-28 11:50 | disposition home health service (06) | DRG 872 ==
LOC: EDUNIT# 09:25 → ER 09:27 → 4TH 12:37
PROVIDERS: ADMIT Family Medicine; ATTEND Family Medicine
DX: A41.9 Sepsis, unspecified organism (principal); N39.0 Urinary tract infection, site not specified; I10 Essential (primary) hypertension; E03.9 Hypothyroidism, unspecified; J43.9 Emphysema, unspecified; I48.91 Unspecified atrial fibrillation; F17.210 Nicotine dependence, cigarettes, uncomplicated; F10.20 Alcohol dependence, uncomplicated; R74.0 Nonspecific elevation of levels of transaminase and lactic acid dehydrogenase [LDH]; K21.9 Gastro-esophageal reflux disease without esophagitis; M79.7 Fibromyalgia; F41.9 Anxiety disorder, unspecified; Z86.718 Personal history of other venous thrombosis and embolism; Z79.01 Long term (current) use of anticoagulants; Z86.73 Personal history of transient ischemic attack (TIA), and cerebral infarction without residual deficits; Z85.3 Personal history of malignant neoplasm of breast; Z85.41 Personal history of malignant neoplasm of cervix uteri; Z86.79 Personal history of other diseases of the circulatory system
CPT/HCPCS: 36415; 51701; 70450; 71045; 71275; 72125; 80048; 80053; 80306; 80320; 81000; 84484; 85025; 85027; 85610; 85730; 86141; 87040; 87077; 87088; 87186; 93005

== ENCOUNTER 2020-03-24 12:31 | Outpatient (RCR) | payer MEDICARE, BC ==
[~2020-03-24] VITALS: Ht 157.5 cm; Wt 61.1 kg
[~2020-03-24 12:31] MED LIST changes: +ACET-2267 PO; +CEFD300C3 PO
[2020-03-24 12:52] VITALS: BP 161/69
== END 2020-06-22 | disposition home or self-care (01) ==
LOC: SDC 12:31
PROVIDERS: ATTEND Surgery
DX: Z45.2 Encounter for adjustment and management of vascular access device (principal)
CPT/HCPCS: 96523